=== PATIENT | male | born 1970 | race Caucasian/White ===

== ENCOUNTER 2017-04-22 23:51 | Inpatient (IN) | payer SELFPAY ==
[~2017-04-22] VITALS: Ht 190.5 cm; Wt 112.4 kg
[2017-04-23] VITALS (15 sets, daily range): BP systolic 111–128; BP diastolic 55–64; PULSE 88–102; RESP 16–20; TEMP 99.3–103; O2SAT 90–96
[2017-04-23] MEDS ORDERED: ZANT150T2 PO (00:09)
--- NOTE | 2017-04-23 00:13 | PD ---
HPI Chief Complaint: Fever Time Seen by Provider: 00:06 Travel History International Travel<30 days: No Contact w/Intl Traveler<30days: No Traveled to known affect area: No History of Present Illness HPI The patient is a 46-year-old male who presents to the emergency department via EMS from [facility] for fever and cough. 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 The patient notes a 3 to four-day history of productive cough , developed a fever 2 days ago that was as high as 104.7 as [facility] according to the paperwork. EMS does note the patient's temperature by to arrival was 102.5. The patient denies a history of tobacco use, denies any history of pneumonia. He does complain of mild nausea, pleuritic anterior chest pain worse with coughing, and a productive cough. He denies any shortness of breath. He does note decreased appetite with mild nausea but denies any vomiting, diarrhea, or abdominal pain. Symptoms are moderate, there are no current alleviating or exacerbating factors. PFSH Past Medical History Narrative Medical Anxiety, depression, loss of hearing Anxiety: Yes Migraines: Yes Past Surgical History Narrative Surgical Cleft palate surgery, bilateral ear surgery, right hand surgery Social History Alcohol Use: No Tobacco Use: No Substance Use: Yes Allergies-Medications (Allergen,Severity, Reaction): Coded Allergies: No Known Allergies (Unverified , 04/23/17) Reported Meds & Prescriptions Reported Meds & Active Scripts Active Reported Zantac (Ranitidine HCl) 150 Mg Tab 150 Mg PO DAILY Review of Systems Except as stated in HPI: all other systems reviewed are Neg General / Constitutional: Positive: Fever HENT: No: Lightheadedness Cardiovascular: No: Chest Pain or Discomfort Respiratory: Positive: Cough, Pleuritic Pain Gastrointestinal: Positive: Nausea, Loss of Appetite, No: Vomiting, Diarrhea, Abdominal Pain Musculoskeletal: Positive: Myalgias, Weakness Psychiatric: Positive: Anxiety, Depression, Substance Abuse Physical Exam Narrative GENERAL: Awake, alert, nontoxic-appearing 46-year-old male appears his stated age and is in no acute respiratory distress. SKIN: Focused skin assessment warm/dry. HEAD: Atraumatic. Normocephalic. EYES: No injection or drainage. ENT: No nasal bleeding or discharge. Mucous membranes pink and moist. NECK: Trachea midline. No JVD. CARDIOVASCULAR: Regular rate and rhythm. No murmur appreciated. RESPIRATORY: No accessory muscle use. Rhonchi noted in the bases bilaterally. GASTROINTESTINAL: Abdomen soft, non-tender, nondistended. No rebound tenderness. MUSCULOSKELETAL: No obvious deformities. No clubbing. No cyanosis. No edema. NEUROLOGICAL: Awake and alert. No obvious cranial nerve deficits. Motor grossly within normal limits. Normal speech. PSYCHIATRIC: Appropriate mood and affect; insight and judgment normal. Data Data Last Documented VS Vital Signs Date Time Temp Pulse Resp B/P (MAP) Pulse Ox O2 Delivery O2 Flow Rate FiO2 04/23/17 01:26 91 Nasal Cannula 6.00 04/23/17 01:18 100 20 111/63 (79) 04/23/17 00:08 102.0 Orders Orders Electrocardiogram (04/23/17 00:07) Complete Blood Count With Diff (04/23/17 00:07) Comprehensive Metabolic Panel (04/23/17 00:07) Lactic Acid Sepsis Protocol (04/23/17 00:07) Influenzae A/B Antigen (04/23/17 00:07) Urinalysis - C+S If Indicated (04/23/17 00:07) Blood Culture (04/23/17 00:07) Chest, Single Ap (04/23/17 00:07) Ecg Monitoring (04/23/17 00:07) Iv Access Insert/Monitor (04/23/17 00:07) Oximetry (04/23/17 00:07) Sodium Chloride 0.9% Flush (Ns Flush) (04/23/17 00:15) Ceftriaxone Inj (Rocephin Inj) (04/23/17 00:15) Azithromycin Inj (Zithromax Inj) (04/23/17 00:15) Acetaminophen (Tylenol) (04/23/17 00:15) Albuterol-Ipratropium Neb (Duoneb Neb) (04/23/17 00:15) Labs Laboratory Tests Test 04/23/17 00:15 White Blood Count 3.8 TH/MM3 Red Blood Count 3.92 MIL/MM3 Hemoglobin 12.8 GM/DL Hematocrit 37.3 % Mean Corpuscular Volume 95.1 FL Mean Corpuscular Hemoglobin 32.7 PG Mean Corpuscular Hemoglobin Concent 34.4 % Red Cell Distribution Width 13.3 % Platelet Count 44 TH/MM3 Mean Platelet Volume 10.8 FL Neutrophils (%) (Auto) 92.9 % Lymphocytes (%) (Auto) 4.1 % Monocytes (%) (Auto) 3.0 % Eosinophils (%) (Auto) 0.0 % Basophils (%) (Auto) 0.0 % Neutrophils # (Auto) 3.6 TH/MM3 Lymphocytes # (Auto) 0.2 TH/MM3 Monocytes # (Auto) 0.1 TH/MM3 Eosinophils # (Auto) 0.0 TH/MM3 Basophils # (Auto) 0.0 TH/MM3 CBC Comment AUTO DIFF Blood Urea Nitrogen 16 MG/DL Creatinine 1.16 MG/DL Random Glucose 126 MG/DL Total Protein 5.7 GM/DL Albumin 2.4 GM/DL Calcium Level 6.6 MG/DL Alkaline Phosphatase 40 U/L Aspartate Amino Transf (AST/SGOT) 62 U/L Alanine Aminotransferase (ALT/SGPT) 27 U/L Total Bilirubin 0.3 MG/DL Sodium Level 124 MEQ/L Potassium Level 3.2 MEQ/L Chloride Level 87 MEQ/L Carbon Dioxide Level 30.7 MEQ/L Anion Gap 6 MEQ/L Estimat Glomerular Filtration Rate 67 ML/MIN Lactic Acid Level 1.1 mmol/L Protein Corrected Calcium 7.3 MG/DL MDM Medical Decision Making Medical Screen Exam Complete: Yes Emergency Medical Condition: Yes Medical Record Reviewed: Yes Interpretation(s) EKG reveals normal sinus rhythm with a rate 87. Nonspecific T wave changes. Chest x-ray reveals patchy consolidative infiltrates in the left lung centrally and in the left lower lung Laboratory Tests Test 04/23/17 00:15 White Blood Count 3.8 TH/MM3 Red Blood Count 3.92 MIL/MM3 Hemoglobin 12.8 GM/DL Hematocrit 37.3 % Mean Corpuscular Volume 95.1 FL Mean Corpuscular Hemoglobin 32.7 PG Mean Corpuscular Hemoglobin Concent 34.4 % Red Cell Distribution Width 13.3 % Platelet Count 44 TH/MM3 Mean Platelet Volume 10.8 FL Neutrophils (%) (Auto) 92.9 % Lymphocytes (%) (Auto) 4.1 % Monocytes (%) (Auto) 3.0 % Eosinophils (%) (Auto) 0.0 % Basophils (%) (Auto) 0.0 % Neutrophils # (Auto) 3.6 TH/MM3 Lymphocytes # (Auto) 0.2 TH/MM3 Monocytes # (Auto) 0.1 TH/MM3 Eosinophils # (Auto) 0.0 TH/MM3 Basophils # (Auto) 0.0 TH/MM3 CBC Comment AUTO DIFF Blood Urea Nitrogen 16 MG/DL Creatinine 1.16 MG/DL Random Glucose 126 MG/DL Total Protein 5.7 GM/DL Albumin 2.4 GM/DL Calcium Level 6.6 MG/DL Alkaline Phosphatase 40 U/L Aspartate Amino Transf (AST/SGOT) 62 U/L Alanine Aminotransferase (ALT/SGPT) 27 U/L Total Bilirubin 0.3 MG/DL Sodium Level 124 MEQ/L Potassium Level 3.2 MEQ/L Chloride Level 87 MEQ/L Carbon Dioxide Level 30.7 MEQ/L Anion Gap 6 MEQ/L Estimat Glomerular Filtration Rate 67 ML/MIN Lactic Acid Level 1.1 mmol/L Protein Corrected Calcium 7.3 MG/DL Differential Diagnosis Differential diagnosis includes pneumonia, sepsis, aspiration pneumonia, influenza, viral syndrome, complicated UTI, dehydration. Narrative Course IV was established, labs were drawn and sent, and the patient was placed on cardiac telemetry monitoring and continuous pulse oximetry monitoring. EKG was ordered and interpreted. Chest x-ray was obtained. The patient was administered duo nebs 3, Rocephin, Zithromax, and IV fluids. X-ray reveals infiltrates in the left lung, sodium was 124, white count was mildly low at 3.8 , after breathing treatments the patient's O2 saturation was 91% on 3 L. Lactic acid is normal 1.1. The patient did receive antibiotics to cover for community-acquired pneumonia. The patient will be admitted, he is comfortable with this plan of care. The on-call medical service was paged for admission. Sepsis Criteria SIRS Criteria (2 or more): Temp > 100.9 or < 96.8, WBC > 36445, < 4000 or > 10 % bands Sepsis Criteria (SIRS+source): Infect source susp/known Criteria Outcome: Meets sepsis criteria Physician Communication Physician Communication The on-call medical service was paged for admission. I discussed the patient with Dr. Yung who agrees with admission. Diagnosis Primary Impression: Pneumonia Qualified Codes: J18.9 - Pneumonia, unspecified organism Additional Impressions: Hyponatremia Sepsis Qualified Codes: A41.9 - Sepsis, unspecified organism Admitting Information Admitting Physician Requests: Admit Condition: Stable Abraham Summers MD Apr 23, 2017 00:13
[2017-04-23] MEDS ORDERED: ACETAMINOPHEN 325 MG TAB PO ONE (00:15)
[2017-04-23] MEDS ORDERED: cefTRIAXone INJ 1,000 MG in SODIUM CHLORIDE 0.9% INJ 100 ML IV ONE (00:15)
[2017-04-23] MEDS ORDERED: AZITHROMYCIN INJ 500 MG in SODIUM CHLOR 0.9% 250 ML INJ 250 ML IV ONE (00:15)
[2017-04-23] MEDS ORDERED: SODIUM CHLORIDE 0.9% FLUSH 10 ML FLUSH IVF PRN (00:15)
[2017-04-23] MEDS: RESP: ALBUTEROL 2.5 MG/IPRATROPIUM 0.5 MG NEB (SCH) INH ×2 (00:24→00:31)
[2017-04-23 00:45] LABS: AUTOMATED NEUTROPHIL # 3.6 TH/MM3 (1.8-7.7); HEMATOCRIT 37.3 % (39.0-51.0); LYMPH % 4.1 % (9.0-44.0); LYMPHOCYTE # 0.2 TH/MM3 (1.0-4.8); MEAN CELL VOLUME 95.1 FL (80.0-100.0); MEAN CORPUSCULAR HEMOGLOBIN 32.7 PG (27.0-34.0); MEAN CORPUSCULAR HGB CONC 34.4 % (32.0-36.0); NEUT % 92.9 % (16.0-70.0); PLATELET COUNT 44 TH/MM3 (150-450); RED BLOOD COUNT 3.92 MIL/MM3 (4.50-5.90); RED CELL DISTRIBUTION WIDTH 13.3 % (11.6-17.2); WHITE BLOOD COUNT 3.8 TH/MM3 (4.0-11.0)
--- NOTE | 2017-04-23 01:01 | RADRPT ---
EXAM DATE/TIME: 04/23/2017 00:14 [place] COMPARISON: No previous studies available for comparison. INDICATIONS : Cough. MEDICAL HISTORY : Gastroesophageal reflux disease. SURGICAL HISTORY : None. ENCOUNTER: Initial ACUITY: 3 days PAIN SCORE: 0/10 LOCATION: Bilateral chest FINDINGS: Partially consolidative infiltrates in the left mid and lower lung with some air bronchograms. The l eft hemidiaphragm remains well delineated. The right lung is clear. The heart is normal in size. CONCLUSION: Patchy consolidative infiltrates in the left lung centrally and in the left lower lung. Wes Lewis MD on April 23, 2017 at 0:59 Board Certified Radiologist. This report was verified electronically.
[2017-04-23 01:05] LABS: HEMO FLAGS AUTO DIFF
[2017-04-23 01:13] LABS: BICARBONATE 30.7 MEQ/L (21.0-32.0); POTASSIUM 3.2 MEQ/L (3.5-5.1); TOTAL BILIRUBIN ADULT 0.3 MG/DL (0.2-1.0)
[2017-04-23 01:21] LABS: CALCIUM-PROTEIN CORRECTED 7.3 MG/DL (8.5-10.1)
[2017-04-23 01:39] LABS: BANDS 14 % (0-6); METAMYELOCYTES 1 % (0-1); NEUTROPHIL # MANUAL DIFF 3.7 TH/MM3 (1.8-7.7); POLYS (SEG NEUTROPHILS) 83 % (16-70); WBC DIFF SAMPLE 100
[2017-04-23 01:42] LABS: PLATELET ESTIMATE SMEAR LOW (NORMAL); SCAN/DIFF FINAL DIFF MANUAL
[2017-04-23 01:43] LABS: PLATELET MORPHOLOGY ENLARGED (NORMAL)
[2017-04-23] MEDS ORDERED: CALCIUM GLUCONATE 10% 1 GM/10 ML VIAL IV PUSH ONE (02:00)
[2017-04-23] MEDS ORDERED: LACTULOSE SYRUP 20 GM/30 ML CUP PO PRN (02:00)
[2017-04-23] MEDS ORDERED: BISACODYL 10 MG SUPP RECTAL PRN (02:00)
[2017-04-23] MEDS ORDERED: RESP: ALBUTEROL 2.5 MG/IPRATROPIUM 0.5 MG NEB (PRN) NEB (02:00)
[2017-04-23] MEDS ORDERED: MAGNESIUM HYDROXIDE SUSP 30 ML CUP PO PRN (02:00)
[2017-04-23] MEDS ORDERED: ONDANSETRON HCL 4 MG/2 ML VIAL IVP PRN (02:00)
[2017-04-23] MEDS ORDERED: Vancomycin Consult Pharmacy 1 EA OTHER SCH (02:00)
[2017-04-23] MEDS ORDERED: SODIUM CHLORIDE 0.9% FLUSH 10 ML FLUSH IV FLUSH PRN (02:00)
[2017-04-23] MEDS ORDERED: SENNOSIDES 8.6 MG TAB PO PRN (02:00)
[2017-04-23] MEDS ORDERED: CALCIUM GLUCONATE INJ 1 GM in SODIUM CHLORIDE 0.9% INJ 100 ML IV ONE (02:15)
[2017-04-23] MEDS ORDERED: POTASSIUM CHLORIDE 20 MEQ CONTROLLED RELEASE TAB PO ONE (02:15)
--- NOTE | 2017-04-23 02:18 | HHI.HP ---
[facility] Primary Care Physician No Primary Care Physician Admission Diagnosis pneumonia, sepsis, hyponatremia Diagnoses: (1) Sepsis Diagnosis: Principal (2) PNA (pneumonia) Diagnosis: Principal (3) Hyponatremia Diagnosis: Principal (4) Hypocalcemia Diagnosis: Principal (5) Thrombocytopenia Diagnosis: Principal (6) Substance abuse Diagnosis: Principal (7) Hypokalemia Diagnosis: Principal Travel History International Travel<30 Days: No Contact w/Intl Traveler <30 Da: No Traveled to Known Affected Are: No History of Present Illness This is a 46-year-old male with a PMH of Anxiety, Depression and Substance Abuse was sent to the ER by EMS from [facility] for cough and fever x2 days. Per records, pt w/ Temp 104.7. Pt denies SOB, chest pain, nausea, vomiting or diarrhea. On arrival, BP 127 or 61 to HR 88, O2 sat 96% on 2L NC, Temp 102.0. WBC 3.8. Hemoglobin 12.8. Platelets 44. Bands 14%. Na 124. K+ 3.2. Ca 6.6. Lactic Acid 1.1. CXR with patchy consolidative infiltrates left lung centrally and left lower lung. S/p Blood Cultures and Rocephin/Zithro. Review of Systems Except as stated in HPI: all other systems reviewed are Neg ROS: 14 point review of systems otherwise negative. Past Family Social History Past Medical History PMH: Anxiety, Depression and Substance Abuse Past Surgical History PAST SURGICAL HISTORY: Cleft Palate Surgery, Right Hand Surgery, Bilateral Ear Surgery Allergies: Coded Allergies: No Known Allergies (Unverified , 04/23/17) Family History PAST FAMILY HISTORY: Reviewed. No h/o DM or CAD Social History PAST SOCIAL HISTORY: Negative for alcohol or tobacco. Positive for Substance Abuse Physical Exam Vital Signs Vital Signs Date Time Temp Pulse Resp B/P (MAP) Pulse Ox O2 Delivery O2 Flow Rate FiO2 04/23/17 01:26 91 Nasal Cannula 6.00 04/23/17 01:18 100 20 111/63 (79) 93 Nasal Cannula 3.00 04/23/17 00:27 95 Nasal Cannula 4.00 04/23/17 00:13 87 16 96 Nasal Cannula 2.00 04/23/17 00:13 16 96 Nasal Cannula 2.00 04/23/17 00:08 102.0 88 16 127/61 (83) 96 Physical Exam PE: GENERAL: Middle-aged white male in no acute distress. HEENT: PERRLA, EOMI. No scleral icterus or conjunctival pallor. No lid lag or facial droop. CARDIOVASCULAR: Regular rate and rhythm. No obvious murmurs to auscultation. No chest tenderness to palpation. RESPIRATORY: Coarse breath sounds bilaterally, no wheezing. Breath sounds equal bilaterally. GASTROINTESTINAL: Abdomen soft, non-tender, nondistended. BS normal. MUSCULOSKELETAL: Extremities without clubbing, cyanosis, or edema. No obvious deformities. NEUROLOGICAL: Awake, alert and oriented x4. No focal neurologic deficits. Moving both upper and lower extremities spontaneously. Laboratory Laboratory Tests Test 04/23/17 00:15 White Blood Count 3.8 Red Blood Count 3.92 Hemoglobin 12.8 Hematocrit 37.3 Mean Corpuscular Volume 95.1 Mean Corpuscular Hemoglobin 32.7 Mean Corpuscular Hemoglobin Concent 34.4 Red Cell Distribution Width 13.3 Platelet Count 44 Mean Platelet Volume 10.8 Neutrophils (%) (Auto) 92.9 Lymphocytes (%) (Auto) 4.1 Monocytes (%) (Auto) 3.0 Eosinophils (%) (Auto) 0.0 Basophils (%) (Auto) 0.0 Neutrophils # (Auto) 3.6 Lymphocytes # (Auto) 0.2 Monocytes # (Auto) 0.1 Eosinophils # (Auto) 0.0 Basophils # (Auto) 0.0 CBC Comment AUTO DIFF Differential Total Cells Counted 100 Neutrophils % (Manual) 83 Band Neutrophils % 14 Lymphocytes % 1 Monocytes % 1 Neutrophils # (Manual) 3.7 Metamyelocytes 1 Differential Comment FINAL DIFF MANUAL Platelet Estimate LOW Platelet Morphology Comment ENLARGED Blood Urea Nitrogen 16 Creatinine 1.16 Random Glucose 126 Total Protein 5.7 Albumin 2.4 Calcium Level 6.6 Alkaline Phosphatase 40 Aspartate Amino Transf (AST/SGOT) 62 Alanine Aminotransferase (ALT/SGPT) 27 Total Bilirubin 0.3 Sodium Level 124 Potassium Level 3.2 Chloride Level 87 Carbon Dioxide Level 30.7 Anion Gap 6 Estimat Glomerular Filtration Rate 67 Lactic Acid Level 1.1 Protein Corrected Calcium 7.3 Date/Time Source Procedure Growth Status 04/23/17 00:15 Blood Peripheral Aerobic Blood Culture Pending Received 04/23/17 00:15 Blood Peripheral Anaerobic Blood Culture Pending Received 04/23/17 00:20 Nasal Washing Influenza Types A,B Antigen (ALEXANDRE) - Final NEGATIVE FOR FLU A AND B ANTIGEN.... Complete Result Diagram: 04/23/17 0015 04/23/17 0015 Caprini VTE Risk Assessment Caprini VTE Risk Assessment: No/Low Risk (score <= 1) Caprini Risk Assessment Model Point Value = 1 Point Value = 2 Point Value = 3 Point Value = 5 Age 41-60 Minor surgery BMI > 25 kg/m2 Swollen legs Varicose veins or History of unexplained or recurrent spontaneous Oral contraceptives or hormone replacement Sepsis (< 1 month) Serious lung disease, including pneumonia (< 1 month) Abnormal pulmonary function Acute myocardial infarction Congestive heart failure (< 1 month) History of inflammatory bowel disease Medical patient at bed rest Age 61-74 Arthroscopic surgery Major open surgery (> 45 min) Laparoscopic surgery (> 45 min) Malignancy Confined to bed (> 72 hours) Immobilizing plaster cast Central venous access Age >= 75 History of VTE Family history of VTE Factor V Leiden Prothrombin [id number] Lupus anticoagulant Anticardiolipin antibodies Elevated serum homocysteine Heparin-induced thrombocytopenia Other congenital or acquired thrombophilia Stroke (< 1 month) Elective arthroplasty Hip, pelvis, or leg fracture Acute spinal cord injury (< 1 month) Prophylaxis Regimen Total Risk Factor Score Risk Level Prophylaxis Regimen 0-1 Low Early ambulation 2 Moderate Order ONE of the following: *Sequential Compression Device (SCD) *Heparin 5000 units SQ BID 3-4 Higher Order ONE of the following medications: *Heparin 5000 units SQ TID *Enoxaparin/Lovenox 40 mg SQ daily (WT < 150 kg, CrCl > 30 mL/min) *Enoxaparin/Lovenox 30 mg SQ daily (WT < 150 kg, CrCl > 10-29 mL/min) *Enoxaparin/Lovenox 30 mg SQ BID (WT < 150 kg, CrCl > 30 mL/min) AND/OR *Sequential Compression Device (SCD) 5 or more Highest Order ONE of the following medications: *Heparin 5000 units SQ TID (Preferred with Epidurals) *Enoxaparin/Lovenox 40 mg SQ daily (WT < 150 kg, CrCl > 30 mL/min) *Enoxaparin/Lovenox 30 mg SQ daily (WT < 150 kg, CrCl > 10-29 mL/min) *Enoxaparin/Lovenox 30 mg SQ BID (WT < 150 kg, CrCl > 30 mL/min) AND *Sequential Compression Device (SCD) Assessment and Plan Problem List: (1) Sepsis ICD Code: A41.9 - Sepsis, unspecified organism Status: Acute (2) PNA (pneumonia) ICD Code: J18.9 - Pneumonia, unspecified organism (3) Hyponatremia ICD Code: E87.1 - Hypo-osmolality and hyponatremia Status: Acute (4) Hypocalcemia ICD Code: E83.51 - Hypocalcemia (5) Hypokalemia ICD Code: E87.6 - Hypokalemia (6) Thrombocytopenia ICD Code: D69.6 - Thrombocytopenia, unspecified (7) Substance abuse ICD Code: F19.10 - Other psychoactive substance abuse, uncomplicated Assessment and Plan A/P: 1. Sepsis: Temp 104.7, 102.0 in ER. HR 100, WBC 3.8 w/ Bandemia 14%. Source- PNA. S/p Blood Cultures, Rocephin/Zithro in ER. Follow up cultures, continue IV Abx. 2. PNA: CXR w/ left midlung and LLL infiltrates, images reviewed by me. IV Abx, DuoNeb prn. 3. Hyponatremia: Na 124, likely secondary to acute infection/dehydration, IVF for hydration, repeat labs in am. 4. Hypocalcemia: Ca 6.6, will replace and recheck labs in am. 5. Hypokalemia: Mild. K+ 3.2, replace and recheck in am. 6. Thrombocytopenia: Platelets 44, no previous labs for comparison, no active bleeding. No h/o Alcohol Abuse. Will monitor, repeat labs in am. 7. Substance Abuse: w/ Methamphetamines, sent to ER from [facility]. Ativan prn if needed. 8. DVT Prophylaxis: Pharmacologic contraindication secondary to thrombocytopenia 9. Social work for d/c planning as needed. 10. Case discussed w/ ER physician at length. Physician Certification 2 Midnight Certification Type: Admission for Inpatient Services Order for Inpatient Services The services are ordered in accordance with Medicare regulations or non- Medicare payer requirements, as applicable. In the case of services not specified as inpatient-only, they are appropriately provided as inpatient services in accordance with the 2-midnight benchmark. Estimated LOS (days): 2 days is the estimated time the patient will need to remain in the hospital, assuming treatment plan goals are met and no additional complications. Post-Hospital Plan: Not yet determined Problem Qualifiers (1) Sepsis: Qualified Codes: A41.9 - Sepsis, unspecified organism Mary Yung MD Apr 23, 2017 02:18
[2017-04-23] MEDS ORDERED: VANCOMYCIN INJ 2,000 MG in SODIUM CHLORID 0.9% 500 ML INJ 500 ML IV ONE (02:30)
[2017-04-23] MEDS: SODIUM CHLOR 0.9% 1000 ML INJ 1,000 ML IV SCH ×3 (03:30→21:18)
[2017-04-23] MEDS: ACETAMINOPHEN 325 MG TAB PO PRN (07:47)
[2017-04-23] MEDS: CEFEPIME INJ 1,000 MG in SODIUM CHLORIDE 0.9% INJ 100 ML IV SCH ×2 (08:31→22:58)
[2017-04-23] MEDS: DOCUSATE SODIUM 50 MG/SENNA 8.6 MG TAB PO SCH ×2 (08:31→21:13)
[2017-04-23] MEDS: SODIUM CHLORIDE 0.9% FLUSH 10 ML FLUSH IV FLUSH SCH ×2 (08:32→21:00)
[2017-04-23 09:25] LABS: AUTOMATED NEUTROPHIL # 2.7 TH/MM3 (1.8-7.7); BASOPHIL % 0.2 % (0.0-2.0); HEMATOCRIT 37.6 % (39.0-51.0); LYMPH % 8.8 % (9.0-44.0); LYMPHOCYTE # 0.3 TH/MM3 (1.0-4.8); MEAN CELL VOLUME 96.8 FL (80.0-100.0); MEAN CORPUSCULAR HEMOGLOBIN 32.8 PG (27.0-34.0); MEAN CORPUSCULAR HGB CONC 33.9 % (32.0-36.0); MONO % 2.4 % (0.0-8.0); NEUT % 88.6 % (16.0-70.0); PLATELET COUNT 39 TH/MM3 (150-450); RED BLOOD COUNT 3.89 MIL/MM3 (4.50-5.90); RED CELL DISTRIBUTION WIDTH 13.8 % (11.6-17.2)
[2017-04-23 09:29] LABS: HEMO FLAGS AUTO DIFF
[2017-04-23 09:48] LABS: BICARBONATE 27.3 MEQ/L (21.0-32.0); POTASSIUM 3.5 MEQ/L (3.5-5.1)
[2017-04-23 10:07] LABS: PLATELET ESTIMATE SMEAR LOW (NORMAL); PLATELET MORPHOLOGY ENLARGED (NORMAL); SCAN/DIFF AUTO DIFF CONFIRMED
[2017-04-23 10:28] LABS: CALCIUM-PROTEIN CORRECTED 7.5 MG/DL (8.5-10.1)
[2017-04-23] MEDS ORDERED: IBUPROFEN 400 MG TAB PO PRN (11:45)
--- NOTE | 2017-04-23 11:55 | HHI.PR ---
Subjective Remarks Follow up pneumonia, sepsis. Patient reports fever, cough. Does not feel any better. Objective Vitals Vital Signs Date Time Temp Pulse Resp B/P (MAP) Pulse Ox O2 Delivery O2 Flow Rate FiO2 04/23/17 09:31 101.5 04/23/17 08:00 102.9 97 18 128/58 (81) 91 04/23/17 04:00 102.9 94 20 124/58 (80) 93 04/23/17 04:00 91 04/23/17 03:00 Nasal Cannula 6.00 04/23/17 02:55 100.9 91 20 117/61 (79) 91 04/23/17 02:47 92 20 122/64 (83) 93 Nasal Cannula 6.00 04/23/17 01:26 91 Nasal Cannula 6.00 04/23/17 01:18 100 20 111/63 (79) 93 Nasal Cannula 3.00 04/23/17 00:27 95 Nasal Cannula 4.00 04/23/17 00:13 87 16 96 Nasal Cannula 2.00 04/23/17 00:13 16 96 Nasal Cannula 2.00 04/23/17 00:08 102.0 88 16 127/61 (83) 96 I/O 04/22/17 04/22/17 04/22/17 04/23/17 04/23/17 04/23/17 07:00 15:00 23:00 07:00 15:00 23:00 Intake Total 950 ml Output Total 1000 ml Balance -50 ml Intake Oral 240 ml IV Total 710 ml Output Urine Total 1000 ml Result Diagram: 04/23/1712 04/23/17911 Imaging Last Impressions Chest X-Ray 04/23/17 0007 Signed Impressions: Service Date/Time: Sunday, April 23, 2017 00:14 - CONCLUSION: Patchy consolidative infiltrates in the left lung centrally and in the left lower lung. Wes Lewis MD Objective Remarks General: No acute distress. Heart: Regular rate and rhythm. No murmur. Lungs: Coarse breath sounds bilaterally. Breathing is nonlabored. Abdomen: Soft, nontender, nondistended. Extremities: No lower extremity edema. Psych: Alert and oriented. Procedures None Urinary Catheter: No Vascular Central Line Catheter: No A/P Problem List: (1) Sepsis ICD Code: A41.9 - Sepsis, unspecified organism Status: Acute (2) PNA (pneumonia) ICD Code: J18.9 - Pneumonia, unspecified organism (3) Hyponatremia ICD Code: E87.1 - Hypo-osmolality and hyponatremia Status: Acute (4) Hypocalcemia ICD Code: E83.51 - Hypocalcemia (5) Hypokalemia ICD Code: E87.6 - Hypokalemia (6) Thrombocytopenia ICD Code: D69.6 - Thrombocytopenia, unspecified (7) Substance abuse ICD Code: F19.10 - Other psychoactive substance abuse, uncomplicated Assessment and Plan 1. Sepsis: Patient continues to have fever, not responding to Tylenol. Add ibuprofen as needed. Source is pneumonia. Blood cultures are pending. Continue IV antibiotics. 2. Pneumonia: Left lower lobe and left midlung infiltrates noted on chest x- ray. Continue antibiotics, supplemental oxygen. DuoNeb as needed. 3. Hyponatremia: Slightly improved. Continue IV fluids. Monitor labs. 4. Hypocalcemia: Improved following supplementation. Monitor labs. 5. Hypokalemia: Improved. 6. Thrombocytopenia: Platelets remain decreased. No active bleeding reported. Consult hematology. 7. Substance abuse: Patient was sent to the ER from [facility]. Has history of methamphetamine abuse. 8. DVT prophylaxis: MARIE Day. Chemical prophylaxis contraindicated secondary to thrombocytopenia. Problem Qualifiers (1) Sepsis: Qualified Codes: A41.9 - Sepsis, unspecified organism Ron Beverly MD Apr 23, 2017 11:55
--- NOTE | 2017-04-23 13:57 | EKG ---
Date Performed: 04/23/2017 Time Performed: 00:16:54 PTAGE: 46 years EKG: Sinus rhythm NONSPECIFIC T-WAVE ABNORMALITY BORDERLINE ECG PREVIOUS TRACING : 05/14/1999 11.00 Since previous tracing, T-waves slightly more flattened, ot herwise no significant change. DOCTOR: Dell Wallace Interpretating Date/Time 04/23/2017 13:57:22
[2017-04-23] MEDS: IBUPROFEN 400 MG TAB PO SCH ×2 (14:08→21:14)
--- NOTE | 2017-04-23 14:33 | MB ---
cc: LUZ BEVERLY,ALBERTO Gaytan M.D. DATE OF CONSULTATION: 04/23/2017. REASON FOR CONSULTATION / CHIEF COMPLAINT: Dr. Beverly requested consultation for Mr. Spicer regarding thrombocytopenia. REFERRING PHYSICIAN: Dr. Beverly. HISTORY OF PRESENT ILLNESS: Mr. Spicer is a 46-year-old man with anxiety, depression and substance abuse. He came from [facility]. He has had fevers for two days. He thinks he was exposed to someone who was ill. His temperature was 104.7 maximum. He was documented to be febrile in the hospital as well with a temperature of 102.0. His blood cultures were obtained. His flu antigen was negative for flu A and B. He complains of upper respiratory symptoms of a cough well. He feels delirious. There are patchy consolidative changes in the left lung centrally in the left lower lung. He complains of some sputum production. He has hearing loss. He denies any headaches. He complains of diarrhea. The rest of his review of systems is negative. Laboratory evaluation is significant for pancytopenia. White blood cell count of 3.8, hemoglobin of 12.8, platelet count of 44,000. Repeat continues to show the same pancytopenia. Platelet morphology is large. His sodium is decreased at 125. Renal function is normal. Calcium is decreased 6.6, corrected to 7.5. AST mildly elevated. No prior history of HIV or hepatitis B testing. No coagulation labs. He denies any bleeding. No bruising. No melena or bright red blood per rectum. He denies any liver problem abnormality. He states he hates needs although he has a great big extensive tattoo on his left forearm. PAST MEDICAL HISTORY: 1. Anxiety. 2. Depression. 3. Substance abuse. 4. Fevers. 5. Pancytopenia. PAST SURGICAL HISTORY: 1. Left palate surgery. 2. Right hand surgery. 3. Bilateral ear surgery. FAMILY HISTORY: No family history of diabetes or coronary artery disease. SOCIAL HISTORY: He has a history of polysubstance abuse and is therefore in [facility]. He denies however any IV drug use. He denies any alcohol or tobacco use. PHYSICAL EXAMINATION: VITAL SIGNS: Temperature 103.0, heart rate 102, respiratory rate 20, blood pressure 117/55, saturation 91%. GENERAL: Mr. Spicer is a well-developed well-nourished man who looks his stated age. HEAD, EYES, EARS, NOSE, THROAT: He is hard of hearing. Pupils round and reactive to light and accommodation. Oropharynx is clear. NECK: The neck is supple with no adenopathy. LUNGS: Coarse rhonchi over both lung caballero. No wheezing. CARDIOVASCULAR: Tachycardia. ABDOMEN: Benign. LOWER EXTREMITIES: Without clubbing, cyanosis or edema. NEUROLOGICAL: Nonfocal. LABS: Discussed above. ASSESSMENT AND PLAN: Mr. Spicer is a 46-year-old man with anxiety, depression, polysubstance abuse. He comes in with febrile illness and upper respiratory symptoms and infiltrates in his lungs. Influenza is negative. His blood cultures are negative so far. He continues to have high fevers. I will schedule his ibuprofen the next 24 hours. His blood cultures will be repeated. Will monitor closely for etiology source of the fevers. We discussed checking hepatitis and HIV. He has pancytopenia. Clinical exam did not show hepatomegaly or splenomegaly. I am unable to exclude ITP but suspect that the pancytopenia is due to the febrile illness. He denies any alcohol use. Therefore liver related suppression is unlikely, that is if his history is believable. Ultrasound of the liver and spleen will be obtained. His questions were answered to his satisfaction. I defer from bone marrow biopsy evaluation for the pancytopenia until resolution of his febrile illness. Alberto Sorensen MD RAD/JCC /1:27 PM /2:20 PM
[2017-04-23] MEDS: VANCOMYCIN INJ 2,000 MG in SODIUM CHLORID 0.9% 500 ML INJ 500 ML IV SCH (17:04)
--- NOTE | 2017-04-23 17:09 | PD.CONS ---
History of Present Illness Service Infectious disease Consult Requested By Dr Sabino Beverly Reason for Consult Evaluate patient with sepsis Primary Care Physician No Primary Care Physician Diagnoses: History of Present Illness Patient seen and examined. Records reviewed. Patient is a 46-year-old male, brought into the hospital complaining of 2 day history of cough with whitman color sputum, as well as fever. He apparently has been having symptoms for at least 5 days prior to coming into the hospital. He also started having diarrhea while at [facility]. His respiratory complaint started prior to coming into [facility]. Patient is not a very good historian. He denies any nausea or vomiting. He complains of some shortness of breath, and some chest pain on the sternal area when he coughs. Patient stated also that he's had some abdominal cramping associated with the diarrhea. He's had 3 loose bowel movements per day. He did not see any blood or any mucus. Denies any nausea or vomiting. He has noted some dribbling when he urinates, but denies any dysuria. Patient states that he has acid reflux, and has some abdominal pain when he lays on his side, so most of the time when he is in bed he is lying flat on his back. He does not know if he's had any exposure to anyone in [facility]. Patient has no permanent residence, and has been staying in different. Patient apparently started smoking meth. He denies using IV drugs. Patient was released from retirement in November 2016, and he was in retirement for about 4 years. Over had any positive TB skin testing. His had previous HIV testing that were negative. Patient states he is heterosexual , and denies any previous homosexual activity. Since admission patient has been febrile up to 102+. He is also pancytopenic. His chest x-ray showing patchy infiltrates. His LFTs were also elevated. Influenza testing is negative. Infectious disease consultation has been requested to evaluate for sepsis. Review of Systems Constitutional: COMPLAINS OF: Fever, Chills, Night Sweats Eyes: DENIES: Eye pain Ears, nose, mouth, throat: DENIES: Nasal discharge, Oral lesions, Throat pain, Running Nose, Sinus Pain Respiratory: COMPLAINS OF: Cough, Sputum production, Shortness of breath, DENIES: Hemoptysis Cardiovascular: COMPLAINS OF: Chest pain, DENIES: Palpitations, Syncope Gastrointestinal: COMPLAINS OF: Abdominal pain, Diarrhea, DENIES: Nausea, Vomiting, Difficulty Swallowing Genitourinary: COMPLAINS OF: Urgency, DENIES: Dysuria Musculoskeletal: DENIES: Joint pain, Muscle aches, Joint Swelling Integumentary: DENIES: Rash Neurologic: DENIES: Headache, Localized weakness Psychiatric: DENIES: Hallucinations Past Family Social History Allergies: Coded Allergies: No Known Allergies (Unverified , 04/23/17) Past Medical History Anxiety Depression Substance Abuse Past Surgical History Cleft Palate Surgery Right Hand Surgery Bilateral Ear Surgery Active Ordered Medications Tylenol Albuterol Dulcolax Cefepime Motrin Lactulose MOM Zofran Oxycodone Marsha-Colace Senokot Vancomycin Family History Unremarkable Social History Used to drink about 4-6 beers per day Smoker, recently trying to quit Has been smoking meth amphetamine, denies IV drug use Does not have a permanent residence 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, 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 Physical Exam Vital Signs Vital Signs Date Time Temp Pulse Resp B/P (MAP) Pulse Ox O2 Delivery O2 Flow Rate FiO2 04/23/17 12:00 103.0 102 20 117/55 (75) 91 04/23/17 09:31 101.5 04/23/17 08:00 102.9 97 18 128/58 (81) 91 04/23/17 04:00 102.9 94 20 124/58 (80) 93 04/23/17 04:00 91 04/23/17 03:00 Nasal Cannula 6.00 04/23/17 02:55 100.9 91 20 117/61 (79) 91 04/23/17 02:47 92 20 122/64 (83) 93 Nasal Cannula 6.00 04/23/17 01:26 91 Nasal Cannula 6.00 04/23/17 01:18 100 20 111/63 (79) 93 Nasal Cannula 3.00 04/23/17 00:27 95 Nasal Cannula 4.00 04/23/17 00:13 87 16 96 Nasal Cannula 2.00 04/23/17 00:13 16 96 Nasal Cannula 2.00 04/23/17 00:08 102.0 88 16 127/61 (83) 96 Physical Exam GENERAL: Patient is a well-nourished, well-developed CM, awake and alert, not in respiratory distress. SKIN: Warm and dry. No generalized rash, no ecchymoses and no evidence of embolic lesions. HEAD: Atraumatic. Normocephalic. No temporal wasting, or tenderness. EYES: [place]cliffe conjunctiva. No petechia or hemorrhage. Pupils equal, round and reactive to light. Extraocular movements full and intact. No scleral icterus. No injection or drainage. EARS, NOSE AND THROAT: Nose without bleeding or purulent nasal discharge. No sinus tenderness. Mucous membranes pink and moist. No oral lesions noted. No exudate. No oral thrush. NECK: Trachea midline. Supple and not tender, no meningeal signs CARDIOVASCULAR: Regular rate and rhythm. No murmurs, rubs or gallops heard RESPIRATORY: Coarse breath sounds bilaterally, with some scattered rales. Breath sounds equal bilaterally. ABDOMEN: Soft, non-tender, nondistended. Bowel sounds present and normoactive. No guarding. No rebound. No organomegaly. EXTREMITIES: No clubbing, cyanosis, or edema. No joint effusion, has good ROM. No calf tenderness. Well perfused and warm. NEUROLOGICAL: Awake and alert. Cranial nerves grossly intact. Motor grossly within normal limits. PSYCHIATRIC: Normal affect, calm and cooperative. LINE: No evidence of infection Laboratory Laboratory Tests Test 04/23/17 00:15 04/23/17 09:12 White Blood Count 3.8 3.0 Red Blood Count 3.92 3.89 Hemoglobin 12.8 12.7 Hematocrit 37.3 37.6 Mean Corpuscular Volume 95.1 96.8 Mean Corpuscular Hemoglobin 32.7 32.8 Mean Corpuscular Hemoglobin Concent 34.4 33.9 Red Cell Distribution Width 13.3 13.8 Platelet Count 44 39 Mean Platelet Volume 10.8 10.2 Neutrophils (%) (Auto) 92.9 88.6 Lymphocytes (%) (Auto) 4.1 8.8 Monocytes (%) (Auto) 3.0 2.4 Eosinophils (%) (Auto) 0.0 0.0 Basophils (%) (Auto) 0.0 0.2 Neutrophils # (Auto) 3.6 2.7 Lymphocytes # (Auto) 0.2 0.3 Monocytes # (Auto) 0.1 0.1 Eosinophils # (Auto) 0.0 0.0 Basophils # (Auto) 0.0 0.0 CBC Comment AUTO DIFF AUTO DIFF Differential Total Cells Counted 100 Neutrophils % (Manual) 83 Band Neutrophils % 14 Lymphocytes % 1 Monocytes % 1 Neutrophils # (Manual) 3.7 Metamyelocytes 1 Differential Comment FINAL DIFF MANUAL AUTO DIFF CONFIRMED Platelet Estimate LOW LOW Platelet Morphology Comment ENLARGED ENLARGED Blood Urea Nitrogen 16 10 Creatinine 1.16 0.90 Random Glucose 126 119 Total Protein 5.7 5.3 Albumin 2.4 Calcium Level 6.6 6.6 Alkaline Phosphatase 40 Aspartate Amino Transf (AST/SGOT) 62 Alanine Aminotransferase (ALT/SGPT) 27 Total Bilirubin 0.3 Sodium Level 124 125 Potassium Level 3.2 3.5 Chloride Level 87 91 Carbon Dioxide Level 30.7 27.3 Anion Gap 6 7 Estimat Glomerular Filtration Rate 67 90 Lactic Acid Level 1.1 1.0 Protein Corrected Calcium 7.3 7.5 Date/Time Source Procedure Growth Status 04/23/17 00:15 Blood Peripheral Aerobic Blood Culture Pending Received 04/23/17 00:15 Blood Peripheral Anaerobic Blood Culture Pending Received 04/23/17 00:20 Nasal Washing Influenza Types A,B Antigen (ALEXANDRE) - Final NEGATIVE FOR FLU A AND B ANTIGEN.... Complete Result Diagram: 04/23/1712 04/23/1712 Imaging RADIOLOGY STUDIES/FILMS REVIEWED Last Impressions Chest X-Ray 04/23/17 0007 Signed Impressions: Service Date/Time: Sunday, April 23, 2017 00:14 - CONCLUSION: Patchy consolidative infiltrates in the left lung centrally and in the left lower lung. Wes Lewis MD Assessment and Plan Assessment and Plan IMPRESSION Sepsis, on admission, due to PNA, L CAP, ?typical vs atypical Pancytopenia, ?due to infection, vs other etiology (+) Meth use (smoking), denies IVDU RECOMMENDATION Check urine for Legionella and pneumococcal antigen UA and culture Sputum Gram stain and culture Repeat blood cultures tomorrow Repeat chest x-ray Check LDH Agree with HIV testing Continue cefepime and vancomycin for broad-spectrum coverage for pneumonia Add Levaquin for atypical coverage Follow cultures and adjust antibiotics Monitor temps Follow CBC Monitor progress I will determine course of antibiotics depending on the results of the culture and workup I will follow along with you Thank you for this consultation Discussed Condition With Explained plan to the patient Asya Haro MD Apr 23, 2017 17:09
[2017-04-23] MEDS ORDERED: LEVOFLOXACIN 750 MG PREMIX INJ 150 ML IV SCH (18:00)
[2017-04-23 21:26] LABS: APTT (PATIENT) 57.4 SEC (24.3-30.1); INTERNATIONAL NORMALIZED RATIO 1.1 RATIO; PROTHROMBIN TIME - PATIENT 12.1 SEC (9.8-11.6)
[2017-04-23 22:01] LABS: FERRITIN 2707 NG/ML (26-388); LDH SERUM 568 U/L (87-241)
[2017-04-24] VITALS (9 sets, daily range): BP systolic 117–147; BP diastolic 60–71; PULSE 61–104; RESP 16–20; TEMP 97.6–102.9; O2SAT 92–99
[2017-04-24 00:31] LABS: BACTERIA, URINE OCC /hpf; BLOOD, URINE TRACE (NEG); COMMENT (UR) CULT NOT INDICATED; CULTURE IF INDICATED CULT NOT INDICATED; GLUCOSE,URINE NEG (NEG); HYALINE CAST, URINE 1 /lpf (RARE); KETONE, URINE NEG (NEG); NITRITE,URINE NEG (NEG); PH, URINE 5.5 (5.0-8.5); SQUAMOUS EPITHELIAL CELL URINE <1 /hpf (0-5); URINE COLOR LIGHT-YELLOW (YELLW/STRAW)
[2017-04-24] MEDS: VANCOMYCIN INJ 2,000 MG in SODIUM CHLORID 0.9% 500 ML INJ 500 ML IV SCH (03:17)
[2017-04-24] MEDS: IBUPROFEN 400 MG TAB PO SCH ×2 (03:17→09:11)
[2017-04-24] MEDS: SODIUM CHLOR 0.9% 1000 ML INJ 1,000 ML IV SCH ×2 (07:49→17:49)
[2017-04-24] MEDS: CEFEPIME INJ 1,000 MG in SODIUM CHLORIDE 0.9% INJ 100 ML IV SCH ×2 (09:00→20:53)
[2017-04-24] MEDS: DOCUSATE SODIUM 50 MG/SENNA 8.6 MG TAB PO SCH ×2 (09:00→20:54)
[2017-04-24] MEDS: SODIUM CHLORIDE 0.9% FLUSH 10 ML FLUSH IV FLUSH SCH ×2 (09:21→20:53)
[2017-04-24] MEDS: ACETAMINOPHEN 325 MG TAB PO PRN ×2 (09:27→23:56)
[2017-04-24 09:39] LABS: BASOPHIL % 0.1 % (0.0-2.0); HEMATOCRIT 41.3 % (39.0-51.0); LYMPH % 5.8 % (9.0-44.0); LYMPHOCYTE # 0.3 TH/MM3 (1.0-4.8); MEAN CELL VOLUME 97.3 FL (80.0-100.0); MEAN CORPUSCULAR HEMOGLOBIN 32.8 PG (27.0-34.0); MEAN CORPUSCULAR HGB CONC 33.7 % (32.0-36.0); MONO % 1.9 % (0.0-8.0); NEUT % 92.2 % (16.0-70.0); PLATELET COUNT 49 TH/MM3 (150-450); RED BLOOD COUNT 4.24 MIL/MM3 (4.50-5.90); RED CELL DISTRIBUTION WIDTH 13.9 % (11.6-17.2); WHITE BLOOD COUNT 4.4 TH/MM3 (4.0-11.0)
[2017-04-24 09:41] LABS: RETIC % 0.5 % (0.4-3.0)
[2017-04-24 09:47] LABS: HEMO FLAGS AUTO DIFF
[2017-04-24 09:49] LABS: REVIEW FLAG FINAL
--- NOTE | 2017-04-24 10:08 | RADRPT ---
EXAM DATE/TIME: 04/24/2017 08:20 [place] COMPARISON: No previous studies available for comparison. INDICATIONS : Pancytopenia. MEDICAL HISTORY : Gastroesophageal reflux disease. Substance abuse. Migraine. Anxiety. SURGICAL HISTORY : Hand surgery. ENCOUNTER: Initial ACUITY: 1 day PAIN SCORE: 0/10 LOCATION: Bilateral upper quadrant MEASUREMENTS: LIVER: 16.2 cm length COMMON DUCT: Non-visualized RIGHT KIDNEY: 12.6 x 5.6 x 5.1 cm SPLEEN: 14.7 cm length FINDINGS: LIVER: Minimally hepatic echotexture without significant volume loss or intrahepatic ductal dilatation. No g ross focal hepatic mass. Patent hepatopetal main portal vein. COMMON DUCT: Common bile duct is not visualized. GALLBLADDER: Contains no stones, demonstrates no wall thickening or pericholecystic fluid. PANCREAS: Minimally increased pancreatic echogenicity in the visualized portions of the pancreas. RIGHT KIDNEY: Small anechoic 2.0 x 2.1 x 2.0 cm cyst in the mid right kidney. Right kidney is otherwise unremarkabl e by ultrasound. SPLEEN: Enlarged but otherwise unremarkable. CONCLUSION: 1. Mild hepatosplenomegaly with heterogeneous hepatic echotexture. Findings may reflect hepatosteatos is/hepatitis or early cirrhosis with portal hypertension versus infiltrative leukemia/lymphoma (altho ugh uncommon) given history of pancytopenia. 2. Slightly hyperechoic pancreas. This finding is nonspecific but may reflect sequela of prior pancre atitis or fatty replacement. Enrique Du MD on April 24, 2017 at 9:59 Board Certified Radiologist. This report was verified electronically.
[2017-04-24 10:14] LABS: BICARBONATE 29.9 MEQ/L (21.0-32.0); CALCIUM-PROTEIN CORRECTED 7.7 MG/DL (8.5-10.1); POTASSIUM 3.6 MEQ/L (3.5-5.1); TOTAL BILIRUBIN ADULT 0.4 MG/DL (0.2-1.0)
--- NOTE | 2017-04-24 10:35 | PD.ONC.PN ---
Subjective Subjective Remarks Tmax 100.6 this AM. Patient resting in bed. States he still doesn't feel good. "I just don't feel good." No specific or localizing complaints. Objective Data Date Time Temp Pulse Resp B/P (MAP) Pulse Ox O2 Delivery O2 Flow Rate FiO2 04/24/17 08:31 96 Nasal Cannula 4.00 04/24/17 07:47 Nasal Cannula 6.00 04/24/17 04:00 100.6 95 18 133/65 (87) 93 04/23/17 22:02 92 Nasal Cannula 6.00 04/23/17 19:59 91 04/23/17 19:52 Nasal Cannula 5.00 04/23/17 19:50 99.8 92 18 119/63 (81) 93 04/23/17 18:27 19 04/23/17 16:00 99.3 97 20 114/60 (78) 90 04/23/17 12:00 103.0 102 20 117/55 (75) 91 04/24/17 04/24/17 04/24/17 07:00 15:00 23:00 Intake Total 2140 ml Output Total 3675 ml Balance -1535 ml Result Diagram: 04/24/17 0735 04/24/17 0735 Laboratory Results Laboratory Tests Test 04/23/17 20:26 04/24/17 00:00 04/24/17 07:35 Prothrombin Time 12.1 SEC Prothromb Time International Ratio 1.1 RATIO Activated Partial Thromboplast Time 57.4 SEC Fibrinogen 382 mg/dL Ferritin 2707 NG/ML Lactate Dehydrogenase 568 U/L Vitamin B12 Level 1992 PG/ML Urine Color LIGHT-YELLOW Urine Turbidity CLEAR Urine pH 5.5 Urine Specific [place] 1.004 Urine Protein NEG mg/dL Urine Glucose (UA) NEG mg/dL Urine Ketones NEG mg/dL Urine Occult Blood TRACE Urine Nitrite NEG Urine Bilirubin NEG Urine Urobilinogen LESS THAN 2.0 MG/DL Urine Leukocyte Esterase NEG Urine RBC LESS THAN 1 /hpf Urine WBC 2 /hpf Urine Squamous Epithelial Cells <1 /hpf Urine Bacteria OCC /hpf Urine Hyaline Casts 1 /lpf Microscopic Urinalysis Comment CULT NOT INDICATED White Blood Count 4.4 TH/MM3 Red Blood Count 4.24 MIL/MM3 Hemoglobin 13.9 GM/DL Hematocrit 41.3 % Mean Corpuscular Volume 97.3 FL Mean Corpuscular Hemoglobin 32.8 PG Mean Corpuscular Hemoglobin Concent 33.7 % Red Cell Distribution Width 13.9 % Platelet Count 49 TH/MM3 Mean Platelet Volume 10.6 FL Neutrophils (%) (Auto) 92.2 % Lymphocytes (%) (Auto) 5.8 % Monocytes (%) (Auto) 1.9 % Eosinophils (%) (Auto) 0.0 % Basophils (%) (Auto) 0.1 % Neutrophils # (Auto) 4.0 TH/MM3 Lymphocytes # (Auto) 0.3 TH/MM3 Monocytes # (Auto) 0.1 TH/MM3 Eosinophils # (Auto) 0.0 TH/MM3 Basophils # (Auto) 0.0 TH/MM3 CBC Comment AUTO DIFF Blood Smear Pathologist Review Reticulocyte Count 0.5 % Absolute Reticulocyte Count 20.7 MIL/L Blood Urea Nitrogen 7 MG/DL Creatinine 0.67 MG/DL Random Glucose 78 MG/DL Total Protein 5.9 GM/DL Albumin 2.3 GM/DL Calcium Level 7.1 MG/DL Alkaline Phosphatase 50 U/L Aspartate Amino Transf (AST/SGOT) 118 U/L Alanine Aminotransferase (ALT/SGPT) 37 U/L Total Bilirubin 0.4 MG/DL Sodium Level 133 MEQ/L Potassium Level 3.6 MEQ/L Chloride Level 94 MEQ/L Carbon Dioxide Level 29.9 MEQ/L Anion Gap 9 MEQ/L Estimat Glomerular Filtration Rate 127 ML/MIN Protein Corrected Calcium 7.7 MG/DL Culture Results Microbiology Date/Time Source Procedure Growth Status 04/24/17 07:35 Blood Peripheral Aerobic Blood Culture Pending Received 04/24/17 07:35 Blood Peripheral Anaerobic Blood Culture Pending Received 04/23/17 20:26 Blood Peripheral Aerobic Blood Culture Pending Received 04/23/17 20:26 Blood Peripheral Anaerobic Blood Culture Pending Received 04/23/17 20:19 Blood Peripheral Aerobic Blood Culture Pending Received 04/23/17 20:19 Blood Peripheral Anaerobic Blood Culture Pending Received 04/23/17 00:15 Blood Peripheral Aerobic Blood Culture Pending Received 04/23/17 00:15 Blood Peripheral Anaerobic Blood Culture Pending Received 04/23/17 00:05 Blood Peripheral Aerobic Blood Culture Pending Received 04/23/17 00:05 Blood Peripheral Anaerobic Blood Culture Pending Received 04/23/17 00:20 Nasal Washing Influenza Types A,B Antigen (ALEXANDRE) - Final NEGATIVE FOR FLU A AND B ANTIGEN.... Complete 04/24/17 00:00 Urine Clean Catch Legionella Antigen - Final PRESUMPTIVE NEGATIVE FOR LEGIONELLA P... Complete 04/24/17 00:00 Urine Clean Catch Streptococcus pneumoniae Antigen (M - Final PRESUMPTIVE NEGATIVE FOR STREPTOCOCCU... Complete Imaging Studies Last 24 hours Impressions Liver Ultrasound 04/24/17 0000 Signed Impressions: Service Date/Time: Monday, April 24, 2017 08:20 - CONCLUSION: 1. Mild hepatosplenomegaly with heterogeneous hepatic echotexture. Findings may reflect hepatosteatosis/hepatitis or early cirrhosis with portal hypertension versus infiltrative leukemia/lymphoma (although uncommon) given history of pancytopenia. 2. Slightly hyperechoic pancreas. This finding is nonspecific but may reflect sequela of prior pancreatitis or fatty replacement. Enrique Du MD Administered Medications Medications (Trade) Dose Ordered Sig/Angel Route PRN Reason Start Time Stop Time Status Last Admin Dose Admin Cefepime HCl 1000 mg/Sodium Chloride 100 ml @ 200 mls/hr Q12H IV 04/23/17 09:00 04/24/17 09:00 Sodium Chloride 1,000 ml @ 100 mls/hr Q10H IV 04/23/17 01:49 04/23/17 14:02 Sodium Chloride (NS Flush) 2 ml BID IV FLUSH 04/23/17 09:00 04/24/17 09:21 Acetaminophen (Tylenol) 650 mg Q6H PRN PO FEVER/PAIN SCALE 1 TO 2 04/23/17 02:00 04/24/17 09:27 Oxycodone HCl (Roxicodone) 10 mg Q4H PRN PO PAIN SCALE 6 TO 10 04/23/17 02:00 04/23/17 21:13 Oxycodone HCl (Roxicodone) 5 mg Q4H PRN PO PAIN SCALE 3 TO 5 04/23/17 02:00 04/23/17 17:15 Senna/Docusate Sodium (Marsha-Colace) 1 tab BID PO 04/23/17 09:00 04/23/17 21:13 Vancomycin HCl 2000 mg/Sodium Chloride 520 ml @ 257.5 mls/ hr Q12H IV 04/23/17 15:00 04/24/17 03:17 Ibuprofen (Motrin) 200 mg Q6H PO 04/23/17 14:00 04/24/17 13:59 04/24/17 09:11 Levofloxacin/ Dextrose 150 ml @ 100 mls/hr Q24H IV 04/23/17 18:00 04/23/17 18:27 Objective Remarks GENERAL: Middle aged male upright in bed in nad. SKIN: Warm and dry. HEAD: Normocephalic. EYES: No injection or drainage. NECK: Supple, trachea midline. CARDIOVASCULAR: Regular rate and rhythm RESPIRATORY: anterior caballero with occasional rhonchi. On 5L O2 via NC GASTROINTESTINAL: Abdomen soft, mildly distended. EXTREMITIES: No cyanosis NEUROLOGICAL: awake and alert, normal speech. moving all extremities Assessment/Plan Problem List: (1) Pancytopenia ICD Codes: D61.818 - Other pancytopenia Plan: --may be due to febrile illness --no neutropenia --liver ultrasound shows mild hepatosplenomegaly (2) Febrile illness ICD Codes: R50.9 - Fever, unspecified Plan: --admitted with febrile illness and upper respiratory symptoms and infiltrates in his lungs. --influenza is negative. --blood cultures are negative so far. --ibuprofen scheduled --hepatitis and HIV pending --on multiple antibiotics --infectious disease following. Assessment 46-year-old man with anxiety, depression and substance abuse. hematology consulted for pancytopenia. Plan 1. continue antibiotics 2. await completion of workup as above. Attending Statement The exam, history, and the medical decision-making described in the above note were completed with the assistance of the mid-level provider. I reviewed and agree with the findings presented. I attest that I had a [id number] encounter with the patient on the same day, and personally performed and documented my assessment and findings in the medical record. Febrile illness, platelets improve, hgb normal. Noted CT showing HSM which contribute to thrombocytopenia. No treatment needed. No sign of DIC with fibrinogen elevated. Cont abx per ID. Follow with you. Sherri Merino Apr 24, 2017 10:35 Sparkle Sorensen MD Apr 24, 2017 19:41
[2017-04-24 11:52] LABS: BANDS 23 % (0-6); DOHLE BODIES PRESENT (NONE SEEN); METAMYELOCYTES 8 % (0-1); NEUTROPHIL # MANUAL DIFF 4.2 TH/MM3 (1.8-7.7); POLYS (SEG NEUTROPHILS) 65 % (16-70); WBC DIFF SAMPLE 100
[2017-04-24 11:53] LABS: PLATELET ESTIMATE SMEAR LOW (NORMAL)
[2017-04-24 11:56] LABS: PLATELET MORPHOLOGY ENLARGED (NORMAL)
[2017-04-24 11:57] LABS: SCAN/DIFF FINAL DIFF MANUAL
--- NOTE | 2017-04-24 12:50 | HHI.IDPN ---
Subjective Subjective Remarks Patient is a 46-year-old male, brought into the hospital complaining of 2 day history of cough with whitman color sputum, as well as fever. He apparently has been having symptoms for at least 5 days prior to coming into the hospital. He also started having diarrhea while at [facility]. His respiratory complaint started prior to coming into [facility]. Patient is not a very good historian. He denies any nausea or vomiting. He complains of some shortness of breath, and some chest pain on the sternal area when he coughs. Patient stated also that he's had some abdominal cramping associated with the diarrhea. He's had 3 loose bowel movements per day. He did not see any blood or any mucus. Denies any nausea or vomiting. He has noted some dribbling when he urinates, but denies any dysuria. Patient states that he has acid reflux, and has some abdominal pain when he lays on his side, so most of the time when he is in bed he is lying flat on his back. He does not know if he's had any exposure to anyone in [facility]. Patient has no permanent residence, and has been staying in different. Patient apparently started smoking meth. He denies using IV drugs. Patient was released from [facility] in November 2016, and he was in [facility] for about 4 years. Over had any positive TB skin testing. His had previous HIV testing that were negative. Patient states he is heterosexual , and denies any previous homosexual activity. Since admission patient has been febrile up to 102+. He is also pancytopenic. His chest x-ray showing patchy infiltrates. His LFTs were also elevated. Influenza testing is negative. Infectious disease consultation has been requested to evaluate for sepsis. Notes reviewed Still with fevers Does not feel good HIV negative WBC 4.4 Platelets 49 Legionella and pneumo Ag negative BC negative Antibiotics Cefepime Vanco levaquin Lines PIV Past Medical History Anxiety Depression Substance Abuse Past Surgical History Cleft Palate Surgery Right Hand Surgery Bilateral Ear Surgery Allergies: Coded Allergies: No Known Allergies (Unverified , 04/23/17) Objective . Vital Signs Date Time Temp Pulse Resp B/P (MAP) Pulse Ox O2 Delivery O2 Flow Rate FiO2 04/24/17 08:31 96 Nasal Cannula 4.00 04/24/17 08:00 102.9 99 20 147/71 (96) 93 04/24/17 07:49 101 04/24/17 07:47 Nasal Cannula 6.00 04/24/17 04:00 100.6 95 18 133/65 (87) 93 04/23/17 22:02 92 Nasal Cannula 6.00 04/23/17 19:59 91 04/23/17 19:52 Nasal Cannula 5.00 04/23/17 19:50 99.8 92 18 119/63 (81) 93 04/23/17 18:27 19 04/23/17 16:00 99.3 97 20 114/60 (78) 90 04/24/17 04/24/17 04/25/17 15:00 23:00 07:00 Intake Total 100 ml Balance 100 ml IV Total 100 ml . Laboratory Tests Test 04/23/17 00:15 04/23/17 09:12 04/24/17 07:35 White Blood Count 3.8 TH/MM3 3.0 TH/MM3 4.4 TH/MM3 Red Blood Count 3.92 MIL/MM3 3.89 MIL/MM3 4.24 MIL/MM3 Hemoglobin 12.8 GM/DL 12.7 GM/DL 13.9 GM/DL Hematocrit 37.3 % 37.6 % 41.3 % Mean Corpuscular Volume 95.1 FL 96.8 FL 97.3 FL Mean Corpuscular Hemoglobin 32.7 PG 32.8 PG 32.8 PG Mean Corpuscular Hemoglobin Concent 34.4 % 33.9 % 33.7 % Red Cell Distribution Width 13.3 % 13.8 % 13.9 % Platelet Count 44 TH/MM3 39 TH/MM3 49 TH/MM3 Mean Platelet Volume 10.8 FL 10.2 FL 10.6 FL Neutrophils (%) (Auto) 92.9 % 88.6 % 92.2 % Lymphocytes (%) (Auto) 4.1 % 8.8 % 5.8 % Monocytes (%) (Auto) 3.0 % 2.4 % 1.9 % Eosinophils (%) (Auto) 0.0 % 0.0 % 0.0 % Basophils (%) (Auto) 0.0 % 0.2 % 0.1 % Neutrophils # (Auto) 3.6 TH/MM3 2.7 TH/MM3 4.0 TH/MM3 Lymphocytes # (Auto) 0.2 TH/MM3 0.3 TH/MM3 0.3 TH/MM3 Monocytes # (Auto) 0.1 TH/MM3 0.1 TH/MM3 0.1 TH/MM3 Eosinophils # (Auto) 0.0 TH/MM3 0.0 TH/MM3 0.0 TH/MM3 Basophils # (Auto) 0.0 TH/MM3 0.0 TH/MM3 0.0 TH/MM3 CBC Comment AUTO DIFF AUTO DIFF AUTO DIFF Differential Total Cells Counted 100 100 Neutrophils % (Manual) 83 % 65 % Band Neutrophils % 14 % 23 % Lymphocytes % 1 % 3 % Monocytes % 1 % 1 % Neutrophils # (Manual) 3.7 TH/MM3 4.2 TH/MM3 Metamyelocytes 1 % 8 % Differential Comment FINAL DIFF MANUAL AUTO DIFF CONFIRMED FINAL DIFF MANUAL Platelet Estimate LOW LOW LOW Platelet Morphology Comment ENLARGED ENLARGED ENLARGED Toxic Vacuolation Dohle Bodies PRESENT Blood Smear Pathologist Review Reticulocyte Count 0.5 % Absolute Reticulocyte Count 20.7 MIL/L Laboratory Tests Test 04/23/17 00:15 04/23/17 09:12 04/23/17 20:26 04/24/17 07:35 Blood Urea Nitrogen 16 MG/DL 10 MG/DL 7 MG/DL Creatinine 1.16 MG/DL 0.90 MG/DL 0.67 MG/DL Random Glucose 126 MG/DL 119 MG/DL 78 MG/DL Total Protein 5.7 GM/DL 5.3 GM/DL 5.9 GM/DL Albumin 2.4 GM/DL 2.3 GM/DL Calcium Level 6.6 MG/DL 6.6 MG/DL 7.1 MG/DL Alkaline Phosphatase 40 U/L 50 U/L Aspartate Amino Transf (AST/SGOT) 62 U/L 118 U/L Alanine Aminotransferase (ALT/SGPT) 27 U/L 37 U/L Total Bilirubin 0.3 MG/DL 0.4 MG/DL Sodium Level 124 MEQ/L 125 MEQ/L 133 MEQ/L Potassium Level 3.2 MEQ/L 3.5 MEQ/L 3.6 MEQ/L Chloride Level 87 MEQ/L 91 MEQ/L 94 MEQ/L Carbon Dioxide Level 30.7 MEQ/L 27.3 MEQ/L 29.9 MEQ/L Anion Gap 6 MEQ/L 7 MEQ/L 9 MEQ/L Estimat Glomerular Filtration Rate 67 ML/MIN 90 ML/MIN 127 ML/MIN Lactic Acid Level 1.1 mmol/L 1.0 mmol/L Protein Corrected Calcium 7.3 MG/DL 7.5 MG/DL 7.7 MG/DL Ferritin 2707 NG/ML Lactate Dehydrogenase 568 U/L Vitamin B12 Level 1992 PG/ML Microbiology Date/Time Source Procedure Growth Status 04/24/17 07:35 Blood Peripheral Aerobic Blood Culture Pending Received 04/24/17 07:35 Blood Peripheral Anaerobic Blood Culture Pending Received 04/23/17 20:26 Blood Peripheral Aerobic Blood Culture - Preliminary NO GROWTH IN 1 DAY Resulted 04/23/17 20:26 Blood Peripheral Anaerobic Blood Culture - Preliminary NO GROWTH IN 1 DAY Resulted 04/23/17 20:19 Blood Peripheral Aerobic Blood Culture - Preliminary NO GROWTH IN 1 DAY Resulted 04/23/17 20:19 Blood Peripheral Anaerobic Blood Culture - Preliminary NO GROWTH IN 1 DAY Resulted 04/23/17 00:15 Blood Peripheral Aerobic Blood Culture - Preliminary NO GROWTH IN 1 DAY Resulted 04/23/17 00:15 Blood Peripheral Anaerobic Blood Culture - Preliminary NO GROWTH IN 1 DAY Resulted 04/23/17 00:05 Blood Peripheral Aerobic Blood Culture - Preliminary NO GROWTH IN 1 DAY Resulted 04/23/17 00:05 Blood Peripheral Anaerobic Blood Culture - Preliminary NO GROWTH IN 1 DAY Resulted 04/23/17 00:20 Nasal Washing Influenza Types A,B Antigen (ALEXANDRE) - Final NEGATIVE FOR FLU A AND B ANTIGEN.... Complete 04/24/17 00:00 Urine Clean Catch Legionella Antigen - Final PRESUMPTIVE NEGATIVE FOR LEGIONELLA P... Complete 04/24/17 00:00 Urine Clean Catch Streptococcus pneumoniae Antigen (M - Final PRESUMPTIVE NEGATIVE FOR STREPTOCOCCU... Complete Imaging Last Impressions Liver Ultrasound 04/24/17 0000 Signed Impressions: Service Date/Time: Monday, April 24, 2017 08:20 - CONCLUSION: 1. Mild hepatosplenomegaly with heterogeneous hepatic echotexture. Findings may reflect hepatosteatosis/hepatitis or early cirrhosis with portal hypertension versus infiltrative leukemia/lymphoma (although uncommon) given history of pancytopenia. 2. Slightly hyperechoic pancreas. This finding is nonspecific but may reflect sequela of prior pancreatitis or fatty replacement. Enrique Du MD Chest X-Ray 04/23/17 0007 Signed Impressions: Service Date/Time: Sunday, April 23, 2017 00:14 - CONCLUSION: Patchy consolidative infiltrates in the left lung centrally and in the left lower lung. Wes Lewis MD Physical Exam GENERAL: awake and alert, not in respiratory distress. SKIN: Warm and dry. No generalized rash, no ecchymoses and no evidence of embolic lesions. HEAD: Atraumatic. Normocephalic. No temporal wasting, or tenderness. EYES: [place] conjunctiva. No petechia or hemorrhage. No scleral icterus. No injection or drainage. EARS, NOSE AND THROAT: Nose without bleeding or purulent nasal discharge. No sinus tenderness. Mucous membranes pink and moist. No oral lesions noted. No exudate. No oral thrush. NECK: Trachea midline. Supple and not tender, no meningeal signs CARDIOVASCULAR: Regular rate and rhythm. No murmurs, rubs or gallops heard RESPIRATORY: Coarse breath sounds bilaterally, with some scattered rales. Breath sounds equal bilaterally. ABDOMEN: Soft, non-tender, nondistended. Bowel sounds present and normoactive. No guarding. No rebound. No organomegaly. EXTREMITIES: No clubbing, cyanosis, or edema. No joint effusion, has good ROM. No calf tenderness. Well perfused and warm. NEUROLOGICAL: Awake and alert. Cranial nerves grossly intact. Motor grossly within normal limits. PSYCHIATRIC: Normal affect, calm and cooperative. LINE: No evidence of infection Assessment & Plan Remarks IMPRESSION Sepsis, on admission, due to PNA, L CAP, ?typical vs atypical Pancytopenia, ?due to infection, vs other etiology (+) Meth use (smoking), denies IVDU RECOMMENDATION Sputum Gram stain and culture Follow C/S Continue Levaquin for atypical coverage Monitor temps Follow CBC Monitor progress Repeat CXR tomorrow Asya Haro MD Apr 24, 2017 12:49
[2017-04-24] MEDS ORDERED: LEVOFLOXACIN 750 MG TAB PO SCH (14:00)
--- NOTE | 2017-04-24 14:37 | HHI.PR ---
Subjective Remarks Follow up sepsis. Patient has been quite agitated per nursing. He states that he has a history of anxiety/depression. He states that he takes gabapentin, seroquel, and buspar. Denies chest pain, dyspnea, nausea, vomiting. Objective Vitals Vital Signs Date Time Temp Pulse Resp B/P (MAP) Pulse Ox O2 Delivery O2 Flow Rate FiO2 04/24/17 12:00 98.1 88 18 122/60 (80) 92 04/24/17 08:31 96 Nasal Cannula 4.00 04/24/17 08:00 102.9 99 20 147/71 (96) 93 04/24/17 07:49 101 04/24/17 07:47 Nasal Cannula 6.00 04/24/17 04:00 100.6 95 18 133/65 (87) 93 04/23/17 22:02 92 Nasal Cannula 6.00 04/23/17 19:59 91 04/23/17 19:52 Nasal Cannula 5.00 04/23/17 19:50 99.8 92 18 119/63 (81) 93 04/23/17 18:27 19 04/23/17 16:00 99.3 97 20 114/60 (78) 90 I/O 04/23/17 04/23/17 04/23/17 04/24/17 04/24/17 04/24/17 07:00 15:00 23:00 07:00 15:00 23:00 Intake Total 950 ml 1390 ml 2140 ml 100 ml Output Total 1000 ml 1350 ml 3675 ml Balance -50 ml 40 ml -1535 ml 100 ml Intake Oral 240 ml 720 ml 720 ml IV Total 710 ml 670 ml 1420 ml 100 ml Output Urine Total 1000 ml 1350 ml 3675 ml # Bowel Movements 1 0 Result Diagram: 04/24/17 0735 04/24/17 0735 Imaging Last Impressions Liver Ultrasound 04/24/17 0000 Signed Impressions: Service Date/Time: Monday, April 24, 2017 08:20 - CONCLUSION: 1. Mild hepatosplenomegaly with heterogeneous hepatic echotexture. Findings may reflect hepatosteatosis/hepatitis or early cirrhosis with portal hypertension versus infiltrative leukemia/lymphoma (although uncommon) given history of pancytopenia. 2. Slightly hyperechoic pancreas. This finding is nonspecific but may reflect sequela of prior pancreatitis or fatty replacement. Enrique Du MD Chest X-Ray 04/23/17 0007 Signed Impressions: Service Date/Time: Sunday, April 23, 2017 00:14 - CONCLUSION: Patchy consolidative infiltrates in the left lung centrally and in the left lower lung. Wes Lewis MD Objective Remarks General: No acute distress. Hard of hearing. Heart: Regular rate and rhythm. No murmur. Lungs: Coarse breath sounds bilaterally. Breathing is nonlabored. Abdomen: Soft, nontender, nondistended. Extremities: No lower extremity edema. Psych: Alert and oriented. Procedures None Urinary Catheter: No Vascular Central Line Catheter: No A/P Problem List: (1) Sepsis ICD Code: A41.9 - Sepsis, unspecified organism Status: Acute (2) PNA (pneumonia) ICD Code: J18.9 - Pneumonia, unspecified organism (3) Hyponatremia ICD Code: E87.1 - Hypo-osmolality and hyponatremia Status: Acute (4) Hypocalcemia ICD Code: E83.51 - Hypocalcemia (5) Hypokalemia ICD Code: E87.6 - Hypokalemia (6) Thrombocytopenia ICD Code: D69.6 - Thrombocytopenia, unspecified (7) Substance abuse ICD Code: F19.10 - Other psychoactive substance abuse, uncomplicated Assessment and Plan 1. Sepsis: Patient continues to have fever. Continue scheduled ibuprofen. Source is pneumonia. Blood cultures are pending. Continue IV antibiotics. 2. Pneumonia: Left lower lobe and left midlung infiltrates noted on chest x- ray. Continue antibiotics, supplemental oxygen. DuoNeb as needed. 3. Hyponatremia: Improved. Continue IV fluids. Monitor labs. 4. Hypocalcemia: Improved. Monitor labs. 5. Hypokalemia: Improved. 6. Thrombocytopenia/pancytopenia: Likely secondary to sepsis. Platelets trending up. No active bleeding reported. Appreciate hematology recommendations. 7. Substance abuse: Patient was sent to the ER from [facility]. Has history of methamphetamine abuse. 8. DVT prophylaxis: SCDs, MARIE lindsay. Chemical prophylaxis contraindicated secondary to thrombocytopenia. Problem Qualifiers (1) Sepsis: Qualified Codes: A41.9 - Sepsis, unspecified organism Ron Beverly MD Apr 24, 2017 14:37
[2017-04-24] MEDS ORDERED: PHARMACY ORDERED LAB ONE (14:45)
[2017-04-24] MEDS: VANCOMYCIN INJ 2,250 MG in SODIUM CHLORID 0.9% 500 ML INJ 500 ML IV SCH (17:49)
[2017-04-24] MEDS: LORazepam 2 MG/ML VIAL IV PUSH PRN (18:01)
[2017-04-24] MEDS ORDERED: GABA600T PO (22:32)
[2017-04-24] MEDS ORDERED: BUSP15TA PO (22:32)
[2017-04-24] MEDS ORDERED: busPIRone HCL 5 MG TAB PO ONE (23:00)
[2017-04-24] MEDS ORDERED: GABAPENTIN 300 MG CAP PO ONE (23:00)
[2017-04-24] MEDS ORDERED: TOPI1TAB36 PO (23:10)
[2017-04-24] MEDS ORDERED: CITA10TA4 PO (23:10)
[2017-04-24] MEDS ORDERED: SERO50TA PO (23:10)
[2017-04-25] VITALS: BP 136/88; PULSE 93; RESP 18; TEMP 102.8; O2SAT 89
[2017-04-25] MEDS: SODIUM CHLOR 0.9% 1000 ML INJ 1,000 ML IV SCH
[2017-04-25] MEDS: LORazepam 2 MG/ML VIAL IV PUSH PRN ×2 (00:09→04:56)
[2017-04-25 04:00] VITALS: BP 142/67; PULSE 101; RESP 20; TEMP 99.5; O2SAT 88
[2017-04-25] MEDS: VANCOMYCIN INJ 2,250 MG in SODIUM CHLORID 0.9% 500 ML INJ 500 ML IV SCH (04:45)
[2017-04-25 08:25] LABS: AUTOMATED NEUTROPHIL # 2.9 TH/MM3 (1.8-7.7); BASOPHIL % 0.2 % (0.0-2.0); HEMATOCRIT 37.2 % (39.0-51.0); LYMPH % 11.3 % (9.0-44.0); LYMPHOCYTE # 0.4 TH/MM3 (1.0-4.8); MEAN CELL VOLUME 97.7 FL (80.0-100.0); MEAN CORPUSCULAR HEMOGLOBIN 32.6 PG (27.0-34.0); MEAN CORPUSCULAR HGB CONC 33.3 % (32.0-36.0); NEUT % 84.5 % (16.0-70.0); PLATELET COUNT 60 TH/MM3 (150-450); RED BLOOD COUNT 3.81 MIL/MM3 (4.50-5.90); RED CELL DISTRIBUTION WIDTH 14.2 % (11.6-17.2); WHITE BLOOD COUNT 3.5 TH/MM3 (4.0-11.0)
[2017-04-25 08:31] LABS: HEMO FLAGS AUTO DIFF
[2017-04-25] MEDS: CEFEPIME INJ 1,000 MG in SODIUM CHLORIDE 0.9% INJ 100 ML IV SCH (09:00)
[2017-04-25 09:08] LABS: BICARBONATE 27.4 MEQ/L (21.0-32.0); POTASSIUM 3.4 MEQ/L (3.5-5.1)
[2017-04-25 09:41] LABS: CALCIUM-PROTEIN CORRECTED 7.4 MG/DL (8.5-10.1)
[2017-04-25 09:59] LABS: BANDS 23 % (0-6); CORRECTED NUCLEATED RBC 1 /100 WBC (0-0); NEUTROPHIL # MANUAL DIFF 3.4 TH/MM3 (1.8-7.7); PLATELET ESTIMATE SMEAR LOW (NORMAL); PLATELET MORPHOLOGY NORMAL (NORMAL); POLYS (SEG NEUTROPHILS) 73 % (16-70); WBC DIFF SAMPLE 100
[2017-04-25 10:00] LABS: SCAN/DIFF FINAL DIFF MANUAL; TOXIC GRANULATION 1+ (NORMAL); TOXIC VACUOLATION PRESENT (NONE SEEN)
[2017-04-26] MEDS ORDERED: PHARMACY ORDERED LAB ONE (04:45)
== END 2017-04-25 09:42 | disposition left against medical advice (07) | DRG 871 ==
LOC: NEPE 23:51 → NEDA 04-23 01:39 → N04B 04-23 02:51
PROVIDERS: ADMIT Family Medicine; ATTEND Family Medicine
DX: A41.9 Sepsis, unspecified organism (principal); J18.9 Pneumonia, unspecified organism; D61.818 Other pancytopenia; E87.1 Hypo-osmolality and hyponatremia; E83.51 Hypocalcemia; F41.9 Anxiety disorder, unspecified; F32.9 Major depressive disorder, single episode, unspecified; H91.90 Unspecified hearing loss, unspecified ear; E87.6 Hypokalemia; F15.10 Other stimulant abuse, uncomplicated; F17.210 Nicotine dependence, cigarettes, uncomplicated; E86.0 Dehydration; K21.9 Gastro-esophageal reflux disease without esophagitis; Z59.0 Homelessness
CPT/HCPCS: 71010; 76705; 76937; 80048; 80053; 80074; 80202; 81001; 82607; 82728; 83605; 83615; 84155; 85007; 85025; 85027; 85044; 85060; 85384; 85610; 85730; 87040; 87070; 87205; 87389; 87449; 87804; 93005; 94640; 94664; 96365; 96367; J0456; J0610; J0692; J0696; J1956; J2060; J3370; J7030; J7040; J7050

== ENCOUNTER 2017-04-25 16:49 | Inpatient (IN) | payer OTHER ==
[2017-04-25] VITALS (16 sets, daily range): BP systolic 86–206; BP diastolic 53–102; PULSE 106–192; RESP 14–29; TEMP 98.4–103.2; O2SAT 91–99
[~2017-04-25] VITALS: Ht 188 cm; Wt 88.5 kg
[~2017-04-25 16:49] MED LIST: BUSP15TA PO; CITA10TA4 PO; GABA600T PO; SERO50TA PO; TOPI1TAB36 PO; ZANT150T2 PO
--- NOTE | 2017-04-25 16:56 | PD ---
Physical Exam Time Seen by Provider: 16:53 Narrative 46-year-old male presents after leaving [facility] this morning AGAINST MEDICAL ADVICE from being admitted for pneumonia. After leaving this morning he has had some alcohol to drink and smoked some meth. His brother brought him back for reevaluation and treatment for his pneumonia. Patient seen in triage. Vital signs reviewed. Patient taken to medical bed. Data Data Last Documented VS Vital Signs Date Time Temp Pulse Resp B/P (MAP) Pulse Ox O2 Delivery O2 Flow Rate FiO2 04/25/17 16:50 98.4 108 14 159/72 (101) 99 MDM Supervised Visit with ANISHA: Fiona Ndiaye Apr 25, 2017 16:56
[2017-04-25] MEDS ORDERED: SODIUM CHLORIDE 0.9% FLUSH 10 ML FLUSH IVF PRN (17:15)
[2017-04-25] MEDS ORDERED: SODIUM CHLOR 0.9% 1000 ML INJ 1,000 ML IV ONE ×2 (17:15→17:45)
[2017-04-25] MEDS ORDERED: ACETAMINOPHEN 325 MG TAB PO ONE (17:15)
--- NOTE | 2017-04-25 17:27 | PD ---
HPI Chief Complaint: Respiratory Distress Time Seen by Provider: 17:01 Travel History International Travel<30 days: No Contact w/Intl Traveler<30days: No Traveled to known affect area: No History of Present Illness HPI 46-year-old male past medical history of anxiety, depression, substance abuse presents back to the emergency department after leaving AGAINST MEDICAL ADVICE this morning. Patient was admitted for pneumonia, sepsis. He apparently left AGAINST MEDICAL ADVICE this morning and took a bus to his mother's house. His brother brings him back. The triage note states that the patient is been drinking alcohol in smoking meth today, however, the brother and the patient denies this and stated they don't know where this came from. According to the brother, the patient recently started using methamphetamine in the past 2 weeks. According to the patient's mother, since he has seen the patient this morning, he has been incoherent and not making sense. The patient does not know where he is and does not answer questions appropriately. When I ask him what the year is, he says something about the Internet. The patient is brought back to exam room, his oxygen saturation is 81% on room air. He is febrile with a temperature of 103.2 orally. PFSH Past Medical History Anxiety: Yes Cancer: No Cardiovascular Problems: No Cerebrovascular Accident: No Diminished Hearing: Yes (BILATERAL) Endocrine: No Gastrointestinal Disorders: Yes GERD: Yes Genitourinary: No Hiatal Hernia: No Immune Disorder: No Musculoskeletal: No Neurologic: Yes Psychiatric: Yes Respiratory: No Migraines: Yes Seizures: No Ulcer: No Tetanus Vaccination: Unknown ?: Not Past Surgical History Abdominal Surgery: No Cardiac Surgery: No Ear Surgery: No Endocrine Surgery: No Eye Surgery: No Genitourinary Surgery: No Gynecologic Surgery: No Oral Surgery: No Thoracic Surgery: No Other Surgery: Yes Social History Alcohol Use: Yes (DAILY) Tobacco Use: Yes Substance Use: Yes (METH) Allergies-Medications (Allergen,Severity, Reaction): Coded Allergies: No Known Allergies (Unverified , 04/23/17) Reported Meds & Prescriptions Reported Meds & Active Scripts Active Reported Citalopram (Citalopram Hydrobromide) 10 Mg Tab 10 Mg PO HS Topiramate 50 Mg Tab 50 Mg PO BID Seroquel (Quetiapine Fumarate) 50 Mg Tab 50 Mg PO HS Buspirone (Buspirone HCl) 15 Mg Tab 15 Mg PO TID Gabapentin 600 Mg Tab 600 Mg PO BID Zantac (Ranitidine HCl) 150 Mg Tab 150 Mg PO DAILY Review of Systems Except as stated in HPI: all other systems reviewed are Neg Physical Exam Narrative GENERAL: Well-nourished, well-developed male patient, temperature 103.2. Patient is alert, but confused and disoriented. He does not answer questions appropriately. SKIN: Focused skin assessment warm/dry. HEAD: Normocephalic. Atraumatic. EYES: No scleral icterus. No injection or drainage. NECK: Supple, trachea midline. No JVD or lymphadenopathy. CARDIOVASCULAR: Regular rhythm without murmurs, gallops, or rubs. Patient is tachycardic heart rate in the 120s. RESPIRATORY: Breath sounds equal bilaterally. No accessory muscle use. Patient has diffuse rhonchi noted throughout. GASTROINTESTINAL: Abdomen soft, non-tender, nondistended. MUSCULOSKELETAL: No cyanosis, or edema. BACK: Nontender without obvious deformity. No CVA tenderness. Data Data Last Documented VS Vital Signs Date Time Temp Pulse Resp B/P (MAP) Pulse Ox O2 Delivery O2 Flow Rate FiO2 04/25/17 17:14 103.2 112 24 135/77 (96) 95 Non-Rebreather 15.00 Orders Orders Complete Blood Count With Diff (04/25/17 17:12) Comprehensive Metabolic Panel (04/25/17 17:12) Magnesium (Mg) (04/25/17 17:12) Iv Access Insert/Monitor (04/25/17 17:12) Electrocardiogram (04/25/17 17:12) Ecg Monitoring (04/25/17 17:12) Oximetry (04/25/17 17:12) Oxygen Administration (04/25/17 17:12) Chest, Single Ap (04/25/17 17:12) Sodium Chloride 0.9% Flush (Ns Flush) (04/25/17 17:15) Albuterol-Ipratropium Neb (Duoneb Neb) (04/25/17 17:15) Lactic Acid Sepsis Protocol (04/25/17 17:12) Acetaminophen (Tylenol) (04/25/17 17:15) Sodium Chlor 0.9% 1000 Ml Inj (Ns 1000 M (04/25/17 17:15) Drug Screen, Random Urine (04/25/17 17:14) Cefepime Inj (Maxipime Inj) (04/25/17 17:30) Piperacil-Tazo 4.5 Gm Premix (Zosyn 4.5 (04/25/17 17:45) Azithromycin Inj (Zithromax Inj) (04/25/17 17:45) Arterial Blood Gas (Abg) (04/25/17 ) Sodium Chlor 0.9% 1000 Ml Inj (Ns 1000 M (04/25/17 17:45) Admit Order (Ed Use Only) (04/25/17 17:35) Labs Laboratory Tests Test 04/25/17 17:23 04/25/17 17:36 White Blood Count 4.5 TH/MM3 Red Blood Count 3.73 MIL/MM3 Hemoglobin 12.4 GM/DL Hematocrit 35.8 % Mean Corpuscular Volume 96.0 FL Mean Corpuscular Hemoglobin 33.2 PG Mean Corpuscular Hemoglobin Concent 34.6 % Red Cell Distribution Width 14.0 % Platelet Count 62 TH/MM3 Mean Platelet Volume 10.0 FL Neutrophils (%) (Auto) 83.7 % Lymphocytes (%) (Auto) 8.7 % Monocytes (%) (Auto) 7.5 % Eosinophils (%) (Auto) 0.0 % Basophils (%) (Auto) 0.1 % Neutrophils # (Auto) 3.8 TH/MM3 Lymphocytes # (Auto) 0.4 TH/MM3 Monocytes # (Auto) 0.3 TH/MM3 Eosinophils # (Auto) 0.0 TH/MM3 Basophils # (Auto) 0.0 TH/MM3 CBC Comment AUTO DIFF Blood Urea Nitrogen 8 MG/DL Creatinine 1.05 MG/DL Random Glucose 148 MG/DL Total Protein 5.7 GM/DL Albumin 2.1 GM/DL Calcium Level 6.6 MG/DL Magnesium Level 1.9 MG/DL Alkaline Phosphatase 91 U/L Aspartate Amino Transf (AST/SGOT) 338 U/L Alanine Aminotransferase (ALT/SGPT) 89 U/L Total Bilirubin 0.8 MG/DL Sodium Level 125 MEQ/L Potassium Level 3.4 MEQ/L Chloride Level 89 MEQ/L Carbon Dioxide Level 28.6 MEQ/L Anion Gap 7 MEQ/L Estimat Glomerular Filtration Rate 76 ML/MIN Lactic Acid Level 1.6 mmol/L Protein Corrected Calcium 7.3 MG/DL Blood Gas Puncture Site RT RADIAL Blood Gas Patient Temperature 98.6 Blood Gas HCO3 27 mmol/L Blood Gas Base Excess 4.4 mmol/L Blood Gas Oxygen Saturation 94 % Arterial Blood pH 7.53 Arterial Blood Partial Pressure CO2 32 mmHg Arterial Blood Partial Pressure O2 68 mmHG Arterial Blood Oxygen Content 14.9 Vol % Arterial Blood Carboxyhemoglobin 1.1 % Arterial Blood Methemoglobin 0.5 % Blood Gas Hemoglobin 11.2 G/DL Oxygen Delivery Device Partial Rebreather Blood Gas Liter Flow 15 L/M MDM Medical Decision Making Medical Screen Exam Complete: Yes Emergency Medical Condition: Yes Medical Record Reviewed: Yes Differential Diagnosis Pneumonia versus sepsis versus respiratory distress versus electrolyte abnormality Narrative Course 46-year-old male presents to the emergency department for reevaluation after leaving AGAINST MEDICAL ADVICE this morning. His mother accompanies him. The patient is alert, but is confused as to answer questions appropriately. He has history of anxiety, depression, substance abuse. The patient is placed on a nonrebreather due to low oxygen saturations and inability keep nasal cannula on. Patient maintained tachycardic. He is given Tylenol 650 mg by mouth for fever. Normal saline 1 L IV bolus is ordered. CBC, CMP, urine drug screen, lactic acid are ordered and pending. He does appear patient received vancomycin this morning, but has not received other antibiotics. I initially ordered cefepime [address] Farrell, hogshead stock clerk, regarding admission. He recommends Zosyn instead of cefepime. He also recommends azithromycin and ABG. These orders are placed. Oxygen saturation is up to 96% on nonrebreather. Patient is given second liter normal saline IV bolus. Patient is admitted to intensivists. Sepsis Criteria SIRS Criteria (2 or more): Temp > 100.9 or < 96.8, Heart rate over 90 Sepsis Criteria (SIRS+source): Infect source susp/known Diagnosis Primary Impression: PNA (pneumonia) Qualified Codes: J18.9 - Pneumonia, unspecified organism Additional Impressions: Sepsis Qualified Codes: A41.9 - Sepsis, unspecified organism Substance abuse Admitting Information Admitting Physician Requests: Admit Swathi Yan Apr 25, 2017 17:27
[2017-04-25] MEDS ORDERED: CEFEPIME INJ 1,000 MG in SODIUM CHLORIDE 0.9% INJ 100 ML IV ONE (17:30)
[2017-04-25] MEDS: RESP: ALBUTEROL 2.5 MG/IPRATROPIUM 0.5 MG NEB (SCH) INH ×2 (17:34→21:19)
[2017-04-25 17:41] LABS: AUTOMATED NEUTROPHIL # 3.8 TH/MM3 (1.8-7.7); BASOPHIL % 0.1 % (0.0-2.0); HEMATOCRIT 35.8 % (39.0-51.0); LYMPH % 8.7 % (9.0-44.0); LYMPHOCYTE # 0.4 TH/MM3 (1.0-4.8); MEAN CORPUSCULAR HEMOGLOBIN 33.2 PG (27.0-34.0); MEAN CORPUSCULAR HGB CONC 34.6 % (32.0-36.0); MONO % 7.5 % (0.0-8.0); NEUT % 83.7 % (16.0-70.0); PLATELET COUNT 62 TH/MM3 (150-450); RED BLOOD COUNT 3.73 MIL/MM3 (4.50-5.90); WHITE BLOOD COUNT 4.5 TH/MM3 (4.0-11.0)
[2017-04-25 17:44] LABS: HEMO FLAGS AUTO DIFF
[2017-04-25] MEDS ORDERED: AZITHROMYCIN INJ 500 MG in SODIUM CHLOR 0.9% 250 ML INJ 250 ML IV ONE (17:45)
[2017-04-25] MEDS ORDERED: PIPERACIL-TAZO 4.5 GM PREMIX 100 ML IV ONE (17:45)
[2017-04-25 17:48] LABS: BLOOD GAS BASE EXCESS 4.4 mmol/L (-2-2); BLOOD GAS CARBOXYHEMOGLOBIN 1.1 % (0-4); BLOOD GAS HCO3 27 mmol/L (22-26); BLOOD GAS METHEMOGLOBIN 0.5 % (0-2); BLOOD GAS O2 HGB SATURATION 94 % (90-100); BLOOD GAS OXYGEN CONTENT 14.9 Vol % (12.0-20.0); BLOOD GAS PCO2 32 mmHg (38-42); BLOOD GAS PO2 68 mmHG (61-120); BLOOD GAS TOTAL HGB 11.2 G/DL (12.0-16.0); TEMP CORR TO 98.6
[2017-04-25 17:49] LABS: CRITICAL VALUE YES; DRAW SITE RT RADIAL; LITER FLOW 15 L/M; NUMBER OF ARTERIAL PUNCTURES 1; STAT YES; ULNAR PULSE PRESENT
[2017-04-25 17:53] LABS: BICARBONATE 28.6 MEQ/L (21.0-32.0); MAGNESIUM 1.9 MG/DL (1.5-2.5); POTASSIUM 3.4 MEQ/L (3.5-5.1)
[2017-04-25 17:55] LABS: TOTAL BILIRUBIN ADULT 0.8 MG/DL (0.2-1.0)
[2017-04-25 17:57] LABS: CALCIUM-PROTEIN CORRECTED 7.3 MG/DL (8.5-10.1)
--- NOTE | 2017-04-25 18:08 | RADRPT ---
EXAM DATE/TIME: 04/25/2017 17:34 [facility] COMPARISON: CHEST SINGLE AP, April 23, 2017, 0:14. INDICATIONS : Shortness of breath, cough, congestion, fever. MEDICAL HISTORY : Gastroesophageal reflux disease. SURGICAL HISTORY : None. ENCOUNTER: Initial ACUITY: 1 week PAIN SCORE: 0/10 LOCATION: Bilateral chest FINDINGS: Worsening perihilar and basilar consolidation, left more so than right. A small left pleural effusion is also developing. I don't see a pneumothorax. Heart size stable, upper limits of normal. CONCLUSION: Left greater than right airspace disease and left pleural effusion, all worse. Timbo Newsome MD on April 25, 2017 at 18:05 Board Certified Radiologist. This report was verified electronically.
[2017-04-25 19:07] LABS: BANDS 11 % (0-6); NEUTROPHIL # MANUAL DIFF 4.2 TH/MM3 (1.8-7.7); PLASMA CELLS 1 % (0-0); POLYS (SEG NEUTROPHILS) 82 % (16-70); WBC DIFF SAMPLE 100
[2017-04-25 19:08] LABS: PLATELET ESTIMATE SMEAR LOW (NORMAL); PLATELET MORPHOLOGY NORMAL (NORMAL); SCAN/DIFF FINAL DIFF MANUAL
[2017-04-25] MEDS ORDERED: PROPOFOL 1000 MG/100 ML INJ 100 ML ONE (19:57)
[2017-04-25] MEDS ORDERED: VANCOMYCIN INJ 1,000 MG in SODIUM CHLOR 0.9% 250 ML INJ 250 ML IV SCH (20:00)
[2017-04-25] MEDS ORDERED: PROPOFOL 1000 MG/100 ML INJ 100 ML IV PRN (20:00)
[2017-04-25] MEDS ORDERED: MAGNESIUM HYDROXIDE SUSP 30 ML CUP PO PRN (20:00)
[2017-04-25] MEDS ORDERED: LACTULOSE SYRUP 20 GM/30 ML CUP PO PRN (20:00)
[2017-04-25] MEDS ORDERED: MIDAZOLAM 100 MG/100 ML INJ 100 ML IV PRN (20:00)
[2017-04-25] MEDS ORDERED: MORPHINE SULFATE 4 MG/ML INJ IV PUSH PRN (20:00)
[2017-04-25] MEDS ORDERED: SENNOSIDES 8.6 MG TAB PO PRN (20:00)
[2017-04-25] MEDS ORDERED: BISACODYL 10 MG SUPP RECTAL PRN (20:00)
[2017-04-25] MEDS ORDERED: ONDANSETRON HCL 4 MG/2 ML VIAL IV PUSH PRN (20:00)
[2017-04-25] MEDS: CHLORHEXIDINE 0.12% (ORAL KIT) 15 ML CUP MT SCH (20:00)
[2017-04-25] MEDS ORDERED: SODIUM CHLORIDE 0.9% FLUSH 10 ML FLUSH PRN (20:00)
[2017-04-25] MEDS ORDERED: fentaNYL DRIP 250 ML IV PRN (20:00)
[2017-04-25] MEDS ORDERED: MISCELLANEOUS NURSING INFORMATION XX SCH (20:00)
[2017-04-25] MEDS ORDERED: LORazepam 2 MG/ML VIAL IV PUSH PRN (20:00)
[2017-04-25] MEDS ORDERED: Vancomycin Consult Pharmacy 1 EA OTHER SCH (20:00)
[2017-04-25] MEDS ORDERED: CHLORHEXIDINE GLUCONATE 2 % 1 PACK (2 CLOTHS) TOP PRN (20:00)
[2017-04-25] MEDS ORDERED: PILL SPLITTER OTHER PRN (20:15)
[2017-04-25] MEDS: fentaNYL DRIP 250 ML IV PRN (20:42)
--- NOTE | 2017-04-25 20:56 | HHI.HP ---
HPI Service Critical Care Medicine Primary Care Physician No Primary Care Physician Admission Diagnosis pneumonia, sepsis Diagnosis: Travel History International Travel<30 Days: No Contact w/Intl Traveler <30 Da: No Traveled to Known Affected Are: No History of Present Illness This is a 46-year-old male with a past medical history of Anxiety, Depression and Substance Abuse was initially sent to the emergency room April 23, 2017 by EMS from [facility] for cough and fever x2 days. Per records, patient had Temp 104.7. At that time patient denied SOB, chest pain, nausea, vomiting or diarrhea. He was admitted to medical surgical street however the patient left this morning against medical advise despite the treatment of pneumonia. After leaving this morning he has had some alcohol to drink and smoked some methamphetamine. His brother brought him back for reevaluation and treatment for his pneumonia. In the emergency department his oxygen saturations were in the low 80s on room air, patient was constantly removing to his oxygen mask and would not tolerate any BiPAP. He became extremely agitated combative and was intubated by me for an airway protection and severe hypoxemia. Review of Systems ROS Unobtainable patient is sedated and intubated Past Family Social History Allergies: Coded Allergies: No Known Allergies (Unverified , 04/23/17) Past Medical History Anxiety, Depression and Substance Abuse Past Surgical History Cleft Palate Surgery, Right Hand Surgery, Bilateral Ear Surgery Reported Medications Reported Meds & Active Scripts Active Reported Citalopram (Citalopram Hydrobromide) 10 Mg Tab 10 Mg PO HS Topiramate 50 Mg Tab 50 Mg PO BID Seroquel (Quetiapine Fumarate) 50 Mg Tab 50 Mg PO HS Buspirone (Buspirone HCl) 15 Mg Tab 15 Mg PO TID Gabapentin 600 Mg Tab 600 Mg PO BID Zantac (Ranitidine HCl) 150 Mg Tab 150 Mg PO DAILY Active Ordered Medications Current Medications Medications (Trade) Dose Ordered Sig/Angel Route PRN Reason Start Time Stop Time Status Last Admin Dose Admin Sodium Chloride (NS Flush) 2 ml UNSCH PRN IVF FLUSH AFTER USING IV ACCESS 04/25/17 17:15 Buspirone HCl (Buspar) 15 mg TID PO 04/26/17 09:00 Citalopram Hydrobromide (CeleXA) 10 mg HS PO 04/25/17 21:00 Gabapentin (Neurontin) 600 mg BID PO 04/25/17 21:00 Topiramate (Topamax) 50 mg BID PO 04/25/17 21:00 Quetiapine Fumarate (SEROquel) 50 mg HS PO 04/25/17 21:00 Famotidine (Pepcid) 20 mg DAILY PO 04/26/17 09:00 Sodium Chloride 1,000 ml @ 84 mls/hr [id number] IV 04/25/17 21:00 Sodium Chloride (NS Flush) 2 ml UNSCH PRN .XX FLUSH AFTER USING IV ACCESS 04/25/17 20:00 Sodium Chloride (NS Flush) 2 ml BID .XX 04/25/17 21:00 Acetaminophen (Tylenol) 650 mg Q6H PRN PO PAIN 1-10 AND/OR FEVER >101F 04/25/17 20:00 Morphine Sulfate (Morphine Inj) 2 mg Q2H PRN IV PUSH PAIN SCALE 6 TO 10 04/25/17 20:00 Lorazepam (Ativan Inj) 1 mg Q1H PRN IV PUSH Agitation/Sedation 04/25/17 20:00 04/25/17 20:17 Artificial Tears (Tears Naturale Opth Soln) 1 drop TID EACH EYE 04/26/17 09:00 Ondansetron HCl (Zofran Inj) 4 mg Q6H PRN IV PUSH NAUSEA OR VOMITING 04/25/17 20:00 Albuterol/ Ipratropium (Duoneb Neb) 1 ampule Q6HR NEB INH 04/25/17 22:00 Albuterol/ Ipratropium (Duoneb Neb) 1 ampule Q2HR NEB PRN INH WHEEZING 04/25/17 20:00 Heparin Sodium (Porcine) (Heparin Inj) 5,000 units Q8H SQ 04/25/17 22:00 Miscellaneous Information 1 [id number] XX 04/25/17 20:00 Chlorhexidine Gluconate (Chlorhexidine 2% Cloth) 3 pack Taper DAILY@04 TOP 04/26/17 04:00 04/22/18 03:59 Chlorhexidine Gluconate (Chlorhexidine 2% Cloth) 3 pack UNSCH PRN TOP HYGIENIC CARE 04/25/17 20:00 Senna/Docusate Sodium (Marsha-Colace) 1 tab BID PO 04/25/17 21:00 Magnesium Hydroxide (Milk Of Magnesia Liq) 30 ml Q12H PRN PO MILD - MODERATE CONSTIPATION 04/25/17 20:00 Sennosides (Senokot) 17.2 mg Q12H PRN PO MODERATE - SEVERE CONSTIPATION 04/25/17 20:00 Bisacodyl (Dulcolax Supp) 10 mg DAILY PRN RECTAL SEVERE CONSITIPATION 04/25/17 20:00 Lactulose (Lactulose Liq) 30 ml DAILY PRN PO SEVERE CONSITIPATION 04/25/17 20:00 Chlorhexidine Gluconate (Peridex 0.12% Liq) 15 ml BID@08,20 MT 04/25/17 20:00 Midazolam HCl 100 ml @ 2 mls/hr TITRATE PRN IV SEDATION 04/25/17 20:00 Fentanyl Citrate 250 ml @ 5 mls/hr TITRATE PRN IV SEDATION 04/25/17 20:00 04/25/17 20:42 Piperacillin Sod/ Tazobactam Sod 100 ml @ 200 mls/hr Q6H IV 04/26/17 00:00 Azithromycin 500 mg/Sodium Chloride 250 ml @ 250 mls/hr Q24H IV 04/26/17 17:00 Pharmacy Profile Note 0 ml @ 0 mls/hr UNSCH OTHER 04/25/17 20:00 Propofol 100 ml @ 2.7 mls/hr TITRATE PRN IV SEDATION 04/25/17 20:00 Vancomycin HCl 1250 mg/Sodium Chloride 262.5 ml @ 250 mls/hr Q8H IV 04/25/17 21:00 Miscellaneous Information SPECIFIC LAB TO BE GORDO... ONCE ONCE .XX 04/26/17 20:45 04/26/17 20:46 Miscellaneous (Pill Splitter) 1 ea UNSCH PRN OTHER SEE LABEL COMMENTS 04/25/17 20:15 Family History Reviewed. No h/o DM or CAD Social History Negative for alcohol or tobacco. Positive for Substance Abuse Physical Exam Vital Signs Vital Signs Date Time Temp Pulse Resp B/P (MAP) Pulse Ox O2 Delivery O2 Flow Rate FiO2 04/25/17 19:20 99.3 106 23 131/79 (96) 96 Partial Rebreather 15.00 04/25/17 17:34 97 Partial Rebreather 15.00 04/25/17 17:14 103.2 112 24 135/77 (96) 95 Non-Rebreather 15.00 04/25/17 17:14 95 Non-Rebreather 15.00 04/25/17 17:04 122 21 81 Room Air 04/25/17 16:50 98.4 108 14 159/72 (101) 99 Physical Exam GENERAL: Well-nourished, well-developed patient. Extremely agitated combative and confused SKIN: Warm and diaphoretic HEAD: Normocephalic. EYES: No scleral icterus. No injection or drainage. NECK: Supple, trachea midline. No JVD or lymphadenopathy. CARDIOVASCULAR: Regular rate and rhythm without murmurs, gallops, or rubs. RESPIRATORY: Breath sounds equal bilaterally. No accessory muscle use. GASTROINTESTINAL: Abdomen soft, non-tender, nondistended. MUSCULOSKELETAL: No cyanosis, or edema. BACK: Nontender without obvious deformity. NEURO EXAM: GCS: M5 VT E4 Mental Status: The patient was initially agitated and combative now sedated and intubated. Cranial Nerves: Pupils are round, reactive to light. Reflexes: Biceps, patellar, and Achilles are 2/4 bilaterally. No clonus. Laboratory Laboratory Tests Test 04/25/17 17:23 04/25/17 17:36 04/25/17 19:55 White Blood Count 4.5 Red Blood Count 3.73 Hemoglobin 12.4 Hematocrit 35.8 Mean Corpuscular Volume 96.0 Mean Corpuscular Hemoglobin 33.2 Mean Corpuscular Hemoglobin Concent 34.6 Red Cell Distribution Width 14.0 Platelet Count 62 Mean Platelet Volume 10.0 Neutrophils (%) (Auto) 83.7 Lymphocytes (%) (Auto) 8.7 Monocytes (%) (Auto) 7.5 Eosinophils (%) (Auto) 0.0 Basophils (%) (Auto) 0.1 Neutrophils # (Auto) 3.8 Lymphocytes # (Auto) 0.4 Monocytes # (Auto) 0.3 Eosinophils # (Auto) 0.0 Basophils # (Auto) 0.0 CBC Comment AUTO DIFF Differential Total Cells Counted 100 Neutrophils % (Manual) 82 Band Neutrophils % 11 Lymphocytes % 5 Monocytes % 1 Neutrophils # (Manual) 4.2 Differential Comment FINAL DIFF MANUAL Atypical Lymphocytes Plasma Cells 1 Platelet Estimate LOW Platelet Morphology Comment NORMAL Blood Urea Nitrogen 8 Creatinine 1.05 Random Glucose 148 Total Protein 5.7 Albumin 2.1 Calcium Level 6.6 Magnesium Level 1.9 Alkaline Phosphatase 91 Aspartate Amino Transf (AST/SGOT) 338 Alanine Aminotransferase (ALT/SGPT) 89 Total Bilirubin 0.8 Sodium Level 125 Potassium Level 3.4 Chloride Level 89 Carbon Dioxide Level 28.6 Anion Gap 7 Estimat Glomerular Filtration Rate 76 Lactic Acid Level 1.6 Protein Corrected Calcium 7.3 Blood Gas Puncture Site RT RADIAL Blood Gas Patient Temperature 98.6 Blood Gas HCO3 27 Blood Gas Base Excess 4.4 Blood Gas Oxygen Saturation 94 Arterial Blood pH 7.53 Arterial Blood Partial Pressure CO2 32 Arterial Blood Partial Pressure O2 68 Arterial Blood Oxygen Content 14.9 Arterial Blood Carboxyhemoglobin 1.1 Arterial Blood Methemoglobin 0.5 Blood Gas Hemoglobin 11.2 Oxygen Delivery Device Partial Rebreather Blood Gas Liter Flow 15 Urine Opiates Screen NEG Urine Barbiturates Screen NEG Urine Amphetamines Screen NEG Urine Benzodiazepines Screen NEG Urine Cocaine Screen NEG Urine Cannabinoids Screen NEG Result Diagram: 04/25/17 1723 04/25/17 1723 Imaging Last 24 hours Impressions Chest X-Ray 04/25/17 1712 Signed Impressions: Service Date/Time: Tuesday, April 25, 2017 17:34 - CONCLUSION: Left greater than right airspace disease and left pleural effusion, all worse. Timbo Newsome MD Chest X-Ray 04/25/17 0000 Signed Impressions: Service Date/Time: Tuesday, April 25, 2017 20:52 - CONCLUSION: 1. As intermittent tracheal tube and nasogastric tube placement as above. 2. Left greater than right consolidation and small moderate left pleural effusion are again noted. MD Rafa Wisdomi VTE Risk Assessment Caprini VTE Risk Assessment: Mod/High Risk (score >= 2) Caprini Risk Assessment Model Point Value = 1 Point Value = 2 Point Value = 3 Point Value = 5 Age 41-60 Minor surgery BMI > 25 kg/m2 Swollen legs Varicose veins or History of unexplained or recurrent spontaneous Oral contraceptives or hormone replacement Sepsis (< 1 month) Serious lung disease, including pneumonia (< 1 month) Abnormal pulmonary function Acute myocardial infarction Congestive heart failure (< 1 month) History of inflammatory bowel disease Medical patient at bed rest Age 61-74 Arthroscopic surgery Major open surgery (> 45 min) Laparoscopic surgery (> 45 min) Malignancy Confined to bed (> 72 hours) Immobilizing plaster cast Central venous access Age >= 75 History of VTE Family history of VTE Factor V Leiden Prothrombin [id number] Lupus anticoagulant Anticardiolipin antibodies Elevated serum homocysteine Heparin-induced thrombocytopenia Other congenital or acquired thrombophilia Stroke (< 1 month) Elective arthroplasty Hip, pelvis, or leg fracture Acute spinal cord injury (< 1 month) Prophylaxis Regimen Total Risk Factor Score Risk Level Prophylaxis Regimen 0-1 Low Early ambulation 2 Moderate Order ONE of the following: *Sequential Compression Device (SCD) *Heparin 5000 units SQ BID 3-4 Higher Order ONE of the following medications: *Heparin 5000 units SQ TID *Enoxaparin/Lovenox 40 mg SQ daily (WT < 150 kg, CrCl > 30 mL/min) *Enoxaparin/Lovenox 30 mg SQ daily (WT < 150 kg, CrCl > 10-29 mL/min) *Enoxaparin/Lovenox 30 mg SQ BID (WT < 150 kg, CrCl > 30 mL/min) AND/OR *Sequential Compression Device (SCD) 5 or more Highest Order ONE of the following medications: *Heparin 5000 units SQ TID (Preferred with Epidurals) *Enoxaparin/Lovenox 40 mg SQ daily (WT < 150 kg, CrCl > 30 mL/min) *Enoxaparin/Lovenox 30 mg SQ daily (WT < 150 kg, CrCl > 10-29 mL/min) *Enoxaparin/Lovenox 30 mg SQ BID (WT < 150 kg, CrCl > 30 mL/min) AND *Sequential Compression Device (SCD) Assessment and Plan Assessment and Plan Respiratory failure - Intubated for an airway protection - Underlying pneumonia - Most likely will go through withdrawal, will keep intubated until neurologically improved - Continue mechanical ventilation - Continue DuoNeb's - IV antibiotics for pneumonia treatment Pneumonia - Broad-spectrum antibiotics - Panculture - De-escalate antibiotics per sensitivity - CXR daily Altered mental status - Intoxication - Polysubstance abuse - No focal neurological exam - Monitor for withdrawal - Versed and fentanyl drip for sedation - Also propofol if needed - CT head to rule out intracranial process Hyponatremia - Na 125, likely secondary to acute infection/dehydration - IVF for hydration - repeat labs in am. Hypocalcemia - Replacement per ICU electrolyte protocol Thrombocytopenia: - Platelets 62 - Improving from previous admission - 44 - no active bleeding. - Will monitor DVT Prophylaxis - Teds SCDs - No pharmacological DVT prophylaxis due to thrombocytopenia - Pepcid Critical Care: The total critical care time was 35 minutes. Time to perform other separately billable procedures was not included in the critical care time. Fam Aguilar MD Apr 25, 2017 8:56 pm
[2017-04-25] MEDS: CITALOPRAM HYDROBROMIDE 20 MG TAB PO SCH (21:00)
[2017-04-25] MEDS: QUEtiapine FUMARATE 25 MG TAB PO SCH (21:00)
[2017-04-25] MEDS: SODIUM CHLORIDE 0.9% FLUSH 10 ML FLUSH SCH (21:00)
--- NOTE | 2017-04-25 21:21 | RADRPT ---
EXAM DATE/TIME: 04/25/2017 20:52 [facility] COMPARISON: CHEST SINGLE AP, April 25, 2017, 17:34. INDICATIONS : Post endotracheal tube placement. MEDICAL HISTORY : Gastroesophageal reflux disease. SURGICAL HISTORY : None. ENCOUNTER: Initial ACUITY: 1 day PAIN SCORE: Non-responsive. LOCATION: Bilateral chest FINDINGS: Left greater than right basilar predominant airspace opacities persist and there is a small to modera te left pleural effusion. These findings are nonsignificantly changed. The patient is now intubated. Endotracheal tube tip is approximately 5 cm above the lj. There is a nasogastric tube coursing into the stomach. CONCLUSION: 1. As intermittent tracheal tube and nasogastric tube placement as above. 2. Left greater than right consolidation and small moderate left pleural effusion are again noted. Timbo Newsome MD on April 25, 2017 at 21:18 Board Certified Radiologist. This report was verified electronically.
[2017-04-25 21:56] LABS: BLOOD GAS BASE EXCESS -0.7 mmol/L (-2-2); BLOOD GAS CARBOXYHEMOGLOBIN 0.5 % (0-4); BLOOD GAS HCO3 24 mmol/L (22-26); BLOOD GAS METHEMOGLOBIN 0.4 % (0-2); BLOOD GAS O2 HGB SATURATION 96 % (90-100); BLOOD GAS OXYGEN CONTENT 15.3 Vol % (12.0-20.0); BLOOD GAS PCO2 40 mmHg (38-42); BLOOD GAS PO2 92 mmHG (61-120); BLOOD GAS TOTAL HGB 11.2 G/DL (12.0-16.0); CRITICAL VALUE NO; OXYGEN DEVICE VENTILATOR; TEMP CORR TO 98.6
[2017-04-25 21:57] LABS: DRAW SITE LT FEMORAL; FIO2 100 %; NUMBER OF ARTERIAL PUNCTURES 1; STAT YES
[2017-04-25] MEDS ORDERED: HEPARIN SODIUM - SQ 10,000 UNITS/ML VIAL SQ SCH (22:00)
[2017-04-25] MEDS ORDERED: METOPROLOL TARTRATE 5 MG/5 ML VIAL ONE (22:16)
[2017-04-25] MEDS ORDERED: CALCIUM GLUCONATE INJ 2 GM in SODIUM CHLORIDE 0.9% INJ 100 ML IV ONE (23:00)
[2017-04-25] MEDS ORDERED: METOPROLOL TARTRATE 5 MG/5 ML VIAL IV PUSH ONE (23:00)
[2017-04-25] MEDS ORDERED: SODIUM CHLOR 0.9% 1000 ML INJ 2,000 ML IV ONE (23:00)
[2017-04-25] MEDS: PROPOFOL 1000 MG/100 ML INJ 100 ML IV PRN (23:28)
[2017-04-26] VITALS (48 sets, daily range): BP systolic 76–151; BP diastolic 47–96; PULSE 83–142; RESP 0–24; TEMP 98–104.7; O2SAT 85–100
[2017-04-26 03:38] LABS: AUTOMATED NEUTROPHIL # 3.6 TH/MM3 (1.8-7.7); BASOPHIL % 0.1 % (0.0-2.0); EOSINOPHIL % 0.1 % (0.0-4.0); HEMATOCRIT 30.2 % (39.0-51.0); LYMPH % 11.6 % (9.0-44.0); LYMPHOCYTE # 0.5 TH/MM3 (1.0-4.8); MEAN CELL VOLUME 97.5 FL (80.0-100.0); MEAN CORPUSCULAR HEMOGLOBIN 33.5 PG (27.0-34.0); MEAN CORPUSCULAR HGB CONC 34.4 % (32.0-36.0); MONO % 4.7 % (0.0-8.0); NEUT % 83.5 % (16.0-70.0); PLATELET COUNT 50 TH/MM3 (150-450); RED CELL DISTRIBUTION WIDTH 14.1 % (11.6-17.2); WHITE BLOOD COUNT 4.3 TH/MM3 (4.0-11.0)
[2017-04-26] MEDS: RESP: ALBUTEROL 2.5 MG/IPRATROPIUM 0.5 MG NEB (SCH) INH ×4 (03:40→19:58)
[2017-04-26 03:44] LABS: HEMO FLAGS AUTO DIFF
[2017-04-26 03:57] LABS: BICARBONATE 26.5 MEQ/L (21.0-32.0); MAGNESIUM 2.1 MG/DL (1.5-2.5); POTASSIUM 3.7 MEQ/L (3.5-5.1); TOTAL BILIRUBIN ADULT 0.7 MG/DL (0.2-1.0)
[2017-04-26 03:59] LABS: CALCIUM-PROTEIN CORRECTED 7.3 MG/DL (8.5-10.1)
[2017-04-26] MEDS: CHLORHEXIDINE GLUCONATE 2 % 1 PACK (2 CLOTHS) TOP SCH (04:00)
[2017-04-26 04:49] LABS: BANDS 13 % (0-6); METAMYELOCYTES 1 % (0-1); PLATELET ESTIMATE SMEAR LOW (NORMAL); PLATELET MORPHOLOGY NORMAL (NORMAL); POLYS (SEG NEUTROPHILS) 80 % (16-70); SCAN/DIFF FINAL DIFF MANUAL; WBC DIFF SAMPLE 100
[2017-04-26 04:50] LABS: DOHLE BODIES PRESENT (NONE SEEN)
[2017-04-26] MEDS: PROPOFOL 1000 MG/100 ML INJ 100 ML IV PRN ×3 (05:17→14:27)
[2017-04-26] MEDS: VANCOMYCIN INJ 1,250 MG in SODIUM CHLOR 0.9% 250 ML INJ 250 ML IV SCH ×4 (05:17→21:07)
[2017-04-26 05:40] LABS: BLOOD GAS BASE EXCESS -0.3 mmol/L (-2-2); BLOOD GAS CARBOXYHEMOGLOBIN 0.8 % (0-4); BLOOD GAS HCO3 24 mmol/L (22-26); BLOOD GAS METHEMOGLOBIN 1.1 % (0-2); BLOOD GAS O2 HGB SATURATION 96 % (90-100); BLOOD GAS OXYGEN CONTENT 13.2 Vol % (12.0-20.0); BLOOD GAS PCO2 42 mmHg (38-42); BLOOD GAS PO2 109 mmHg (61-120); BLOOD GAS TOTAL HGB 9.7 G/DL (12.0-16.0); CRITICAL VALUE NO; OXYGEN DEVICE VENTILATOR; TEMP CORR TO 98.6
[2017-04-26 05:41] LABS: DRAW SITE RT RADIAL; FIO2 70 %; NUMBER OF ARTERIAL PUNCTURES 1; STAT NO; ULNAR PULSE PRESENT; VENT SETTINGS PRVC/AC
--- NOTE | 2017-04-26 06:00 | RADRPT ---
EXAM DATE/TIME: 04/26/2017 04:50 [facility] COMPARISON: CHEST SINGLE AP, April 25, 2017, 20:52. INDICATIONS : Shortness of breath. MEDICAL HISTORY : Gastroesophageal reflux disease. SURGICAL HISTORY : None. ENCOUNTER: Subsequent ACUITY: 4 - 6 days PAIN SCORE: Non-responsive. LOCATION: Bilateral chest FINDINGS: A single view of the chest demonstrates endotracheal tube in good position. Nasogastric tube enters s tomach. Bilateral airspace disease, left greater than right with small effusions. Findings similar to April 25. CONCLUSION: 1. Support apparatus unchanged. Bilateral airspace disease and left effusion relatively stable. Roverto Monae MD on April 26, 2017 at 5:58 Board Certified Radiologist. This report was verified electronically.
[2017-04-26] MEDS: PIPERACIL-TAZO 4.5 GM PREMIX 100 ML IV SCH ×4 (06:50→17:33)
[2017-04-26] MEDS: SODIUM CHLOR 0.9% 1000 ML INJ 1,000 ML IV SCH ×4 (06:52→09:00)
[2017-04-26] MEDS: busPIRone HCL 5 MG TAB PO SCH ×3 (08:57→17:32)
[2017-04-26] MEDS: TOPIRAMATE 25 MG TAB PO SCH ×2 (08:57→21:09)
[2017-04-26] MEDS: GABAPENTIN 300 MG CAP PO SCH ×2 (08:58→21:08)
[2017-04-26] MEDS: DOCUSATE SODIUM 50 MG/SENNA 8.6 MG TAB PO SCH ×2 (08:58→21:08)
[2017-04-26] MEDS: FAMOTIDINE 20 MG TAB PO SCH (08:58)
[2017-04-26] MEDS: ARTIFICIAL TEARS OPTH SOLN 15 ML BTL EACH EYE SCH ×3 (09:00→17:33)
[2017-04-26] MEDS: SODIUM CHLORIDE 0.9% FLUSH 10 ML FLUSH SCH ×2 (09:00→21:06)
[2017-04-26] MEDS: CHLORHEXIDINE 0.12% (ORAL KIT) 15 ML CUP MT SCH ×2 (09:01→21:06)
[2017-04-26] MEDS: fentaNYL DRIP 250 ML IV PRN ×4 (09:03→21:44)
[2017-04-26] MEDS ORDERED: AMIODARONE INJ 150 MG in DEXTROSE 5% IN WATER 100ML INJ 100 ML IV ONE ×2 (10:54)
[2017-04-26] MEDS ORDERED: CALCIUM GLUCONATE INJ 2 GM in DEXTROSE 5% IN WATER 100ML INJ 100 ML IV ONE ×2 (11:00)
--- NOTE | 2017-04-26 11:07 | HHI.CCPN ---
Subjective Remarks/Hospital Course 04/25: This is a 46-year-old male with a past medical history of Anxiety, Depression and Substance Abuse was initially sent to the emergency room April 23, [address] [facility] for cough and fever x2 days. Per records, patient had Temp 104.7. At that time patient denied SOB, chest pain, nausea, vomiting or diarrhea. He was admitted to medical surgical street however the patient left this morning against medical advise despite the treatment of pneumonia. After leaving this morning he has had some alcohol to drink and smoked some methamphetamine. His brother brought him back for reevaluation and treatment for his pneumonia. In the emergency department his oxygen saturations were in the low 80s on room air, patient was constantly removing to his oxygen mask and would not tolerate any BiPAP. He became extremely agitated combative and was intubated by me for an airway protection and severe hypoxemia. 04/26: Remains sedated, orally intubated on mechanical ventilation. Went into A. fib last night currently ventricular rate 130s. Objective Vital Signs Date Time Temp Pulse Resp B/P (MAP) Pulse Ox O2 Delivery O2 Flow Rate FiO2 04/26/17 08:00 98.0 105 18 89/64 (72) 100 04/26/17 07:57 60 04/25/17 20:50 Ventilator 04/25/17 19:20 15.00 Intake and Output 04/26/17 04/26/17 04/27/17 08:00 16:00 00:00 Intake Total 4832 ml 4212.5 ml Output Total 500 ml Balance 4332 ml 4212.5 ml Result Diagram: 04/26/17 0322 04/26/17 0322 Other Results Microbiology Date/Time Source Procedure Growth Status 04/25/17 19:55 Urine Catheterized Urine Legionella Antigen - Final PRESUMPTIVE NEGATIVE FOR LEGIONELLA P... Complete 04/25/17 19:55 Urine Catheterized Urine Streptococcus pneumoniae Antigen (M - Final PRESUMPTIVE NEGATIVE FOR STREPTOCOCCU... Complete Laboratory Tests Test 04/25/17 17:23 04/25/17 17:36 04/25/17 19:55 04/25/17 21:00 White Blood Count 4.5 TH/MM3 Red Blood Count 3.73 MIL/MM3 Hemoglobin 12.4 GM/DL Hematocrit 35.8 % Mean Corpuscular Volume 96.0 FL Mean Corpuscular Hemoglobin 33.2 PG Mean Corpuscular Hemoglobin Concent 34.6 % Red Cell Distribution Width 14.0 % Platelet Count 62 TH/MM3 Mean Platelet Volume 10.0 FL Neutrophils (%) (Auto) 83.7 % Lymphocytes (%) (Auto) 8.7 % Monocytes (%) (Auto) 7.5 % Eosinophils (%) (Auto) 0.0 % Basophils (%) (Auto) 0.1 % Neutrophils # (Auto) 3.8 TH/MM3 Lymphocytes # (Auto) 0.4 TH/MM3 Monocytes # (Auto) 0.3 TH/MM3 Eosinophils # (Auto) 0.0 TH/MM3 Basophils # (Auto) 0.0 TH/MM3 CBC Comment AUTO DIFF Differential Total Cells Counted 100 Neutrophils % (Manual) 82 % Band Neutrophils % 11 % Lymphocytes % 5 % Monocytes % 1 % Neutrophils # (Manual) 4.2 TH/MM3 Differential Comment FINAL DIFF MANUAL Atypical Lymphocytes % Plasma Cells 1 % Platelet Estimate LOW Platelet Morphology Comment NORMAL Blood Urea Nitrogen 8 MG/DL Creatinine 1.05 MG/DL Random Glucose 148 MG/DL Total Protein 5.7 GM/DL Albumin 2.1 GM/DL Calcium Level 6.6 MG/DL Magnesium Level 1.9 MG/DL Alkaline Phosphatase 91 U/L Aspartate Amino Transf (AST/SGOT) 338 U/L Alanine Aminotransferase (ALT/SGPT) 89 U/L Total Bilirubin 0.8 MG/DL Sodium Level 125 MEQ/L Potassium Level 3.4 MEQ/L Chloride Level 89 MEQ/L Carbon Dioxide Level 28.6 MEQ/L Anion Gap 7 MEQ/L Estimat Glomerular Filtration Rate 76 ML/MIN Lactic Acid Level 1.6 mmol/L Protein Corrected Calcium 7.3 MG/DL Blood Gas Puncture Site RT RADIAL LT FEMORAL Blood Gas Patient Temperature 98.6 98.6 Blood Gas HCO3 27 mmol/L 24 mmol/L Blood Gas Base Excess 4.4 mmol/L -0.7 mmol/L Blood Gas Oxygen Saturation 94 % 96 % Arterial Blood pH 7.53 7.39 Arterial Blood Partial Pressure CO2 32 mmHg 40 mmHg Arterial Blood Partial Pressure O2 68 mmHG 92 mmHG Arterial Blood Oxygen Content 14.9 Vol % 15.3 Vol % Arterial Blood Carboxyhemoglobin 1.1 % 0.5 % Arterial Blood Methemoglobin 0.5 % 0.4 % Blood Gas Hemoglobin 11.2 G/DL 11.2 G/DL Oxygen Delivery Device Partial Rebreather VENTILATOR Blood Gas Liter Flow 15 L/M Urine Opiates Screen NEG Urine Barbiturates Screen NEG Urine Amphetamines Screen NEG Urine Benzodiazepines Screen NEG Urine Cocaine Screen NEG Urine Cannabinoids Screen NEG Blood Gas Ventilator Setting Blood Gas Inspired Oxygen 100 % Test 04/25/17 22:00 04/26/17 03:22 04/26/17 05:24 Nasal Screen MRSA (PCR) MRSA NOT DETECTED White Blood Count 4.3 TH/MM3 Red Blood Count 3.10 MIL/MM3 Hemoglobin 10.4 GM/DL Hematocrit 30.2 % Mean Corpuscular Volume 97.5 FL Mean Corpuscular Hemoglobin 33.5 PG Mean Corpuscular Hemoglobin Concent 34.4 % Red Cell Distribution Width 14.1 % Platelet Count 50 TH/MM3 Mean Platelet Volume 9.4 FL Neutrophils (%) (Auto) 83.5 % Lymphocytes (%) (Auto) 11.6 % Monocytes (%) (Auto) 4.7 % Eosinophils (%) (Auto) 0.1 % Basophils (%) (Auto) 0.1 % Neutrophils # (Auto) 3.6 TH/MM3 Lymphocytes # (Auto) 0.5 TH/MM3 Monocytes # (Auto) 0.2 TH/MM3 Eosinophils # (Auto) 0.0 TH/MM3 Basophils # (Auto) 0.0 TH/MM3 CBC Comment AUTO DIFF Differential Total Cells Counted 100 Neutrophils % (Manual) 80 % Band Neutrophils % 13 % Lymphocytes % 5 % Monocytes % 1 % Neutrophils # (Manual) 4.0 TH/MM3 Metamyelocytes 1 % Differential Comment FINAL DIFF MANUAL Dohle Bodies PRESENT Platelet Estimate LOW Platelet Morphology Comment NORMAL Red Cell Morphology Comment NORMAL Blood Urea Nitrogen 8 MG/DL Creatinine 0.74 MG/DL Random Glucose 115 MG/DL Total Protein 4.3 GM/DL Albumin 1.5 GM/DL Calcium Level 6.0 MG/DL Phosphorus Level 3.4 MG/DL Magnesium Level 2.1 MG/DL Alkaline Phosphatase 66 U/L Aspartate Amino Transf (AST/SGOT) 313 U/L Alanine Aminotransferase (ALT/SGPT) 88 U/L Total Bilirubin 0.7 MG/DL Sodium Level 133 MEQ/L Potassium Level 3.7 MEQ/L Chloride Level 100 MEQ/L Carbon Dioxide Level 26.5 MEQ/L Anion Gap 7 MEQ/L Estimat Glomerular Filtration Rate 113 ML/MIN Lactic Acid Level 1.0 mmol/L Protein Corrected Calcium 7.3 MG/DL Blood Gas Puncture Site RT RADIAL Blood Gas Patient Temperature 98.6 Blood Gas HCO3 24 mmol/L Blood Gas Base Excess -0.3 mmol/L Blood Gas Oxygen Saturation 96 % Arterial Blood pH 7.38 Arterial Blood Partial Pressure CO2 42 mmHg Arterial Blood Partial Pressure O2 109 mmHg Arterial Blood Oxygen Content 13.2 Vol % Arterial Blood Carboxyhemoglobin 0.8 % Arterial Blood Methemoglobin 1.1 % Blood Gas Hemoglobin 9.7 G/DL Oxygen Delivery Device VENTILATOR Blood Gas Ventilator Setting PRVC/AC Blood Gas Inspired Oxygen 70 % Imaging Last 24 hours Impressions Chest X-Ray 04/25/17 1712 Signed Impressions: Service Date/Time: Tuesday, April 25, 2017 17:34 - CONCLUSION: Left greater than right airspace disease and left pleural effusion, all worse. Timbo Newsome MD Chest X-Ray 04/25/17 0000 Signed Impressions: Service Date/Time: Tuesday, April 25, 2017 20:52 - CONCLUSION: 1. As intermittent tracheal tube and nasogastric tube placement as above. 2. Left greater than right consolidation and small moderate left pleural effusion are again noted. Timbo Newsome MD Objective Remarks HEENT/ Neuro: Sedated, orally intubated, Pallor present, no icterus, tongue/ mucosa moist Neck: No JVD Chest/Pulm: on mech vent, good air entry bilaterally, no wheezing or crackles CVS: S1-S2 regular, no murmur GI/abdomen: soft, nontender, bowel sounds sluggish Extremities: warm bilaterally, no edema Urinary Catheter: Yes Assessment to: Continue A/P Assessment and Plan Respiratory failure - Intubated for an airway protection - Underlying pneumonia - Most likely will go through withdrawal, will keep intubated until neurologically improved. Continue propofol/Versed/fentanyl drips. Add Librium 25 mg every 8 hourly. - Continue mechanical ventilation - Continue DuoNeb's - IV antibiotics for pneumonia treatment Pneumonia - Broad-spectrum antibiotics - Panculture - De-escalate antibiotics per sensitivity - CXR daily Altered mental status - Intoxication - Polysubstance abuse - No focal neurological exam - Monitor for withdrawal - Versed and fentanyl drip for sedation - Also propofol if needed - CT head to rule out intracranial process A. fib with RVR -We will initiate amiodarone bolus followed by drip for rate control as well as attempt conversion to sinus rhythm. Hyponatremia - Na 125, likely secondary to acute infection/dehydration - IVF for hydration - repeat labs in am. Hypocalcemia - Replacement per ICU electrolyte protocol. Check vitamin D2 and D3 as well as PTH level. Thrombocytopenia: - previous admission - 44 - no active bleeding. - Will monitor. - Consult hematology for further evaluation DVT Prophylaxis - Teds SCDs - No pharmacological DVT prophylaxis due to thrombocytopenia - Pepcid Start tube feeds and advanced to goal as tolerated. Critical Care: The total critical care time was 35 minutes. Time to perform other separately billable procedures was not included in the critical care time. Singh Perez MD Apr 26, 2017 11:07
[2017-04-26] MEDS ORDERED: POTASSIUM CHLORIDE 20 MEQ PWD PACKET OG-TUBE ONE (11:45)
[2017-04-26] MEDS: AMIODARONE INJ 450 MG in DEXTROSE 5% IN WATE(EXCEL) INJ 241 ML IV SCH ×4 (12:31→21:06)
[2017-04-26] MEDS: chlordiazePOXIDE 25 MG CAP PO SCH ×2 (12:44→21:09)
[2017-04-26] MEDS ORDERED: DIGOXIN 0.5 MG/2 ML VIAL IV PUSH ONE (14:15)
[2017-04-26] MEDS: ACETAMINOPHEN 325 MG TAB PO PRN ×2 (15:02→21:10)
[2017-04-26] MEDS: MIDAZOLAM 100 MG/100 ML INJ 100 ML IV PRN (15:04)
--- NOTE | 2017-04-26 15:13 | EKG ---
Date Performed: 04/25/2017 Time Performed: 17:28:34 PTAGE: 46 years EKG: SINUS TACHYCARDIA WITH FREQUENT SUPRAVENTRICULAR PREMATURE COMPLEXES NONSPECIFIC T-WAVE ABN ORMALITY ABNORMAL RHYTHM ECG PREVIOUS TRACING : 04/23/2017 00.16 Compared to the previous tracing PACs present DOCTOR: Guillermo Berg Interpretating Date/Time 04/26/2017 15:11:33
[2017-04-26] MEDS ORDERED: FUROSEMIDE 40 MG/4 ML VIAL IV PUSH ONE (15:15)
--- NOTE | 2017-04-26 15:22 | RADRPT ---
EXAM DATE/TIME: 04/26/2017 14:55 [facility] COMPARISON: CHEST SINGLE AP, April 26, 2017, 4:50. INDICATIONS : Evaluate for pulmonary edema. MEDICAL HISTORY : Gastroesophageal reflux disease. Substance abuse. Migraine. Anxiety. SURGICAL HISTORY : None. ENCOUNTER: Subsequent ACUITY: 3 days PAIN SCORE: Non-responsive. LOCATION: Bilateral chest FINDINGS: ET tube and nasogastric tube are in good position. Chronic parenchymal changes are seen on the right . Increasing pleural effusion is present on the left. Heart and pulmonary vascularity are normal. CONCLUSION: Increasing left pleural effusion. Abner Dolan MD FACR on April 26, 2017 at 15:11 Board Certified Radiologist. This report was verified electronically.
[2017-04-26 15:30] LABS: BICARBONATE 23.2 MEQ/L (21.0-32.0)
[2017-04-26 15:33] LABS: TOTAL BILIRUBIN ADULT 0.5 MG/DL (0.2-1.0)
[2017-04-26 15:51] LABS: CKMB 4.7 NG/ML (0.5-3.6)
[2017-04-26 16:00] LABS: CALCIUM-PROTEIN CORRECTED 6.3 MG/DL (8.5-10.1)
--- NOTE | 2017-04-26 16:56 | RADRPT ---
EXAM DATE/TIME: 04/26/2017 16:20 [facility] COMPARISON: No previous studies available for comparison. INDICATIONS : Altered mental status. RADIATION DOSE: 56.35 CTDIvol (mGy) MEDICAL HISTORY : Drug abuse. SURGICAL HISTORY : None. ENCOUNTER: Initial ACUITY: 1 day PAIN SCALE: Non-responsive LOCATION: Bilateral cranial TECHNIQUE: Multiple contiguous axial images were obtained of the head. Using automated exposure control and adj ustment of the mA and/or kV according to patient size, radiation dose was kept as low as reasonably a chievable to obtain optimal diagnostic quality images. DICOM format image data is available electro nically for review and comparison. FINDINGS: CEREBRUM: The ventricles are normal for age. No evidence of midline shift, mass lesion, hemorrhage or acute in farction. No extra-axial fluid collections are seen. POSTERIOR FOSSA: The cerebellum and brainstem are intact. The 4th ventricle is midline. The cerebellopontine angle i s unremarkable. EXTRACRANIAL: The visualized portion of the orbits is intact. There has been previous surgery along the floor of th e right orbit. There is fluid in the mastoid air cells on the left. SKULL: The calvaria is intact. No evidence of skull fracture. CONCLUSION: 1. No acute intracranial abnormality identified. 2. Fluid in the mastoid air cells on the left. Rj Dolan MD on April 26, 2017 at 16:52 Board Certified Radiologist. This report was verified electronically.
--- NOTE | 2017-04-26 16:58 | MB ---
cc: NEAL ARMENTA M.D. DATE OF CONSULTATION 04/26/2017 DATE OF 1970, 46 years old REASON FOR CONSULTATION Tremor versus seizure. HISTORY OF THE PRESENT ILLNESS The patient is a 46-year-old man. History is taken from the chart he is intubated and sedated with a history of anxiety, depression, substance abuse. He comes to the emergency room at 9:24 by EMS from [facility] for cough, fever for two days. Apparently he had a temperature of 104.7 per record[address]mitted to the street, however, left the morning of admission against medical advice for treatment of pneumonia. After leaving that morning he had some alcohol, smoked amphetamines and apparently his brother brought him back for evaluation. In the emergency department his oxygen saturations were in the low 80s. He did not tolerate BiPAP, became extremely agitated, combative and he was intubated for airway protection and severe hypoxemia. Today it was noted that he had some tremors of his chest paroxysmally and received some Versed and it resolved. Currently he is intubated, sedated on ventilator going down for CT scan. He did have his EEG I am told. ALLERGIES HE HAS NO ALLERGIES TO MEDICINE. PAST MEDICAL HISTORY As stated. MEDICATIONS 1. Citalopram. 2. Topiramate. 3. Seroquel. 4. BuSpar. 5. Gabapentin. 6. Zantac. PHYSICAL EXAMINATION VITAL SIGNS: On exam vitals temperature is 98.5, heart rate 116, respiratory rate 18, blood pressure 133/96, sating at 90% on 100%. As stated intubated, sedated on ventilator. NEUROLOGIC: Pinpoint pupils, sluggish. Does not follow commands. No withdrawal to pain. Flaccid. Sedated exam. LABORATORY DATA Reviewed. White count 4.3, hemoglobin 10.4, platelets are 50,000. Chemistries show calcium of 5.1, corrected 6.3. AST 250, ALT 71. Albumin 1.3. Potassium 3. Lactic acid 1.0. Toxicology screen for opiates, barbiturates, amphetamines, benzodiazepines, cocaine, cannabinoids were negative. MRSA not detected. IMAGING Chest x-ray today shows bilateral air space disease and left effusion, stable. CT is pending of the brain. IMPRESSION Tremor versus seizure which seemed to have resolved with some Versed in a 46-year-old man with polysubstance abuse. Possible sepsis. Recommend at this time is to get an EEG report. We will get a CT of the brain and make sure there has not been any insult to the brain. Continue with sedation. Watch him for withdrawal. Continue benzodiazepines. Librium has been added and certainly that can be continued. Apparently he went into atrial fibrillation rapid ventricular response. He has been given amiodarone. Continue to correct his electrolytes, his calcium, potassium. levels are pending. He is thrombocytopenic, seems like this is his baseline for the moment. His last platelet count was 44,000 previous admission. Continue sequential compression devices. Further recommendations will be made accordingly. MD JI Muñoz/KK /4:09 PM /4:32 PM
--- NOTE | 2017-04-26 17:22 | MG ---
cc: KIA SANTACRUZ Lab No: Date: 04/26/2017 Age: Sex: M Race: ELECTROENCEPHALOGRAM NUMBER [id number] INTRODUCTION MEDICATIONS 1. Fentanyl. 2. Versed. 3. Diprivan. INDICATION Seizure-like activity. Alcohol. Meth smoker. BuSpar. Librium. Ativan. DESCRIPTION The recording overall is synchronous and symmetric with diffuse alpha rhythms. Appears to have some sleep spindles symmetrically which are small but present. There is no hemisphere asymmetry. There is no epileptiform or seizure activity. Photic stimulation was performed without significant posterior driving. Hyperventilation is not performed. The patient is noted be intubated. IMPRESSION Unremarkable EEG. No evidence for a focal or diffuse abnormality. No seizure activity is seen. MD BLANQUITA Erazo/KK /4:56 PM /5:05 PM
[2017-04-26] MEDS: AZITHROMYCIN INJ 500 MG in SODIUM CHLOR 0.9% 250 ML INJ 250 ML IV SCH (17:33)
[2017-04-26] MEDS: CALCIUM GLUCONATE INJ 2 GM in DEXTROSE 5% IN WATER 100ML INJ 100 ML IV SCH ×4 (18:21→21:10)
[2017-04-26] MEDS ORDERED: PHARMACY ORDERED LAB ONE (20:45)
[2017-04-26] MEDS: CITALOPRAM HYDROBROMIDE 20 MG TAB PO SCH (21:08)
[2017-04-26] MEDS: QUEtiapine FUMARATE 25 MG TAB PO SCH (21:09)
--- NOTE | 2017-04-26 21:58 | MB ---
cc: DEEPA BALDERRAMA MD DATE OF CONSULTATION: 04/26/2017 REASON FOR CONSULTATION: Thrombocytopenia and anemia. DATE OF : 1970 HISTORY OF PRESENT ILLNESS: Mr. Spicer is a 46 year-old gentleman with a history of anxiety, depression, polysubstance abuse, including methamphetamine and alcohol, who was previously admitted to this hospital on April 23, 2017, with productive cough and fever for two days prior to hospitalization. When he presented at that time to the emergency room, he was found to have a temperature of 102 with a platelet count of 44,000 and bandemia with 14% bands. His chest x-ray showed patchy consolidative infiltrates in the left lung centrally, in the left lower lung. He was placed on broad-spectrum antibiotics. The Infectious Disease team and Hematology team were also following the patient. He was also being treated for hyponatremia, hypocalcemia and hypokalemia. All information obtained via chart review. The patient is unable to answer questions as he is intubated and seated. Attempted to call next of kin in the chart, however, was unable to reach them. Also discussed with the nurse who had talked with his mother earlier in the day. He left against medical advice from prior hospitalization. Per nursing report, he was disheveled and agitated when he left the hospital. His mother noted that he came home, thought to be directly from the hospital and was agitated. She reports that he was very thirsty and drinking a lot of water. His mental status continued to deteriorate and he was brought back to the hospital by his family for further evaluation. There is some question of whether he ingested alcohol or smoked methamphetamine in between leaving the hospital and returning to the hospital. When he returned to the hospital, his oxygen saturation was in the low 80s on room air. The patient was agitated and combative and he was intubated in the emergency department for hypoxic respiratory failure and for airway protection. He is currently on broad-spectrum antibiotic therapy including azithromycin, Zosyn, and vancomycin. Cultures are pending. Repeat chest x-ray showed increasing left pleural effusion and left greater than right air space disease. Head CT obtained shows no acute intracranial abnormality with fluid in the left mastoid air cells. LABORATORY DATA: Reveals hyponatremia, hypocalcemia, hemoglobin of 10.4, platelet count of 50,000. Bandemia present with 13% bands. Repeat urine drug screen is negative. PAST MEDICAL HISTORY: 1. Anxiety. 2. Depression. 3. Polysubstance abuse including alcohol. PAST SURGICAL HISTORY: 1. Right hand surgery. 2. Bilateral ear surgery. 3. Palate surgery. FAMILY HISTORY: Unobtainable. The patient is intubated and sedated. SOCIAL HISTORY: Known polysubstance abuse. Participates in programs at [facility] in this area. Support system with mother and brother. ALLERGIES: NO KNOWN DRUG ALLERGIES. Unable to verify as the patient is intubated and sedated. CURRENT HOSPITAL MEDICATIONS 1. Albuterol, Ipratropium inhaler. 2. Amiodarone. 3. Azithromycin. 4. Buspar. 5. IV calcium. 6. Librium. 7. Celexa. 8. Famotidine. 9. Fentanyl drip. 10. Gabapentin. 11. Lactulose. 12. Versed. 13. Zosyn. 14. Seroquel. 15. Marsha-Colace 16. Vancomycin. PHYSICAL EXAMINATION: Well-developed, well-nourished man, intubated and sedated on the ventilator. NECK: No palpable adenopathy. EYES: No scleral icterus. No conjunctival pallor. CARDIOVASCULAR: Regular rate and rhythm with no murmurs. RESPIRATORY: Intubated and sedated, clear to auscultation bilaterally. GI: Soft, non-tender, non-distended. No palpable organomegaly. SKIN: No rashes. NEUROLOGIC: Intubated and sedated on the vent. PSYCHIATRIC: Intubated and sedated on the vent. LYMPH: No palpable adenopathy. HEME: No bruising. SKIN: No rashes. ASSESSMENT AND PLAN: 1. Thrombocytopenia. Uncertain of baseline. Platelet count on prior admission 44,000 and is 50,000 today. Range during hospital stay was 39,000 to 62,000. Prior ultrasound of the liver reveals mild hepatosplenomegaly with heterogeneous hepatic echo texture. Radiologist notes the findings may reflect hepatosteatitis, or early cirrhosis with portal hypertension. Infiltrative leukemia, lymphoma mentioned, although this would be a less likely process. Multiple factors are likely contributing including cirrhosis, alcohol abuse and substance abuse causing direct toxic effect on the bone marrow and current sepsis with fever, no pneumonia. Peripheral smear from previous hospitalization with moderately decreased number of platelets, mention possibility of peripheral platelet consumption or sequestration due to large platelet forms. No significant red cell fragments visualized. Hepatitis studies and HIV negative. Vitamin B12, folate within normal limits. Previous ferritin elevated at 2700. Previous reticulocyte counts of 0.5. We will repeat blood smear. Will not recheck iron studies or vitamin studies as these will not have changed during the short period of time that the patient was out of the hospital. Will check haptoglobin and LDH and coags. 2. Anemia. Hemoglobin 10.4 from most recent CBC, approximately 12 during hospitalization, uncertain of baseline. 3. Bandemia: reactive due to acute infection. Previous morphology review from smear notes toxic granulation, toxic vacuolization, dohle bodies and white blood cells. The major contributing factor to low hemoglobin, thromboctyopenia at this time is due to acute infection, hospitalization, antibiotic therapy. Will continue to monitor. Patient remains critically all, intubated and sedated and possibly going through delirium tremens, alcohol withdrawal. Likely major contributing factor to anemia, thrombocytopenia at baseline is alcohol abuse with acute picture of sepsis predominanting. Will continue to monitor closely. Deepa Balderrama MD RADHA/ANGEL LUIS /7:47 PM /9:25 PM ANA MARÍA
[2017-04-26] MEDS: RESP: ALBUTEROL 2.5 MG/IPRATROPIUM 0.5 MG NEB (PRN) INH (23:09)
[2017-04-27] VITALS (23 sets, daily range): BP systolic 112–144; BP diastolic 55–69; PULSE 73–123; RESP 18–22; TEMP 96.7–102.6; O2SAT 93–100
[2017-04-27 00:14] LABS: VANCOMYCIN TROUGH 16.2 MCG/ML (5.0-10.0)
[2017-04-27] MEDS: CALCIUM GLUCONATE INJ 2 GM in DEXTROSE 5% IN WATER 100ML INJ 100 ML IV SCH ×4 (01:01→04:47)
[2017-04-27] MEDS: PIPERACIL-TAZO 4.5 GM PREMIX 100 ML IV SCH ×5 (01:01→23:46)
[2017-04-27] MEDS: PROPOFOL 1000 MG/100 ML INJ 100 ML IV PRN ×5 (01:16→22:04)
[2017-04-27] MEDS ORDERED: MAGNESIUM SULFATE INJ 4 GM in SODIUM CHLORIDE 0.9% INJ 92 ML IV PRN (01:30)
[2017-04-27] MEDS ORDERED: POTASSIUM CHLORIDE 25 MEQ EFFERVESCENT TAB PO PRN (01:30)
[2017-04-27] MEDS ORDERED: POTASSIUM PHOSPHATE INJ 30 MMOL in SODIUM CHLOR 0.9% 250 ML INJ 250 ML IV PRN (01:30)
[2017-04-27] MEDS ORDERED: MAGNESIUM SULFATE INJ 2 GM in SODIUM CHLORIDE 0.9% INJ 96 ML IV PRN (01:30)
[2017-04-27] MEDS ORDERED: POTASSIUM PHOSPHATE MONOBASIC 500 MG TAB PO/TUBE PRN (01:30)
[2017-04-27] MEDS ORDERED: SODIUM PHOSPHATE INJ 30 MMOL in SODIUM CHLOR 0.9% 250 ML INJ 240 ML IV PRN (01:30)
[2017-04-27] MEDS ORDERED: POTASSIUM PHOSPHATE MONOBASIC 500 MG TAB PO PRN (01:30)
[2017-04-27] MEDS ORDERED: MAGNESIUM OXIDE 400 MG TAB PO PRN (01:30)
[2017-04-27] MEDS: RESP: ALBUTEROL 2.5 MG/IPRATROPIUM 0.5 MG NEB (SCH) INH ×4 (03:16→19:59)
[2017-04-27] MEDS: CHLORHEXIDINE GLUCONATE 2 % 1 PACK (2 CLOTHS) TOP SCH (04:00)
[2017-04-27] MEDS: MIDAZOLAM 100 MG/100 ML INJ 100 ML IV PRN ×2 (04:48→13:35)
[2017-04-27] MEDS: VANCOMYCIN INJ 1,250 MG in SODIUM CHLOR 0.9% 250 ML INJ 250 ML IV SCH ×3 (05:08→20:18)
[2017-04-27] MEDS: chlordiazePOXIDE 25 MG CAP PO SCH ×3 (05:08→22:09)
[2017-04-27 06:11] LABS: APTT (PATIENT) 42.2 SEC (24.3-30.1); PROTHROMBIN TIME - PATIENT 11.1 SEC (9.8-11.6)
[2017-04-27 07:07] LABS: AUTOMATED NEUTROPHIL # 7.1 TH/MM3 (1.8-7.7); HEMATOCRIT 36.2 % (39.0-51.0); LYMPH % 5.9 % (9.0-44.0); LYMPHOCYTE # 0.5 TH/MM3 (1.0-4.8); MEAN CELL VOLUME 98.1 FL (80.0-100.0); MEAN CORPUSCULAR HEMOGLOBIN 33.4 PG (27.0-34.0); MONO % 2.6 % (0.0-8.0); NEUT % 91.5 % (16.0-70.0); PLATELET COUNT 63 TH/MM3 (150-450); RED BLOOD COUNT 3.69 MIL/MM3 (4.50-5.90); RED CELL DISTRIBUTION WIDTH 14.5 % (11.6-17.2); WHITE BLOOD COUNT 7.8 TH/MM3 (4.0-11.0)
[2017-04-27 07:10] LABS: HEMO FLAGS AUTO DIFF
--- NOTE | 2017-04-27 07:58 | EKG ---
Date Performed: 04/26/2017 Time Performed: 14:37:22 PTAGE: 46 years EKG: Sinus rhythm NORMAL ECG Since PREVIOUS TRACING , no significant change noted PREVIOUS TRACIN04/25/2017 17.28 DOCTOR: Maryanne Alvarez Interpretating Date/Time 04/27/2017 07:56:43
--- NOTE | 2017-04-27 07:59 | RADRPT ---
EXAM DATE/TIME: 04/27/2017 07:16 [facility] COMPARISON: CHEST SINGLE AP, April 26, 2017, 14:55. INDICATIONS : Respiratory failure. MEDICAL HISTORY : None. Gastroesophageal reflux disease. Substance abuse. Migraine. Anxiety SURGICAL HISTORY : None. ENCOUNTER: Subsequent ACUITY: 3 days PAIN SCORE: Non-responsive. LOCATION: Bilateral chest FINDINGS: Endotracheal tube and NG tube identified. EKG leads are noted. There is persistent bilateral consolid ation left greater than right and left effusion suspected. Osseous structures are intact. Cardiomegal y. CONCLUSION: No significant change has occurred. Maikel Corley MD on April 27, 2017 at 7:58 Board Certified Radiologist. This report was verified electronically.
[2017-04-27 08:04] LABS: BANDS 25 % (0-6); CORRECTED NUCLEATED RBC 1 /100 WBC (0-0); NEUTROPHIL # MANUAL DIFF 7.7 TH/MM3 (1.8-7.7); POLYS (SEG NEUTROPHILS) 74 % (16-70); WBC DIFF SAMPLE 100
[2017-04-27 08:05] LABS: TOXIC GRANULATION 2+ (NORMAL)
[2017-04-27 08:06] LABS: PLATELET ESTIMATE SMEAR LOW (NORMAL); PLATELET MORPHOLOGY NORMAL (NORMAL); SCAN/DIFF FINAL DIFF MANUAL
[2017-04-27 08:06] LABS: BICARBONATE 24.3 MEQ/L (21.0-32.0); CALCIUM-PROTEIN CORRECTED 8.1 MG/DL (8.5-10.1); POTASSIUM 3.9 MEQ/L (3.5-5.1); TOTAL BILIRUBIN ADULT 1.1 MG/DL (0.2-1.0)
[2017-04-27] MEDS: CHLORHEXIDINE 0.12% (ORAL KIT) 15 ML CUP MT SCH ×2 (08:30→20:17)
[2017-04-27] MEDS: ARTIFICIAL TEARS OPTH SOLN 15 ML BTL EACH EYE SCH ×3 (08:31→17:30)
[2017-04-27] MEDS: SODIUM CHLORIDE 0.9% FLUSH 10 ML FLUSH SCH ×2 (08:31→20:17)
[2017-04-27] MEDS: busPIRone HCL 5 MG TAB PO SCH ×3 (08:32→17:30)
[2017-04-27] MEDS: GABAPENTIN 300 MG CAP PO SCH ×2 (08:33→20:18)
[2017-04-27] MEDS: TOPIRAMATE 25 MG TAB PO SCH ×2 (08:33→20:19)
[2017-04-27] MEDS: DOCUSATE SODIUM 50 MG/SENNA 8.6 MG TAB PO SCH ×2 (08:33→20:18)
[2017-04-27] MEDS: FAMOTIDINE 20 MG TAB PO SCH (08:33)
[2017-04-27 08:34] LABS: CKMB 1.7 NG/ML (0.5-3.6)
--- NOTE | 2017-04-27 08:50 | HHI.CCPN ---
Subjective Remarks/Hospital Course 04/25: This is a 46-year-old male with a past medical history of Anxiety, Depression and Substance Abuse was initially sent to the emergency room April 23, 2017 by EMS from [facility] for cough and fever x2 days. Per records, patient had Temp 104.7. At that time patient denied SOB, chest pain, nausea, vomiting or diarrhea. He was admitted to medical surgical street however the patient left this morning against medical advise despite the treatment of pneumonia. After leaving this morning he has had some alcohol to drink and smoked some methamphetamine. His brother brought him back for reevaluation and treatment for his pneumonia. In the emergency department his oxygen saturations were in the low 80s on room air, patient was constantly removing to his oxygen mask and would not tolerate any BiPAP. He became extremely agitated combative and was intubated by me for an airway protection and severe hypoxemia. 04/26: Remains sedated, orally intubated on mechanical ventilation. Went into A. fib last night currently ventricular rate 130s. 04/27: Remains sedated, orally intubated on mechanical ventilation. Converted back to sinus rhythm with amiodarone gtt. which continues. Receiving IV calcium gluconate for hypocalcemia. Temperature spike up to 105 last night. Objective Vital Signs Date Time Temp Pulse Resp B/P (MAP) Pulse Ox O2 Delivery O2 Flow Rate FiO2 04/27/17 08:22 100 50 04/27/17 06:00 91 04/27/17 04:00 98.3 18 130/57 (81) 04/25/17 20:50 Ventilator 04/25/17 19:20 15.00 Intake and Output 04/27/17 04/27/17 04/28/17 08:00 16:00 00:00 Intake Total 406 ml Output Total 1850 ml Balance -1444 ml Result Diagram: 04/27/17 0420 04/27/17 0242 Other Results Microbiology Date/Time Source Procedure Growth Status 04/25/17 19:55 Urine Catheterized Urine Legionella Antigen - Final PRESUMPTIVE NEGATIVE FOR LEGIONELLA P... Complete 04/25/17 19:55 Urine Catheterized Urine Streptococcus pneumoniae Antigen (M - Final PRESUMPTIVE NEGATIVE FOR STREPTOCOCCU... Complete Imaging Last 24 hours Impressions Chest X-Ray 04/25/17 1712 Signed Impressions: Service Date/Time: Tuesday, April 25, 2017 17:34 - CONCLUSION: Left greater than right airspace disease and left pleural effusion, all worse. Timbo Newsome MD Chest X-Ray 04/25/17 0000 Signed Impressions: Service Date/Time: Tuesday, April 25, 2017 20:52 - CONCLUSION: 1. As intermittent tracheal tube and nasogastric tube placement as above. 2. Left greater than right consolidation and small moderate left pleural effusion are again noted. Timbo Newsome MD Objective Remarks HEENT/ Neuro: Sedated, orally intubated, Pallor present, no icterus, tongue/ mucosa moist. Pupils bilaterally constricted 2 mm, reactive Neck: No JVD Chest/Pulm: on mech vent, good air entry bilaterally, scattered rhonchi, no wheezing or crackles. CVS: S1-S2 regular, no murmur GI/abdomen: soft, nontender, bowel sounds sluggish Extremities: warm bilaterally, no edema A/P Assessment and Plan Respiratory failure - Intubated for an airway protection - Underlying pneumonia - Most likely will go through withdrawal, will keep intubated until neurologically improved. Continue propofol/Versed/fentanyl drips. Librium 25 mg every 8 hourly. - Continue mechanical ventilation - Continue DuoNeb's - IV antibiotics for pneumonia treatment Pneumonia - Broad-spectrum antibiotics - Panculture - De-escalate antibiotics per sensitivity - Follow CXR Altered mental status - Intoxication - Polysubstance abuse - No focal neurological exam - Monitor for withdrawal - Versed and fentanyl drip for sedation - Also propofol if needed - CT head to rule out intracranial process A. fib with RVR -We will initiate amiodarone bolus followed by drip for rate control as well as attempt conversion to sinus rhythm. Hyponatremia - Na 125, likely secondary to acute infection/dehydration - IVF for hydration - repeat labs in am. Hypocalcemia - Replacement per ICU electrolyte protocol. Check vitamin D2 and D3 as well as PTH level. Thrombocytopenia: - previous admission - 44 - no active bleeding. - Will monitor. - Consulted hematology for further evaluation DVT Prophylaxis - Teds SCDs - No pharmacological DVT prophylaxis due to thrombocytopenia - Pepcid Started tube feeds and advance to goal as tolerated. Critical Care: The total critical care time was 35 minutes. Time to perform other separately billable procedures was not included in the critical care time. Singh Perez MD Apr 27, 2017 08:50
[2017-04-27] MEDS: fentaNYL DRIP 250 ML IV PRN ×2 (10:14→23:46)
[2017-04-27] MEDS: AMIODARONE INJ 450 MG in DEXTROSE 5% IN WATE(EXCEL) INJ 241 ML IV SCH ×2 (10:14)
[2017-04-27] MEDS: SODIUM CHLOR 0.9% 1000 ML INJ 1,000 ML IV SCH ×3 (10:16→23:46)
--- NOTE | 2017-04-27 10:41 | PD.PROCEDR ---
Central Line Procedure REASON FOR PROCEDURE Central venous access PROCEDURE PERFORMED Central line placement: Left subclavian vein CONSENT Informed consent for procedure was obtained from family and documented on chart. ANESTHESIA Local injection of 1% Lidocaine DESCRIPTION OF THE PROCEDURE The patient was placed in supine, mild Trendelenburg position. The area was exposed and cleansed with ChloraPrep, times two. Large sterile drape was used to cover the patient, with the site exposed, under sterile conditions including cap, face mask, sterile gown, and sterile gloves. On single attempt, the introducer needle was inserted with negative pressure in syringe and venous flash was obtained. The guide wire was then advanced without any restriction and the needle was removed. The dilator was used without any complications. Using Seldinger technique a 20 cm antimicrobial coated triple lumen catheter was advanced over the guide wire to a depth of 18 centimeters. The guide wire was removed. All ports were aspirated with dark venous blood return and flushed easily with sterile saline. All ports were capped. Antibiotic disc was placed around central line at puncture site. The central line was secured to the skin with a stat lock, the area was bandaged with sterile see-through central line bandage. RADIOLOGICAL DATA Postprocedure chest x-ray was ordered and was pending at the time of this dictation. It will be reviewed when available. COMPLICATIONS: No apparent complications ESTIMATED BLOOD LOSS: Less than 2 cc. Singh Perez MD Apr 27, 2017 10:40
--- NOTE | 2017-04-27 11:25 | RADRPT ---
EXAM DATE/TIME: 04/27/2017 10:10 [facility] COMPARISON: CHEST SINGLE AP, April 27, 2017, 7:16. INDICATIONS : Central line placement. MEDICAL HISTORY : Gastroesophageal reflux disease. substance abuse, anxiety SURGICAL HISTORY : hand surgery ENCOUNTER: Initial ACUITY: 4 - 6 days PAIN SCORE: Non-responsive. LOCATION: Bilateral chest FINDINGS: Single AP view of the chest. Endotracheal tube, nasogastric tube remain in place. Left subclavian bandar tral venous catheter is now in place with the tip in the region of the distal SVC. Persistent bilater al pulmonary parenchymal opacity left greater than right. Persistent left pleural effusion. No eviden ce of pneumothorax. CONCLUSION: 1. Left subclavian central venous catheter now in place. 2. No change in bilateral pulmonary parenchymal opacity and left pleural effusion. 3. No evidence of pneumothorax. Tong Soto MD on April 27, 2017 at 11:22 Board Certified Radiologist. This report was verified electronically.
[2017-04-27 16:13] LABS: BICARBONATE 25.9 MEQ/L (21.0-32.0); POTASSIUM 4.4 MEQ/L (3.5-5.1)
--- NOTE | 2017-04-27 16:22 | ECHRPT ---
Indication: CONCLUSIONS The left ventricular systolic function is normal with an estimated ejection fraction in the range of 55-60%. No regional wall motion abnormalities are present. The interatrial septum not well visualized. The aortic root and proximal ascending aorta are not well visualized. The aortic valve is not well visualized. There is trace tricuspid valve regurgitation. The estimated pulmonary arterial pressure is 35.2 mmHg. BP: / HR: Rhythm: Sinus MEASUREMENTS (Male / Female) Normal Values Technical Quality:Technically difficult study 2D ECHO LV Ejection Fraction MOD 4C 61.2 % LV Ejection Fraction 4C AL 62.7 % DOPPLER AV Peak Velocity 162.0 cm/s AV Peak Gradient 10.5 mmHg LVOT Peak Velocity 116.0 cm/s LVOT Peak Gradient 5.4 mmHg MV Area PHT 4.5 cm Mitral E Point Velocity 79.0 cm/s Mitral A Point Velocity 55.8 cm/s Mitral E to A Ratio 1.4 TR Peak Velocity 251.0 cm/s TR Peak Gradient 25.2 mmHg Right Atrial Pressure 10.0 mmHg Pulmonary Artery Systolic Pressu 35.2 mmHg Right Ventricular Systolic Press 35.2 mmHg FINDINGS LEFT VENTRICLE The left ventricular systolic function is normal with an estimated ejection fraction in the range of 55-60%. No regional wall motion abnormalities are present. RIGHT VENTRICLE Normal right ventricular size and systolic function. LEFT ATRIUM The left atrial size is normal. RIGHT ATRIUM The right atrial size is normal. ATRIAL SEPTUM The interatrial septum not well visualized. AORTA The aortic root and proximal ascending aorta are not well visualized. MITRAL VALVE Structurally normal mitral valve. No mitral valve stenosis or regurgitation. AORTIC VALVE The aortic valve is not well visualized. TRICUSPID VALVE There is trace tricuspid valve regurgitation. The estimated pulmonary arterial pressure is 35.2 mmHg. PERICARDIUM No pericardial effusion. Terry Henderson MD (Electronically Signed) Final Date:27 April 2017 16:21
[2017-04-27 16:26] LABS: CALCIUM-PROTEIN CORRECTED 8.1 MG/DL (8.5-10.1)
[2017-04-27] MEDS: AZITHROMYCIN INJ 500 MG in SODIUM CHLOR 0.9% 250 ML INJ 250 ML IV SCH (16:50)
[2017-04-27] MEDS ORDERED: CALCIUM GLUCONATE INJ 2 GM in SODIUM CHLORIDE 0.9% INJ 100 ML IV ONE (17:45)
--- NOTE | 2017-04-27 17:51 | MB ---
cc: LEROY CORRALES MD DATE OF CONSULTATION 04/27/17 REASON FOR CONSULTATION Atrial fibrillation HISTORY OF PRESENT ILLNESS Gage Spicer is a 46-year-old man with history of psychiatric problems and substance abuse admitted to the hospital with pneumonia and was intubated. Earlier, he had some atrial fibrillation but had converted back in sinus rhythm. He had some low blood pressures that is resolved. He is on a ventilator currently. He has converted back into a sinus rhythm. I was consulted for possibility of CHF, although his echo is showing normal LV function and the atrial fibrillation has been converted to sinus with Amiodarone. No history can be obtained at all from the patient. MEDICATIONS Charted. PAST MEDICAL HISTORY 1. Left bowel surgery 2. Right hand surgery, 3. Bilateral ear surgery 4. Anxiety depression. 6. Substance abuse This history is all obtained for the chart. PHYSICAL EXAMINATION GENERAL: A robust appearing white male, sedated. VITAL SIGNS: Charted. Currently blood pressure is 124/58, pulse 86. He is in sinus rhythm. HEENT: Exam unremarkable. NECK: No JVD. CHEST: Severe rhonchi bilaterally. CARDIOVASCULAR: S1-S2 regular rate and rhythm. No murmurs, gallops. ABDOMEN: Soft. EXTREMITIES: No cyanosis. Pulses are intact. IMAGING STUDIES Chest x-ray Is extremely abnormal as charted. CARDIOLOGY STUDIES Echo shows preserved LV function. His initial EKGs here have been normal. There was not an EKG done of the A. fib, but there are strips showing A. Fib. IMPRESSION 1. Paroxysmal A. fib due to sepsis. Sepsis is improving. We will go ahead and discontinue Amiodarone drip. 2. Severe lung infiltrates. Echocardiogram is normal. Suspect this is all due to pneumonia. I will be available to follow up as needed. Please call if any questions. MD GONZALO Campuzano/ /5:15 PM /5:34 PM
[2017-04-27] MEDS: QUEtiapine FUMARATE 25 MG TAB PO SCH (20:18)
[2017-04-27] MEDS: CITALOPRAM HYDROBROMIDE 20 MG TAB PO SCH (20:18)
[2017-04-28] VITALS (13 sets, daily range): BP systolic 96–122; BP diastolic 57–68; PULSE 82–125; RESP 18–21; TEMP 98.6–99; O2SAT 93–99
[2017-04-28] MEDS: RESP: ALBUTEROL 2.5 MG/IPRATROPIUM 0.5 MG NEB (PRN) INH (00:54)
[2017-04-28] MEDS: MIDAZOLAM 100 MG/100 ML INJ 100 ML IV PRN ×3 (02:30→21:07)
[2017-04-28] MEDS: CHLORHEXIDINE GLUCONATE 2 % 1 PACK (2 CLOTHS) TOP SCH ×2 (02:30→19:42)
[2017-04-28] MEDS: PROPOFOL 1000 MG/100 ML INJ 100 ML IV PRN ×5 (02:30→23:36)
[2017-04-28] MEDS: RESP: ALBUTEROL 2.5 MG/IPRATROPIUM 0.5 MG NEB (SCH) INH ×4 (03:31→20:08)
[2017-04-28] MEDS: VANCOMYCIN INJ 1,250 MG in SODIUM CHLOR 0.9% 250 ML INJ 250 ML IV SCH ×3 (04:27→20:16)
[2017-04-28] MEDS: PIPERACIL-TAZO 4.5 GM PREMIX 100 ML IV SCH ×3 (05:02→17:20)
[2017-04-28] MEDS: chlordiazePOXIDE 25 MG CAP PO SCH ×3 (05:02→20:17)
[2017-04-28 05:29] LABS: MEAN CELL VOLUME 98.3 FL (80.0-100.0); MEAN CORPUSCULAR HGB CONC 33.6 % (32.0-36.0); PLATELET COUNT 61 TH/MM3 (150-450); RED BLOOD COUNT 3.36 MIL/MM3 (4.50-5.90); RED CELL DISTRIBUTION WIDTH 14.7 % (11.6-17.2); WHITE BLOOD COUNT 9.6 TH/MM3 (4.0-11.0)
[2017-04-28 05:48] LABS: BICARBONATE 25.9 MEQ/L (21.0-32.0); CALCIUM-PROTEIN CORRECTED 8.2 MG/DL (8.5-10.1); POTASSIUM 3.7 MEQ/L (3.5-5.1); TOTAL BILIRUBIN ADULT 0.6 MG/DL (0.2-1.0)
[2017-04-28 05:53] LABS: HEMO FLAGS AUTO DIFF
[2017-04-28] MEDS: CHLORHEXIDINE 0.12% (ORAL KIT) 15 ML CUP MT SCH ×2 (08:00→19:40)
[2017-04-28] MEDS: DOCUSATE SODIUM 50 MG/SENNA 8.6 MG TAB PO SCH ×2 (08:40→20:17)
[2017-04-28] MEDS: busPIRone HCL 5 MG TAB PO SCH ×3 (08:40→17:19)
[2017-04-28] MEDS: SODIUM CHLORIDE 0.9% FLUSH 10 ML FLUSH SCH ×2 (08:41→19:40)
[2017-04-28] MEDS: GABAPENTIN 300 MG CAP PO SCH ×2 (08:41→20:17)
[2017-04-28] MEDS: TOPIRAMATE 25 MG TAB PO SCH ×2 (08:41→20:17)
[2017-04-28] MEDS: FAMOTIDINE 20 MG TAB PO SCH (08:41)
[2017-04-28] MEDS: ARTIFICIAL TEARS OPTH SOLN 15 ML BTL EACH EYE SCH ×3 (08:42→17:20)
[2017-04-28 10:30] LABS: BANDS 29 % (0-6); METAMYELOCYTES 2 % (0-1); MYELOCYTES 1 % (0-0); NEUTROPHIL # MANUAL DIFF 9.4 TH/MM3 (1.8-7.7); POLYS (SEG NEUTROPHILS) 66 % (16-70); WBC DIFF SAMPLE 100
[2017-04-28 10:31] LABS: PLATELET ESTIMATE SMEAR LOW (NORMAL); PLATELET MORPHOLOGY NORMAL (NORMAL); SCAN/DIFF FINAL DIFF MANUAL; TEARDROP RBCS 1+ (NORMAL)
[2017-04-28] MEDS ORDERED: PHARMACY ORDERED LAB ONE (12:45)
--- NOTE | 2017-04-28 14:25 | HHI.CCPN ---
Subjective Remarks/Hospital Course 04/25: This is a 46-year-old male with a past medical history of Anxiety, Depression and Substance Abuse was initially sent to the emergency room April 23, 2017 by EMS from [facility] for cough and fever x2 days. Per records, patient had Temp 104.7. At that time patient denied SOB, chest pain, nausea, vomiting or diarrhea. He was admitted to medical [facility] however the patient left this morning against medical advise despite the treatment of pneumonia. After leaving this morning he has had some alcohol to drink and smoked some methamphetamine. His brother brought him back for reevaluation and treatment for his pneumonia. In the emergency department his oxygen saturations were in the low 80s on room air, patient was constantly removing to his oxygen mask and would not tolerate any BiPAP. He became extremely agitated combative and was intubated by me for an airway protection and severe hypoxemia. 04/26: Remains sedated, orally intubated on mechanical ventilation. Went into A. fib last night currently ventricular rate 130s. 04/27: Remains sedated, orally intubated on mechanical ventilation. Converted back to sinus rhythm with amiodarone gtt. which continues. Receiving IV calcium gluconate for hypocalcemia. Temperature spike up to 105 last night. 04/28: Remains sedated, orally intubated on mechanical ventilation. Not tolerating tube feeds with high residuals. On Versed/propofol and fentanyl drips. Objective Vital Signs Date Time Temp Pulse Resp B/P (MAP) Pulse Ox O2 Delivery O2 Flow Rate FiO2 04/28/17 12:07 98 50 04/28/17 06:00 119 04/28/17 04:00 98.6 18 116/65 (82) 04/25/17 20:50 Ventilator 04/25/17 19:20 15.00 Intake and Output 04/28/17 04/28/17 04/29/17 08:00 16:00 00:00 Intake Total 1705.5 ml Output Total 1000 ml Balance 705.5 ml Result Diagram: 04/28/17 0410 04/28/17 0410 Other Results Laboratory Tests Test 04/27/17 15:25 04/28/17 04:10 04/28/17 12:45 Blood Urea Nitrogen 6 MG/DL 6 MG/DL Creatinine 0.71 MG/DL 0.64 MG/DL Random Glucose 104 MG/DL 120 MG/DL Total Protein 5.1 GM/DL 5.1 GM/DL Calcium Level 7.0 MG/DL 7.1 MG/DL Sodium Level 134 MEQ/L 135 MEQ/L Potassium Level 4.4 MEQ/L 3.7 MEQ/L Chloride Level 102 MEQ/L 102 MEQ/L Carbon Dioxide Level 25.9 MEQ/L 25.9 MEQ/L Anion Gap 6 MEQ/L 7 MEQ/L Estimat Glomerular Filtration Rate 119 ML/MIN 134 ML/MIN Protein Corrected Calcium 8.1 MG/DL 8.2 MG/DL White Blood Count 9.6 TH/MM3 Red Blood Count 3.36 MIL/MM3 Hemoglobin 11.1 GM/DL Hematocrit 33.0 % Mean Corpuscular Volume 98.3 FL Mean Corpuscular Hemoglobin 33.0 PG Mean Corpuscular Hemoglobin Concent 33.6 % Red Cell Distribution Width 14.7 % Platelet Count 61 TH/MM3 Mean Platelet Volume 10.9 FL CBC Comment AUTO DIFF Differential Total Cells Counted 100 Neutrophils % (Manual) 66 % Band Neutrophils % 29 % Lymphocytes % 2 % Neutrophils # (Manual) 9.4 TH/MM3 Metamyelocytes 2 % Myelocytes 1 % Differential Comment FINAL DIFF MANUAL Platelet Estimate LOW Platelet Morphology Comment NORMAL Tear Drop Cells 1+ Albumin 1.4 GM/DL Alkaline Phosphatase 88 U/L Aspartate Amino Transf (AST/SGOT) 181 U/L Alanine Aminotransferase (ALT/SGPT) 67 U/L Total Bilirubin 0.6 MG/DL Vancomycin Level Trough 11.7 MCG/ML Imaging Last 24 hours Impressions Chest X-Ray 04/25/17 1712 Signed Impressions: Service Date/Time: Tuesday, April 25, 2017 17:34 - CONCLUSION: Left greater than right airspace disease and left pleural effusion, all worse. Timbo Newsome MD Chest X-Ray 04/25/17 0000 Signed Impressions: Service Date/Time: Tuesday, April 25, 2017 20:52 - CONCLUSION: 1. As intermittent tracheal tube and nasogastric tube placement as above. 2. Left greater than right consolidation and small moderate left pleural effusion are again noted. Timbo Newsome MD Objective Remarks HEENT/ Neuro: Sedated, orally intubated, Pallor present, no icterus, tongue/ mucosa moist. Pupils bilaterally constricted 2 mm, reactive Neck: No JVD Chest/Pulm: on mech vent, good air entry bilaterally, scattered rhonchi, no wheezing or crackles. CVS: S1-S2 regular, no murmur GI/abdomen: soft, nontender, bowel sounds sluggish Extremities: warm bilaterally, no edema A/P Assessment and Plan Respiratory failure - Intubated for an airway protection - Underlying pneumonia - Most likely will go through withdrawal, will keep intubated until neurologically improved. Continue propofol/Versed gtt, attempt to titrate off fentanyl drip in view of high gastric residuals. Librium 25 mg every 8 hourly. - Continue mechanical ventilation - Continue DuoNeb's - IV antibiotics for pneumonia treatment Pneumonia - Broad-spectrum antibiotics -Follow up cultures - De-escalate antibiotics per sensitivity - Follow CXR Altered mental status - Intoxication - Polysubstance abuse - No focal neurological exam - Monitor for withdrawal - Versed/ propofol and fentanyl drip for sedation - CT head negative for intracranial hemorrhage. A. fib with RVR -Continue amiodarone bolus followed by drip for rate control as well as attempt conversion to sinus rhythm. Cardiology consult noted Hyponatremia - Na 125, likely secondary to acute infection/dehydration Hypocalcemia - Replacement per ICU electrolyte protocol. Check vitamin D2 and D3 as well as PTH level. Thrombocytopenia: - previous admission - 43 - no active bleeding. - Will monitor. - Consulted hematology for further evaluation DVT Prophylaxis - Teds SCDs - No pharmacological DVT prophylaxis due to thrombocytopenia - Pepcid Started tube feeds and advance to goal as tolerated. Critical Care: The total critical care time was 35 minutes. Time to perform other separately billable procedures was not included in the critical care time. Singh Perez MD Apr 28, 2017 14:25
--- NOTE | 2017-04-28 14:54 | PD.ONC.PN ---
Subjective Subjective Remarks Patient is intubated and sedated. Objective Data Date Time Temp Pulse Resp B/P (MAP) Pulse Ox O2 Delivery O2 Flow Rate FiO2 04/28/17 12:07 98 50 04/28/17 08:06 95 50 04/28/17 08:00 106 04/28/17 08:00 98.8 106 18 122/68 (86) 93 04/28/17 08:00 50 04/28/17 06:00 119 04/28/17 04:00 125 04/28/17 04:00 98.6 125 18 116/65 (82) 94 04/28/17 04:00 50 04/28/17 03:35 96 50 04/28/17 02:00 93 04/28/17 00:00 82 04/28/17 00:00 99.0 82 18 107/57 (74) 97 04/28/17 00:00 55 04/27/17 23:37 98 55 04/27/17 22:30 60 04/27/17 22:00 83 04/27/17 21:59 94 60 04/27/17 20:02 98 50 04/27/17 20:00 96.7 73 18 112/59 (76) 98 04/27/17 20:00 73 04/27/17 20:00 50 04/27/17 18:03 78 04/27/17 16:00 86 04/27/17 16:00 100.5 86 19 126/61 (82) 96 04/27/17 16:00 50 04/27/17 15:56 98 50 04/28/17 04/28/17 04/28/17 07:00 15:00 23:00 Intake Total 1705.5 ml Output Total 1000 ml Balance 705.5 ml Result Diagram: 04/28/17 0410 04/28/17 0410 Laboratory Results Laboratory Tests Test 04/27/17 15:25 04/28/17 04:10 04/28/17 12:45 Blood Urea Nitrogen 6 MG/DL 6 MG/DL Creatinine 0.71 MG/DL 0.64 MG/DL Random Glucose 104 MG/DL 120 MG/DL Total Protein 5.1 GM/DL 5.1 GM/DL Calcium Level 7.0 MG/DL 7.1 MG/DL Sodium Level 134 MEQ/L 135 MEQ/L Potassium Level 4.4 MEQ/L 3.7 MEQ/L Chloride Level 102 MEQ/L 102 MEQ/L Carbon Dioxide Level 25.9 MEQ/L 25.9 MEQ/L Anion Gap 6 MEQ/L 7 MEQ/L Estimat Glomerular Filtration Rate 119 ML/MIN 134 ML/MIN Protein Corrected Calcium 8.1 MG/DL 8.2 MG/DL White Blood Count 9.6 TH/MM3 Red Blood Count 3.36 MIL/MM3 Hemoglobin 11.1 GM/DL Hematocrit 33.0 % Mean Corpuscular Volume 98.3 FL Mean Corpuscular Hemoglobin 33.0 PG Mean Corpuscular Hemoglobin Concent 33.6 % Red Cell Distribution Width 14.7 % Platelet Count 61 TH/MM3 Mean Platelet Volume 10.9 FL CBC Comment AUTO DIFF Differential Total Cells Counted 100 Neutrophils % (Manual) 66 % Band Neutrophils % 29 % Lymphocytes % 2 % Neutrophils # (Manual) 9.4 TH/MM3 Metamyelocytes 2 % Myelocytes 1 % Differential Comment FINAL DIFF MANUAL Platelet Estimate LOW Platelet Morphology Comment NORMAL Tear Drop Cells 1+ Albumin 1.4 GM/DL Alkaline Phosphatase 88 U/L Aspartate Amino Transf (AST/SGOT) 181 U/L Alanine Aminotransferase (ALT/SGPT) 67 U/L Total Bilirubin 0.6 MG/DL Vancomycin Level Trough 11.7 MCG/ML Culture Results Microbiology Date/Time Source Procedure Growth Status 04/26/17 03:22 Blood Peripheral Aerobic Blood Culture - Preliminary NO GROWTH IN 2 DAYS Resulted 04/26/17 03:22 Blood Peripheral Anaerobic Blood Culture - Preliminary NO GROWTH IN 2 DAYS Resulted 04/25/17 23:20 Blood Peripheral Aerobic Blood Culture - Preliminary NO GROWTH IN 3 DAYS Resulted 04/25/17 23:20 Blood Peripheral Anaerobic Blood Culture - Preliminary NO GROWTH IN 3 DAYS Resulted 04/26/17 20:10 Sputum Endotracheal Gram Stain - Final Complete 04/26/17 20:10 Sputum Endotracheal Sputum Culture - Final RARE GROWTH NORMAL RESPIRATORY RADHA Complete 04/25/17 19:55 Urine Catheterized Urine Legionella Antigen - Final PRESUMPTIVE NEGATIVE FOR LEGIONELLA P... Complete 04/25/17 19:55 Urine Catheterized Urine Streptococcus pneumoniae Antigen (M - Final PRESUMPTIVE NEGATIVE FOR STREPTOCOCCU... Complete 04/25/17 19:55 Urine Catheterized Urine Urine Culture - Final NO GROWTH IN 48 HOURS. Complete Administered Medications Medications (Trade) Dose Ordered Sig/Angel Route PRN Reason Start Time Stop Time Status Last Admin Dose Admin Buspirone HCl (Buspar) 15 mg TID PO 04/26/17 09:00 04/28/17 11:47 Citalopram Hydrobromide (CeleXA) 10 mg HS PO 04/25/17 21:00 04/27/17 20:18 Gabapentin (Neurontin) 600 mg BID PO 04/25/17 21:00 04/28/17 08:41 Topiramate (Topamax) 50 mg BID PO 04/25/17 21:00 04/28/17 08:41 Quetiapine Fumarate (SEROquel) 50 mg HS PO 04/25/17 21:00 04/27/17 20:18 Famotidine (Pepcid) 20 mg DAILY PO 04/26/17 09:00 04/28/17 08:41 Sodium Chloride 1,000 ml @ 50 mls/hr Q20H IV 04/25/17 21:00 04/27/17 17:46 Sodium Chloride (NS Flush) 2 ml BID .XX 04/25/17 21:00 04/28/17 08:41 Acetaminophen (Tylenol) 650 mg Q6H PRN PO PAIN 1-10 AND/OR FEVER >101F 04/25/17 20:00 04/26/17 21:10 Lorazepam (Ativan Inj) 1 mg Q1H PRN IV PUSH Agitation/Sedation 04/25/17 20:00 04/25/17 20:17 Artificial Tears (Tears Naturale Opth Soln) 1 drop TID EACH EYE 04/26/17 09:00 04/28/17 12:40 Albuterol/ Ipratropium (Duoneb Neb) 1 ampule Q6HR NEB INH 04/25/17 22:00 04/28/17 08:14 Albuterol/ Ipratropium (Duoneb Neb) 1 ampule Q2HR NEB PRN INH WHEEZING 04/25/17 20:00 04/28/17 00:54 Chlorhexidine Gluconate (Chlorhexidine 2% Cloth) 3 pack Taper DAILY@04 TOP 04/26/17 04:00 04/22/18 03:59 04/28/17 02:30 Senna/Docusate Sodium (Marsha-Colace) 1 tab BID PO 04/25/17 21:00 04/28/17 08:40 Chlorhexidine Gluconate (Peridex 0.12% Liq) 15 ml BID@08,20 MT 04/25/17 20:00 04/28/17 08:00 Midazolam HCl 100 ml @ 2 mls/hr TITRATE PRN IV SEDATION 04/25/17 20:00 04/28/17 12:28 Fentanyl Citrate 250 ml @ 5 mls/hr TITRATE PRN IV SEDATION 04/25/17 20:00 04/27/17 23:46 Piperacillin Sod/ Tazobactam Sod 100 ml @ 200 mls/hr Q6H IV 04/26/17 00:00 04/28/17 11:47 Azithromycin 500 mg/Sodium Chloride 250 ml @ 250 mls/hr Q24H IV 04/26/17 17:00 04/27/17 16:50 Propofol 100 ml @ 2.7 mls/hr TITRATE PRN IV SEDATION 04/25/17 20:00 04/28/17 12:29 Vancomycin HCl 1250 mg/Sodium Chloride 262.5 ml @ 250 mls/hr Q8H IV 04/25/17 21:00 04/28/17 13:04 Chlordiazepoxide (Librium) 25 mg Q8HR PO 04/26/17 12:00 04/28/17 05:02 Potassium Bicarb/ Potassium Chloride (K-Lyte Cl Eff) 50 meq UNSCH PRN PO For Potassium 3.3 - 3.5 mEq/L 04/27/17 01:30 04/27/17 01:52 Potassium Phosphate 30 mmol/ Sodium Chloride 260 ml @ 42 mls/hr UNSCH PRN IV SEE LABEL COMMENTS 04/27/17 01:30 04/27/17 03:32 Objective Remarks GENERAL: critically ill, intubated and sedated SKIN: Warm and dry. HEAD: Normocephalic. EYES: No scleral icterus. No injection or drainage. NECK: Supple, trachea midline. No JVD or lymphadenopathy. LYMPHATIC: No adenopathy. CARDIOVASCULAR: Regular rate and rhythm without murmurs. RESPIRATORY: Breath sounds equal bilaterally. No accessory muscle use. GASTROINTESTINAL: Abdomen soft, non-tender, nondistended. EXTREMITIES: No cyanosis, or edema. NEUROLOGICAL: sedated Assessment/Plan Assessment 1. Anemia and thrombocytopenia: stable. Uncertain of baseline. Multiple factors are likely contributing including cirrhosis, alcohol abuse/substance abuse, current infection/pneumonia. No evidence of hemolysis. 2. Pneumonia: currently on broad spectrum antibiotics. 3. AMS: on admission, sedated and on ventilator currently. Possibly secondary to substance ingestion vs withdrawl. Deepa Conner MD Apr 28, 2017 14:53
[2017-04-28] MEDS: AZITHROMYCIN INJ 500 MG in SODIUM CHLOR 0.9% 250 ML INJ 250 ML IV SCH (16:28)
[2017-04-28] MEDS ORDERED: fentaNYL DRIP 250 ML IV PRN (17:00)
[2017-04-28] MEDS: METOCLOPRAMIDE HCL 10 MG/2 ML VIAL IV PUSH SCH ×2 (17:01→20:16)
[2017-04-28] MEDS: SODIUM CHLOR 0.9% 1000 ML INJ 1,000 ML IV SCH (17:20)
[2017-04-28] MEDS: QUEtiapine FUMARATE 25 MG TAB PO SCH (20:17)
[2017-04-28] MEDS: CITALOPRAM HYDROBROMIDE 20 MG TAB PO SCH (20:17)
[2017-04-29] VITALS (20 sets, daily range): BP systolic 127–153; BP diastolic 62–94; PULSE 90–118; RESP 18–28; TEMP 98.5–102.3; O2SAT 89–98
[2017-04-29] MEDS: PIPERACIL-TAZO 4.5 GM PREMIX 100 ML IV SCH ×4 (00:04→17:06)
[2017-04-29] MEDS: ACETAMINOPHEN 325 MG TAB PO PRN (00:10)
[2017-04-29] MEDS: RESP: ALBUTEROL 2.5 MG/IPRATROPIUM 0.5 MG NEB (SCH) INH ×3 (04:29→14:40)
[2017-04-29] MEDS: VANCOMYCIN INJ 1,250 MG in SODIUM CHLOR 0.9% 250 ML INJ 250 ML IV SCH ×3 (05:00→16:10)
[2017-04-29] MEDS: PROPOFOL 1000 MG/100 ML INJ 100 ML IV PRN ×2 (05:55→11:24)
[2017-04-29] MEDS: METOCLOPRAMIDE HCL 10 MG/2 ML VIAL IV PUSH SCH ×3 (05:55→21:08)
[2017-04-29] MEDS: chlordiazePOXIDE 25 MG CAP PO SCH ×3 (05:55→21:07)
[2017-04-29] MEDS: MIDAZOLAM 100 MG/100 ML INJ 100 ML IV PRN ×2 (08:15→18:46)
[2017-04-29] MEDS: busPIRone HCL 5 MG TAB PO SCH ×3 (08:16→17:06)
[2017-04-29] MEDS: TOPIRAMATE 25 MG TAB PO SCH ×2 (08:16→21:08)
[2017-04-29] MEDS: DOCUSATE SODIUM 50 MG/SENNA 8.6 MG TAB PO SCH ×2 (08:16→21:08)
[2017-04-29] MEDS: FAMOTIDINE 20 MG TAB PO SCH (08:16)
[2017-04-29] MEDS: GABAPENTIN 300 MG CAP PO SCH ×2 (08:16→21:07)
[2017-04-29] MEDS: CHLORHEXIDINE 0.12% (ORAL KIT) 15 ML CUP MT SCH ×2 (08:17→21:09)
[2017-04-29] MEDS: SODIUM CHLORIDE 0.9% FLUSH 10 ML FLUSH SCH ×2 (08:17→21:08)
[2017-04-29] MEDS: ARTIFICIAL TEARS OPTH SOLN 15 ML BTL EACH EYE SCH ×3 (08:17→17:16)
--- NOTE | 2017-04-29 09:56 | HHI.CCPN ---
Subjective Remarks/Hospital Course 04/25: This is a 46-year-old male with a past medical history of Anxiety, Depression and Substance Abuse was initially sent to the emergency room April 23, 2017 by EMS from [facility] [place] for cough and fever x2 days. Per records, patient had Temp 104.7. At that time patient denied SOB, chest pain, nausea, vomiting or diarrhea. He was admitted to medical surgical street however the patient left this morning against medical advise despite the treatment of pneumonia. After leaving this morning he has had some alcohol to drink and smoked some methamphetamine. His brother brought him back for reevaluation and treatment for his pneumonia. In the emergency department his oxygen saturations were in the low 80s on room air, patient was constantly removing to his oxygen mask and would not tolerate any BiPAP. He became extremely agitated combative and was intubated by me for an airway protection and severe hypoxemia. 04/26: Remains sedated, orally intubated on mechanical ventilation. Went into A. fib last night currently ventricular rate 130s. 04/27: Remains sedated, orally intubated on mechanical ventilation. Converted back to sinus rhythm with amiodarone gtt. which continues. Receiving IV calcium gluconate for hypocalcemia. Temperature spike up to 105 last night. 04/28: Remains sedated, orally intubated on mechanical ventilation. Not tolerating tube feeds with high residuals. On Versed/propofol and fentanyl drips. 04/29: Sedated, orally intubated on mechanical ventilation. Objective Vital Signs Date Time Temp Pulse Resp B/P (MAP) Pulse Ox O2 Delivery O2 Flow Rate FiO2 04/29/17 09:20 100.4 04/29/17 08:00 111 04/29/17 08:00 28 145/90 (108) 89 04/29/17 08:00 45 04/29/17 04:30 Ventilator 04/25/17 19:20 15.00 Intake and Output 04/29/17 04/29/17 04/30/17 08:00 16:00 00:00 Intake Total 650 ml Output Total 2000 ml Balance -1350 ml Result Diagram: 04/28/17 0410 04/29/17 0410 Other Results Microbiology Date/Time Source Procedure Growth Status 04/26/17 20:10 Sputum Endotracheal Gram Stain - Final Complete 04/26/17 20:10 Sputum Endotracheal Sputum Culture - Final RARE GROWTH NORMAL RESPIRATORY RADHA Complete Imaging Last 24 hours Impressions Chest X-Ray 04/25/17 1712 Signed Impressions: Service Date/Time: Tuesday, April 25, 2017 17:34 - CONCLUSION: Left greater than right airspace disease and left pleural effusion, all worse. Timbo Newsome MD Chest X-Ray 04/25/17 0000 Signed Impressions: Service Date/Time: Tuesday, April 25, 2017 20:52 - CONCLUSION: 1. As intermittent tracheal tube and nasogastric tube placement as above. 2. Left greater than right consolidation and small moderate left pleural effusion are again noted. Timbo Newsome MD Objective Remarks HEENT/ Neuro: Sedated, orally intubated, Pallor present, no icterus, tongue/ mucosa moist. Pupils bilaterally constricted 2 mm, reactive Neck: No JVD Chest/Pulm: on mech vent, good air entry bilaterally, scattered rhonchi, no wheezing or crackles. CVS: S1-S2 regular, no murmur GI/abdomen: soft, nontender, bowel sounds sluggish Extremities: warm bilaterally, no edema A/P Assessment and Plan Respiratory failure - Intubated for an airway protection - Underlying pneumonia - Most likely will go through withdrawal, will keep intubated until neurologically improved. Continue propofol/Versed gtt, attempt to titrate off fentanyl drip in view of high gastric residuals. Librium 25 mg every 8 hourly. - Continue mechanical ventilation - Continue DuoNeb's - IV antibiotics for pneumonia treatment Pneumonia - Broad-spectrum antibiotics -Follow up cultures - De-escalate antibiotics per sensitivity - Follow CXR Altered mental status - Intoxication - Polysubstance abuse - No focal neurological exam - Monitor for withdrawal - Versed/ propofol and fentanyl drip for sedation - CT head negative for intracranial hemorrhage. A. fib with RVR -Continue amiodarone drip for rate control as well as attempt conversion to sinus rhythm. Cardiology consult noted Hyponatremia - Na 125, likely secondary to acute infection/dehydration Hypocalcemia - Replacement per ICU electrolyte protocol. Check vitamin D2 and D3 as well as PTH level. Thrombocytopenia: - previous admission - 43 - no active bleeding. - Will monitor. - Consulted hematology for further evaluation DVT Prophylaxis - Teds SCDs - No pharmacological DVT prophylaxis due to thrombocytopenia - Pepcid Started tube feeds and advance to goal as tolerated. Critical Care: The total critical care time was 35 minutes. Time to perform other separately billable procedures was not included in the critical care time. Singh Perez MD Apr 29, 2017 09:56
[2017-04-29 10:38] LABS: BICARBONATE 23.5 MEQ/L (21.0-32.0); CALCIUM-PROTEIN CORRECTED 8.3 MG/DL (8.5-10.1); POTASSIUM 3.7 MEQ/L (3.5-5.1); TOTAL BILIRUBIN ADULT 0.7 MG/DL (0.2-1.0)
[2017-04-29] MEDS ORDERED: PHARMACY ORDERED LAB ONE (12:45)
[2017-04-29] MEDS: AZITHROMYCIN INJ 500 MG in SODIUM CHLOR 0.9% 250 ML INJ 250 ML IV SCH (17:13)
[2017-04-29] MEDS: PROPOFOL 1000 MG/100 ML IV PRN (18:42)
[2017-04-29] MEDS: SODIUM CHLOR 0.9% 1000 ML INJ 1,000 ML IV SCH (19:06)
[2017-04-29] MEDS: QUEtiapine FUMARATE 25 MG TAB PO SCH (21:07)
[2017-04-29] MEDS: CITALOPRAM HYDROBROMIDE 20 MG TAB PO SCH (21:07)
[2017-04-29] MEDS: RESP: ALBUTEROL 2.5 MG/IPRATROPIUM 0.5 MG NEB (PRN) INH (22:18)
[2017-04-30] VITALS (57 sets, daily range): BP systolic 128–178; BP diastolic 64–92; PULSE 83–130; RESP 18–37; TEMP 97.2–100; O2SAT 84–97
[2017-04-30] MEDS: PIPERACIL-TAZO 4.5 GM PREMIX 100 ML IV SCH ×5 (00:11→23:55)
[2017-04-30] MEDS: VANCOMYCIN INJ 1,250 MG in SODIUM CHLOR 0.9% 250 ML INJ 250 ML IV SCH ×2 (00:12→08:50)
[2017-04-30] MEDS: PROPOFOL 1000 MG/100 ML IV PRN ×5 (02:59→22:45)
--- NOTE | 2017-04-30 03:05 | RADRPT ---
EXAM DATE/TIME: 04/30/2017 01:54 [facility] COMPARISON: CHEST SINGLE AP, April 27, 2017, 10:10. INDICATIONS : Shortness of breath, possible pulmonary disease. MEDICAL HISTORY : Gastroesophageal reflux disease. Substance abuse SURGICAL HISTORY : None. ENCOUNTER: Subsequent ACUITY: 1 week PAIN SCORE: Non-responsive. LOCATION: Bilateral chest FINDINGS: A single view of the chest demonstrates endotracheal tube in good position. Nasogastric tube enters s tomach. Dense left lung consolidation. Mild right basilar airspace disease also similar to prior exam . No pneumothorax. Probable small left effusion. Left central line in superior vena cava. CONCLUSION: 1. Support apparatus unchanged. Bilateral airspace disease, left greater than right similar to prior exam. Roverto Monae MD on April 30, 2017 at 3:01 Board Certified Radiologist. This report was verified electronically.
[2017-04-30] MEDS: MIDAZOLAM 100 MG/100 ML INJ 100 ML IV PRN (03:52)
[2017-04-30] MEDS: CHLORHEXIDINE GLUCONATE 2 % 1 PACK (2 CLOTHS) TOP SCH (04:00)
[2017-04-30] MEDS: METOCLOPRAMIDE HCL 10 MG/2 ML VIAL IV PUSH SCH ×3 (05:31→22:03)
[2017-04-30] MEDS: chlordiazePOXIDE 25 MG CAP PO SCH ×3 (05:31→22:03)
[2017-04-30 06:09] LABS: AUTOMATED NEUTROPHIL # 6.8 TH/MM3 (1.8-7.7); BASOPHIL % 0.2 % (0.0-2.0); EOSINOPHIL % 0.2 % (0.0-4.0); HEMATOCRIT 30.5 % (39.0-51.0); LYMPH % 5.2 % (9.0-44.0); LYMPHOCYTE # 0.4 TH/MM3 (1.0-4.8); MEAN CELL VOLUME 97.2 FL (80.0-100.0); MEAN CORPUSCULAR HEMOGLOBIN 33.4 PG (27.0-34.0); MEAN CORPUSCULAR HGB CONC 34.3 % (32.0-36.0); MONO % 3.1 % (0.0-8.0); NEUT % 91.3 % (16.0-70.0); PLATELET COUNT 76 TH/MM3 (150-450); RED BLOOD COUNT 3.14 MIL/MM3 (4.50-5.90); RED CELL DISTRIBUTION WIDTH 14.5 % (11.6-17.2); WHITE BLOOD COUNT 7.5 TH/MM3 (4.0-11.0)
[2017-04-30 06:10] LABS: HEMO FLAGS DIFF FINAL
[2017-04-30] MEDS ORDERED: PHARMACY ORDERED LAB ONE (07:45)
[2017-04-30] MEDS: RESP: ALBUTEROL 2.5 MG/IPRATROPIUM 0.5 MG NEB (PRN) INH (08:19)
[2017-04-30] MEDS: busPIRone HCL 5 MG TAB PO SCH ×3 (08:49→16:48)
[2017-04-30] MEDS: TOPIRAMATE 25 MG TAB PO SCH ×2 (08:49→20:07)
[2017-04-30] MEDS: FAMOTIDINE 20 MG TAB PO SCH (08:49)
[2017-04-30] MEDS: DOCUSATE SODIUM 50 MG/SENNA 8.6 MG TAB PO SCH ×2 (08:50→22:03)
[2017-04-30] MEDS: SODIUM CHLORIDE 0.9% FLUSH 10 ML FLUSH SCH ×2 (08:50→20:08)
[2017-04-30] MEDS: GABAPENTIN 300 MG CAP PO SCH ×2 (08:50→20:07)
[2017-04-30] MEDS: CHLORHEXIDINE 0.12% (ORAL KIT) 15 ML CUP MT SCH ×2 (08:51→20:08)
[2017-04-30] MEDS: ARTIFICIAL TEARS OPTH SOLN 15 ML BTL EACH EYE SCH ×3 (08:51→16:48)
[2017-04-30 09:38] LABS: ANION GAP 9 MEQ/L (5-15); AST (GOT) 92 U/L (15-37); BICARBONATE 22.2 MEQ/L (21.0-32.0); BLOOD UREA NITROGEN 8 MG/DL (7-18); CHLORIDE 109 MEQ/L (98-107); GLOMERULAR FILTRATION RATE 178 ML/MIN (>89); POTASSIUM 3.3 MEQ/L (3.5-5.1); SODIUM (NA) 140 MEQ/L (136-145)
[2017-04-30 09:39] LABS: ALT (GPT) 44 U/L (12-78)
[2017-04-30 09:41] LABS: ALKALINE PHOSPHATASE 102 U/L (45-117); VANCOMYCIN TROUGH 10.9 MCG/ML (5.0-10.0)
[2017-04-30] MEDS: SODIUM CHLOR 0.9% 1000 ML INJ 1,000 ML IV SCH ×2 (12:20→20:17)
--- NOTE | 2017-04-30 13:52 | HHI.CCPN ---
Subjective Remarks/Hospital Course 04/25: This is a 46-year-old male with a past medical history of Anxiety, Depression and Substance Abuse was initially sent to the emergency room April 23, 2017 by EMS from [facility] for cough and fever x2 days. Per records, patient had Temp 104.7. At that time patient denied SOB, chest pain, nausea, vomiting or diarrhea. He was admitted to medical surgical street however the patient left this morning against medical advise despite the treatment of pneumonia. After leaving this morning he has had some alcohol to drink and smoked some methamphetamine. His brother brought him back for reevaluation and treatment for his pneumonia. In the emergency department his oxygen saturations were in the low 80s on room air, patient was constantly removing to his oxygen mask and would not tolerate any BiPAP. He became extremely agitated combative and was intubated by me for an airway protection and severe hypoxemia. 04/26: Remains sedated, orally intubated on mechanical ventilation. Went into A. fib last night currently ventricular rate 130s. 04/27: Remains sedated, orally intubated on mechanical ventilation. Converted back to sinus rhythm with amiodarone gtt. which continues. Receiving IV calcium gluconate for hypocalcemia. Temperature spike up to 105 last night. 04/28: Remains sedated, orally intubated on mechanical ventilation. Not tolerating tube feeds with high residuals. On Versed/propofol and fentanyl drips. 04/29: Sedated, orally intubated on mechanical ventilation. 04/30: Remains sedated, orally intubated on mechanical ventilation. Objective Vital Signs Date Time Temp Pulse Resp B/P (MAP) Pulse Ox O2 Delivery O2 Flow Rate FiO2 04/30/17 12:24 92 45 04/30/17 12:00 126 04/30/17 12:00 99.0 28 162/85 (110) 04/29/17 04:30 Ventilator Intake and Output 04/30/17 04/30/17 05/01/17 08:00 16:00 00:00 Intake Total 400 ml 262.5 ml Output Total 1950 ml Balance -1550 ml 262.5 ml Result Diagram: 04/30/17 0540 04/30/17 0845 Imaging Last 24 hours Impressions Chest X-Ray 04/25/17 3565 Signed Impressions: Service Date/Time: Tuesday, April 25, 2017 17:34 - CONCLUSION: Left greater than right airspace disease and left pleural effusion, all worse. Timbo Newsome MD Chest X-Ray 04/25/17 0000 Signed Impressions: Service Date/Time: Tuesday, April 25, 2017 20:52 - CONCLUSION: 1. As intermittent tracheal tube and nasogastric tube placement as above. 2. Left greater than right consolidation and small moderate left pleural effusion are again noted. Timbo Newsome MD Objective Remarks HEENT/ Neuro: Sedated, orally intubated, Pallor present, no icterus, tongue/ mucosa moist. Pupils bilaterally constricted 2 mm, reactive Neck: No JVD Chest/Pulm: on mech vent, good air entry bilaterally, scattered rhonchi, no wheezing or crackles. CVS: S1-S2 regular, no murmur GI/abdomen: soft, nontender, bowel sounds sluggish Extremities: warm bilaterally, no edema A/P Assessment and Plan Respiratory failure - Intubated for airway protection - Underlying pneumonia - Most likely will go through withdrawal, will keep intubated until neurologically improved. Continue propofol/Versed gtt, attempt to titrate off fentanyl drip in view of high gastric residuals. Librium 25 mg every 8 hourly. - Continue mechanical ventilation - Continue DuoNeb's - IV antibiotics for pneumonia treatment Pneumonia - Broad-spectrum antibiotics -Follow up cultures - De-escalate antibiotics per sensitivity - Follow CXR Altered mental status - Intoxication - Polysubstance abuse - No focal neurological exam - Monitor for withdrawal - Versed/ propofol and fentanyl drip for sedation - CT head negative for intracranial hemorrhage. A. fib with RVR -Continue amiodarone drip for rate control as well as attempt conversion to sinus rhythm. Cardiology consult noted Hyponatremia - Na 125, likely secondary to acute infection/dehydration Hypocalcemia - Replacement per ICU electrolyte protocol. Check vitamin D2 and D3 as well as PTH level. Thrombocytopenia: - previous admission - 43 - no active bleeding. - Will monitor. - Consulted hematology for further evaluation DVT Prophylaxis - Teds SCDs - No pharmacological DVT prophylaxis due to thrombocytopenia - Pepcid Started tube feeds and advance to goal as tolerated. Critical Care: The total critical care time was 35 minutes. Time to perform other separately billable procedures was not included in the critical care time. Singh Perez MD Apr 30, 2017 13:52
[2017-04-30] MEDS: POTASSIUM CHLOR 40 MEQ PREMIX 100 ML IV PRN (14:41)
[2017-04-30] MEDS: AZITHROMYCIN INJ 500 MG in SODIUM CHLOR 0.9% 250 ML INJ 250 ML IV SCH (16:48)
[2017-04-30] MEDS: VANCOMYCIN INJ 1,500 MG in SODIUM CHLORID 0.9% 500 ML INJ 500 ML IV SCH ×2 (17:21→23:56)
[2017-04-30] MEDS: QUEtiapine FUMARATE 25 MG TAB PO SCH (20:07)
[2017-04-30] MEDS: CITALOPRAM HYDROBROMIDE 20 MG TAB PO SCH (20:07)
[2017-05-01] VITALS (19 sets, daily range): BP systolic 143–163; BP diastolic 69–100; PULSE 90–112; RESP 17–31; TEMP 97.1–98.6; O2SAT 91–97
[2017-05-01] MEDS: PROPOFOL 1000 MG/100 ML IV PRN ×8 (01:35→22:01)
[2017-05-01] MEDS: CHLORHEXIDINE GLUCONATE 2 % 1 PACK (2 CLOTHS) TOP SCH (04:00)
[2017-05-01] MEDS: chlordiazePOXIDE 25 MG CAP PO SCH ×3 (05:01→22:00)
[2017-05-01] MEDS: METOCLOPRAMIDE HCL 10 MG/2 ML VIAL IV PUSH SCH ×3 (05:01→22:00)
[2017-05-01] MEDS: PIPERACIL-TAZO 4.5 GM PREMIX 100 ML IV SCH ×3 (05:01→18:58)
[2017-05-01] MEDS: SODIUM CHLOR 0.9% 1000 ML INJ 1,000 ML IV SCH (08:55)
[2017-05-01 09:05] LABS: AUTOMATED NEUTROPHIL # 10.5 TH/MM3 (1.8-7.7); BASOPHIL % 0.2 % (0.0-2.0); EOSINOPHIL % 0.2 % (0.0-4.0); HEMATOCRIT 28.8 % (39.0-51.0); LYMPH % 3.9 % (9.0-44.0); LYMPHOCYTE # 0.4 TH/MM3 (1.0-4.8); MEAN CELL VOLUME 97.7 FL (80.0-100.0); MEAN CORPUSCULAR HGB CONC 33.8 % (32.0-36.0); MONO % 2.9 % (0.0-8.0); NEUT % 92.8 % (16.0-70.0); PLATELET COUNT 70 TH/MM3 (150-450); RED BLOOD COUNT 2.95 MIL/MM3 (4.50-5.90); RED CELL DISTRIBUTION WIDTH 14.9 % (11.6-17.2); WHITE BLOOD COUNT 11.3 TH/MM3 (4.0-11.0)
[2017-05-01 09:08] LABS: HEMO FLAGS AUTO DIFF
[2017-05-01 09:19] LABS: BICARBONATE 24.5 MEQ/L (21.0-32.0); POTASSIUM 3.7 MEQ/L (3.5-5.1)
[2017-05-01 09:27] LABS: CALCIUM-PROTEIN CORRECTED 8.5 MG/DL (8.5-10.1); TOTAL BILIRUBIN ADULT 1.1 MG/DL (0.2-1.0)
[2017-05-01 09:41] LABS: BANDS 38 % (0-6); NEUTROPHIL # MANUAL DIFF 11.1 TH/MM3 (1.8-7.7); PLATELET ESTIMATE SMEAR LOW (NORMAL); POLYS (SEG NEUTROPHILS) 60 % (16-70); WBC DIFF SAMPLE 100
[2017-05-01 09:42] LABS: PLATELET MORPHOLOGY NORMAL (NORMAL); SCAN/DIFF FINAL DIFF MANUAL; TOXIC GRANULATION 1+ (NORMAL); TOXIC VACUOLATION PRESENT (NONE SEEN)
[2017-05-01] MEDS: GABAPENTIN 300 MG CAP PO SCH ×2 (10:07→22:00)
[2017-05-01] MEDS: busPIRone HCL 5 MG TAB PO SCH ×3 (10:08→18:58)
[2017-05-01] MEDS: FAMOTIDINE 20 MG TAB PO SCH (10:08)
[2017-05-01] MEDS: DOCUSATE SODIUM 50 MG/SENNA 8.6 MG TAB PO SCH ×2 (10:08→22:00)
[2017-05-01] MEDS: SODIUM CHLORIDE 0.9% FLUSH 10 ML FLUSH SCH ×2 (10:08→22:01)
[2017-05-01] MEDS: TOPIRAMATE 25 MG TAB PO SCH ×2 (10:08→22:00)
[2017-05-01] MEDS: ARTIFICIAL TEARS OPTH SOLN 15 ML BTL EACH EYE SCH ×3 (10:09→18:58)
[2017-05-01] MEDS: CHLORHEXIDINE 0.12% (ORAL KIT) 15 ML CUP MT SCH ×2 (10:12→22:00)
[2017-05-01] MEDS: VANCOMYCIN INJ 1,500 MG in SODIUM CHLORID 0.9% 500 ML INJ 500 ML IV SCH ×2 (11:39→18:58)
[2017-05-01] MEDS ORDERED: DEXTROSE 50% IN WATER 50 ML SYRINGE ONE (11:41)
--- NOTE | 2017-05-01 14:41 | HHI.CCPN ---
Subjective Remarks/Hospital Course 04/25: This is a 46-year-old male with a past medical history of Anxiety, Depression and Substance Abuse was initially sent to the emergency room April 23, 2017 by EMS from [facility] for cough and fever x2 days. Per records, patient had Temp 104.7. At that time patient denied SOB, chest pain, nausea, vomiting or diarrhea. He was admitted to medical [facility] however the patient left this morning against medical advise despite the treatment of pneumonia. After leaving this morning he has had some alcohol to drink and smoked some methamphetamine. His brother brought him back for reevaluation and treatment for his pneumonia. In the emergency department his oxygen saturations were in the low 80s on room air, patient was constantly removing to his oxygen mask and would not tolerate any BiPAP. He became extremely agitated combative and was intubated by me for an airway protection and severe hypoxemia. 04/26: Remains sedated, orally intubated on mechanical ventilation. Went into A. fib last night currently ventricular rate 130s. 04/27: Remains sedated, orally intubated on mechanical ventilation. Converted back to sinus rhythm with amiodarone gtt. which continues. Receiving IV calcium gluconate for hypocalcemia. Temperature spike up to 105 last night. 04/28: Remains sedated, orally intubated on mechanical ventilation. Not tolerating tube feeds with high residuals. On Versed/propofol and fentanyl drips. 04/29: Sedated, orally intubated on mechanical ventilation. 04/30: Remains sedated, orally intubated on mechanical ventilation. 05/01: Remains sedated, orally intubated on mechanical ventilation. Not tolerating tube feeds overnight. Objective Vital Signs Date Time Temp Pulse Resp B/P (MAP) Pulse Ox O2 Delivery O2 Flow Rate FiO2 05/01/17 12:00 55 05/01/17 12:00 97 05/01/17 12:00 98.1 31 163/100 (121) 97 04/29/17 04:30 Ventilator Intake and Output 05/01/17 05/01/17 05/02/17 08:00 16:00 00:00 Intake Total 835 ml 200 ml Output Total 1950 ml Balance -1115 ml 200 ml Result Diagram: 05/01/17 0800 05/01/17 0800 Imaging Last 24 hours Impressions Chest X-Ray 04/25/17 1712 Signed Impressions: Service Date/Time: Tuesday, April 25, 2017 17:34 - CONCLUSION: Left greater than right airspace disease and left pleural effusion, all worse. Timbo Newsome MD Chest X-Ray 04/25/17 0000 Signed Impressions: Service Date/Time: Tuesday, April 25, 2017 20:52 - CONCLUSION: 1. As intermittent tracheal tube and nasogastric tube placement as above. 2. Left greater than right consolidation and small moderate left pleural effusion are again noted. Timbo Newsome MD Objective Remarks HEENT/ Neuro: Sedated, orally intubated, Pallor present, no icterus, tongue/ mucosa moist. Pupils bilaterally constricted 2 mm, reactive Neck: No JVD Chest/Pulm: on mech vent, good air entry bilaterally, scattered rhonchi, no wheezing or crackles. CVS: S1-S2 regular, no murmur GI/abdomen: soft, nontender, bowel sounds sluggish Extremities: warm bilaterally, no edema A/P Assessment and Plan Respiratory failure - Intubated for airway protection - Underlying pneumonia - Most likely will go through withdrawal, will keep intubated until neurologically improved. Continue propofol/Titrate off versed gtt, off fentanyl gtt. Decrease Librium from 25 mg every 8 hourly to 25mg QHS - Continue mechanical ventilation - Continue DuoNeb's - IV antibiotics for pneumonia treatment Pneumonia - Broad-spectrum antibiotics -Follow up cultures - De-escalate antibiotics per sensitivity - Follow CXR Altered mental status - Intoxication - Polysubstance abuse - No focal neurological exam - Monitor for withdrawal - Versed/ propofol and fentanyl drip for sedation - CT head negative for intracranial hemorrhage. A. fib with RVR - converted to sinus rhythm -Off amiodarone drip. Cardiology consult noted Hyponatremia - Na 125, likely secondary to acute infection/dehydration Hypocalcemia - Replacement per ICU electrolyte protocol. Check vitamin D2 and D3 as well as PTH level. Thrombocytopenia: - previous admission - 43 - no active bleeding. - Will monitor. - Consulted hematology for further evaluation DVT Prophylaxis - Teds SCDs - No pharmacological DVT prophylaxis due to thrombocytopenia - Pepcid Started tube feeds and advance to goal as tolerated. Critical Care: The total critical care time was 35 minutes. Time to perform other separately billable procedures was not included in the critical care time. Singh Perez MD May 01, 2017 14:41
[2017-05-01] MEDS: AZITHROMYCIN INJ 500 MG in SODIUM CHLOR 0.9% 250 ML INJ 250 ML IV SCH (16:32)
[2017-05-01] MEDS ORDERED: IOHEXOL 350 MG/ML 10 ML VIAL (for RAD DIAG) IVCONTRAST ONE (18:27)
--- NOTE | 2017-05-01 19:34 | RADRPT ---
EXAM DATE/TIME: 05/01/2017 18:24 [place] COMPARISON: CHEST SINGLE AP, April 30, 2017, 1:54. INDICATIONS : Respiratory failure, evaluate infiltrates. IV CONTRAST: 70 cc Omnipaque 350 (iohexol) IV RADIATION DOSE: 9.59 CTDIvol (mGy) MEDICAL HISTORY : None SURGICAL HISTORY : None. ENCOUNTER: Initial ACUITY: 1 day PAIN SCALE: Non-responsive LOCATION: Chest TECHNIQUE: Volumetric scanning of the chest was performed. Using automated exposure control and adjustment of the mA and/or kV according to patient size, radiation dose was kept as low as reasonab ly achievable to obtain optimal diagnostic quality images. DICOM format image data is available erika ctronically for review and comparison. Follow-up recommendations for detected pulmonary nodules are based at a minimum on nodule size and pa tient risk factors according to Fleischner Society Guidelines. FINDINGS: There are areas of consolidation throughout the lungs bilaterally being most prominent in the posterior lower lobes bilaterally. The left lower lobe consolidation is larger than the right lower lobe consolidation. The upper and midlung consolidations appear similar to slightly more promi nent on the left. There is a mild left pleural effusion being most prominent on the subpleural regio n between the inferior aspect of the left lung and the left hemidiaphragm. There is a minimal right pleural effusion. There are small lymph nodes seen in the right paratracheal region. Other areas of significant adenopathy are not clearly appreciated. There is an ET tube and nasogastric tube in paris ce. There are old healing left rib fractures seen. There is a 2 cm right renal cyst. Gallbladder wall a ppears mildly thickened. The gallbladder is not significantly distended. CONCLUSION: 1. Bilateral areas of consolidation. These alveolar consolidations are worse on the left than the ri ght. They are nonspecific. Diffuse underlying processes such as infection/pneumonia need to be cons idered. Other diffuse processes could have a similar appearance. 2. Mild left pleural effusion primarily in the subpleural region and a minimal right pleural effusion . 3. Minimal prominent lymph nodes in the right paratracheal region. Timbo Escudero MD on May 01, 2017 at 19:04 Board Certified Radiologist. This report was verified electronically.
[2017-05-01] MEDS: CITALOPRAM HYDROBROMIDE 20 MG TAB PO SCH (22:00)
[2017-05-01] MEDS: QUEtiapine FUMARATE 25 MG TAB PO SCH (22:00)
[2017-05-02] VITALS (25 sets, daily range): BP systolic 140–167; BP diastolic 75–84; PULSE 88–114; RESP 17–25; TEMP 97.1–99; O2SAT 91–96
[2017-05-02] MEDS: PIPERACIL-TAZO 4.5 GM PREMIX 100 ML IV SCH ×4 (00:42→17:13)
[2017-05-02] MEDS: PROPOFOL 1000 MG/100 ML IV PRN ×7 (00:44→23:00)
[2017-05-02] MEDS: VANCOMYCIN INJ 1,500 MG in SODIUM CHLORID 0.9% 500 ML INJ 500 ML IV SCH ×3 (00:44→15:40)
[2017-05-02] MEDS: CHLORHEXIDINE GLUCONATE 2 % 1 PACK (2 CLOTHS) TOP SCH (04:00)
[2017-05-02] MEDS: SODIUM CHLOR 0.9% 1000 ML INJ 1,000 ML IV SCH ×2 (04:55→16:12)
[2017-05-02 05:00] LABS: AUTOMATED NEUTROPHIL # 12.7 TH/MM3 (1.8-7.7); BASOPHIL % 0.3 % (0.0-2.0); HEMATOCRIT 27.5 % (39.0-51.0); LYMPH % 5.8 % (9.0-44.0); LYMPHOCYTE # 0.8 TH/MM3 (1.0-4.8); MEAN CELL VOLUME 98.1 FL (80.0-100.0); MEAN CORPUSCULAR HGB CONC 34.6 % (32.0-36.0); MONO % 2.8 % (0.0-8.0); NEUT % 91.1 % (16.0-70.0); PLATELET COUNT 95 TH/MM3 (150-450); RED CELL DISTRIBUTION WIDTH 14.8 % (11.6-17.2)
[2017-05-02 05:21] LABS: HEMO FLAGS AUTO DIFF
[2017-05-02 05:33] LABS: BICARBONATE 26.5 MEQ/L (21.0-32.0); CALCIUM-PROTEIN CORRECTED 8.4 MG/DL (8.5-10.1); POTASSIUM 3.3 MEQ/L (3.5-5.1)
[2017-05-02] MEDS: chlordiazePOXIDE 25 MG CAP PO SCH (05:43)
[2017-05-02] MEDS: METOCLOPRAMIDE HCL 10 MG/2 ML VIAL IV PUSH SCH ×3 (05:43→22:00)
[2017-05-02] MEDS: POTASSIUM CHLOR 40 MEQ PREMIX 100 ML IV PRN (06:11)
[2017-05-02] MEDS: RESP: ALBUTEROL 2.5 MG/IPRATROPIUM 0.5 MG NEB (PRN) INH (06:18)
[2017-05-02] MEDS ORDERED: PHARMACY ORDERED LAB ONE (07:45)
[2017-05-02] MEDS: TOPIRAMATE 25 MG TAB PO SCH ×2 (07:56→22:00)
[2017-05-02] MEDS: ARTIFICIAL TEARS OPTH SOLN 15 ML BTL EACH EYE SCH ×3 (07:56→17:13)
[2017-05-02] MEDS: busPIRone HCL 5 MG TAB PO SCH ×3 (07:57→17:12)
[2017-05-02] MEDS: FAMOTIDINE 20 MG TAB PO SCH (07:57)
[2017-05-02] MEDS: DOCUSATE SODIUM 50 MG/SENNA 8.6 MG TAB PO SCH ×2 (07:57→22:00)
[2017-05-02] MEDS: GABAPENTIN 300 MG CAP PO SCH ×2 (07:57→22:00)
[2017-05-02] MEDS: SODIUM CHLORIDE 0.9% FLUSH 10 ML FLUSH SCH ×2 (07:58→22:01)
[2017-05-02] MEDS: CHLORHEXIDINE 0.12% (ORAL KIT) 15 ML CUP MT SCH ×2 (07:58→20:54)
[2017-05-02 09:06] LABS: BANDS 17 % (0-6); MYELOCYTES 2 % (0-0); POLYS (SEG NEUTROPHILS) 74 % (16-70); WBC DIFF SAMPLE 100
[2017-05-02 09:07] LABS: PLATELET ESTIMATE SMEAR LOW (NORMAL); PLATELET MORPHOLOGY NORMAL (NORMAL); SCAN/DIFF FINAL DIFF MANUAL; TOXIC GRANULATION 1+ (NORMAL)
--- NOTE | 2017-05-02 10:36 | HHI.CCPN ---
Subjective Remarks/Hospital Course 04/25: This is a 46-year-old male with a past medical history of Anxiety, Depression and Substance Abuse was initially sent to the emergency room April 23, 2017 by EMS from [facility] for cough and fever x2 days. Per records, patient had Temp 104.7. At that time patient denied SOB, chest pain, nausea, vomiting or diarrhea. He was admitted to medical surgical [facility] however the patient left this morning against medical advise despite the treatment of pneumonia. After leaving this morning he has had some alcohol to drink and smoked some methamphetamine. His brother brought him back for reevaluation and treatment for his pneumonia. In the emergency department his oxygen saturations were in the low 80s on room air, patient was constantly removing to his oxygen mask and would not tolerate any BiPAP. He became extremely agitated combative and was intubated by me for an airway protection and severe hypoxemia. 04/26: Remains sedated, orally intubated on mechanical ventilation. Went into A. fib last night currently ventricular rate 130s. 04/27: Remains sedated, orally intubated on mechanical ventilation. Converted back to sinus rhythm with amiodarone gtt. which continues. Receiving IV calcium gluconate for hypocalcemia. Temperature spike up to 105 last night. 04/28: Remains sedated, orally intubated on mechanical ventilation. Not tolerating tube feeds with high residuals. On Versed/propofol and fentanyl drips. 04/29: Sedated, orally intubated on mechanical ventilation. 04/30: Remains sedated, orally intubated on mechanical ventilation. 05/01: Remains sedated, orally intubated on mechanical ventilation. Not tolerating tube feeds overnight. 05/02: Remains sedated, orally intubated on mechanical ventilation. Will attempt restarting tube feeds. Discontinue fentanyl/Versed drips. Propofol for sedation to be continued Objective Vital Signs Date Time Temp Pulse Resp B/P (MAP) Pulse Ox O2 Delivery O2 Flow Rate FiO2 05/02/17 09:00 111 05/02/17 09:00 97.2 22 159/75 (103) 92 05/02/17 08:45 60 04/29/17 04:30 Ventilator Intake and Output 05/02/17 05/02/17 05/03/17 08:00 16:00 00:00 Intake Total 1715 ml 500 ml Output Total 1700 ml Balance 15 ml 500 ml Result Diagram: 05/02/17 0400 05/02/17 0400 Imaging Last [address] 05/01/17 0000 Signed Impressions: Service Date/Time: Monday, May 01, 2017 18:24 - CONCLUSION: 1. Bilateral areas of consolidation. These alveolar consolidations are worse on the left than the right. They are nonspecific. Diffuse underlying processes such as infection/pneumonia need to be considered. Other diffuse processes could have a similar appearance. 2. Mild left pleural effusion primarily in the subpleural region and a minimal right pleural effusion. 3. Minimal prominent lymph nodes in the right paratracheal region. Timbo Escudero MD Last 24 hours Impressions Chest X-Ray 04/25/17 1712 Signed Impressions: Service Date/Time: Tuesday, April 25, 2017 17:34 - CONCLUSION: Left greater than right airspace disease and left pleural effusion, all worse. Timbo Newsome MD Chest X-Ray 04/25/17 0000 Signed Impressions: Service Date/Time: Tuesday, April 25, 2017 20:52 - CONCLUSION: 1. As intermittent tracheal tube and nasogastric tube placement as above. 2. Left greater than right consolidation and small moderate left pleural effusion are again noted. Timbo Newsome MD Objective Remarks HEENT/ Neuro: Sedated, orally intubated, Pallor present, no icterus, tongue/ mucosa moist. Pupils bilaterally constricted 2 mm, reactive Neck: No JVD Chest/Pulm: on mech vent, good air entry bilaterally, scattered rhonchi, no wheezing or crackles. CVS: S1-S2 regular, no murmur GI/abdomen: soft, nontender, bowel sounds sluggish Extremities: warm bilaterally, no edema A/P Assessment and Plan Respiratory failure - Intubated for airway protection - Underlying pneumonia - Most likely will go through withdrawal, will keep intubated until neurologically improved. Continue propofol/Titrate off versed gtt, off fentanyl gtt. stopped Librium on 05/02 - Continue mechanical ventilation - Continue DuoNeb's - IV antibiotics for pneumonia treatment Pneumonia - Broad-spectrum antibiotics -Follow up cultures - De-escalate antibiotics per sensitivity - Follow CXR Altered mental status - Intoxication - Polysubstance abuse - No focal neurological exam - Monitor for withdrawal - Versed/ propofol and fentanyl drip for sedation - CT head negative for intracranial hemorrhage. A. fib with RVR - converted to sinus rhythm -Off amiodarone drip. Cardiology consult noted Hyponatremia - Na 125, likely secondary to acute infection/dehydration Hypocalcemia - Replacement per ICU electrolyte protocol. Check vitamin D2 and D3 as well as PTH level. Thrombocytopenia: - previous admission - 43 - no active bleeding. - Will monitor. - Consulted hematology for further evaluation DVT Prophylaxis - Teds SCDs - No pharmacological DVT prophylaxis due to thrombocytopenia - Pepcid Restart tube feeds and advance to goal as tolerated. Critical Care: The total critical care time was 35 minutes. Time to perform other separately billable procedures was not included in the critical care time. Singh Perez MD May 02, 2017 10:36
--- NOTE | 2017-05-02 11:24 | PD.ONC.PN ---
Subjective Subjective Remarks Intubated and sedated. Objective Data Date Time Temp Pulse Resp B/P (MAP) Pulse Ox O2 Delivery O2 Flow Rate FiO2 05/02/17 09:00 111 05/02/17 09:00 97.2 111 22 159/75 (103) 92 05/02/17 08:45 91 60 05/02/17 08:00 98.0 114 21 161/75 (103) 91 05/02/17 08:00 114 05/02/17 08:00 60 05/02/17 07:00 97.0 111 20 161/76 (104) 91 05/02/17 06:00 105 05/02/17 04:35 93 50 05/02/17 04:00 89 05/02/17 04:00 60 05/02/17 04:00 97.1 89 18 140/77 (98) 91 05/02/17 02:00 91 05/02/17 01:15 93 50 05/02/17 00:00 50 05/02/17 00:00 88 05/02/17 00:00 97.7 88 17 141/75 (97) 96 05/01/17 22:18 96 70 05/01/17 22:00 97.7 97 17 143/73 (96) 94 05/01/17 22:00 97 05/01/17 20:30 95 80 05/01/17 20:00 70 05/01/17 20:00 112 05/01/17 20:00 98.1 112 152/71 (98) 93 05/01/17 18:00 109 05/01/17 17:10 92 55 05/01/17 16:00 55 05/01/17 16:00 109 05/01/17 16:00 98.6 109 19 157/73 (101) 91 05/01/17 14:00 103 30 163/82 (109) 93 05/01/17 14:00 103 05/01/17 12:00 55 05/01/17 12:00 97 05/01/17 12:00 98.1 97 31 163/100 (121) 97 05/01/17 11:34 92 55 05/02/17 05/02/17 05/02/17 07:00 15:00 23:00 Intake Total 1515 ml 700 ml Output Total 1700 ml Balance -185 ml 700 ml Result Diagram: 05/02/17 0400 05/02/17 0400 Laboratory Results Laboratory Tests Test 05/02/17 04:00 05/02/17 08:00 White Blood Count 14.0 TH/MM3 Red Blood Count 2.80 MIL/MM3 Hemoglobin 9.5 GM/DL Hematocrit 27.5 % Mean Corpuscular Volume 98.1 FL Mean Corpuscular Hemoglobin 34.0 PG Mean Corpuscular Hemoglobin Concent 34.6 % Red Cell Distribution Width 14.8 % Platelet Count 95 TH/MM3 Mean Platelet Volume 10.7 FL Neutrophils (%) (Auto) 91.1 % Lymphocytes (%) (Auto) 5.8 % Monocytes (%) (Auto) 2.8 % Eosinophils (%) (Auto) 0.0 % Basophils (%) (Auto) 0.3 % Neutrophils # (Auto) 12.7 TH/MM3 Lymphocytes # (Auto) 0.8 TH/MM3 Monocytes # (Auto) 0.4 TH/MM3 Eosinophils # (Auto) 0.0 TH/MM3 Basophils # (Auto) 0.0 TH/MM3 CBC Comment AUTO DIFF Differential Total Cells Counted 100 Neutrophils % (Manual) 74 % Band Neutrophils % 17 % Lymphocytes % 4 % Monocytes % 3 % Neutrophils # (Manual) 13.0 TH/MM3 Myelocytes 2 % Differential Comment FINAL DIFF MANUAL Toxic Granulation 1+ Platelet Estimate LOW Platelet Morphology Comment NORMAL Blood Urea Nitrogen 11 MG/DL Creatinine 0.59 MG/DL Random Glucose 100 MG/DL Total Protein 5.3 GM/DL Albumin 1.1 GM/DL Calcium Level 7.4 MG/DL Alkaline Phosphatase 86 U/L Aspartate Amino Transf (AST/SGOT) 67 U/L Alanine Aminotransferase (ALT/SGPT) 34 U/L Total Bilirubin 1.0 MG/DL Sodium Level 143 MEQ/L Potassium Level 3.3 MEQ/L Chloride Level 109 MEQ/L Carbon Dioxide Level 26.5 MEQ/L Anion Gap 8 MEQ/L Estimat Glomerular Filtration Rate 147 ML/MIN Protein Corrected Calcium 8.4 MG/DL Vancomycin Level Trough 14.1 MCG/ML Administered Medications Medications (Trade) Dose Ordered Sig/Angel Route PRN Reason Start Time Stop Time Status Last Admin Dose Admin Buspirone HCl (Buspar) 15 mg TID PO 04/26/17 09:00 05/02/17 07:57 Citalopram Hydrobromide (CeleXA) 10 mg HS PO 9/26/17 21:00 05/01/17 22:00 Gabapentin (Neurontin) 600 mg BID PO 04/25/17 21:00 05/02/17 07:57 Topiramate (Topamax) 50 mg BID PO 04/25/17 21:00 05/02/17 07:56 Quetiapine Fumarate (SEROquel) 50 mg HS PO 04/25/17 21:00 05/01/17 22:00 Famotidine (Pepcid) 20 mg DAILY PO 04/26/17 09:00 05/02/17 07:57 Sodium Chloride 1,000 ml @ 50 mls/hr Q20H IV 04/25/17 21:00 05/02/17 04:55 Sodium Chloride (NS Flush) 2 ml BID .XX 04/25/17 21:00 05/02/17 07:58 Acetaminophen (Tylenol) 650 mg Q6H PRN PO PAIN 1-10 AND/OR FEVER >101F 04/25/17 20:00 04/29/17 00:10 Lorazepam (Ativan Inj) 1 mg Q1H PRN IV PUSH Agitation/Sedation 04/25/17 20:00 04/25/17 20:17 Artificial Tears (Tears Naturale Opth Soln) 1 drop TID EACH EYE 04/26/17 09:00 05/02/17 07:56 Albuterol/ Ipratropium (Duoneb Neb) 1 ampule Q2HR NEB PRN INH WHEEZING 04/25/17 20:00 05/02/17 06:18 Chlorhexidine Gluconate (Chlorhexidine 2% Cloth) Taper DAILY@04 TOP 04/26/17 04:00 04/22/18 03:59 05/02/17 04:00 Senna/Docusate Sodium (Marsha-Colace) 1 tab BID PO 04/25/17 21:00 05/02/17 07:57 Chlorhexidine Gluconate (Peridex 0.12% Liq) 15 ml BID@08,20 MT 04/25/17 20:00 05/02/17 07:58 Midazolam HCl 100 ml @ 2 mls/hr TITRATE PRN IV SEDATION 04/25/17 20:00 04/30/17 03:52 Piperacillin Sod/ Tazobactam Sod 100 ml @ 200 mls/hr Q6H IV 04/26/17 00:00 05/02/17 05:43 Azithromycin 500 mg/Sodium Chloride 250 ml @ 250 mls/hr Q24H IV 04/26/17 17:00 05/01/17 16:32 Chlordiazepoxide (Librium) 25 mg Q8HR PO 04/26/17 12:00 05/02/17 05:43 Potassium Bicarb/ Potassium Chloride (K-Lyte Cl Eff) 50 meq UNSCH PRN PO For Potassium 3.3 - 3.5 mEq/L 04/27/17 01:30 04/27/17 01:52 Potassium Chloride 100 ml @ 25 mls/hr UNSCH PRN IV For Potassium 3.3 - 3.5 mEq/L 04/27/17 01:30 05/02/17 06:11 Potassium Phosphate 30 mmol/ Sodium Chloride 260 ml @ 42 mls/hr UNSCH PRN IV SEE LABEL COMMENTS 04/27/17 01:30 04/27/17 03:32 Metoclopramide HCl (Reglan Inj) 10 mg Q8HR IV PUSH 04/28/17 17:00 05/02/17 05:43 Propofol 100 ml @ 3.66 mls/hr TITRATE PRN IV Sedation 04/29/17 16:15 05/02/17 08:00 Vancomycin HCl 1500 mg/Sodium Chloride 515 ml @ 250 mls/hr Q8H IV 04/30/17 16:00 05/02/17 07:56 Objective Remarks GENERAL: critically ill patient, intubated and sedated SKIN: Warm and dry. HEAD: Normocephalic. EYES: No scleral icterus. No injection or drainage. NECK: Supple no palpable LAD LYMPHATIC: No adenopathy. CARDIOVASCULAR: Regular rate and rhythm without murmurs. RESPIRATORY: Breath sounds equal bilaterally. No accessory muscle use. GASTROINTESTINAL: Abdomen soft, non-tender, nondistended. EXTREMITIES: slight edema of all four extremities NEUROLOGICAL: intubated and sedated on the vent Assessment/Plan Assessment 1. AMS: Known history of polysubstance abuse. Secondary to substance abuse, withdrawl. Primary team currently weaning sedation and following mental status closely. 2. Pneumonia: on broad spectrum antibiotics. 3. Leukocytosis: with neutrophilia. Likely reactive due to infection/ inflammation. Will continue to follow 4. Thrombocytopenia: Uncertain of baseline. Multiple factors are likely contributing including cirrhosis, splenomegaly, alcohol abuse/substance abuse, current infection/pneumonia, antibiotic therapy. Platelet count improving. HIV studies, vitamin B12, Folate WNL. Liver ultrasound with heterogenous appearance of the liver--possibily due to cirrhosis and splenomegaly. Ok to initiate pharmacologic DVT ppx provided plt count remains greater than 50K. 5. Anemia: uncertain of baseline. Hemoglobin 9.5 today. Vitamin B12, foalte WNL. Ferritin elevated (secondary to inflammation, etoh use, current infection) . No evidence of hemolysis. Continue to monitor. Deepa Conner MD May 02, 2017 11:24
[2017-05-02] MEDS: AZITHROMYCIN INJ 500 MG in SODIUM CHLOR 0.9% 250 ML INJ 250 ML IV SCH (17:12)
[2017-05-02] MEDS: CITALOPRAM HYDROBROMIDE 20 MG TAB PO SCH (22:00)
[2017-05-02] MEDS: QUEtiapine FUMARATE 25 MG TAB PO SCH (22:00)
[2017-05-03] VITALS (17 sets, daily range): BP systolic 151–176; BP diastolic 75–88; PULSE 74–106; RESP 19–25; TEMP 98.6–99.7; O2SAT 95–100
[2017-05-03] MEDS: VANCOMYCIN INJ 1,500 MG in SODIUM CHLORID 0.9% 500 ML INJ 500 ML IV SCH ×3 (00:33→15:38)
[2017-05-03] MEDS: PIPERACIL-TAZO 4.5 GM PREMIX 100 ML IV SCH ×4 (00:35→17:27)
[2017-05-03] MEDS: PROPOFOL 1000 MG/100 ML IV PRN ×4 (03:16→22:36)
[2017-05-03] MEDS: ACETAMINOPHEN 325 MG TAB PO PRN (03:37)
[2017-05-03] MEDS: CHLORHEXIDINE GLUCONATE 2 % 1 PACK (2 CLOTHS) TOP SCH (04:00)
[2017-05-03 05:44] LABS: ALKALINE PHOSPHATASE 153 U/L (45-117); ALT (GPT) 38 U/L (12-78); ANION GAP 9 MEQ/L (5-15); AST (GOT) 81 U/L (15-37); BICARBONATE 26.4 MEQ/L (21.0-32.0); BLOOD UREA NITROGEN 9 MG/DL (7-18); CHLORIDE 111 MEQ/L (98-107); GLOMERULAR FILTRATION RATE 182 ML/MIN (>89); SODIUM (NA) 146 MEQ/L (136-145); TOTAL BILIRUBIN ADULT 1.8 MG/DL (0.2-1.0)
[2017-05-03 05:48] LABS: AUTOMATED NEUTROPHIL # 12.3 TH/MM3 (1.8-7.7); BASOPHIL % 0.3 % (0.0-2.0); EOSINOPHIL % 0.1 % (0.0-4.0); HEMATOCRIT 28.6 % (39.0-51.0); LYMPH % 4.6 % (9.0-44.0); LYMPHOCYTE # 0.6 TH/MM3 (1.0-4.8); MEAN CELL VOLUME 97.3 FL (80.0-100.0); MEAN CORPUSCULAR HGB CONC 33.9 % (32.0-36.0); MONO % 4.1 % (0.0-8.0); NEUT % 90.9 % (16.0-70.0); PLATELET COUNT 142 TH/MM3 (150-450); RED BLOOD COUNT 2.94 MIL/MM3 (4.50-5.90); RED CELL DISTRIBUTION WIDTH 15.2 % (11.6-17.2); WHITE BLOOD COUNT 13.5 TH/MM3 (4.0-11.0)
[2017-05-03 05:53] LABS: POTASSIUM 2.9 MEQ/L (3.5-5.1)
[2017-05-03] MEDS: METOCLOPRAMIDE HCL 10 MG/2 ML VIAL IV PUSH SCH ×3 (05:56→22:36)
[2017-05-03] MEDS: POTASSIUM CHLOR 40 MEQ PREMIX 100 ML IV PRN ×4 (05:56→23:42)
[2017-05-03 06:10] LABS: APTT (PATIENT) 30.3 SEC (24.3-30.1); PROTHROMBIN TIME - PATIENT 10.9 SEC (9.8-11.6)
[2017-05-03 06:12] LABS: HEMO FLAGS AUTO DIFF
[2017-05-03] MEDS: GABAPENTIN 300 MG CAP PO SCH ×2 (08:09→21:05)
[2017-05-03] MEDS: DOCUSATE SODIUM 50 MG/SENNA 8.6 MG TAB PO SCH ×2 (08:10→21:04)
[2017-05-03] MEDS: FAMOTIDINE 20 MG TAB PO SCH (08:10)
[2017-05-03] MEDS: TOPIRAMATE 25 MG TAB PO SCH ×2 (08:10→21:05)
[2017-05-03] MEDS: SODIUM CHLORIDE 0.9% FLUSH 10 ML FLUSH SCH ×2 (08:11→21:05)
[2017-05-03] MEDS: ARTIFICIAL TEARS OPTH SOLN 15 ML BTL EACH EYE SCH ×3 (08:11→17:27)
[2017-05-03] MEDS: CHLORHEXIDINE 0.12% (ORAL KIT) 15 ML CUP MT SCH ×3 (08:12→21:04)
[2017-05-03 09:06] LABS: BANDS 42 % (0-6); MYELOCYTES 2 % (0-0); NEUTROPHIL # MANUAL DIFF 13.2 TH/MM3 (1.8-7.7); POLYS (SEG NEUTROPHILS) 54 % (16-70); WBC DIFF SAMPLE 100
[2017-05-03 09:07] LABS: TOXIC GRANULATION 1+ (NORMAL)
[2017-05-03 09:08] LABS: SCAN/DIFF FINAL DIFF MANUAL; TEARDROP RBCS 2+ (NORMAL)
[2017-05-03] MEDS: busPIRone HCL 5 MG TAB PO SCH ×3 (09:14→17:28)
--- NOTE | 2017-05-03 11:01 | HHI.CCPN ---
Subjective Remarks/Hospital Course 04/25: This is a 46-year-old male with a past medical history of Anxiety, Depression and Substance Abuse was initially sent to the emergency room April 23, 2017 by EMS from [facility] for cough and fever x2 days. Per records, patient had Temp 104.7. At that time patient denied SOB, chest pain, nausea, vomiting or diarrhea. He was admitted to [facility] however the patient left this morning against medical advise despite the treatment of pneumonia. After leaving this morning he has had some alcohol to drink and smoked some methamphetamine. His brother brought him back for reevaluation and treatment for his pneumonia. In the emergency department his oxygen saturations were in the low 80s on room air, patient was constantly removing to his oxygen mask and would not tolerate any BiPAP. He became extremely agitated combative and was intubated by me for an airway protection and severe hypoxemia. 04/26: Remains sedated, orally intubated on mechanical ventilation. Went into A. fib last night currently ventricular rate 130s. 04/27: Remains sedated, orally intubated on mechanical ventilation. Converted back to sinus rhythm with amiodarone gtt. which continues. Receiving IV calcium gluconate for hypocalcemia. Temperature spike up to 105 last night. 04/28: Remains sedated, orally intubated on mechanical ventilation. Not tolerating tube feeds with high residuals. On Versed/propofol and fentanyl drips. 04/29: Sedated, orally intubated on mechanical ventilation. 04/30: Remains sedated, orally intubated on mechanical ventilation. 05/01: Remains sedated, orally intubated on mechanical ventilation. Not tolerating tube feeds overnight. 05/02: Remains sedated, orally intubated on mechanical ventilation. Will attempt restarting tube feeds. Discontinue fentanyl/Versed drips. Propofol for sedation to be continued 05/03: Remains sedated, orally intubated on mechanical ventilation. Remains on PEEP +12 FiO2 50%. Objective Vital Signs Date Time Temp Pulse Resp B/P (MAP) Pulse Ox O2 Delivery O2 Flow Rate FiO2 05/03/17 10:00 87 05/03/17 08:00 99.4 22 166/82 (110) 100 05/03/17 07:39 50 Intake and Output 05/03/17 05/03/17 05/04/17 08:00 16:00 00:00 Intake Total 925 ml 752 ml Output Total 2050 ml Balance -1125 ml 752 ml Result Diagram: 05/03/17 0430 05/03/17 0430 Imaging Last [address] 05/01/17 0000 Signed Impressions: Service Date/Time: Monday, May 01, 2017 18:24 - CONCLUSION: 1. Bilateral areas of consolidation. These alveolar consolidations are worse on the left than the right. They are nonspecific. Diffuse underlying processes such as infection/pneumonia need to be considered. Other diffuse processes could have a similar appearance. 2. Mild left pleural effusion primarily in the subpleural region and a minimal right pleural effusion. 3. Minimal prominent lymph nodes in the right paratracheal region. Timbo Escudero MD Last 24 hours Impressions Chest X-Ray 04/25/17 1712 Signed Impressions: Service Date/Time: Tuesday, April 25, 2017 17:34 - CONCLUSION: Left greater than right airspace disease and left pleural effusion, all worse. Timbo Newsome MD Chest X-Ray 04/25/17 0000 Signed Impressions: Service Date/Time: Tuesday, April 25, 2017 20:52 - CONCLUSION: 1. As intermittent tracheal tube and nasogastric tube placement as above. 2. Left greater than right consolidation and small moderate left pleural effusion are again noted. Timbo Newsome MD Objective Remarks HEENT/ Neuro: Sedated, orally intubated, Pallor present, no icterus, tongue/ mucosa moist. Pupils bilaterally constricted 2 mm, reactive Neck: No JVD Chest/Pulm: on mech vent, good air entry bilaterally, scattered rhonchi, no wheezing or crackles. CVS: S1-S2 regular, no murmur GI/abdomen: soft, nontender, bowel sounds sluggish Extremities: warm bilaterally, no edema A/P Assessment and Plan Respiratory failure - Intubated for airway protection - Underlying pneumonia - Most likely will go through withdrawal, will keep intubated until neurologically improved. Continue propofol/Titrate off versed gtt, off fentanyl gtt. stopped Librium on 05/02 - Continue mechanical ventilation - Continue DuoNeb's - IV antibiotics for pneumonia treatment Pneumonia - Broad-spectrum antibiotics -Follow up cultures - De-escalate antibiotics per sensitivity - Follow CXR Altered mental status - Intoxication - Polysubstance abuse - Non focal neurological exam - Monitor for withdrawal - Versed/ propofol and fentanyl drip for sedation - CT head negative for intracranial hemorrhage. A. fib with RVR - converted to sinus rhythm -Off amiodarone drip. Cardiology consult noted Hyponatremia - Na 125, likely secondary to acute infection/dehydration Hypocalcemia - Replacement per ICU electrolyte protocol. Check vitamin D2 and D3 as well as PTH level. Thrombocytopenia: - previous admission - 43 - no active bleeding. - Will monitor. - Consulted hematology for further evaluation. Okay with resuming Lovenox for DVT prophylaxis as platelet count has normalized. DVT Prophylaxis - Teds SCDs -We'll start Lovenox for DVT prophylaxis - discussed with Dr. Conner - Ghanshyam Restart tube feeds and advance to goal as tolerated. Critical Care: The total critical care time was 35 minutes. Time to perform other separately billable procedures was not included in the critical care time. Singh Perez MD May 03, 2017 11:01
--- NOTE | 2017-05-03 12:16 | PD.ONC.PN ---
Subjective Subjective Remarks Intubated and sedated. Primary team is currently weaning sedation. CT chest from yesterday with bilateral left greater than right effusions. Objective Data Date Time Temp Pulse Resp B/P (MAP) Pulse Ox O2 Delivery O2 Flow Rate FiO2 05/03/17 10:00 87 05/03/17 08:30 50 05/03/17 08:00 93 05/03/17 08:00 50 05/03/17 08:00 99.4 93 22 166/82 (110) 100 05/03/17 07:39 100 50 05/03/17 06:00 96 05/03/17 06:00 99.1 96 22 157/81 (106) 98 05/03/17 04:39 98 50 05/03/17 04:00 97 05/03/17 04:00 99.5 97 24 167/79 (108) 100 05/03/17 04:00 60 05/03/17 02:00 99.7 98 25 176/88 (117) 96 05/03/17 02:00 98 05/03/17 01:16 95 60 05/03/17 00:00 99.5 106 24 173/81 (111) 95 05/03/17 00:00 106 05/03/17 00:00 60 05/02/17 22:21 96 60 05/02/17 22:00 100 05/02/17 20:00 60 05/02/17 20:00 99 05/02/17 20:00 99.0 99 22 160/81 (107) 96 05/02/17 19:45 96 60 05/02/17 18:00 102 05/02/17 17:06 95 60 05/02/17 16:00 106 05/02/17 16:00 60 05/02/17 16:00 98.8 106 20 166/79 (108) 94 05/02/17 15:00 108 05/02/17 15:00 97.7 108 20 160/81 (107) 94 05/02/17 14:00 97.5 109 19 167/78 (107) 93 05/02/17 14:00 109 05/02/17 13:00 109 05/02/17 13:00 97.5 109 25 159/82 (107) 94 05/02/17 12:50 95 60 05/02/17 12:00 98.0 109 21 164/82 (109) 94 05/02/17 12:00 60 05/02/17 12:00 109 05/03/17 05/03/17 05/03/17 07:00 15:00 23:00 Intake Total 925 ml 752 ml Output Total 2050 ml Balance -1125 ml 752 ml Result Diagram: 05/03/17 0430 05/03/17 0430 Laboratory Results Laboratory Tests Test 05/03/17 04:30 05/03/17 05:20 White Blood Count 13.5 TH/MM3 Red Blood Count 2.94 MIL/MM3 Hemoglobin 9.7 GM/DL Hematocrit 28.6 % Mean Corpuscular Volume 97.3 FL Mean Corpuscular Hemoglobin 33.0 PG Mean Corpuscular Hemoglobin Concent 33.9 % Red Cell Distribution Width 15.2 % Platelet Count 142 TH/MM3 Mean Platelet Volume 10.4 FL Neutrophils (%) (Auto) 90.9 % Lymphocytes (%) (Auto) 4.6 % Monocytes (%) (Auto) 4.1 % Eosinophils (%) (Auto) 0.1 % Basophils (%) (Auto) 0.3 % Neutrophils # (Auto) 12.3 TH/MM3 Lymphocytes # (Auto) 0.6 TH/MM3 Monocytes # (Auto) 0.6 TH/MM3 Eosinophils # (Auto) 0.0 TH/MM3 Basophils # (Auto) 0.0 TH/MM3 CBC Comment AUTO DIFF Differential Total Cells Counted 100 Neutrophils % (Manual) 54 % Band Neutrophils % 42 % Monocytes % 2 % Neutrophils # (Manual) 13.2 TH/MM3 Myelocytes 2 % Differential Comment FINAL DIFF MANUAL Toxic Granulation 1+ Tear Drop Cells 2+ Blood Urea Nitrogen 9 MG/DL Creatinine 0.49 MG/DL Random Glucose 93 MG/DL Total Protein 5.7 GM/DL Albumin 1.1 GM/DL Calcium Level 7.8 MG/DL Alkaline Phosphatase 153 U/L Aspartate Amino Transf (AST/SGOT) 81 U/L Alanine Aminotransferase (ALT/SGPT) 38 U/L Total Bilirubin 1.8 MG/DL Sodium Level 146 MEQ/L Potassium Level 2.9 MEQ/L Chloride Level 111 MEQ/L Carbon Dioxide Level 26.4 MEQ/L Anion Gap 9 MEQ/L Estimat Glomerular Filtration Rate 182 ML/MIN Prothrombin Time 10.9 SEC Prothromb Time International Ratio 1.0 RATIO Activated Partial Thromboplast Time 30.3 SEC Administered Medications Medications (Trade) Dose Ordered Sig/Angel Route PRN Reason Start Time Stop Time Status Last Admin Dose Admin Buspirone HCl (Buspar) 15 mg TID PO 04/26/17 09:00 05/03/17 11:49 Citalopram Hydrobromide (CeleXA) 10 mg HS PO 04/25/17 21:00 05/02/17 22:00 Gabapentin (Neurontin) 600 mg BID PO 04/25/17 21:00 05/03/17 08:09 Topiramate (Topamax) 50 mg BID PO 04/25/17 21:00 05/03/17 08:10 Quetiapine Fumarate (SEROquel) 50 mg HS PO 04/25/17 21:00 05/02/17 22:00 Famotidine (Pepcid) 20 mg DAILY PO 04/26/17 09:00 05/03/17 08:10 Sodium Chloride 1,000 ml @ 50 mls/hr Q20H IV 04/25/17 21:00 05/02/17 16:12 Sodium Chloride (NS Flush) 2 ml BID .XX 04/25/17 21:00 05/03/17 08:11 Acetaminophen (Tylenol) 650 mg Q6H PRN PO PAIN 1-10 AND/OR FEVER >101F 04/25/17 20:00 05/03/17 03:37 Lorazepam (Ativan Inj) 1 mg Q1H PRN IV PUSH Agitation/Sedation 04/25/17 20:00 04/25/17 20:17 Artificial Tears (Tears Naturale Opth Soln) 1 drop TID EACH EYE 04/26/17 09:00 05/03/17 11:50 Albuterol/ Ipratropium (Duoneb Neb) 1 ampule Q2HR NEB PRN INH WHEEZING 04/25/17 20:00 05/02/17 06:18 Chlorhexidine Gluconate (Chlorhexidine 2% Cloth) Taper DAILY@04 TOP 04/26/17 04:00 04/22/18 03:59 05/03/17 04:00 Senna/Docusate Sodium (Marsha-Colace) 1 tab BID PO 04/25/17 21:00 05/03/17 08:10 Chlorhexidine Gluconate (Peridex 0.12% Liq) 15 ml BID@08,20 MT 04/25/17 20:00 05/03/17 08:12 Piperacillin Sod/ Tazobactam Sod 100 ml @ 200 mls/hr Q6H IV 04/26/17 00:00 05/03/17 11:49 Azithromycin 500 mg/Sodium Chloride 250 ml @ 250 mls/hr Q24H IV 04/26/17 17:00 05/02/17 17:12 Potassium Chloride 100 ml @ 50 mls/hr Q2H PRN IV For Potassium 2.8 - 3.2 mEq/L 04/27/17 01:30 05/03/17 08:40 Potassium Bicarb/ Potassium Chloride (K-Lyte Cl Eff) 50 meq UNSCH PRN PO For Potassium 3.3 - 3.5 mEq/L 04/27/17 01:30 04/27/17 01:52 Potassium Chloride 100 ml @ 25 mls/hr UNSCH PRN IV For Potassium 3.3 - 3.5 mEq/L 04/27/17 01:30 05/02/17 06:11 Potassium Phosphate 30 mmol/ Sodium Chloride 260 ml @ 42 mls/hr UNSCH PRN IV SEE LABEL COMMENTS 04/27/17 01:30 04/27/17 03:32 Metoclopramide HCl (Reglan Inj) 10 mg Q8HR IV PUSH 04/28/17 17:00 05/03/17 05:56 Propofol 100 ml @ 3.66 mls/hr TITRATE PRN IV Sedation 04/29/17 16:15 05/03/17 08:06 Vancomycin HCl 1500 mg/Sodium Chloride 515 ml @ 250 mls/hr Q8H IV 04/30/17 16:00 05/03/17 08:07 Objective Remarks GENERAL: intubated and sedated on the ventilator SKIN: Warm and dry. HEAD: Normocephalic. LYMPHATIC: No adenopathy. CARDIOVASCULAR: Regular rate and rhythm without murmurs. RESPIRATORY: intubated GASTROINTESTINAL: Abdomen soft, non-tender, nondistended. EXTREMITIES: edema of all four extremities NEUROLOGICAL: sedated, does not follow commands PSYCHIATRIC: Appropriate mood and affect; insight and judgment normal. Assessment/Plan Assessment 1. AMS: Known history of polysubstance abuse. Secondary to substance abuse, withdrawl. Primary team currently weaning sedation and following mental status closely. 2. Pneumonia: on broad spectrum antibiotics. 3. Leukocytosis: with neutrophilia, bandemia, with toxic granulation noted. Likely reactive due to infection/inflammation. Will continue to follow 4. Thrombocytopenia: Uncertain of baseline. Multiple factors are likely contributing including suspected liver disease/cirrhosis, splenomegaly, alcohol abuse/substance abuse, current infection/pneumonia, antibiotic therapy. Platelet count improving. HIV studies, vitamin B12, Folate WNL. Liver ultrasound with heterogenous appearance of the liver--possibly due to cirrhosis and splenomegaly. Ok to initiate pharmacologic DVT ppx provided plt count remains greater than 50K. 5. Anemia: uncertain of baseline. Hemoglobin 9.7 today. Vitamin B12, folate WNL. Ferritin elevated (secondary to inflammation, etoh use, current infection , liver disease). No evidence of hemolysis. Continue to monitor. 6. Coagulopathy: improving, ptt almost returned to baseline. Deepa Conner MD May 03, 2017 12:16
[2017-05-03] MEDS: SODIUM CHLOR 0.9% 1000 ML INJ 1,000 ML IV SCH (12:57)
[2017-05-03] MEDS: AZITHROMYCIN INJ 500 MG in SODIUM CHLOR 0.9% 250 ML INJ 250 ML IV SCH (16:25)
[2017-05-03] MEDS: CITALOPRAM HYDROBROMIDE 20 MG TAB PO SCH (21:04)
[2017-05-03] MEDS: QUEtiapine FUMARATE 25 MG TAB PO SCH (21:04)
[2017-05-04] VITALS (19 sets, daily range): BP systolic 161–174; BP diastolic 77–86; PULSE 78–121; RESP 16–30; TEMP 99.5–102.3; O2SAT 93–100
[2017-05-04] MEDS: PIPERACIL-TAZO 4.5 GM PREMIX 100 ML IV SCH ×4 (00:16→17:13)
[2017-05-04] MEDS: VANCOMYCIN INJ 1,500 MG in SODIUM CHLORID 0.9% 500 ML INJ 500 ML IV SCH ×3 (00:17→17:12)
[2017-05-04] MEDS: CHLORHEXIDINE GLUCONATE 2 % 1 PACK (2 CLOTHS) TOP SCH (04:00)
[2017-05-04] MEDS: ACETAMINOPHEN 325 MG TAB PO PRN ×2 (04:23→21:00)
[2017-05-04] MEDS: METOCLOPRAMIDE HCL 10 MG/2 ML VIAL IV PUSH SCH ×3 (04:24→21:13)
[2017-05-04] MEDS: PROPOFOL 1000 MG/100 ML IV PRN (05:25)
[2017-05-04 06:04] LABS: AUTOMATED NEUTROPHIL # 9.9 TH/MM3 (1.8-7.7); BASOPHIL % 0.1 % (0.0-2.0); EOSINOPHIL % 0.1 % (0.0-4.0); HEMATOCRIT 27.9 % (39.0-51.0); LYMPH % 7.2 % (9.0-44.0); LYMPHOCYTE # 0.8 TH/MM3 (1.0-4.8); MEAN CELL VOLUME 96.9 FL (80.0-100.0); MEAN CORPUSCULAR HEMOGLOBIN 32.7 PG (27.0-34.0); MEAN CORPUSCULAR HGB CONC 33.8 % (32.0-36.0); MONO % 5.3 % (0.0-8.0); NEUT % 87.3 % (16.0-70.0); PLATELET COUNT 186 TH/MM3 (150-450); RED BLOOD COUNT 2.88 MIL/MM3 (4.50-5.90); RED CELL DISTRIBUTION WIDTH 15.2 % (11.6-17.2); WHITE BLOOD COUNT 11.3 TH/MM3 (4.0-11.0)
[2017-05-04 06:22] LABS: HEMO FLAGS AUTO DIFF
[2017-05-04 06:32] LABS: BICARBONATE 25.1 MEQ/L (21.0-32.0); POTASSIUM 3.5 MEQ/L (3.5-5.1)
[2017-05-04 06:48] LABS: CALCIUM-PROTEIN CORRECTED 8.1 MG/DL (8.5-10.1); TOTAL BILIRUBIN ADULT 1.2 MG/DL (0.2-1.0)
[2017-05-04] MEDS: POTASSIUM CHLOR 20 MEQ PREMIX 100 ML IV PRN ×2 (06:51→09:30)
[2017-05-04] MEDS: busPIRone HCL 5 MG TAB PO SCH ×3 (08:26→17:13)
[2017-05-04] MEDS: FAMOTIDINE 20 MG TAB PO SCH (08:26)
[2017-05-04] MEDS: GABAPENTIN 300 MG CAP PO SCH ×2 (08:26→21:12)
[2017-05-04] MEDS: TOPIRAMATE 25 MG TAB PO SCH ×2 (08:26→21:13)
[2017-05-04] MEDS: DOCUSATE SODIUM 50 MG/SENNA 8.6 MG TAB PO SCH ×2 (08:27→21:12)
[2017-05-04] MEDS: ARTIFICIAL TEARS OPTH SOLN 15 ML BTL EACH EYE SCH ×3 (08:27→17:13)
[2017-05-04] MEDS: SODIUM CHLORIDE 0.9% FLUSH 10 ML FLUSH SCH ×2 (08:27→21:14)
[2017-05-04 08:44] LABS: BANDS 36 % (0-6); DOHLE BODIES PRESENT (NONE SEEN); NEUTROPHIL # MANUAL DIFF 11.1 TH/MM3 (1.8-7.7); POLYS (SEG NEUTROPHILS) 62 % (16-70); WBC DIFF SAMPLE 100
[2017-05-04 08:45] LABS: TOXIC GRANULATION 2+ (NORMAL)
[2017-05-04 08:46] LABS: SCAN/DIFF FINAL DIFF MANUAL
--- NOTE | 2017-05-04 11:14 | RADRPT ---
EXAM DATE/TIME: 05/04/2017 10:57 [facility] COMPARISON: CHEST SINGLE AP, April 30, 2017, 1:54. INDICATIONS : Respiratory failure. MEDICAL HISTORY : Gastroesophageal reflux disease. SURGICAL HISTORY : None. ENCOUNTER: Subsequent ACUITY: 1 week PAIN SCORE: Non-responsive. LOCATION: Bilateral chest FINDINGS: Endotracheal tube is present with tip in satisfactory position about 5-6 cm above the lj. Nasogas tric tube descends to the stomach. A subclavian central line is stable in good position. There is per sistent diffuse bilateral alveolar infiltrate, more confluent on the left than the right. Cardiac con tours are grossly stable. CONCLUSION: No significant interval change Timbo Mccracken MD on May 04, 2017 at 11:11 Board Certified Radiologist. This report was verified electronically.
[2017-05-04] MEDS: ENOXAPARIN SODIUM 40 MG/0.4 ML SYRINGE SQ SCH (11:15)
--- NOTE | 2017-05-04 11:27 | HHI.CCPN ---
Subjective Remarks/Hospital Course 04/25: This is a 46-year-old male with a past medical history of Anxiety, Depression and Substance Abuse was initially sent to the emergency room April 23, 2017 by EMS from [facility] for cough and fever x2 days. Per records, patient had Temp 104.7. At that time patient denied SOB, chest pain, nausea, vomiting or diarrhea. He was admitted to medical surgical [facility] however the patient left this morning against medical advise despite the treatment of pneumonia. After leaving this morning he has had some alcohol to drink and smoked some methamphetamine. His brother brought him back for reevaluation and treatment for his pneumonia. In the emergency department his oxygen saturations were in the low 80s on room air, patient was constantly removing to his oxygen mask and would not tolerate any BiPAP. He became extremely agitated combative and was intubated by me for an airway protection and severe hypoxemia. 04/26: Remains sedated, orally intubated on mechanical ventilation. Went into A. fib last night currently ventricular rate 130s. 04/27: Remains sedated, orally intubated on mechanical ventilation. Converted back to sinus rhythm with amiodarone gtt. which continues. Receiving IV calcium gluconate for hypocalcemia. Temperature spike up to 105 last night. 04/28: Remains sedated, orally intubated on mechanical ventilation. Not tolerating tube feeds with high residuals. On Versed/propofol and fentanyl drips. 04/29: Sedated, orally intubated on mechanical ventilation. 04/30: Remains sedated, orally intubated on mechanical ventilation. 05/01: Remains sedated, orally intubated on mechanical ventilation. Not tolerating tube feeds overnight. 05/02: Remains sedated, orally intubated on mechanical ventilation. Will attempt restarting tube feeds. Discontinue fentanyl/Versed drips. Propofol for sedation to be continued 05/03: Remains sedated, orally intubated on mechanical ventilation. Remains on PEEP +12 FiO2 50%. 05/04: Sedated, orally intubated on mechanical ventilation. Daily sedation vacation ongoing. PEEP decreased to +8, FiO2 decreased to 40% Objective Vital Signs Date Time Temp Pulse Resp B/P (MAP) Pulse Ox O2 Delivery O2 Flow Rate FiO2 05/04/17 10:00 88 05/04/17 09:31 40 05/04/17 08:09 100 Ventilator 05/04/17 08:00 99.7 16 161/83 (109) Intake and Output 05/04/17 05/04/17 05/05/17 08:00 16:00 00:00 Intake Total 1105 ml 141 ml Output Total 2150 ml Balance -1045 ml 141 ml Result Diagram: 05/04/17 0530 05/04/17 0530 Imaging Last [address] 05/01/17 0000 Signed Impressions: Service Date/Time: Monday, May 01, 2017 18:24 - CONCLUSION: 1. Bilateral areas of consolidation. These alveolar consolidations are worse on the left than the right. They are nonspecific. Diffuse underlying processes such as infection/pneumonia need to be considered. Other diffuse processes could have a similar appearance. 2. Mild left pleural effusion primarily in the subpleural region and a minimal right pleural effusion. 3. Minimal prominent lymph nodes in the right paratracheal region. Timbo Escudero MD Last 24 hours Impressions Chest X-Ray 04/25/17 1712 Signed Impressions: Service Date/Time: Tuesday, April 25, 2017 17:34 - CONCLUSION: Left greater than right airspace disease and left pleural effusion, all worse. Timbo Newsome MD Chest X-Ray 04/25/17 0000 Signed Impressions: Service Date/Time: Tuesday, April 25, 2017 20:52 - CONCLUSION: 1. As intermittent tracheal tube and nasogastric tube placement as above. 2. Left greater than right consolidation and small moderate left pleural effusion are again noted. Tibmo Newsome MD Objective Remarks HEENT/ Neuro: Sedated, orally intubated, Pallor present, no icterus, tongue/ mucosa moist. Pupils bilaterally constricted 2 mm, reactive Neck: No JVD Chest/Pulm: on mech vent, good air entry bilaterally, scattered rhonchi, no wheezing or crackles. CVS: S1-S2 regular, no murmur GI/abdomen: soft, nontender, bowel sounds sluggish Extremities: warm bilaterally, no edema A/P Assessment and Plan Acute Respiratory failure on mechanical ventilation - Intubated for airway protection - Underlying pneumonia - Most likely will go through withdrawal, will keep intubated until neurologically improved. Continue propofol, off Versed and fentanyl gtt. stopped Librium on 10/3 - Continue mechanical ventilation. We will start C Pap trials if he tolerates decreasing PEEP to +8 - Continue DuoNeb's - IV antibiotics for pneumonia treatment Pneumonia - Broad-spectrum antibiotics -Follow up cultures - De-escalate antibiotics per sensitivity - Follow CXR Altered mental status - Intoxication - Polysubstance abuse - Non focal neurological exam - Monitor for withdrawal - propofol drip for sedation - CT head negative for intracranial hemorrhage. A. fib with RVR - converted to sinus rhythm -Off amiodarone drip. Cardiology consult noted Hyponatremia - Na 125, likely secondary to acute infection/dehydration Hypocalcemia - Replacement per ICU electrolyte protocol. Check vitamin D2 and D3 as well as PTH level. Thrombocytopenia: - previous admission - 44 - no active bleeding. - Will monitor. - Consulted hematology for further evaluation. Okay with resuming Lovenox for DVT prophylaxis as platelet count has normalized. DVT Prophylaxis - Teds SCDs -Started Lovenox for DVT prophylaxis on 05/04 - discussed with Dr. Conner - Ghanshyam Continue tube feeds and advance to goal as tolerated. Critical Care: The total critical care time was 35 minutes. Time to perform other separately billable procedures was not included in the critical care time. Singh Perez MD May 04, 2017 10:36
[2017-05-04] MEDS: AZITHROMYCIN INJ 500 MG in SODIUM CHLOR 0.9% 250 ML INJ 250 ML IV SCH (17:13)
[2017-05-04] MEDS: RESP: ALBUTEROL 2.5 MG/IPRATROPIUM 0.5 MG NEB (PRN) INH (20:17)
[2017-05-04] MEDS: CITALOPRAM HYDROBROMIDE 20 MG TAB PO SCH (21:12)
[2017-05-04] MEDS: QUEtiapine FUMARATE 25 MG TAB PO SCH (21:13)
[2017-05-04] MEDS: CHLORHEXIDINE 0.12% (ORAL KIT) 15 ML CUP MT SCH (21:14)
[2017-05-05] VITALS (34 sets, daily range): BP systolic 148–182; BP diastolic 73–95; PULSE 101–128; RESP 24–30; TEMP 99.5–102.2; O2SAT 91–100
[2017-05-05] MEDS: VANCOMYCIN INJ 1,500 MG in SODIUM CHLORID 0.9% 500 ML INJ 500 ML IV SCH ×2 (00:28→09:41)
[2017-05-05] MEDS: PIPERACIL-TAZO 4.5 GM PREMIX 100 ML IV SCH ×3 (00:29→13:02)
[2017-05-05] MEDS ORDERED: LABETALOL HCL 100 MG/20 ML VIAL IV PUSH PRN (03:00)
[2017-05-05] MEDS: hydrALAZINE HCL 20 MG/ML VIAL IV PUSH PRN (03:09)
[2017-05-05] MEDS: RESP: ALBUTEROL 2.5 MG/IPRATROPIUM 0.5 MG NEB (PRN) INH (03:36)
[2017-05-05] MEDS ORDERED: LORazepam 2 MG/ML VIAL IV PUSH ONE (04:30)
[2017-05-05] MEDS: ACETAMINOPHEN 325 MG TAB PO PRN (04:38)
[2017-05-05 05:16] LABS: AUTOMATED NEUTROPHIL # 14.8 TH/MM3 (1.8-7.7); BASOPHIL % 0.2 % (0.0-2.0); HEMATOCRIT 30.3 % (39.0-51.0); HEMO FLAGS DIFF FINAL; LYMPH % 4.7 % (9.0-44.0); LYMPHOCYTE # 0.8 TH/MM3 (1.0-4.8); MEAN CELL VOLUME 96.4 FL (80.0-100.0); MEAN CORPUSCULAR HEMOGLOBIN 32.5 PG (27.0-34.0); MEAN CORPUSCULAR HGB CONC 33.7 % (32.0-36.0); MONO % 5.4 % (0.0-8.0); NEUT % 89.7 % (16.0-70.0); PLATELET COUNT 226 TH/MM3 (150-450); RED BLOOD COUNT 3.14 MIL/MM3 (4.50-5.90); RED CELL DISTRIBUTION WIDTH 15.2 % (11.6-17.2); WHITE BLOOD COUNT 16.4 TH/MM3 (4.0-11.0)
[2017-05-05 05:27] LABS: BLOOD GAS BASE EXCESS -1.6 mmol/L (-2-2); BLOOD GAS CARBOXYHEMOGLOBIN 1.3 % (0-4); BLOOD GAS HCO3 23 mmol/L (22-26); BLOOD GAS METHEMOGLOBIN 1.6 % (0-2); BLOOD GAS O2 HGB SATURATION 91 % (90-100); BLOOD GAS PCO2 44 mmHg (38-42); BLOOD GAS PO2 78 mmHg (61-120); BLOOD GAS TOTAL HGB 10.1 G/DL (12.0-16.0); CRITICAL VALUE NO; DRAW SITE RT RADIAL; FIO2 40 %; NUMBER OF ARTERIAL PUNCTURES 1; OXYGEN DEVICE VENTILATOR; STAT NO; TEMP CORR TO 98.6; ULNAR PULSE PRESENT; VENT SETTINGS 18/550/IT1.0/10PEEP
[2017-05-05 05:58] LABS: ALKALINE PHOSPHATASE 176 U/L (45-117); ALT (GPT) 43 U/L (12-78); ANION GAP 8 MEQ/L (5-15); AST (GOT) 63 U/L (15-37); BICARBONATE 25.5 MEQ/L (21.0-32.0); BLOOD UREA NITROGEN 15 MG/DL (7-18); CHLORIDE 115 MEQ/L (98-107); GLOMERULAR FILTRATION RATE 201 ML/MIN (>89); POTASSIUM 3.7 MEQ/L (3.5-5.1); SODIUM (NA) 148 MEQ/L (136-145); TOTAL BILIRUBIN ADULT 1.1 MG/DL (0.2-1.0)
[2017-05-05] MEDS: METOCLOPRAMIDE HCL 10 MG/2 ML VIAL IV PUSH SCH ×3 (06:46→22:36)
[2017-05-05] MEDS: PROPOFOL 1000 MG/100 ML IV PRN ×2 (06:54→22:38)
[2017-05-05] MEDS: CHLORHEXIDINE 0.12% (ORAL KIT) 15 ML CUP MT SCH ×2 (09:40→22:37)
[2017-05-05] MEDS: GABAPENTIN 300 MG CAP PO SCH ×2 (09:41→22:36)
[2017-05-05] MEDS: DOCUSATE SODIUM 50 MG/SENNA 8.6 MG TAB PO SCH ×2 (09:41→22:36)
[2017-05-05] MEDS: TOPIRAMATE 25 MG TAB PO SCH ×2 (09:41→22:35)
[2017-05-05] MEDS: FAMOTIDINE 20 MG TAB PO SCH (09:41)
[2017-05-05] MEDS: busPIRone HCL 5 MG TAB PO SCH (09:41)
--- NOTE | 2017-05-05 10:21 | HHI.CCPN ---
Subjective Remarks/Hospital Course 04/25: This is a 46-year-old male with a past medical history of Anxiety, Depression and Substance Abuse was initially sent to the emergency room April 23, [address] [facility] for cough and fever x2 days. Per records, patient had Temp 104.7. At that time patient denied SOB, chest pain, nausea, vomiting or diarrhea. He was admitted to [facility] however the patient left this morning against medical advise despite the treatment of pneumonia. After leaving this morning he has had some alcohol to drink and smoked some methamphetamine. His brother brought him back for reevaluation and treatment for his pneumonia. In the emergency department his oxygen saturations were in the low 80s on room air, patient was constantly removing to his oxygen mask and would not tolerate any BiPAP. He became extremely agitated combative and was intubated by me for an airway protection and severe hypoxemia. 04/26: Remains sedated, orally intubated on mechanical ventilation. Went into A. fib last night currently ventricular rate 130s. 04/27: Remains sedated, orally intubated on mechanical ventilation. Converted back to sinus rhythm with amiodarone gtt. which continues. Receiving IV calcium gluconate for hypocalcemia. Temperature spike up to 105 last night. 04/28: Remains sedated, orally intubated on mechanical ventilation. Not tolerating tube feeds with high residuals. On Versed/propofol and fentanyl drips. 04/29: Sedated, orally intubated on mechanical ventilation. 04/30: Remains sedated, orally intubated on mechanical ventilation. 05/01: Remains sedated, orally intubated on mechanical ventilation. Not tolerating tube feeds overnight. 05/02: Remains sedated, orally intubated on mechanical ventilation. Will attempt restarting tube feeds. Discontinue fentanyl/Versed drips. Propofol for sedation to be continued 05/03: Remains sedated, orally intubated on mechanical ventilation. Remains on PEEP +12 FiO2 50%. 05/04: Sedated, orally intubated on mechanical ventilation. Daily sedation vacation ongoing. PEEP decreased to +8, FiO2 decreased to 40% 05/05: Encephalopathic off sedation, orally intubated on mechanical ventilation. Starts hyperventilating however not significant improvement in level of consciousness on holding sedation last few days. Objective Vital Signs Date Time Temp Pulse Resp B/P (MAP) Pulse Ox O2 Delivery O2 Flow Rate FiO2 05/05/17 08:29 40 05/05/17 07:32 95 05/05/17 06:00 116 05/05/17 04:00 102.2 30 170/95 (120) 05/04/17 08:09 Ventilator Intake and Output 05/05/17 05/05/17 05/06/17 08:00 16:00 00:00 Intake Total 3342 ml Output Total 1650 ml Balance 1692 ml Result Diagram: 05/05/17 0425 05/05/17 0425 Other Results Microbiology Date/Time Source Procedure Growth Status 05/03/17 11:35 Sputum Endotracheal Gram Stain - Final Complete 05/03/17 11:35 Sputum Culture - Final Klebsiella Pneumoniae Complete Imaging Last 48 hours Impressions Chest X-Ray 05/04/17 1019 Signed Impressions: Service Date/Time: April 10:57 - CONCLUSION: No significant interval change Timbo Mccracken MD Last [address] 05/01/17 0000 Signed Impressions: Service Date/Time: Monday, May 01, 2017 18:24 - CONCLUSION: 1. Bilateral areas of consolidation. These alveolar consolidations are worse on the left than the right. They are nonspecific. Diffuse underlying processes such as infection/pneumonia need to be considered. Other diffuse processes could have a similar appearance. 2. Mild left pleural effusion primarily in the subpleural region and a minimal right pleural effusion. 3. Minimal prominent lymph nodes in the right paratracheal region. Timob Escudero MD Last 24 hours Impressions Chest X-Ray 04/25/17 1712 Signed Impressions: Service Date/Time: Tuesday, April 25, 2017 17:34 - CONCLUSION: Left greater than right airspace disease and left pleural effusion, all worse. Timbo Newsome MD Chest X-Ray 04/25/17 0000 Signed Impressions: Service Date/Time: Tuesday, April 25, 2017 20:52 - CONCLUSION: 1. As intermittent tracheal tube and nasogastric tube placement as above. 2. Left greater than right consolidation and small moderate left pleural effusion are again noted. Timbo Newsome MD Objective Remarks HEENT/ Neuro: Sedated/ encephalopathic, orally intubated, Pallor present, no icterus, tongue/ mucosa moist. Pupils bilaterally constricted 2 mm, reactive Neck: No JVD Chest/Pulm: on mech vent, good air entry bilaterally, scattered rhonchi, no wheezing or crackles. CVS: S1-S2 regular, no murmur GI/abdomen: soft, nontender, bowel sounds sluggish Extremities: warm bilaterally, no edema A/P Assessment and Plan Acute Respiratory failure on mechanical ventilation - Intubated for airway protection - Underlying pneumonia - Most likely will go through withdrawal, will keep intubated until neurologically improved. Continue propofol, off Versed and fentanyl gtt. stopped Librium on 05/02. Daily sedation vacation. - Continue mechanical ventilation. Daily C Pap trials - Continue DuoNeb's - IV antibiotics for pneumonia treatment Pneumonia - Broad-spectrum antibiotics -Follow up cultures - De-escalate antibiotics per sensitivity - Follow CXR Altered mental status - Intoxication - Polysubstance abuse - Non focal neurological exam - Monitor for withdrawal - propofol drip for sedation held since and 05/04 however was resumed last night for tachypnea and elevated blood pressure. Neuro status not significantly improving off sedation. - Admitting CT head negative for intracranial hemorrhage. Ordered repeat head CT and EEG on 05/05 to evaluate altered mental status off sedation A. fib with RVR - converted to sinus rhythm -Off amiodarone drip. Cardiology consult noted Hyponatremia - Na 125, likely secondary to acute infection/dehydration Hypocalcemia - Replacement per ICU electrolyte protocol. Check vitamin D2 and D3 as well as PTH level. Thrombocytopenia: - previous admission - 44 - no active bleeding. - Will monitor. - Consulted hematology for further evaluation. Okay with resuming Lovenox for DVT prophylaxis as platelet count has normalized. DVT Prophylaxis - Teds SCDs -Started Lovenox for DVT prophylaxis on 05/04 - discussed with Dr. Conner - Ghanshyam Continue tube feeds and advance to goal as tolerated. Critical Care: The total critical care time was 35 minutes. Time to perform other separately billable procedures was not included in the critical care time. Singh Perez MD May 05, 2017 10:21
[2017-05-05] MEDS: SODIUM CHLOR 0.9% 1000 ML INJ 1,000 ML IV SCH (12:55)
[2017-05-05] MEDS: ENOXAPARIN SODIUM 40 MG/0.4 ML SYRINGE SQ SCH (13:00)
--- NOTE | 2017-05-05 16:25 | RADRPT ---
EXAM DATE/TIME: 05/05/2017 16:08 [place] COMPARISON: CT BRAIN W/O CONTRAST, April 26, 2017, 16:20. INDICATIONS : Altered mental status. Evaluate for encephalopathy. RADIATION DOSE: 35.77 CTDIvol (mGy) ; Patient motion MEDICAL HISTORY : Drug abuse. SURGICAL HISTORY : None. ENCOUNTER: Subsequent ACUITY: 2 weeks PAIN SCALE: Non-responsive LOCATION: cranial TECHNIQUE: Multiple contiguous axial images were obtained of the head. Using automated exposure control and adj ustment of the mA and/or kV according to patient size, radiation dose was kept as low as reasonably a chievable to obtain optimal diagnostic quality images. DICOM format image data is available electro nically for review and comparison. FINDINGS: CEREBRUM: The ventricles are normal for age. No evidence of midline shift, mass lesion, hemorrhage or acute in farction. No extra-axial fluid collections are seen. POSTERIOR FOSSA: The cerebellum and brainstem are intact. The 4th ventricle is midline. The cerebellopontine angle i s unremarkable. EXTRACRANIAL: The visualized portion of the orbits is intact. SKULL: The calvaria is intact. No evidence of skull fracture. CONCLUSION: No acute intracranial disease. Nickolas Valentin MD on May 05, 2017 at 16:22 Board Certified Radiologist. This report was verified electronically.
--- NOTE | 2017-05-05 16:56 | MG ---
cc: JOSÉ SHAY MD Lab No: Date: 05/05/17 Age: Sex: M Race: Based on patient Gage shannon. daily TTP DATE OF : 1970 Urgent EEG. The patient apparently intubated. Diffuse generalized delta activity 1-3 Hz, 10-40 microvolts occurring. Rare spindle activity. No driving with photic stimulation. Single lead EKG showing sinus rhythm with premature contractions. INTERPRETATION Moderate to severe encephalopathy which may be pharmacologically induced. Clinical correlation. José Shay MD MG/SA /4:39 PM /4:47 PM
--- NOTE | 2017-05-05 17:43 | PD.CONS ---
History of Present Illness Service Infectious disease Consult Requested By Dr.N Perez Reason for Consult Evaluate patient with fever pneumonia and sepsis Primary Care Physician No Primary Care Physician Diagnoses: History of Present Illness Patient seen and examined. Records reviewed. Patient is a 46-year-old male who was initially admitted on April 23 complaining of 5 day history of cough with sputum production as well as fever. He was also having some diarrhea. It was during that time, he was in [facility] where he went in for drug rehabilitation. When he presented, the patient was afebrile, and his chest x-ray showed evidence of pneumonia. He was started on antibiotics, and he had an HIV testing done which came back negative. Patient however signed out AGAINST MEDICAL ADVICE on April 25. He reportedly used some drugs, and his brother forced him to go back to the hospital and he got readmitted April 25. He had evidence of increasing pulmonary infiltrates, and he ended up getting intubated. He has been on the vent since. He had some problem with A. fib, and he converted to normal sinus rhythm. Patient has still been requiring ventilatory support. He had some fevers from 926 2 around April 30, and his temperatures improved. His cultures on readmission were negative. His sputum had normal ronaldo, Legionella and pneumococcal antigen were negative. Blood cultures were negative. Urine culture were negative. Patient has been getting broad-spectrum antibiotics which include Zosyn and vancomycin. Since yesterday patient started having high fevers again. He has copious thick light yellow to whitman endotracheal secretions. His hemodynamics are okay. He remains on the vent, and has not been able to be weaned. He has a Perez in place. Has a central line in the left subclavian. Patient also had problem with thrombocytopenia and anemia, and hematology evaluated him. His numbers have improved. Infectious disease consultation has been requested to evaluate the patient. Review of Systems ROS Limitations: Clinical Condition, Intubated Past Family Social History Allergies: Coded Allergies: No Known Allergies (Unverified , 04/23/17) Past Medical History Anxiety Depression Substance abuse Past Surgical History Cleft palate surgery Right hand surgery Bilateral ear surgery Active Ordered Medications Tylenol prn Albuterol prn Dulcolax prn Lovenox Pepcid Neurontin Hydralazine Labetalol prn Lactulose prn Ativan prn MOM prn Reglan Morphine prn Zofran prn Zosyn Potassium Diprivan Pericolace prn Senokot prn Topamax Family History unremarkable Social History Used to drink 4-6 beers per day Smoker recently trying to quit Has been smoking methamphetamine, denies IV drug use 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 Physical Exam Vital Signs Vital Signs Date Time Temp Pulse Resp B/P (MAP) Pulse Ox O2 Delivery O2 Flow Rate FiO2 05/05/17 16:32 121 05/05/17 16:30 125 05/05/17 16:30 91 50 05/05/17 16:24 122 05/05/17 16:23 118 05/05/17 16:00 99 100 05/05/17 16:00 111 05/05/17 15:46 106 05/05/17 15:30 109 05/05/17 15:00 109 05/05/17 14:30 106 05/05/17 14:00 106 05/05/17 13:30 101 05/05/17 13:27 101 05/05/17 13:00 121 05/05/17 12:54 116 05/05/17 12:30 119 05/05/17 12:00 40 05/05/17 12:00 111 05/05/17 12:00 100.6 05/05/17 11:30 113 05/05/17 11:16 96 40 05/05/17 11:00 108 05/05/17 10:30 110 05/05/17 10:00 111 05/05/17 08:29 40 05/05/17 08:00 40 05/05/17 08:00 100.6 05/05/17 07:32 95 40 05/05/17 06:00 116 05/05/17 04:10 95 40 05/05/17 04:00 102.2 113 30 170/95 (120) 95 05/05/17 04:00 40 05/05/17 02:00 120 05/05/17 01:12 100 40 05/05/17 00:00 100.1 116 28 182/88 (119) 95 05/05/17 00:00 116 05/05/17 00:00 40 05/04/17 22:06 96 40 05/04/17 22:00 40 05/04/17 22:00 114 05/04/17 20:00 102.3 110 30 173/86 (115) 94 05/04/17 20:00 40 05/04/17 20:00 40 05/04/17 20:00 113 05/04/17 20:00 110 05/04/17 19:25 95 40 Physical Exam GENERAL: Patient is a well-nourished, well-developed male, sedated on the vent, looks dyspneic. SKIN: Warm and dry. No generalized rash, no ecchymoses and no evidence of embolic lesions. HEAD: Atraumatic. Normocephalic. No temporal wasting, or tenderness. EYES: Thomas conjunctiva. No petechia or hemorrhage. Pupils equal, round and reactive to light. No scleral icterus. No injection or drainage. EARS, NOSE AND THROAT: Nose without bleeding or purulent nasal discharge. He is orally intubated. NECK: Trachea midline. Supple and not tender, no meningeal signs CARDIOVASCULAR: Regular rate and rhythm. No murmurs, rubs or gallops heard RESPIRATORY: Coarse breath sounds bilaterally, decreased on L base ABDOMEN: Soft, obese, nondistended, bowel sounds present and normoactive. No reaction to deep palpation. EXTREMITIES: No clubbing, cyanosis. Has some pedal edema. No joint effusion. Well perfused and warm. NEUROLOGICAL: Sedated PSYCHIATRIC: Unable to assess LINE: No evidence of infection - Has LSC TLC Laboratory Laboratory Tests Test 05/05/17 04:25 05/05/17 05:05 White Blood Count 16.4 Red Blood Count 3.14 Hemoglobin 10.2 Hematocrit 30.3 Mean Corpuscular Volume 96.4 Mean Corpuscular Hemoglobin 32.5 Mean Corpuscular Hemoglobin Concent 33.7 Red Cell Distribution Width 15.2 Platelet Count 226 Mean Platelet Volume 10.4 Neutrophils (%) (Auto) 89.7 Lymphocytes (%) (Auto) 4.7 Monocytes (%) (Auto) 5.4 Eosinophils (%) (Auto) 0.0 Basophils (%) (Auto) 0.2 Neutrophils # (Auto) 14.8 Lymphocytes # (Auto) 0.8 Monocytes # (Auto) 0.9 Eosinophils # (Auto) 0.0 Basophils # (Auto) 0.0 CBC Comment DIFF FINAL Differential Comment Blood Urea Nitrogen 15 Creatinine 0.45 Random Glucose 144 Total Protein 6.5 Albumin 1.3 Calcium Level 8.4 Alkaline Phosphatase 176 Aspartate Amino Transf (AST/SGOT) 63 Alanine Aminotransferase (ALT/SGPT) 43 Total Bilirubin 1.1 Sodium Level 148 Potassium Level 3.7 Chloride Level 115 Carbon Dioxide Level 25.5 Anion Gap 8 Estimat Glomerular Filtration Rate 201 Blood Gas Puncture Site RT RADIAL Blood Gas Patient Temperature 98.6 Blood Gas HCO3 23 Blood Gas Base Excess -1.6 Blood Gas Oxygen Saturation 91 Arterial Blood pH 7.35 Arterial Blood Partial Pressure CO2 44 Arterial Blood Partial Pressure O2 78 Arterial Blood Oxygen Content 13.0 Arterial Blood Carboxyhemoglobin 1.3 Arterial Blood Methemoglobin 1.6 Blood Gas Hemoglobin 10.1 Oxygen Delivery Device VENTILATOR Blood Gas Ventilator Setting 18/550/IT1.0/10PEEP Blood Gas Inspired Oxygen 40 Date/Time Source Procedure Growth Status 05/05/17 00:40 Blood Peripheral Aerobic Blood Culture Pending Received 05/05/17 00:40 Blood Peripheral Anaerobic Blood Culture Pending Received 05/03/17 11:35 Sputum Endotracheal Gram Stain - Final Complete 05/03/17 11:35 Sputum Culture - Final Klebsiella Pneumoniae Complete 04/25/17 19:55 Urine Catheterized Urine Legionella Antigen - Final PRESUMPTIVE NEGATIVE FOR LEGIONELLA P... Complete 04/25/17 19:55 Urine Catheterized Urine Streptococcus pneumoniae Antigen (M - Final PRESUMPTIVE NEGATIVE FOR STREPTOCOCCU... Complete Result Diagram: 05/05/17 0425 05/05/17 0425 Imaging RADIOLOGY STUDIES/FILMS REVIEWED Head CT 05/05/17 0000 Signed Impressions: Service Date/Time: Friday, May 05, 2017 16:08 - CONCLUSION: No acute intracranial disease. Nickolas Valentin MD Chest X-Ray 05/04/17 1019 Signed Impressions: Service Date/Time: April 10:57 - CONCLUSION: No significant interval change Timbo Mccracken MD Chest CT 05/01/17 0000 Signed Impressions: Service Date/Time: Monday, May 01, 2017 18:24 - CONCLUSION: 1. Bilateral areas of consolidation. These alveolar consolidations are worse on the left than the right. They are nonspecific. Diffuse underlying processes such as infection/pneumonia need to be considered. Other diffuse processes could have a similar appearance. 2. Mild left pleural effusion primarily in the subpleural region and a minimal right pleural effusion. 3. Minimal prominent lymph nodes in the right paratracheal region. Timbo Escudero MD Assessment and Plan Assessment and Plan IMPRESSION Sepsis, with recurrent fevers and CXR looks worse - ?new HCAP - no perez - has central line Bilateral infiltrates, CXR worse Respiratory failure Known polysubstance abuse RECOMMENDATION Repeat C/S: Blood, sputum and urine Change Zosyn to Cefepime Add Diflucan Follow C/S Follow temps Monitor progress Will determine course of Abx once worn-up done adnd cultures available I will follow along with you Thank you for this consultation Discussed Condition With D/W Asya Cooper MD May 05, 2017 17:42
[2017-05-05] MEDS: CEFEPIME INJ 2,000 MG in SODIUM CHLORIDE 0.9% INJ 100 ML IV SCH (19:49)
[2017-05-05] MEDS: FLUCONAZOLE 400 MG PREMIX BAG 200 ML IV SCH (19:49)
[2017-05-05 20:23] LABS: BLOOD, URINE TRACE (NEG); GLUCOSE,URINE TRACE mg/dL (NEG); KETONE, URINE NEG (NEG); NITRITE,URINE NEG (NEG); PH, URINE 6.5 (5.0-8.5); URINE COLOR YELLOW (YELLW/STRAW)
[2017-05-05 20:26] LABS: COMMENT (UR) CATH-CULTURE IND; CULTURE IF INDICATED CATH CULTURE IND
[2017-05-05] MEDS: LEVOFLOXACIN 750 MG PREMIX INJ 150 ML IV SCH (22:36)
[2017-05-06] VITALS (52 sets, daily range): BP systolic 124–168; BP diastolic 63–92; PULSE 102–123; RESP 6–35; TEMP 99.2–100.4; O2SAT 91–99
[2017-05-06] MEDS: PROPOFOL 1000 MG/100 ML IV PRN ×4 (06:28→20:35)
[2017-05-06] MEDS: METOCLOPRAMIDE HCL 10 MG/2 ML VIAL IV PUSH SCH ×3 (06:31→22:19)
[2017-05-06] MEDS: ARTIFICIAL TEARS OPTH SOLN 15 ML BTL EACH EYE SCH ×3 (08:31→17:34)
[2017-05-06] MEDS: CHLORHEXIDINE 0.12% (ORAL KIT) 15 ML CUP MT SCH ×2 (08:31→20:19)
[2017-05-06] MEDS: SODIUM CHLORIDE 0.9% FLUSH 10 ML FLUSH SCH ×2 (08:31→20:35)
[2017-05-06] MEDS: SODIUM CHLOR 0.9% 1000 ML INJ 1,000 ML IV SCH (08:32)
[2017-05-06] MEDS: FAMOTIDINE 20 MG TAB PO SCH (08:32)
[2017-05-06] MEDS: TOPIRAMATE 25 MG TAB PO SCH ×2 (08:32→20:20)
[2017-05-06] MEDS: GABAPENTIN 300 MG CAP PO SCH (08:32)
[2017-05-06] MEDS: DOCUSATE SODIUM 50 MG/SENNA 8.6 MG TAB PO SCH ×2 (08:32→20:20)
[2017-05-06] MEDS: CEFEPIME INJ 2,000 MG in SODIUM CHLORIDE 0.9% INJ 100 ML IV SCH ×2 (10:06→17:34)
[2017-05-06] MEDS: ENOXAPARIN SODIUM 40 MG/0.4 ML SYRINGE SQ SCH (10:06)
--- NOTE | 2017-05-06 10:44 | HHI.CCPN ---
Subjective Remarks/Hospital Course 04/25: This is a 46-year-old male with a past medical history of Anxiety, Depression and Substance Abuse was initially sent to the emergency room April 23, 2017 by EMS from [facility] for cough and fever x2 days. Per records, patient had Temp 104.7. At that time patient denied SOB, chest pain, nausea, vomiting or diarrhea. He was admitted to medical surgical street however the patient left this morning against medical advise despite the treatment of pneumonia. After leaving this morning he has had some alcohol to drink and smoked some methamphetamine. His brother brought him back for reevaluation and treatment for his pneumonia. In the emergency department his oxygen saturations were in the low 80s on room air, patient was constantly removing to his oxygen mask and would not tolerate any BiPAP. He became extremely agitated combative and was intubated by me for an airway protection and severe hypoxemia. 04/26: Remains sedated, orally intubated on mechanical ventilation. Went into A. fib last night currently ventricular rate 130s. 04/27: Remains sedated, orally intubated on mechanical ventilation. Converted back to sinus rhythm with amiodarone gtt. which continues. Receiving IV calcium gluconate for hypocalcemia. Temperature spike up to 105 last night. 04/28: Remains sedated, orally intubated on mechanical ventilation. Not tolerating tube feeds with high residuals. On Versed/propofol and fentanyl drips. 04/29: Sedated, orally intubated on mechanical ventilation. 04/30: Remains sedated, orally intubated on mechanical ventilation. 05/01: Remains sedated, orally intubated on mechanical ventilation. Not tolerating tube feeds overnight. 05/02: Remains sedated, orally intubated on mechanical ventilation. Will attempt restarting tube feeds. Discontinue fentanyl/Versed drips. Propofol for sedation to be continued 05/03: Remains sedated, orally intubated on mechanical ventilation. Remains on PEEP +12 FiO2 50%. 05/04: Sedated, orally intubated on mechanical ventilation. Daily sedation vacation ongoing. PEEP decreased to +8, FiO2 decreased to 40% 05/05: Encephalopathic off sedation, orally intubated on mechanical ventilation. Starts hyperventilating however not significant improvement in level of consciousness on holding sedation last few days. 05/06: no improvements. has been intubated for 9 days without any neurologic improvements at all. off sedation, RASS -4. continues to be febrile. wbc elevated. not improving. will need trach soon. Objective Vital Signs Date Time Temp Pulse Resp B/P (MAP) Pulse Ox O2 Delivery O2 Flow Rate FiO2 05/06/17 08:11 95 50 05/06/17 06:00 106 05/06/17 04:00 100.4 18 139/72 (94) 05/04/17 08:09 Ventilator Intake and Output 05/06/17 05/06/17 05/06/17 07:59 15:59 23:59 Intake Total 2385 ml 109 ml Output Total 1600 ml Balance 785 ml 109 ml Result Diagram: 05/05/17 0425 05/05/17 0425 Other Results Microbiology Date/Time Source Procedure Growth Status 05/03/17 11:35 Sputum Endotracheal Gram Stain - Final Complete 05/03/17 11:35 Sputum Culture - Final Klebsiella Pneumoniae Complete Imaging Last 48 hours Impressions Chest X-Ray 05/04/17 1019 Signed Impressions: Service Date/Time: April 10:57 - CONCLUSION: No significant interval change Timbo Mccracken MD Last [address] 05/01/17 0000 Signed Impressions: Service Date/Time: Monday, May 01, 2017 18:24 - CONCLUSION: 1. Bilateral areas of consolidation. These alveolar consolidations are worse on the left than the right. They are nonspecific. Diffuse underlying processes such as infection/pneumonia need to be considered. Other diffuse processes could have a similar appearance. 2. Mild left pleural effusion primarily in the subpleural region and a minimal right pleural effusion. 3. Minimal prominent lymph nodes in the right paratracheal region. Timbo Escudero MD Last 24 hours Impressions Chest X-Ray 04/25/17 1712 Signed Impressions: Service Date/Time: Tuesday, April 25, 2017 17:34 - CONCLUSION: Left greater than right airspace disease and left pleural effusion, all worse. Timbo Newsome MD Chest X-Ray 04/25/17 0000 Signed Impressions: Service Date/Time: Tuesday, April 25, 2017 20:52 - CONCLUSION: 1. As intermittent tracheal tube and nasogastric tube placement as above. 2. Left greater than right consolidation and small moderate left pleural effusion are again noted. Timbo Newsome MD Objective Remarks HEENT/ Neuro: RASS -4. encephalopathic, orally intubated, Pallor present, no icterus, tongue/ mucosa moist. Pupils bilaterally 4mm, reactive. Neck: No JVD Chest/Pulm: on mech vent, good air entry bilaterally, scattered rhonchi, no wheezing or crackles. CVS: normal rate, regular rhythm. sinus by tele. GI/abdomen: soft, nontender, nondistended. no guarding. Extremities: warm bilaterally, no edema A/P Assessment and Plan Assessment: 46yM with acute toxic encephalopathy and acute hypoxic respiratory failure. Clinically not improving. will proceed with trach. will obtain MRI and neuro consult to assist in persistent encephalopathy. Acute Respiratory failure on mechanical ventilation - Underlying pneumonia - continue daily sedation vacations. currently persistently encephalopathic off all sedation. - Continue mechanical ventilation. Daily C Pap trials - Continue DuoNeb's - IV antibiotics for pneumonia treatment - will work towards trach soon. Healthcare Associated Pneumonia - Broad-spectrum antibiotics -Follow up cultures - De-escalate antibiotics per sensitivity - Follow CXR Toxic Encephalopathy - Intoxication - Polysubstance abuse - Non focal neurological exam - Monitor for withdrawal - MRI today - neuro consult to assist. - EEG showing severe slowing. A. fib with RVR - converted to sinus rhythm -Off amiodarone drip. Cardiology consult noted Hypernatremia - start free water replacement, 200 q6h. Thrombocytopenia- resolved. - previous admission - 44 - no active bleeding. - Will monitor. - Consulted hematology for further evaluation. Okay with resuming Lovenox for DVT prophylaxis as platelet count has normalized. DVT Prophylaxis - Teds SCDs - Lovenox for DVT prophylaxis on 05/04 - discussed with Dr. Ubaldo Morrissey Continue tube feeds and advance to goal as tolerated. Critical Care: The total critical care time was 40 minutes. Time to perform other separately billable procedures was not included in the critical care time. Juan David Rivera MD May 06, 2017 10:44
[2017-05-06] MEDS ORDERED: fentaNYL CITRATE 250 MCG/5 ML AMP IV PUSH ONE (11:15)
[2017-05-06] MEDS ORDERED: MIDAZOLAM HCL 2 MG/2 ML VIAL IV PUSH ONE (11:15)
[2017-05-06] MEDS ORDERED: CISATRACURIUM BESYLATE 200 MG/20 ML VIAL IV ONE (12:00)
--- NOTE | 2017-05-06 12:14 | HHI.PR ---
Review/Management Diagnosis/Plan: (1) Acute encephalopathy ICD Codes: G93.40 - Encephalopathy, unspecified Status: Acute Plan: f/u mri brain may need lp d/w ccm Subjective Subjective Comments No acute events reported xcover Active Medications Current Medications Medications (Trade) Dose Ordered Sig/Angel Route Start Time Stop Time Status Last Admin (NS Flush) 2 ml UNSCH PRN IVF 04/25/17 17:15 (Buspar) 15 mg TID PO 04/26/17 09:00 Future Hold 05/05/17 09:41 (CeleXA) 10 mg HS PO 04/25/17 21:00 Future Hold 05/04/17 21:12 (Topamax) 50 mg BID PO 04/25/17 21:00 05/06/17 08:32 (SEROquel) 50 mg HS PO 04/25/17 21:00 Future Hold 05/04/17 21:13 (Pepcid) 20 mg DAILY PO 04/26/17 09:00 05/06/17 08:32 Sodium Chloride 1,000 ml @ 50 mls/hr Q20H IV 04/25/17 21:00 05/06/17 08:32 (NS Flush) 2 ml UNSCH PRN .XX 04/25/17 20:00 (NS Flush) 2 ml BID .XX 04/25/17 21:00 05/06/17 08:31 (Tylenol) 650 mg Q6H PRN PO 04/25/17 20:00 05/05/17 04:38 (Tears Naturale Opth Soln) 1 drop TID EACH EYE 04/26/17 09:00 05/06/17 08:31 (Zofran Inj) 4 mg Q6H PRN IV PUSH 04/25/17 20:00 (Duoneb Neb) 1 ampule Q2HR NEB PRN INH 04/25/17 20:00 05/05/17 03:36 Miscellaneous Information 1 Q361D XX 04/25/17 20:00 (Chlorhexidine 2% Cloth) Taper DAILY@04 TOP 04/26/17 04:00 04/22/18 03:59 05/04/17 04:00 (Chlorhexidine 2% Cloth) 3 pack UNSCH PRN TOP 04/25/17 20:00 (Marsha-Colace) 1 tab BID PO 04/25/17 21:00 05/06/17 08:32 (Milk Of Magnesia Liq) 30 ml Q12H PRN PO 04/25/17 20:00 (Senokot) 17.2 mg Q12H PRN PO 04/25/17 20:00 (Dulcolax Supp) 10 mg DAILY PRN RECTAL 04/25/17 20:00 (Lactulose Liq) 30 ml DAILY PRN PO 04/25/17 20:00 (Peridex 0.12% Liq) 15 ml BID@08,20 MT 04/25/17 20:00 05/06/17 08:31 (Pill Splitter) 1 ea UNSCH PRN OTHER 04/25/17 20:15 Potassium Chloride 100 ml @ 50 mls/hr Q2H PRN IV 04/27/17 01:30 05/03/17 18:13 Potassium Chloride 100 ml @ 50 mls/hr Q2H PRN IV 04/27/17 01:30 (K-Lyte Cl Eff) 50 meq UNSCH PRN PO 04/27/17 01:30 04/27/17 01:52 Potassium Chloride 100 ml @ 25 mls/hr UNSCH PRN IV 04/27/17 01:30 05/03/17 23:42 Potassium Chloride 100 ml @ 50 mls/hr Q2H PRN IV 04/27/17 01:30 05/04/17 09:30 Magnesium Sulfate 4 gm/Sodium Chloride 100 ml @ 50 mls/hr UNSCH PRN IV 04/27/17 01:30 (Mag-Ox) 800 mg UNSCH PRN PO 04/27/17 01:30 Magnesium Sulfate 2 gm/Sodium Chloride 100 ml @ 50 mls/hr UNSCH PRN IV 04/27/17 01:30 (K-Phos) 2,000 mg Q4H PRN PO 04/27/17 01:30 Sodium Phosphate 30 mmol/Sodium Chloride 250 ml @ 42 mls/hr UNSCH PRN IV 04/27/17 01:30 (K-Phos) 2,000 mg UNSCH PRN PO/TUBE 04/27/17 01:30 Potassium Phosphate 30 mmol/ Sodium Chloride 260 ml @ 42 mls/hr UNSCH PRN IV 04/27/17 01:30 04/27/17 03:32 (Reglan Inj) 10 mg Q8HR IV PUSH 04/28/17 17:00 05/06/17 06:31 Propofol 100 ml @ 3.66 mls/hr TITRATE PRN IV 04/29/17 16:15 05/06/17 10:06 (Lovenox Inj) 40 mg Q24H SQ 05/04/17 11:00 05/06/17 10:06 (Apresoline Inj) 20 mg Q4H PRN IV PUSH 05/05/17 03:00 05/05/17 03:09 (Trandate Inj) 10 mg Q4H PRN IV PUSH 05/05/17 03:00 05/05/17 13:02 Cefepime HCl 2000 mg/Sodium Chloride 100 ml @ 200 mls/hr Q8H IV 05/05/17 18:00 05/06/17 10:06 Fluconazole/ Sodium Chloride 200 ml @ 100 mls/hr Q24H IV 05/05/17 20:00 05/05/17 19:49 Levofloxacin/ Dextrose 150 ml @ 100 mls/hr Q24H IV 05/05/17 21:00 05/05/17 22:36 (Free Water) VOLUME: 200 ML Q6HR G-TUBE 05/06/17 12:00 Allergies Allergies Coded Allergies No Known Allergies (Unverified04/23/17) Review of Systems All other ROS: Unable to obtain Exam I&O / VS 05/06/17 05/06/17 05/07/17 15:00 23:00 07:00 Intake Total 109 ml Balance 109 ml IV Total 109 ml Vital Signs Date Time Temp Pulse Resp B/P (MAP) Pulse Ox O2 Delivery O2 Flow Rate FiO2 05/06/17 10:40 97 50 05/06/17 10:18 97 50 05/06/17 08:11 95 50 05/06/17 06:00 106 05/06/17 04:19 97 50 05/06/17 04:00 50 05/06/17 04:00 108 05/06/17 04:00 100.4 106 18 139/72 (94) 97 05/06/17 02:00 104 05/06/17 01:12 96 50 05/06/17 00:00 50 05/06/17 00:00 99.5 104 18 136/78 (97) 96 05/06/17 00:00 104 05/05/17 22:11 96 50 05/05/17 22:00 50 05/05/17 22:00 117 05/05/17 20:00 117 05/05/17 20:00 50 05/05/17 20:00 99.5 118 24 148/73 (98) 98 05/05/17 20:00 99.5 118 24 148/73 (98) 93 05/05/17 19:38 96 50 05/05/17 18:00 128 05/05/17 16:32 121 05/05/17 16:30 125 05/05/17 16:30 91 50 05/05/17 16:24 122 05/05/17 16:23 118 05/05/17 16:00 100.2 05/05/17 16:00 99 100 05/05/17 16:00 100 05/05/17 16:00 111 05/05/17 15:46 106 05/05/17 15:30 109 05/05/17 15:00 109 05/05/17 14:30 106 05/05/17 14:00 106 05/05/17 13:30 101 05/05/17 13:27 101 05/05/17 13:00 121 05/05/17 12:54 116 05/05/17 12:30 119 Exam Comments intubated, on sedation gtt, deep stupor, non-verbal not following, partially opens eyes, ? blink to threat, ou 3mm sluggish, mild localization with ue not le , no clonus, planterflexor Objective Micro and Labs Laboratory Tests Test 05/05/17 17:36 Urine Color YELLOW Urine Turbidity CLEAR Urine pH 6.5 Urine Specific [place] 1.018 Urine Protein 30 Urine Glucose (UA) TRACE Urine Ketones NEG Urine Occult Blood TRACE Urine Nitrite NEG Urine Bilirubin NEG Urine Urobilinogen LESS THAN 2.0 Urine Leukocyte Esterase NEG Urine RBC Urine WBC 138 Microscopic Urinalysis Comment CATH-CULTURE IND Date/Time Source Procedure Growth Status 05/05/17 00:40 Blood Peripheral Aerobic Blood Culture - Preliminary NO GROWTH IN 1 DAY Resulted 05/05/17 00:40 Blood Peripheral Anaerobic Blood Culture - Final QNS - SEE AEROBE REPORT Resulted 05/05/17 17:45 Sputum Endotracheal Gram Stain - Final Resulted 05/05/17 17:45 Sputum Endotracheal Sputum Culture Pending Resulted 05/05/17 17:36 Urine Clean Catch Urine Culture Pending Received William Chua MD May 06, 2017 12:14
[2017-05-06] MEDS: FREE WATER G-TUBE SCH ×2 (13:00→17:34)
--- NOTE | 2017-05-06 14:22 | PD.PROCEDR ---
Procedure Note Procedure Percutaneous Dilation Tracheostomy Tube Placement Diagnosis: Toxic encephalopathy Indications: Subacute hypoxic and hypercarbic respiratory failure, failure to wean from mechanical ventilation Anesthesia: Versed 10 mg IV, fentanyl 250 g IV Neuromuscular Blockade: Cisatracurium 20 mg IV Anesthesia was provided by the bedside RN Description of the Procedure: The patient was sedated and paralyzed. The patient was positioned in the supine position with a chest roll. The patient's neck was slightly extended. Landmarks were palpated and the anatomy of the anterior neck was deemed normal. A time out procedure was performed. The patient was placed on a volume control mode of ventilation, on 100% FiO2. The patient was prepped and draped sterilely. A bronchoscope was inserted into the endotracheal tube for endoscopic guidance (see separate bronchoscopy procedure note). After negative aspiration, 1% lidocaine with 1:100k epinephrine was injected subcutaneously in the midline neck using a 21g needle for local anesthesia. An approximately 2cm skin incision was made using a #15 blade. The cricoid cartilage, thyroid tissue , and tracheal rings were palpated in the midline. Under direct bronchoscopic guidance, the cuff of the endotracheal tube was deflated and the endotracheal tube was retracted to a level above the level of the skin incision. At this point, a 15g introducer needle/catheter was advanced midline under negative aspiration with saline filled syringe until bubbles were seen and the needle and catheter were visualized in the lumen of the trachea. The needle was withdrawn leaving the catheter in place. A 0.052 in diameter J-shaped guidewire was advanced through the catheter into the lumen of the trachea, under direct bronchoscopic visualization. Using a modified Seldinger technique , a 14 Fr, 4.5 cm introducer dilator was used, followed by a Blue Rhino Percutaneous Tracheostomy Dilator, and finally a 28 Fr tracheostomy loading catheter with 8.0 Cuffed Shiley tracheostomy tube. The loading catheter and guidewire were removed and the tracheostomy tube was confirmed in the lumen of the trachea with bronchoscopy, end-tidal CO2, and returning volumes on the ventilator. The tracheostomy was sewn to the skin with interrupted 2.0 Prolene sutures, and a tracheostomy tie was applied to the skin. There were no immediate complications. There was minimal EBL. A chest x-ray has been ordered. Head And Neck Surgeon: Dr. Junior Galarza I personally performed the procedure. Juan David Rivera MD May 06, 2017 14:22
[2017-05-06 17:56] LABS: HEMATOCRIT 24.6 % (39.0-51.0); MEAN CELL VOLUME 98.3 FL (80.0-100.0); MEAN CORPUSCULAR HEMOGLOBIN 32.4 PG (27.0-34.0); PLATELET COUNT 224 TH/MM3 (150-450); RED CELL DISTRIBUTION WIDTH 15.4 % (11.6-17.2); REVIEW FLAG FINAL; WHITE BLOOD COUNT 10.9 TH/MM3 (4.0-11.0)
[2017-05-06 18:14] LABS: BICARBONATE 28.4 MEQ/L (21.0-32.0)
[2017-05-06] MEDS: FLUCONAZOLE 400 MG PREMIX BAG 200 ML IV SCH (20:20)
[2017-05-06] MEDS: hydrALAZINE HCL 20 MG/ML VIAL IV PUSH PRN (22:18)
[2017-05-06] MEDS: LEVOFLOXACIN 750 MG PREMIX INJ 150 ML IV SCH (22:19)
[2017-05-07] VITALS (21 sets, daily range): BP systolic 157–166; BP diastolic 86–96; PULSE 111–133; RESP 17–25; TEMP 99.2–100.8; O2SAT 94–98
[2017-05-07] MEDS: CEFEPIME INJ 2,000 MG in SODIUM CHLORIDE 0.9% INJ 100 ML IV SCH ×3 (02:00→17:10)
[2017-05-07] MEDS: CHLORHEXIDINE GLUCONATE 2 % 1 PACK (2 CLOTHS) TOP SCH (03:45)
[2017-05-07] MEDS: ACETAMINOPHEN 325 MG TAB PO PRN (03:46)
[2017-05-07] MEDS: PROPOFOL 1000 MG/100 ML IV PRN ×4 (03:48→21:02)
[2017-05-07 04:12] LABS: HEMATOCRIT 26.9 % (39.0-51.0); MEAN CELL VOLUME 98.1 FL (80.0-100.0); MEAN CORPUSCULAR HEMOGLOBIN 31.8 PG (27.0-34.0); MEAN CORPUSCULAR HGB CONC 32.4 % (32.0-36.0); PLATELET COUNT 284 TH/MM3 (150-450); RED BLOOD COUNT 2.75 MIL/MM3 (4.50-5.90); RED CELL DISTRIBUTION WIDTH 15.9 % (11.6-17.2); REVIEW FLAG FINAL; WHITE BLOOD COUNT 11.8 TH/MM3 (4.0-11.0)
[2017-05-07 04:47] LABS: BICARBONATE 25.2 MEQ/L (21.0-32.0); POTASSIUM 3.7 MEQ/L (3.5-5.1)
[2017-05-07] MEDS: METOCLOPRAMIDE HCL 10 MG/2 ML VIAL IV PUSH SCH ×3 (05:46→21:01)
[2017-05-07] MEDS: FREE WATER G-TUBE SCH ×4 (05:46→17:09)
[2017-05-07] MEDS: FAMOTIDINE 20 MG TAB PO SCH (08:00)
[2017-05-07] MEDS: SODIUM CHLORIDE 0.9% FLUSH 10 ML FLUSH SCH ×2 (08:00→21:00)
[2017-05-07] MEDS: DOCUSATE SODIUM 50 MG/SENNA 8.6 MG TAB PO SCH ×2 (08:00→21:00)
[2017-05-07] MEDS: ARTIFICIAL TEARS OPTH SOLN 15 ML BTL EACH EYE SCH ×3 (08:01→17:09)
[2017-05-07] MEDS: TOPIRAMATE 25 MG TAB PO SCH ×2 (08:01→21:00)
[2017-05-07] MEDS: CHLORHEXIDINE 0.12% (ORAL KIT) 15 ML CUP MT SCH ×2 (08:01→21:00)
--- NOTE | 2017-05-07 08:17 | HHI.CCPN ---
Subjective Remarks/Hospital Course 04/25: This is a 46-year-old male with a past medical history of Anxiety, Depression and Substance Abuse was initially sent to the emergency room April 23, 2017 by EMS from [facility] for cough and fever x2 days. Per records, patient had Temp 104.7. At that time patient denied SOB, chest pain, nausea, vomiting or diarrhea. He was admitted to medical [facility] however the patient left this morning against medical advise despite the treatment of pneumonia. After leaving this morning he has had some alcohol to drink and smoked some methamphetamine. His brother brought him back for reevaluation and treatment for his pneumonia. In the emergency department his oxygen saturations were in the low 80s on room air, patient was constantly removing to his oxygen mask and would not tolerate any BiPAP. He became extremely agitated combative and was intubated by me for an airway protection and severe hypoxemia. 04/26: Remains sedated, orally intubated on mechanical ventilation. Went into A. fib last night currently ventricular rate 130s. 04/27: Remains sedated, orally intubated on mechanical ventilation. Converted back to sinus rhythm with amiodarone gtt. which continues. Receiving IV calcium gluconate for hypocalcemia. Temperature spike up to 105 last night. 04/28: Remains sedated, orally intubated on mechanical ventilation. Not tolerating tube feeds with high residuals. On Versed/propofol and fentanyl drips. 04/29: Sedated, orally intubated on mechanical ventilation. 04/30: Remains sedated, orally intubated on mechanical ventilation. 05/01: Remains sedated, orally intubated on mechanical ventilation. Not tolerating tube feeds overnight. 05/02: Remains sedated, orally intubated on mechanical ventilation. Will attempt restarting tube feeds. Discontinue fentanyl/Versed drips. Propofol for sedation to be continued 05/03: Remains sedated, orally intubated on mechanical ventilation. Remains on PEEP +12 FiO2 50%. 05/04: Sedated, orally intubated on mechanical ventilation. Daily sedation vacation ongoing. PEEP decreased to +8, FiO2 decreased to 40% 05/05: Encephalopathic off sedation, orally intubated on mechanical ventilation. Starts hyperventilating however not significant improvement in level of consciousness on holding sedation last few days. 05/06: no improvements. has been intubated for 9 days without any neurologic improvements at all. off sedation, RASS -4. continues to be febrile. wbc elevated. not improving. will need trach soon. 05/07: still encephalopathic. MRI pending for today. neuro evaluated the patient and requested LP. s/p trach yesterday. Objective Vital Signs Date Time Temp Pulse Resp B/P (MAP) Pulse Ox O2 Delivery O2 Flow Rate FiO2 05/07/17 06:00 123 05/07/17 04:46 21 05/07/17 04:28 95 40 05/07/17 04:00 100.8 165/87 (113) 05/04/17 08:09 Ventilator Intake and Output 05/07/17 05/07/17 05/08/17 08:00 16:00 00:00 Intake Total 1568 ml Output Total 1480 ml Balance 88 ml Result Diagram: 05/07/17 0316 05/07/17 0316 Imaging Last 48 hours Impressions Chest X-Ray 05/04/17 1019 Signed Impressions: Service Date/Time: April 10:57 - CONCLUSION: No significant interval change Timbo Mccracken MD Last [address] 05/01/17 0000 Signed Impressions: Service Date/Time: Monday, May 01, 2017 18:24 - CONCLUSION: 1. Bilateral areas of consolidation. These alveolar consolidations are worse on the left than the right. They are nonspecific. Diffuse underlying processes such as infection/pneumonia need to be considered. Other diffuse processes could have a similar appearance. 2. Mild left pleural effusion primarily in the subpleural region and a minimal right pleural effusion. 3. Minimal prominent lymph nodes in the right paratracheal region. Timbo Escudero MD Last 24 hours Impressions Chest X-Ray 04/25/17 1712 Signed Impressions: Service Date/Time: Tuesday, April 25, 2017 17:34 - CONCLUSION: Left greater than right airspace disease and left pleural effusion, all worse. Timbo Newsome MD Chest X-Ray 04/25/17 0000 Signed Impressions: Service Date/Time: Tuesday, April 25, 2017 20:52 - CONCLUSION: 1. As intermittent tracheal tube and nasogastric tube placement as above. 2. Left greater than right consolidation and small moderate left pleural effusion are again noted. Timbo Newsome MD Objective Remarks HEENT/ Neuro: RASS -4. encephalopathic, Pallor present, no icterus, tongue/ mucosa moist. Pupils bilaterally 4mm, reactive. Neck: No JVD. fresh trach without signs of bleeding. Chest/Pulm: on mech vent, good air entry bilaterally, scattered rhonchi, no wheezing or crackles. CVS: normal rate, regular rhythm. sinus by tele. GI/abdomen: soft, nontender, nondistended. no guarding. Extremities: warm bilaterally, no edema A/P Assessment and Plan Assessment: 46yM with acute toxic encephalopathy and acute hypoxic respiratory failure. Clinically not improving. will proceed with LP and MRI today. appreciate neuro input. remains critically ill off pathway with significant encephalopathy of unknown etiology. Acute Respiratory failure on mechanical ventilation - Underlying pneumonia - continue daily sedation vacations. currently persistently encephalopathic off all sedation. - Continue mechanical ventilation. Daily C Pap trials - Continue DuoNeb's - IV antibiotics for pneumonia treatment - s/p trach 05/06 Healthcare Associated Pneumonia - Broad-spectrum antibiotics -Follow up cultures - sputum growing GNRs, previously growing Klebsiella. - De-escalate antibiotics per sensitivity - Follow CXR Toxic Encephalopathy - Intoxication - Polysubstance abuse - Non focal neurological exam - Monitor for withdrawal - MRI today - neuro consult - EEG showing severe slowing. - LP today. A. fib with RVR - converted to sinus rhythm -Off amiodarone drip. Cardiology consult noted Hypernatremia - free water replacement, 200 q6h. - 146 today from 150. trend daily BMP. Thrombocytopenia- resolved. - previous admission - 43 - no active bleeding. - Will monitor. - Consulted hematology for further evaluation. Okay with resuming Lovenox for DVT prophylaxis as platelet count has normalized. DVT Prophylaxis - Teds SCDs - Lovenox for DVT prophylaxis on 05/04 - discussed with Dr. Conner (held for LP. will resume after LP) - Pepcid Continue tube feeds and advance to goal as tolerated. Critical Care: The total critical care time was 38 minutes. Time to perform other separately billable procedures was not included in the critical care time. Juan David Rivera MD May 07, 2017 07:59
--- NOTE | 2017-05-07 09:21 | PD.PROCEDR ---
Procedure Note Procedure Lumbar Puncture Diagnosis: Acute encephalopathy Indications: Encephalopathy Consent: Written consent was obtained Anesthesia: None Description of the Procedure: The patient was placed in the supine, right lateral decubitus position. The patient was prepped and draped sterilely. 1% lidocaine was infiltrated subcutaneously. A 20g Quincke needle was inserted into the L3-4 interspace and advanced until CSF was obtained. Opening pressure was obtained. CSF was drained in 4 incremental vials. The needle was removed and a dressing was applied. The patient was returned to the supine position. Instructions were given to remain flat x 2 hours. There were no immediate complications noted. There was minimal EBL. The patient tolerated the procedure well. Opening Pressure: 43 Amount of CSF removed: 10 mL Findings: Clear CSF. Elevated opening pressure. I personally performed the procedure. Juan David Rivera MD May 07, 2017 09:21
[2017-05-07 10:29] LABS: GROSS BLOOD TUBE #1 0 (0); GROSS BLOOD TUBE #2 0 (0); SUPERNATE COLOR TUBE #1 CLEAR (CLEAR); SUPERNATE COLOR TUBE #2 CLEAR (CLEAR); VOLUME TUBE # 2 2.9 ML
[2017-05-07 10:30] LABS: CSF LYMPHOCYTES 0 %; CSF NEUTROPHILS 0 %; GROSS BLOOD TUBE #3 0 (0); GROSS BLOOD TUBE #4 0 (0); SUPERNATE COLOR TUBE #3 CLEAR (CLEAR); SUPERNATE COLOR TUBE #4 CLEAR (CLEAR); VOLUME TUBE # 4 4.8 ML; WBC TUBE #4 0 /MM3 (0-10)
[2017-05-07] MEDS: ENOXAPARIN SODIUM 40 MG/0.4 ML SYRINGE SQ SCH (11:00)
[2017-05-07] MEDS ORDERED: GADODIAMIDE PF 287 MG/ML 20 ML VIAL (for RAD MRI) IV PUSH ONE (11:08)
--- NOTE | 2017-05-07 11:13 | RADRPT ---
EXAM DATE/TIME: 05/07/2017 10:43 [facility] COMPARISON: No previous studies available for comparison. INDICATIONS : Encephalopathy. MEDICAL HISTORY : None. SURGICAL HISTORY : None. ENCOUNTER: Initial ACUITY: 1 day PAIN SCORE: 0/10 LOCATION: cranial Please note a normal MRA of the brain does not entirely exclude the possibility of a small aneurysm, nor the possibility of distal intracranial vessel disease. TECHNIQUE: 3D time of flight MRA was performed. Source images, multiplanar STS MIP, and 3D volume MIP reconstru ctions were reviewed. FINDINGS: There is excellent visualization of the major intracranial arteries out to the second-order branch ve ssels. There is no evidence for aneurysm, vessel truncation or stenosis, and no evidence for vascula r malformation. CONCLUSION: 1. Normal examination. Rj Dolan MD on May 07, 2017 at 11:11 Board Certified Radiologist. This report was verified electronically.
--- NOTE | 2017-05-07 11:44 | RADRPT ---
EXAM DATE/TIME: 05/07/2017 10:43 [facility] COMPARISON: No previous studies available for comparison. INDICATIONS : Encephalitis. CONTRAST: 20 cc Omniscan (gadodiamide) IV MEDICAL HISTORY : None. SURGICAL HISTORY : None. ENCOUNTER: Initial ACUITY: 1 day PAIN SCORE: 0/10 LOCATION: cranial TECHNIQUE: Multiplanar, multisequence MRI of the brain was performed both prior to and following the administrat ion of paramagnetic contrast. FINDINGS: CEREBRUM: The ventricles are normal for age. No evidence of midline shift, mass lesion, hemorrhage or acute in farction. No extraaxial fluid collections are seen. The pituitary gland and suprasellar cistern are normal in configuration. WHITE MATTER: No significant signal abnormalities are seen in the white matter. POSTERIOR FOSSA: The cerebellum and brainstem are intact. The 4th ventricle is midline. The cerebellopontine angle is unremarkable. The cerebellar tonsils are normal in position. DIFFUSION IMAGING: No focal areas of restricted diffusion are seen. No evidence of acute infarction. EXTRACRANIAL: The visualized portions of the orbits and paranasal sinuses are unremarkable. POST-CONTRAST: No abnormal areas of parenchymal or dural enhancement. No evidence of blood-brain barrier breakdown. CONCLUSION: 1. Negative examination. Rj Dolan MD on May 07, 2017 at 11:39 Board Certified Radiologist. This report was verified electronically.
--- NOTE | 2017-05-07 12:08 | RADRPT ---
EXAM DATE/TIME: 05/07/2017 10:43 COMPARISON: MRI BRAIN W & W/O CONTRAST, May 07, 2017, 10:43. INDICATIONS : Encephalitis. CONTRAST: 20 cc Omniscan (gadodiamide) IV MEDICAL HISTORY : None. SURGICAL HISTORY : None. ENCOUNTER: Initial ACUITY: 1 day PAIN SCORE: 0/10 LOCATION: cranial FINDINGS: The superior sagittal sinus and cortical veins are patent. The internal cerebral veins and straight s inus are patent. The torcula is patent. The transverse sinuses are patent. CONCLUSION: 1. No findings to indicate venous sinus thrombosis identified. Rj Dolan MD on May 07, 2017 at 12:05 Board Certified Radiologist. This report was verified electronically.
--- NOTE | 2017-05-07 12:24 | HHI.IDPN ---
Subjective Subjective Remarks Patient is a 46-year-old male who was initially admitted on April 23 complaining of 5 day history of cough with sputum production as well as fever. He was also having some diarrhea. It was during that time, he was in [facility] where he went in for drug rehabilitation. When he presented, the patient was afebrile, and his chest x-ray showed evidence of pneumonia. He was started on antibiotics, and he had an HIV testing done which came back negative. Patient however signed out AGAINST MEDICAL ADVICE on April 25. He reportedly used some drugs, and his brother forced him to go back to the hospital and he got readmitted April 25. He had evidence of increasing pulmonary infiltrates, and he ended up getting intubated. He has been on the vent since. He had some problem with A. fib, and he converted to normal sinus rhythm. Patient has still been requiring ventilatory support. He had some fevers from 926 2 around April 30, and his temperatures improved. His cultures on readmission were negative. His sputum had normal ronaldo, Legionella and pneumococcal antigen were negative. Blood cultures were negative. Urine culture were negative. Patient has been getting broad-spectrum antibiotics which include Zosyn and vancomycin. Since yesterday patient started having high fevers again. He has copious thick light yellow to whitman endotracheal secretions. His hemodynamics are okay. He remains on the vent, and has not been able to be weaned. He has a Perez in place. Has a central line in the left subclavian. Patient also had problem with thrombocytopenia and anemia, and hematology evaluated him. His numbers have improved. Infectious disease consultation has been requested to evaluate the patient. Overnight events reviewed Low grade fevers persistent No rash No diarrhea Antibiotics Cefepime IV Levaquin IV Diflucan IV Lines Line sites with no e.o infection Past Medical History reviewed Allergies: Coded Allergies: No Known Allergies (Unverified , 04/23/17) Objective . Vital Signs Date Time Temp Pulse Resp B/P (MAP) Pulse Ox O2 Delivery O2 Flow Rate FiO2 05/07/17 10:30 97 100 05/07/17 10:17 96 50 05/07/17 10:00 122 05/07/17 08:13 98 40 05/07/17 08:00 121 05/07/17 08:00 99.8 121 22 157/86 (109) 95 05/07/17 08:00 50 05/07/17 06:00 123 05/07/17 04:46 21 05/07/17 04:28 95 40 05/07/17 04:00 126 05/07/17 04:00 40 05/07/17 04:00 100.8 126 21 165/87 (113) 95 05/07/17 02:00 133 05/07/17 01:04 95 40 05/07/17 00:00 100.5 128 25 165/92 (116) 94 05/07/17 00:00 40 05/07/17 00:00 128 05/06/17 22:24 95 40 05/06/17 22:00 121 05/06/17 20:09 95 40 05/06/17 20:00 117 05/06/17 20:00 99.4 117 20 162/89 (113) 94 05/06/17 20:00 40 05/06/17 18:00 109 05/06/17 16:30 102 20 137/76 (96) 94 05/06/17 16:07 96 40 05/06/17 16:00 105 05/06/17 16:00 99.2 105 19 130/75 (93) 98 05/06/17 16:00 40 05/06/17 15:30 106 20 131/75 (93) 97 05/06/17 15:00 106 21 124/71 (88) 94 05/06/17 14:30 108 22 129/67 (87) 92 05/06/17 14:00 110 05/06/17 14:00 110 21 135/77 (96) 91 05/06/17 13:30 110 20 143/79 (100) 92 05/06/17 13:00 113 18 135/68 (90) 98 05/06/17 12:57 112 18 135/63 (87) 98 05/06/17 12:54 111 18 136/67 (90) 98 05/06/17 12:51 113 18 133/65 (87) 98 05/06/17 12:51 98 50 05/06/17 12:48 112 18 133/68 (89) 98 05/06/17 12:45 114 18 132/66 (88) 98 05/06/17 12:42 115 18 133/65 (87) 98 05/06/17 12:39 114 21 131/67 (88) 98 05/06/17 12:36 114 21 134/74 (94) 98 05/06/17 12:33 117 19 140/76 (97) 98 05/06/17 12:30 117 11 133/76 (95) 99 05/07/17 05/07/17 05/08/17 15:00 23:00 07:00 Intake Total 299 ml Output Total 580 ml Balance -281 ml IV Total 299 ml Output Urine Total 580 ml . Laboratory Tests Test 05/06/17 17:40 05/07/17 03:16 White Blood Count 10.9 TH/MM3 11.8 TH/MM3 Red Blood Count 2.50 MIL/MM3 2.75 MIL/MM3 Hemoglobin 8.1 GM/DL 8.7 GM/DL Hematocrit 24.6 % 26.9 % Mean Corpuscular Volume 98.3 FL 98.1 FL Mean Corpuscular Hemoglobin 32.4 PG 31.8 PG Mean Corpuscular Hemoglobin Concent 33.0 % 32.4 % Red Cell Distribution Width 15.4 % 15.9 % Platelet Count 224 TH/MM3 284 TH/MM3 Mean Platelet Volume 10.3 FL 10.4 FL Laboratory Tests Test 05/06/17 17:40 05/07/17 03:16 Blood Urea Nitrogen 17 MG/DL 16 MG/DL Creatinine 0.43 MG/DL 0.45 MG/DL Random Glucose 103 MG/DL 144 MG/DL Calcium Level 8.1 MG/DL 8.3 MG/DL Sodium Level 150 MEQ/L 146 MEQ/L Potassium Level 4.0 MEQ/L 3.7 MEQ/L Chloride Level 117 MEQ/L 114 MEQ/L Carbon Dioxide Level 28.4 MEQ/L 25.2 MEQ/L Anion Gap 5 MEQ/L 7 MEQ/L Estimat Glomerular Filtration Rate 212 ML/MIN 201 ML/MIN Microbiology Date/Time Source Procedure Growth Status 05/05/17 00:40 Blood Peripheral Aerobic Blood Culture - Preliminary NO GROWTH IN 2 DAYS Resulted 05/05/17 00:40 Blood Peripheral Anaerobic Blood Culture - Final QNS - SEE AEROBE REPORT Resulted 05/05/17 00:35 Blood Peripheral Aerobic Blood Culture - Preliminary NO GROWTH IN 2 DAYS Resulted 05/05/17 00:35 Blood Peripheral Anaerobic Blood Culture - Final QNS - SEE AEROBE REPORT Resulted 05/07/17 09:00 Cerebral Spinal Fluid Lumbar Puncture Acid Fast Stain Pending Received 05/07/17 09:00 Cerebral Spinal Fluid Lumbar Puncture Mycobacterial Culture Pending Received 05/07/17 09:00 Cerebral Spinal Fluid Lumbar Puncture Gram Stain - Final Resulted 05/07/17 09:00 Cerebral Spinal Fluid Lumbar Puncture CSF Culture Pending Resulted 05/05/17 17:45 Sputum Endotracheal Gram Stain - Final Complete 05/05/17 17:45 Sputum Culture - Final Klebsiella Pneumoniae Complete 05/05/17 17:36 Urine Clean Catch Urine Culture - Final NO GROWTH IN 48 HOURS. Complete Imaging Last Impressions Head CT 05/05/17 0000 Signed Impressions: Service Date/Time: Friday, May 05, 2017 16:08 - CONCLUSION: No acute intracranial disease. Nickolas Valentin MD Chest X-Ray 05/04/17 1019 Signed Impressions: Service Date/Time: April 10:57 - CONCLUSION: No significant interval change Timbo Mccracken MD Chest CT 05/01/17 0000 Signed Impressions: Service Date/Time: Monday, May 01, 2017 18:24 - CONCLUSION: 1. Bilateral areas of consolidation. These alveolar consolidations are worse on the left than the right. They are nonspecific. Diffuse underlying processes such as infection/pneumonia need to be considered. Other diffuse processes could have a similar appearance. 2. Mild left pleural effusion primarily in the subpleural region and a minimal right pleural effusion. 3. Minimal prominent lymph nodes in the right paratracheal region. Timbo Escudero MD Physical Exam GENERAL: Patient is a well-nourished, well-developed male, sedated on the vent, looks dyspneic. SKIN: Warm and dry. No generalized rash, no ecchymoses and no evidence of embolic lesions. HEAD: Atraumatic. Normocephalic. No temporal wasting, or tenderness. EYES: Follett conjunctiva. No petechia or hemorrhage. Pupils equal, round and reactive to light. No scleral icterus. No injection or drainage. EARS, NOSE AND THROAT: Nose without bleeding or purulent nasal discharge. He is orally intubated. NECK: Trachea midline. Supple and not tender, no meningeal signs CARDIOVASCULAR: Regular rate and rhythm. No murmurs, rubs or gallops heard RESPIRATORY: Coarse breath sounds bilaterally, decreased on L base ABDOMEN: Soft, obese, nondistended, bowel sounds present and normoactive. No reaction to deep palpation. EXTREMITIES: No clubbing, cyanosis. Has some pedal edema. No joint effusion. Well perfused and warm. NEUROLOGICAL: Sedated PSYCHIATRIC: Unable to assess LINE: No evidence of infection - Has LSC TLC Assessment & Plan Remarks Sepsis, with recurrent fevers and CXR looks worse - ?new HCAP - no perez - has central line Bilateral infiltrates, CXR worse Respiratory failure Known polysubstance abuse RECOMMENDATION Reviewed CSF WBC normal, protein minimally elevated. CSF gram stain with no WBC or organisms. Low probability for bacterial meningitis. Follow CSF HSV PCR and other studies. MRI brain, MRA/MRV normal with no abscess or cavernous sinus thrombosis. Continue Cefepime IV Add flagyl oral for anaerobic coverage for possible aspiration PNA and assess response. DC Diflucan. Check urine eosinophils. Check CBC with diff to look for eosinophilia. Doppler LE bilaterally. D.w RN about blood in urine. Pt had a perez in place, removed and then was straight cath'ed. Subsequently has been having fresh blood as well as clots collecting in condom cath/urinary bag. aware. Consider urology consult if persists as H/H dropped slightly. Follow H/H closely. Follow C/S Follow clinically. D/w : Opening pressure elevated at 43. MRI with normal ventricles. Recommend opthalm consult to r/o papilledema. If papilledema consider MRI C- Spine and repeat LP. Continue to hold meds that can affect medication (Buspar, Celexa, seroquel, reglan etc). Check elimination half lives ? metabolic encephalopathy vs true elevation in ICP related issues. Less likely to be fungal but will send fungal stain and Culture. Would not recommend repeat LP just yet unless papilledema documented. to resume care in am. Kae Perez MD May 07, 2017 12:24
[2017-05-07] MEDS: metroNIDAZOLE 500 MG TAB PO SCH ×2 (13:22→21:00)
--- NOTE | 2017-05-07 14:09 | HHI.PR ---
Review/Management Diagnosis/Plan: (1) Acute encephalopathy ICD Codes: G93.40 - Encephalopathy, unspecified Status: Acute Plan: a little more alert and grimaces today mri brain/mrv/mra - nml elevated pressures on csf? clear fluid. minimally elevated protein, no wbc. rbc 5. d/w ccm/i.d optho eval of fundi d/w ccm/rn Dr. Almanzar to continue to follow Subjective Subjective Comments No acute events reported Active Medications Current Medications Medications (Trade) Dose Ordered Sig/Angel Route Start Time Stop Time Status Last Admin (NS Flush) 2 ml UNSCH PRN IVF 04/25/17 17:15 (Buspar) 15 mg TID PO 04/26/17 09:00 Future Hold 05/05/17 09:41 (CeleXA) 10 mg HS PO 04/25/17 21:00 Future Hold 05/04/17 21:12 (Topamax) 50 mg BID PO 04/25/17 21:00 05/07/17 08:01 (SEROquel) 50 mg HS PO 04/25/17 21:00 Future Hold 05/04/17 21:13 (Pepcid) 20 mg DAILY PO 04/26/17 09:00 05/07/17 08:00 (NS Flush) 2 ml UNSCH PRN .XX 04/25/17 20:00 (NS Flush) 2 ml BID .XX 04/25/17 21:00 05/07/17 08:00 (Tylenol) 650 mg Q6H PRN PO 04/25/17 20:00 05/07/17 03:46 (Tears Naturale Opth Soln) 1 drop TID EACH EYE 04/26/17 09:00 05/07/17 12:59 (Zofran Inj) 4 mg Q6H PRN IV PUSH 04/25/17 20:00 (Duoneb Neb) 1 ampule Q2HR NEB PRN INH 04/25/17 20:00 05/05/17 03:36 Miscellaneous Information 1 Q361D XX 04/25/17 20:00 (Chlorhexidine 2% Cloth) Taper DAILY@04 TOP 04/26/17 04:00 04/22/18 03:59 05/04/17 04:00 (Chlorhexidine 2% Cloth) 3 pack UNSCH PRN TOP 04/25/17 20:00 (Marsha-Colace) 1 tab BID PO 04/25/17 21:00 05/07/17 08:00 (Milk Of Magnesia Liq) 30 ml Q12H PRN PO 04/25/17 20:00 (Senokot) 17.2 mg Q12H PRN PO 04/25/17 20:00 (Dulcolax Supp) 10 mg DAILY PRN RECTAL 04/25/17 20:00 (Lactulose Liq) 30 ml DAILY PRN PO 04/25/17 20:00 (Peridex 0.12% Liq) 15 ml BID@08,20 MT 04/25/17 20:00 05/07/17 08:01 (Pill Splitter) 1 ea UNSCH PRN OTHER 04/25/17 20:15 Potassium Chloride 100 ml @ 50 mls/hr Q2H PRN IV 04/27/17 01:30 05/03/17 18:13 Potassium Chloride 100 ml @ 50 mls/hr Q2H PRN IV 04/27/17 01:30 (K-Lyte Cl Eff) 50 meq UNSCH PRN PO 04/27/17 01:30 04/27/17 01:52 Potassium Chloride 100 ml @ 25 mls/hr UNSCH PRN IV 04/27/17 01:30 05/03/17 23:42 Potassium Chloride 100 ml @ 50 mls/hr Q2H PRN IV 04/27/17 01:30 05/04/17 09:30 Magnesium Sulfate 4 gm/Sodium Chloride 100 ml @ 50 mls/hr UNSCH PRN IV 04/27/17 01:30 (Mag-Ox) 800 mg UNSCH PRN PO 04/27/17 01:30 Magnesium Sulfate 2 gm/Sodium Chloride 100 ml @ 50 mls/hr UNSCH PRN IV 04/27/17 01:30 (K-Phos) 2,000 mg Q4H PRN PO 04/27/17 01:30 Sodium Phosphate 30 mmol/Sodium Chloride 250 ml @ 42 mls/hr UNSCH PRN IV 04/27/17 01:30 (K-Phos) 2,000 mg UNSCH PRN PO/TUBE 04/27/17 01:30 Potassium Phosphate 30 mmol/ Sodium Chloride 260 ml @ 42 mls/hr UNSCH PRN IV 04/27/17 01:30 04/27/17 03:32 (Reglan Inj) 10 mg Q8HR IV PUSH 04/28/17 17:00 05/07/17 13:23 Propofol 100 ml @ 3.66 mls/hr TITRATE PRN IV 04/29/17 16:15 05/07/17 09:23 (Lovenox Inj) 40 mg Q24H SQ 05/04/17 11:00 05/06/17 10:06 (Apresoline Inj) 20 mg Q4H PRN IV PUSH 05/05/17 03:00 05/06/17 22:18 (Trandate Inj) 10 mg Q4H PRN IV PUSH 05/05/17 03:00 05/05/17 13:02 Cefepime HCl 2000 mg/Sodium Chloride 100 ml @ 200 mls/hr Q8H IV 05/05/17 18:00 05/07/17 09:15 Levofloxacin/ Dextrose 150 ml @ 100 mls/hr Q24H IV 05/05/17 21:00 05/06/17 22:19 (Free Water) VOLUME: 200 ML Q6HR G-TUBE 05/06/17 12:00 05/07/17 12:00 (Flagyl) 500 mg Q8HR PO 05/07/17 14:00 05/07/17 13:22 Allergies Allergies Coded Allergies No Known Allergies (Unverified04/23/17) Review of Systems All other ROS: Unable to obtain Exam I&O / VS 05/07/17 05/07/17 05/08/17 15:00 23:00 07:00 Intake Total 399 ml Output Total 1480 ml Balance -1081 ml IV Total 399 ml Output Urine Total 1480 ml Vital Signs Date Time Temp Pulse Resp B/P (MAP) Pulse Ox O2 Delivery O2 Flow Rate FiO2 05/07/17 12:53 96 40 05/07/17 10:30 97 100 05/07/17 10:17 96 50 05/07/17 10:00 122 05/07/17 08:13 98 40 05/07/17 08:00 121 05/07/17 08:00 99.8 121 22 157/86 (109) 95 05/07/17 08:00 50 05/07/17 06:00 123 05/07/17 04:46 21 05/07/17 04:28 95 40 05/07/17 04:00 126 05/07/17 04:00 40 05/07/17 04:00 100.8 126 21 165/87 (113) 95 05/07/17 02:00 133 05/07/17 01:04 95 40 05/07/17 00:00 100.5 128 25 165/92 (116) 94 05/07/17 00:00 40 05/07/17 00:00 128 05/06/17 22:24 95 40 05/06/17 22:00 121 05/06/17 20:09 95 40 05/06/17 20:00 117 05/06/17 20:00 99.4 117 20 162/89 (113) 94 05/06/17 20:00 40 05/06/17 18:00 109 05/06/17 16:30 102 20 137/76 (96) 94 05/06/17 16:07 96 40 05/06/17 16:00 105 05/06/17 16:00 99.2 105 19 130/75 (93) 98 05/06/17 16:00 40 05/06/17 15:30 106 20 131/75 (93) 97 05/06/17 15:00 106 21 124/71 (88) 94 05/06/17 14:30 108 22 129/67 (87) 92 Exam Comments intubated, stupor, non-verbal not following, partially opens eyes, grimaces today, + blink to threat, ou 3mm sluggish, mild localization with ue not le, no clonus, planterflexor Objective Micro and Labs Laboratory Tests Test 05/06/17 17:40 05/07/17 03:16 05/07/17 09:00 05/07/17 12:13 White Blood Count 10.9 11.8 Red Blood Count 2.50 2.75 Hemoglobin 8.1 8.7 Hematocrit 24.6 26.9 Mean Corpuscular Volume 98.3 98.1 Mean Corpuscular Hemoglobin 32.4 31.8 Mean Corpuscular Hemoglobin Concent 33.0 32.4 Red Cell Distribution Width 15.4 15.9 Platelet Count 224 284 Mean Platelet Volume 10.3 10.4 Blood Urea Nitrogen 17 16 Creatinine 0.43 0.45 Random Glucose 103 144 Calcium Level 8.1 8.3 Sodium Level 150 146 Potassium Level 4.0 3.7 Chloride Level 117 114 Carbon Dioxide Level 28.4 25.2 Anion Gap 5 7 Estimat Glomerular Filtration Rate 212 201 CSF Volume (Tube 1) 2.0 CSF Supernatant Color (tube 1) CLEAR CSF Gross Blood (Tube 1) 0 CSF Volume (Tube 2) 2.9 CSF Supernatant Color (tube 2) CLEAR CSF Gross Blood (Tube 2) 0 CSF Volume (Tube 3) 3.0 CSF Supernatant Color (tube 3) CLEAR CSF Gross Blood (Tube 3) 0 CSF Volume (Tube 4) 4.8 CSF Supernatant Color (tube 4) CLEAR CSF Gross Blood (Tube 4) 0 CSF WBC (Tube 4) 0 CSF RBC (Tube 4) 5 CSF Neutrophils 0 CSF Lymphocytes 0 CSF Glucose 81 CSF Total Protein 46.4 Date/Time Source Procedure Growth Status 05/05/17 00:40 Blood Peripheral Aerobic Blood Culture - Preliminary NO GROWTH IN 2 DAYS Resulted 05/05/17 00:40 Blood Peripheral Anaerobic Blood Culture - Final QNS - SEE AEROBE REPORT Resulted 05/07/17 09:00 Cerebral Spinal Fluid Lumbar Puncture Acid Fast Stain Pending Received 05/07/17 09:00 Cerebral Spinal Fluid Lumbar Puncture Mycobacterial Culture Pending Received 05/05/17 17:45 Sputum Endotracheal Gram Stain - Final Complete 05/05/17 17:45 Sputum Culture - Final Klebsiella Pneumoniae Complete 05/05/17 17:36 Urine Clean Catch Urine Culture - Final NO GROWTH IN 48 HOURS. Complete William Chua MD May 07, 2017 14:09
--- NOTE | 2017-05-07 14:15 | RADRPT ---
EXAM DATE/TIME: 05/07/2017 13:13 [facility] COMPARISON: CHEST SINGLE AP, May 04, 2017, 10:57. INDICATIONS : Shortness of breath, concern for pneumonia. MEDICAL HISTORY : Gastroesophageal reflux disease. SURGICAL HISTORY : None. ENCOUNTER: Initial ACUITY: 1 day PAIN SCORE: Non-responsive. LOCATION: Bilateral chest FINDINGS: Tracheostomy is present in good position. Nasogastric tube descends to the stomach. There has been re moval of a left subclavian central line. There is been slight improvement in aeration with decrease i n confluence of bilateral infiltrates. Cardiac contours are grossly stable. CONCLUSION: Slight improvement in aeration. Timbo Mccracken MD on May 07, 2017 at 14:13 Board Certified Radiologist. This report was verified electronically.
[2017-05-07 16:41] LABS: AUTOMATED NEUTROPHIL # 9.3 TH/MM3 (1.8-7.7); BASOPHIL # 0.1 TH/MM3 (0-0.2); BASOPHIL % 0.7 % (0.0-2.0); EOSINOPHIL % 0.1 % (0.0-4.0); HEMATOCRIT 24.8 % (39.0-51.0); LYMPH % 8.5 % (9.0-44.0); LYMPHOCYTE # 0.9 TH/MM3 (1.0-4.8); MEAN CELL VOLUME 97.9 FL (80.0-100.0); MEAN CORPUSCULAR HEMOGLOBIN 32.5 PG (27.0-34.0); MEAN CORPUSCULAR HGB CONC 33.2 % (32.0-36.0); MONO % 6.6 % (0.0-8.0); NEUT % 84.1 % (16.0-70.0); PLATELET COUNT 299 TH/MM3 (150-450); RED BLOOD COUNT 2.53 MIL/MM3 (4.50-5.90); RED CELL DISTRIBUTION WIDTH 14.8 % (11.6-17.2)
[2017-05-07 16:45] LABS: HEMO FLAGS AUTO DIFF
[2017-05-07 17:37] LABS: BANDS 13 % (0-6); NEUTROPHIL # MANUAL DIFF 9.4 TH/MM3 (1.8-7.7); PLATELET ESTIMATE SMEAR NORMAL (NORMAL); PLATELET MORPHOLOGY NORMAL (NORMAL); POLYS (SEG NEUTROPHILS) 72 % (16-70); SCAN/DIFF FINAL DIFF MANUAL; TOXIC GRANULATION 1+ (NORMAL); WBC DIFF SAMPLE 100
--- NOTE | 2017-05-07 19:35 | RADRPT ---
EXAM DATE/TIME: 05/07/2017 16:45 [facility] COMPARISON: No previous studies available for comparison. INDICATIONS : Bilateral leg swelling. MEDICAL HISTORY : Gastroesophageal reflux disease. Substance abuse. Migraine. Anxiety. SURGICAL HISTORY : hand surgery. ENCOUNTER: Initial ACUITY: 1 day PAIN SCORE: Non-responsive LOCATION: Bilateral legs. TECHNIQUE: Venous ultrasound of the left and right leg was performed from the inguinal ligament to the proximal calf. Real-time, color Doppler and spectral tracing, compression and augmentation techniques were us ed. FINDINGS: RIGHT LEG: There is normal compressibility of the deep venous system from the inguinal region to the proximal ca lf. No echogenic clot is seen in the lumen of the common femoral, femoral, popliteal, and posterior tibial veins. There is a normal response of the venous system to proximal and distal augmentation an d respiration. LEFT LEG: There is normal compressibility of the deep venous system from the inguinal region to the proximal ca lf. No echogenic clot is seen in the lumen of the common femoral, femoral, popliteal, and posterior tibial veins. There is a normal response of the venous system to proximal and distal augmentation an d respiration. CONCLUSION: Normal examination. Maikel Corley MD on May 07, 2017 at 19:34 Board Certified Radiologist. This report was verified electronically.
[2017-05-07] MEDS: LEVOFLOXACIN 750 MG PREMIX INJ 150 ML IV SCH (21:00)
[2017-05-08] VITALS (39 sets, daily range): BP systolic 130–173; BP diastolic 75–99; PULSE 94–204; RESP 2–32; TEMP 99.1–100.8; O2SAT 93–100
[2017-05-08] MEDS: CEFEPIME INJ 2,000 MG in SODIUM CHLORIDE 0.9% INJ 100 ML IV SCH ×3 (02:29→17:25)
[2017-05-08] MEDS ORDERED: ADENOSINE IV SOLN 3 MG/ML 2 ML VIAL IV PUSH ONE ×2 (02:45→05:00)
[2017-05-08] MEDS ORDERED: LACTATED RINGER'S 1000 ML INJ 1,000 ML IV ONE (03:00)
[2017-05-08] MEDS: CHLORHEXIDINE GLUCONATE 2 % 1 PACK (2 CLOTHS) TOP SCH (03:22)
[2017-05-08 05:19] LABS: AUTOMATED NEUTROPHIL # 8.7 TH/MM3 (1.8-7.7); BASOPHIL % 0.4 % (0.0-2.0); EOSINOPHIL % 0.2 % (0.0-4.0); HEMATOCRIT 25.3 % (39.0-51.0); LYMPH % 14.1 % (9.0-44.0); LYMPHOCYTE # 1.6 TH/MM3 (1.0-4.8); MEAN CELL VOLUME 96.6 FL (80.0-100.0); MEAN CORPUSCULAR HEMOGLOBIN 31.7 PG (27.0-34.0); MEAN CORPUSCULAR HGB CONC 32.8 % (32.0-36.0); MONO % 8.2 % (0.0-8.0); NEUT % 77.1 % (16.0-70.0); PLATELET COUNT 356 TH/MM3 (150-450); RED BLOOD COUNT 2.62 MIL/MM3 (4.50-5.90); RED CELL DISTRIBUTION WIDTH 14.8 % (11.6-17.2); WHITE BLOOD COUNT 11.2 TH/MM3 (4.0-11.0)
[2017-05-08 05:22] LABS: HEMO FLAGS AUTO DIFF
[2017-05-08 05:50] LABS: ANION GAP 6 MEQ/L (5-15); AST (GOT) 49 U/L (15-37); BICARBONATE 24.7 MEQ/L (21.0-32.0); BLOOD UREA NITROGEN 17 MG/DL (7-18); CHLORIDE 112 MEQ/L (98-107); GLOMERULAR FILTRATION RATE 191 ML/MIN (>89); MAGNESIUM 1.9 MG/DL (1.5-2.5); POTASSIUM 3.4 MEQ/L (3.5-5.1); SODIUM (NA) 143 MEQ/L (136-145)
[2017-05-08 05:51] LABS: ALT (GPT) 45 U/L (12-78)
[2017-05-08 05:53] LABS: ALKALINE PHOSPHATASE 136 U/L (45-117); TOTAL BILIRUBIN ADULT 0.5 MG/DL (0.2-1.0)
[2017-05-08] MEDS: FREE WATER G-TUBE SCH ×5 (06:00→23:15)
[2017-05-08 06:07] LABS: BANDS 5 % (0-6); BLASTS 1 % (0-0); MYELOCYTES 1 % (0-0); NEUTROPHIL # MANUAL DIFF 8.7 TH/MM3 (1.8-7.7); PLATELET ESTIMATE SMEAR NORMAL (NORMAL); PLATELET MORPHOLOGY NORMAL (NORMAL); POLYS (SEG NEUTROPHILS) 71 % (16-70); PROMYELOCYTES 1 % (0-0); SCAN/DIFF FINAL DIFF MANUAL; STOMATOCYTES 1+ (NORMAL); WBC DIFF SAMPLE 100
[2017-05-08] MEDS: DOCUSATE SODIUM 50 MG/SENNA 8.6 MG TAB PO SCH ×2 (08:43→21:49)
[2017-05-08] MEDS: TOPIRAMATE 25 MG TAB PO SCH ×2 (08:43→21:49)
[2017-05-08] MEDS: POTASSIUM CHLOR 20 MEQ PREMIX 100 ML IV PRN ×3 (08:45→23:11)
[2017-05-08] MEDS: ARTIFICIAL TEARS OPTH SOLN 15 ML BTL EACH EYE SCH ×3 (08:53→17:27)
[2017-05-08] MEDS: CHLORHEXIDINE 0.12% (ORAL KIT) 15 ML CUP MT SCH ×2 (08:53→21:51)
[2017-05-08] MEDS: SODIUM CHLORIDE 0.9% FLUSH 10 ML FLUSH SCH ×2 (08:56→21:51)
[2017-05-08] MEDS: FAMOTIDINE 20 MG TAB PO SCH (08:57)
[2017-05-08] MEDS: metroNIDAZOLE 500 MG TAB PO SCH ×3 (08:57→21:49)
[2017-05-08] MEDS: METOCLOPRAMIDE HCL 10 MG/2 ML VIAL IV PUSH SCH ×3 (08:58→21:50)
--- NOTE | 2017-05-08 09:29 | HHI.IDPN ---
Subjective Subjective Remarks Patient is a 46-year-old male who was initially admitted on April 23 complaining of 5 day history of cough with sputum production as well as fever. He was also having some diarrhea. It was during that time, he was in [facility] where he went in for drug rehabilitation. When he presented, the patient was afebrile, and his chest x-ray showed evidence of pneumonia. He was started on antibiotics, and he had an HIV testing done which came back negative. Patient however signed out AGAINST MEDICAL ADVICE on April 25. He reportedly used some drugs, and his brother forced him to go back to the hospital and he got readmitted April 25. He had evidence of increasing pulmonary infiltrates, and he ended up getting intubated. He has been on the vent since. He had some problem with A. fib, and he converted to normal sinus rhythm. Patient has still been requiring ventilatory support. He had some fevers from 926 2 around April 30, and his temperatures improved. His cultures on readmission were negative. His sputum had normal ronaldo, Legionella and pneumococcal antigen were negative. Blood cultures were negative. Urine culture were negative. Patient has been getting broad-spectrum antibiotics which include Zosyn and vancomycin. Since yesterday patient started having high fevers again. He has copious thick light yellow to whitman endotracheal secretions. His hemodynamics are okay. He remains on the vent, and has not been able to be weaned. He has a Perez in place. Has a central line in the left subclavian. Patient also had problem with thrombocytopenia and anemia, and hematology evaluated him. His numbers have improved. Infectious disease consultation has been requested to evaluate the patient. Notes reviewed Still with low grade temps S/P trach 05/06 Had LP done yesterday OP elevated, but CSF results normal Brain MRI negative MRA/MRV normal US no DVT BLE He is awake, focusing, but not following commands On CPAP this morning, not SOB BC all negative Last sputum C/S with Klebsiella Antibiotics Cefepime IV Levaquin IV Flagyl PO Lines PIV Line sites with no e.o infection Past Medical History Anxiety Depression Substance abuse Past Surgical History Cleft palate surgery Right hand surgery Bilateral ear surgery Allergies: Coded Allergies: No Known Allergies (Unverified , 04/23/17) Objective . Vital Signs Date Time Temp Pulse Resp B/P (MAP) Pulse Ox O2 Delivery O2 Flow Rate FiO2 05/08/17 08:28 97 40 05/08/17 06:00 124 05/08/17 04:48 99 40 05/08/17 04:00 121 05/08/17 04:00 100.2 121 18 149/87 (107) 99 05/08/17 04:00 40 05/08/17 02:00 127 05/08/17 01:21 99 40 05/08/17 00:00 116 05/08/17 00:00 100.1 116 27 150/87 (108) 98 05/08/17 00:00 40 05/07/17 22:15 98 40 05/07/17 22:00 125 05/07/17 21:16 95 40 05/07/17 20:00 40 05/07/17 20:00 100.4 111 18 165/94 (117) 94 05/07/17 20:00 111 05/07/17 18:00 120 05/07/17 16:37 97 40 05/07/17 16:00 100.0 120 17 166/96 (119) 95 05/07/17 16:00 40 05/07/17 16:00 120 05/07/17 14:00 115 05/07/17 12:53 96 40 05/07/17 12:00 125 05/07/17 12:00 99.2 125 18 165/94 (117) 96 05/07/17 12:00 50 05/07/17 10:30 97 100 05/07/17 10:17 96 50 05/07/17 10:00 122 05/08/17 05/08/17 05/09/17 15:00 23:00 07:00 Intake Total 4 ml Balance 4 ml IV Total 4 ml . Laboratory Tests Test 05/06/17 17:40 05/07/17 03:16 05/07/17 16:23 05/08/17 04:39 White Blood Count 10.9 TH/MM3 11.8 TH/MM3 11.0 TH/MM3 11.2 TH/MM3 Red Blood Count 2.50 MIL/MM3 2.75 MIL/MM3 2.53 MIL/MM3 2.62 MIL/MM3 Hemoglobin 8.1 GM/DL 8.7 GM/DL 8.2 GM/DL 8.3 GM/DL Hematocrit 24.6 % 26.9 % 24.8 % 25.3 % Mean Corpuscular Volume 98.3 FL 98.1 FL 97.9 FL 96.6 FL Mean Corpuscular Hemoglobin 32.4 PG 31.8 PG 32.5 PG 31.7 PG Mean Corpuscular Hemoglobin Concent 33.0 % 32.4 % 33.2 % 32.8 % Red Cell Distribution Width 15.4 % 15.9 % 14.8 % 14.8 % Platelet Count 224 TH/MM3 284 TH/MM3 299 TH/MM3 356 TH/MM3 Mean Platelet Volume 10.3 FL 10.4 FL 10.4 FL 9.9 FL Neutrophils (%) (Auto) 84.1 % 77.1 % Lymphocytes (%) (Auto) 8.5 % 14.1 % Monocytes (%) (Auto) 6.6 % 8.2 % Eosinophils (%) (Auto) 0.1 % 0.2 % Basophils (%) (Auto) 0.7 % 0.4 % Neutrophils # (Auto) 9.3 TH/MM3 8.7 TH/MM3 Lymphocytes # (Auto) 0.9 TH/MM3 1.6 TH/MM3 Monocytes # (Auto) 0.7 TH/MM3 0.9 TH/MM3 Eosinophils # (Auto) 0.0 TH/MM3 0.0 TH/MM3 Basophils # (Auto) 0.1 TH/MM3 0.0 TH/MM3 CBC Comment AUTO DIFF AUTO DIFF Differential Total Cells Counted 100 100 Neutrophils % (Manual) 72 % 71 % Band Neutrophils % 13 % 5 % Lymphocytes % 8 % 12 % Monocytes % 7 % 9 % Neutrophils # (Manual) 9.4 TH/MM3 8.7 TH/MM3 Differential Comment FINAL DIFF MANUAL FINAL DIFF MANUAL Toxic Granulation 1+ Platelet Estimate NORMAL NORMAL Platelet Morphology Comment NORMAL NORMAL Red Cell Morphology Comment NORMAL Myelocytes 1 % Promyelocytes 1 % Blastocytes 1 % Stomatocytes 1+ Laboratory Tests Test 05/06/17 17:40 05/07/17 03:16 05/08/17 04:39 Blood Urea Nitrogen 17 MG/DL 16 MG/DL 17 MG/DL Creatinine 0.43 MG/DL 0.45 MG/DL 0.47 MG/DL Random Glucose 103 MG/DL 144 MG/DL 130 MG/DL Calcium Level 8.1 MG/DL 8.3 MG/DL 8.2 MG/DL Sodium Level 150 MEQ/L 146 MEQ/L 143 MEQ/L Potassium Level 4.0 MEQ/L 3.7 MEQ/L 3.4 MEQ/L Chloride Level 117 MEQ/L 114 MEQ/L 112 MEQ/L Carbon Dioxide Level 28.4 MEQ/L 25.2 MEQ/L 24.7 MEQ/L Anion Gap 5 MEQ/L 7 MEQ/L 6 MEQ/L Estimat Glomerular Filtration Rate 212 ML/MIN 201 ML/MIN 191 ML/MIN Total Protein 6.6 GM/DL Albumin 1.3 GM/DL Phosphorus Level 2.7 MG/DL Magnesium Level 1.9 MG/DL Alkaline Phosphatase 136 U/L Aspartate Amino Transf (AST/SGOT) 49 U/L Alanine Aminotransferase (ALT/SGPT) 45 U/L Total Bilirubin 0.5 MG/DL Microbiology Date/Time Source Procedure Growth Status 05/07/17 09:00 Cerebral Spinal Fluid Lumbar Puncture Acid Fast Stain Pending Received 05/07/17 09:00 Cerebral Spinal Fluid Lumbar Puncture Mycobacterial Culture Pending Received 05/07/17 09:00 Cerebral Spinal Fluid Lumbar Puncture Gram Stain - Final Resulted 05/07/17 09:00 Cerebral Spinal Fluid Lumbar Puncture CSF Culture - Preliminary NO GROWTH IN 24 HOURS. Resulted 05/05/17 17:45 Sputum Endotracheal Gram Stain - Final Complete 05/05/17 17:45 Sputum Culture - Final Klebsiella Pneumoniae Complete 05/05/17 17:36 Urine Clean Catch Urine Culture - Final NO GROWTH IN 48 HOURS. Complete Imaging Lower Extremity Ultrasound 05/07/17 Signed Impressions: Service Date/Time: Sunday, May 07, 2017 16:45 - CONCLUSION: Normal examination. Maikel Corley MD Head/Brain Mag Res Venography 05/07/17 Signed Impressions: Service Date/Time: Sunday, May 07, 2017 10:43 - CONCLUSION: 1. No findings to indicate venous sinus thrombosis identified. Rj Dolan MD Head Magnetic Resonance Angiography 05/07/17 Signed Impressions: Service Date/Time: Sunday, May 07, 2017 10:43 - CONCLUSION: 1. Normal examination. Rj Dolan MD Chest X-Ray 05/07/17 Signed Impressions: Service Date/Time: Sunday, May 07, 2017 13:13 - CONCLUSION: Slight improvement in aeration. Timbo Mccracken MD Brain MRI 05/07/17 Signed Impressions: Service Date/Time: Sunday, May 07, 2017 10:43 - CONCLUSION: 1. Negative examination. Rj Dolan MD Last Impressions Head CT 05/05/17 0000 Signed Impressions: Service Date/Time: Friday, May 05, 2017 16:08 - CONCLUSION: No acute intracranial disease. Nickolas Valentin MD Chest X-Ray 05/04/17 1019 Signed Impressions: Service Date/Time: April 10:57 - CONCLUSION: No significant interval change Timbo Mccracken MD Chest CT 05/01/17 0000 Signed Impressions: Service Date/Time: Monday, May 01, 2017 18:24 - CONCLUSION: 1. Bilateral areas of consolidation. These alveolar consolidations are worse on the left than the right. They are nonspecific. Diffuse underlying processes such as infection/pneumonia need to be considered. Other diffuse processes could have a similar appearance. 2. Mild left pleural effusion primarily in the subpleural region and a minimal right pleural effusion. 3. Minimal prominent lymph nodes in the right paratracheal region. Timbo Escudero MD Physical Exam GENERAL: Awake, focusing, not following commands, looks comfortable on CPAP SKIN: Warm and dry. No generalized rash, no ecchymoses and no evidence of embolic lesions. HEAD: Atraumatic. Normocephalic. No temporal wasting, or tenderness. EYES: Allyn conjunctiva. No petechia or hemorrhage. Pupils equal, round and reactive to light. No scleral icterus. No injection or drainage. EARS, NOSE AND THROAT: Nose without bleeding or purulent nasal discharge. Moist mucosa. NECK: Trachea midline. Supple and not tender, no meningeal sign. Trach site ok CARDIOVASCULAR: Regular rate and rhythm. No murmurs, rubs or gallops heard RESPIRATORY: Coarse breath sounds bilaterally, rales at both bases, worse on L than on R ABDOMEN: Soft, obese, nondistended, bowel sounds present and normoactive. Not tender, no guarding EXTREMITIES: No clubbing, cyanosis. Has some pedal edema. No joint effusion. Well perfused and warm. NEUROLOGICAL: Awake and focusing, not following commands. No Babinski, no ankle clonus PSYCHIATRIC: Unable to assess LINE: PIV, no evidence of infection Assessment & Plan Remarks IMPRESSION Sepsis, with recurrent fevers, etiology? - ?new HCAP - no perez - central line out - nothing new on C/S, has Klebsiella in sputum - CXR better Bilateral infiltrates, CXR better now Encephalopathy - LP negative, imaging studies negative - OP elevated on his LP Respiratory failure, S/P trach Known polysubstance abuse RECOMMENDATION Continue Cefepime IV Also on flagyl oral for anaerobic coverage for possible aspiration PNA and assess response. Also on levaquin Follow C/S Monitor temps Weaning per [facility] Ophtha consult pending - to check for papilledema Monitor progress Asya Haro MD May 08, 2017 09:29
[2017-05-08] MEDS ORDERED: CALCIUM GLUCONATE INJ 2 GM in DEXTROSE 5% IN WATER 100ML INJ 100 ML IV ONE ×2 (10:45)
[2017-05-08] MEDS ORDERED: METOPROLOL TARTRATE 5 MG/5 ML VIAL ONE (10:50)
[2017-05-08] MEDS: METOPROLOL TARTRATE 5 MG/5 ML VIAL IV PUSH SCH ×3 (11:30→23:15)
--- NOTE | 2017-05-08 12:08 | PD.CONS ---
History of Present Illness Service Ophthalmology Consult Requested By Dr. Rivera Reason for Consult evaluate for papilledema Primary Care Physician No Primary Care Physician Diagnoses: History of Present Illness 46 yo male with a past medical history of anxiety, depression and substance abuse, who was initially admitted on April 23 from [facility] (drug rehab) with cough with sputum production as well as fever. His chest x-ray showed evidence of pneumonia. He was started on antibiotics, and he had an HIV testing done which came back negative. Patient however signed out AMA on April 25. He reportedly used some drugs, and his brother forced him to go back to the hospital and he got readmitted April 25. He had evidence of increasing pulmonary infiltrates, and he ended up getting intubated. s/p trach - currently encephalopathic with unknown etiology. MRI/MRA/MRV of brain normal. LP opening pressure was 43. Ophthalmology called to evaluate for papilledema. Pt is non-verbal and not following commands. Past Family Social History Allergies: Coded Allergies: No Known Allergies (Unverified , 04/23/17) Physical Exam Vital Signs Vital Signs Date Time Temp Pulse Resp B/P (MAP) Pulse Ox O2 Delivery O2 Flow Rate FiO2 05/08/17 11:02 40 05/08/17 10:45 97 40 05/08/17 10:07 40 05/08/17 10:05 95 T-piece 6.00 40 05/08/17 08:45 40 05/08/17 08:28 97 40 05/08/17 08:00 100.8 135 14 173/94 (120) 97 05/08/17 08:00 40 05/08/17 08:00 135 05/08/17 07:00 40 05/08/17 06:00 124 05/08/17 04:48 99 40 05/08/17 04:00 121 05/08/17 04:00 100.2 121 18 149/87 (107) 99 05/08/17 04:00 40 05/08/17 02:00 127 05/08/17 01:21 99 40 05/08/17 00:00 116 05/08/17 00:00 100.1 116 27 150/87 (108) 98 05/08/17 00:00 40 05/07/17 22:15 98 40 05/07/17 22:00 125 05/07/17 21:16 95 40 05/07/17 20:00 40 05/07/17 20:00 100.4 111 18 165/94 (117) 94 05/07/17 20:00 111 05/07/17 18:00 120 05/07/17 16:37 97 40 05/07/17 16:00 100.0 120 17 166/96 (119) 95 05/07/17 16:00 40 05/07/17 16:00 120 05/07/17 14:00 115 05/07/17 12:53 96 40 05/07/17 12:00 125 05/07/17 12:00 99.2 125 18 165/94 (117) 96 05/07/17 12:00 50 Physical Exam Va unable EOM unable CVF unable Pupils 3-1 no APD OU IOP normal to palpation OU Anterior exam OD - normal eyelid, C/S W&Q, K clear, AC deep, pupil round, lens clear OS - normal eyelid, C/S W&Q, K clear, AC deep, pupil round, lens clear Dilated exam OD - ON s/p/f, ves normal, vit clear, retina flat OS - ON s/p/f, ves normal, vit clear, retina flat Laboratory Laboratory Tests Test 05/07/17 12:13 05/07/17 16:23 05/08/17 04:39 White Blood Count 11.0 11.2 Red Blood Count 2.53 2.62 Hemoglobin 8.2 8.3 Hematocrit 24.8 25.3 Mean Corpuscular Volume 97.9 96.6 Mean Corpuscular Hemoglobin 32.5 31.7 Mean Corpuscular Hemoglobin Concent 33.2 32.8 Red Cell Distribution Width 14.8 14.8 Platelet Count 299 356 Mean Platelet Volume 10.4 9.9 Neutrophils (%) (Auto) 84.1 77.1 Lymphocytes (%) (Auto) 8.5 14.1 Monocytes (%) (Auto) 6.6 8.2 Eosinophils (%) (Auto) 0.1 0.2 Basophils (%) (Auto) 0.7 0.4 Neutrophils # (Auto) 9.3 8.7 Lymphocytes # (Auto) 0.9 1.6 Monocytes # (Auto) 0.7 0.9 Eosinophils # (Auto) 0.0 0.0 Basophils # (Auto) 0.1 0.0 CBC Comment AUTO DIFF AUTO DIFF Differential Total Cells Counted 100 100 Neutrophils % (Manual) 72 71 Band Neutrophils % 13 5 Lymphocytes % 8 12 Monocytes % 7 9 Neutrophils # (Manual) 9.4 8.7 Differential Comment FINAL DIFF MANUAL FINAL DIFF MANUAL Toxic Granulation 1+ Platelet Estimate NORMAL NORMAL Platelet Morphology Comment NORMAL NORMAL Red Cell Morphology Comment NORMAL Myelocytes 1 Promyelocytes 1 Blastocytes 1 Stomatocytes 1+ Blood Urea Nitrogen 17 Creatinine 0.47 Random Glucose 130 Total Protein 6.6 Albumin 1.3 Calcium Level 8.2 Phosphorus Level 2.7 Magnesium Level 1.9 Alkaline Phosphatase 136 Aspartate Amino Transf (AST/SGOT) 49 Alanine Aminotransferase (ALT/SGPT) 45 Total Bilirubin 0.5 Sodium Level 143 Potassium Level 3.4 Chloride Level 112 Carbon Dioxide Level 24.7 Anion Gap 6 Estimat Glomerular Filtration Rate 191 Date/Time Source Procedure Growth Status 05/05/17 00:40 Blood Peripheral Aerobic Blood Culture - Preliminary NO GROWTH IN 3 DAYS Resulted 05/05/17 00:40 Blood Peripheral Anaerobic Blood Culture - Final QNS - SEE AEROBE REPORT Resulted 05/07/17 09:00 Cerebral Spinal Fluid Lumbar Puncture Acid Fast Stain Pending Received 05/07/17 09:00 Cerebral Spinal Fluid Lumbar Puncture Mycobacterial Culture Pending Received 05/05/17 17:45 Sputum Endotracheal Gram Stain - Final Complete 05/05/17 17:45 Sputum Culture - Final Klebsiella Pneumoniae Complete 05/05/17 17:36 Urine Clean Catch Urine Culture - Final NO GROWTH IN 48 HOURS. Complete Result Diagram: 05/08/17 0439 05/08/17 0439 Assessment and Plan Problem List: (1) Acute encephalopathy ICD Codes: G93.40 - Encephalopathy, unspecified Status: Acute Plan: Difficult exam due to patient being uncooperative. Normal dilated exam. No papilledema present. Jazlyn Yost MD May 08, 2017 12:08
[2017-05-08] MEDS: ACETAMINOPHEN 325 MG TAB PO PRN (14:16)
[2017-05-08] MEDS: ENOXAPARIN SODIUM 40 MG/0.4 ML SYRINGE SQ SCH (14:16)
--- NOTE | 2017-05-08 18:12 | HHI.CCPN ---
Subjective Remarks/Hospital Course 04/25: This is a 46-year-old male with a past medical history of Anxiety, Depression and Substance Abuse was initially sent to the emergency room April 23, 2017 by EMS from [facility] for cough and fever x2 days. Per records, patient had Temp 104.7. At that time patient denied SOB, chest pain, nausea, vomiting or diarrhea. He was admitted to medical [facility] however the patient left this morning against medical advise despite the treatment of pneumonia. After leaving this morning he has had some alcohol to drink and smoked some methamphetamine. His brother brought him back for reevaluation and treatment for his pneumonia. In the emergency department his oxygen saturations were in the low 80s on room air, patient was constantly removing to his oxygen mask and would not tolerate any BiPAP. He became extremely agitated combative and was intubated by me for an airway protection and severe hypoxemia. 04/26: Remains sedated, orally intubated on mechanical ventilation. Went into A. fib last night currently ventricular rate 130s. 04/27: Remains sedated, orally intubated on mechanical ventilation. Converted back to sinus rhythm with amiodarone gtt. which continues. Receiving IV calcium gluconate for hypocalcemia. Temperature spike up to 105 last night. 04/28: Remains sedated, orally intubated on mechanical ventilation. Not tolerating tube feeds with high residuals. On Versed/propofol and fentanyl drips. 04/29: Sedated, orally intubated on mechanical ventilation. 04/30: Remains sedated, orally intubated on mechanical ventilation. 05/01: Remains sedated, orally intubated on mechanical ventilation. Not tolerating tube feeds overnight. 05/02: Remains sedated, orally intubated on mechanical ventilation. Will attempt restarting tube feeds. Discontinue fentanyl/Versed drips. Propofol for sedation to be continued 05/03: Remains sedated, orally intubated on mechanical ventilation. Remains on PEEP +12 FiO2 50%. 05/04: Sedated, orally intubated on mechanical ventilation. Daily sedation vacation ongoing. PEEP decreased to +8, FiO2 decreased to 40% 05/05: Encephalopathic off sedation, orally intubated on mechanical ventilation. Starts hyperventilating however not significant improvement in level of consciousness on holding sedation last few days. 05/06: no improvements. has been intubated for 9 days without any neurologic improvements at all. off sedation, RASS -4. continues to be febrile. wbc elevated. not improving. will need trach soon. 05/07: still encephalopathic. MRI pending for today. neuro evaluated the patient and requested LP. s/p trach yesterday. 05/08: Awake however remains encephalopathic. Tolerated C Pap trial and was placed on T piece however subsequently developed SVT for which she received and Indocin 12 mg IV stat and converted to sinus rhythm. His baseline rhythm has been sinus tachycardia since stopping sedation with heart rate 120s to 130s. Started Lopressor 5 mill grams IV every 6 hourly. No papilledema per ophthalm eval. Objective Vital Signs Date Time Temp Pulse Resp B/P (MAP) Pulse Ox O2 Delivery O2 Flow Rate FiO2 05/08/17 16:00 40 05/08/17 16:00 102 05/08/17 16:00 99.6 19 130/77 (94) 96 05/08/17 10:05 T-piece 6.00 Intake and Output 05/08/17 05/08/17 05/09/17 08:00 16:00 00:00 Intake Total 2269 ml 713 ml 1318 ml Output Total 3600 ml 3950 ml Balance -1331 ml 713 ml -2632 ml Result Diagram: 05/08/17 0439 05/08/17 0439 Imaging Last 48 hours Impressions Chest X-Ray 05/04/17 1019 Signed Impressions: Service Date/Time: April 10:57 - CONCLUSION: No significant interval change Timbo Mccracken MD Last [address] 05/01/17 0000 Signed Impressions: Service Date/Time: Monday, May 01, 2017 18:24 - CONCLUSION: 1. Bilateral areas of consolidation. These alveolar consolidations are worse on the left than the right. They are nonspecific. Diffuse underlying processes such as infection/pneumonia need to be considered. Other diffuse processes could have a similar appearance. 2. Mild left pleural effusion primarily in the subpleural region and a minimal right pleural effusion. 3. Minimal prominent lymph nodes in the right paratracheal region. Timbo Escudero MD Last 24 hours Impressions Chest X-Ray 04/25/17 1712 Signed Impressions: Service Date/Time: Tuesday, April 25, 2017 17:34 - CONCLUSION: Left greater than right airspace disease and left pleural effusion, all worse. Timbo Newsome MD Chest X-Ray 04/25/17 0000 Signed Impressions: Service Date/Time: Tuesday, April 25, 2017 20:52 - CONCLUSION: 1. As intermittent tracheal tube and nasogastric tube placement as above. 2. Left greater than right consolidation and small moderate left pleural effusion are again noted. Timbo Newsome MD Objective Remarks HEENT/ Neuro: Awake, has spontaneous eye opening however not following commands and remains encephalopathic, Pallor present, no icterus, tongue/ mucosa moist. Pupils bilaterally 4mm, reactive. Neck: No JVD. fresh trach without signs of bleeding. Chest/Pulm: on mech vent, good air entry bilaterally, scattered rhonchi, no wheezing or crackles. CVS: normal rate, regular rhythm. sinus by tele. GI/abdomen: soft, nontender, nondistended. no guarding. Extremities: warm bilaterally, no edema A/P Assessment and Plan Assessment: 46yM with acute toxic encephalopathy and acute hypoxic respiratory failure. Clinically not improving. will proceed with LP and MRI today. appreciate neuro input. remains critically ill off pathway with significant encephalopathy of unknown etiology. Acute Respiratory failure on mechanical ventilation - Underlying pneumonia -Stopped propofol. currently encephalopathic off all sedation. - Continue mechanical ventilation. Daily C Pap trials, T piece as tolerated - Continue DuoNeb's - IV antibiotics for pneumonia treatment - s/p trach 05/06 Healthcare Associated Pneumonia -Follow up cultures - sputum growing Klebsiella. -Antibiotics per ID - Follow CXR Toxic Encephalopathy - Intoxication - Polysubstance abuse - Non focal neurological exam - Monitor for withdrawal - MRI brain unremarkable - neuro consult noted - EEG showing severe slowing. - LP unremarkable, elevated opening pressure while intubated on mechanical ventilation ? Significance. 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 A. fib with RVR - converted to sinus rhythm SVT-converted with Adenosine 12 mg IV on 05/08 -Off amiodarone drip. Cardiology consult noted Hypernatremia - free water replacement - trend daily BMP. Thrombocytopenia- resolved. - previous admission - 43 - no active bleeding. - Will monitor. - Consulted hematology for further evaluation. Okay with resuming Lovenox for DVT prophylaxis as platelet count has normalized. DVT Prophylaxis - Teds SCDs - Lovenox for DVT prophylaxis on 05/04 - discussed with Dr. Conner (held for LP. resume after LP) - Pepcid Continue tube feeds and advance to goal as tolerated. Singh Perez MD May 08, 2017 18:12
[2017-05-08] MEDS: LEVOFLOXACIN 750 MG PREMIX INJ 150 ML IV SCH (21:50)
[2017-05-09] VITALS (34 sets, daily range): BP systolic 121–152; BP diastolic 73–109; PULSE 87–121; RESP 13–27; TEMP 99–100.9; O2SAT 93–100
[2017-05-09] MEDS: CHLORHEXIDINE GLUCONATE 2 % 1 PACK (2 CLOTHS) TOP SCH (01:32)
[2017-05-09] MEDS: CEFEPIME INJ 2,000 MG in SODIUM CHLORIDE 0.9% INJ 100 ML IV SCH ×2 (01:32→07:29)
[2017-05-09] MEDS: POTASSIUM CHLOR 20 MEQ PREMIX 100 ML IV PRN ×3 (01:33→10:09)
[2017-05-09 05:51] LABS: HEMATOCRIT 24.6 % (39.0-51.0); MEAN CELL VOLUME 96.4 FL (80.0-100.0); MEAN CORPUSCULAR HGB CONC 33.3 % (32.0-36.0); PLATELET COUNT 343 TH/MM3 (150-450); RED BLOOD COUNT 2.55 MIL/MM3 (4.50-5.90); RED CELL DISTRIBUTION WIDTH 14.3 % (11.6-17.2); REVIEW FLAG FINAL
[2017-05-09] MEDS: FREE WATER G-TUBE SCH ×4 (06:00→22:08)
[2017-05-09] MEDS: metroNIDAZOLE 500 MG TAB PO SCH ×3 (06:05→21:54)
[2017-05-09] MEDS: METOPROLOL TARTRATE 5 MG/5 ML VIAL IV PUSH SCH ×4 (06:05→21:53)
[2017-05-09] MEDS: METOCLOPRAMIDE HCL 10 MG/2 ML VIAL IV PUSH SCH ×3 (06:05→21:54)
[2017-05-09 06:07] LABS: BICARBONATE 24.4 MEQ/L (21.0-32.0); POTASSIUM 3.3 MEQ/L (3.5-5.1)
[2017-05-09] MEDS: DOCUSATE SODIUM 50 MG/SENNA 8.6 MG TAB PO SCH ×2 (07:18→21:54)
[2017-05-09] MEDS: TOPIRAMATE 25 MG TAB PO SCH ×2 (07:28→22:07)
[2017-05-09] MEDS: FAMOTIDINE 20 MG TAB PO SCH (07:28)
[2017-05-09] MEDS: CHLORHEXIDINE 0.12% (ORAL KIT) 15 ML CUP MT SCH ×2 (07:29→21:53)
[2017-05-09] MEDS: ARTIFICIAL TEARS OPTH SOLN 15 ML BTL EACH EYE SCH ×3 (07:29→17:31)
[2017-05-09] MEDS: SODIUM CHLORIDE 0.9% FLUSH 10 ML FLUSH SCH ×2 (07:29→21:53)
--- NOTE | 2017-05-09 09:47 | HHI.IDPN ---
Subjective Subjective Remarks Patient is a 46-year-old male who was initially admitted on April 23 complaining of 5 day history of cough with sputum production as well as fever. He was also having some diarrhea. It was during that time, he was in [facility] where he went in for drug rehabilitation. When he presented, the patient was afebrile, and his chest x-ray showed evidence of pneumonia. He was started on antibiotics, and he had an HIV testing done which came back negative. Patient however signed out AGAINST MEDICAL ADVICE on April 25. He reportedly used some drugs, and his brother forced him to go back to the hospital and he got readmitted April 25. He had evidence of increasing pulmonary infiltrates, and he ended up getting intubated. He has been on the vent since. He had some problem with A. fib, and he converted to normal sinus rhythm. Patient has still been requiring ventilatory support. He had some fevers from 926 2 around April 30, and his temperatures improved. His cultures on readmission were negative. His sputum had normal ronaldo, Legionella and pneumococcal antigen were negative. Blood cultures were negative. Urine culture were negative. Patient has been getting broad-spectrum antibiotics which include Zosyn and vancomycin. Since yesterday patient started having high fevers again. He has copious thick light yellow to whitman endotracheal secretions. His hemodynamics are okay. He remains on the vent, and has not been able to be weaned. He has a Perez in place. Has a central line in the left subclavian. Patient also had problem with thrombocytopenia and anemia, and hematology evaluated him. His numbers have improved. Infectious disease consultation has been requested to evaluate the patient. Notes reviewed Still with low grade temps On CPAP Awake, focusing, but not following commands S/P trach 05/06 Brain MRI negative MRA/MRV normal US no DVT BLE BC all negative Last sputum C/S with Klebsiella UC negative Last CXR 05/07 - better aeration Ophtha evaluation - no papilledema Antibiotics Cefepime IV Levaquin IV Flagyl PO Lines PIV Line sites with no e.o infection Past Medical History Anxiety Depression Substance abuse Past Surgical History Cleft palate surgery Right hand surgery Bilateral ear surgery Allergies: Coded Allergies: No Known Allergies (Unverified , 04/23/17) Objective . Vital Signs Date Time Temp Pulse Resp B/P (MAP) Pulse Ox O2 Delivery O2 Flow Rate FiO2 05/09/17 08:15 99 40 05/09/17 08:15 40 05/09/17 08:00 100.2 106 21 134/82 (99) 100 05/09/17 08:00 106 05/09/17 08:00 40 05/09/17 06:00 119 05/09/17 04:04 97 40 05/09/17 04:00 99.7 121 18 152/109 (123) 97 05/09/17 04:00 121 05/09/17 04:00 40 05/09/17 02:00 104 05/09/17 00:00 40 05/09/17 00:00 105 05/09/17 00:00 100.9 104 18 139/83 (101) 98 05/08/17 23:50 99 40 05/08/17 22:00 110 05/08/17 22:00 110 24 135/90 (105) 97 05/08/17 21:30 115 25 153/92 (112) 94 05/08/17 21:00 106 21 138/90 (106) 98 05/08/17 20:30 95 16 131/82 (98) 99 05/08/17 20:25 100 40 05/08/17 20:00 40 05/08/17 20:00 100 05/08/17 20:00 99.1 100 20 136/85 (102) 99 05/08/17 18:00 94 05/08/17 18:00 94 22 136/86 (103) 100 05/08/17 17:30 114 28 134/87 (103) 98 05/08/17 17:00 103 22 140/83 (102) 97 05/08/17 16:00 40 05/08/17 16:00 102 05/08/17 16:00 99.6 102 19 130/77 (94) 96 05/08/17 16:00 102 19 130/77 (94) 96 05/08/17 15:52 20 05/08/17 15:51 99 40 05/08/17 15:30 99 23 140/83 (102) 96 05/08/17 15:00 111 25 140/86 (104) 100 05/08/17 14:30 116 23 144/83 (103) 100 05/08/17 14:00 115 22 141/84 (103) 100 05/08/17 14:00 115 05/08/17 13:30 111 17 138/79 (98) 97 05/08/17 13:00 116 20 147/84 (105) 97 05/08/17 12:30 115 28 143/83 (103) 97 05/08/17 12:00 100.3 118 18 149/81 (103) 98 05/08/17 12:00 40 05/08/17 12:00 118 05/08/17 11:30 109 18 144/80 (101) 97 05/08/17 11:02 40 05/08/17 11:00 108 18 140/76 (97) 97 05/08/17 10:45 97 40 05/08/17 10:30 204 2 151/75 (100) 93 05/08/17 10:30 204 05/08/17 10:07 40 05/08/17 10:05 95 T-piece 6.00 40 05/08/17 10:00 123 28 167/99 (121) 97 05/08/17 10:00 123 . Laboratory Tests Test 05/07/17 16:23 05/08/17 04:39 05/09/17 04:11 White Blood Count 11.0 TH/MM3 11.2 TH/MM3 11.0 TH/MM3 Red Blood Count 2.53 MIL/MM3 2.62 MIL/MM3 2.55 MIL/MM3 Hemoglobin 8.2 GM/DL 8.3 GM/DL 8.2 GM/DL Hematocrit 24.8 % 25.3 % 24.6 % Mean Corpuscular Volume 97.9 FL 96.6 FL 96.4 FL Mean Corpuscular Hemoglobin 32.5 PG 31.7 PG 32.0 PG Mean Corpuscular Hemoglobin Concent 33.2 % 32.8 % 33.3 % Red Cell Distribution Width 14.8 % 14.8 % 14.3 % Platelet Count 299 TH/MM3 356 TH/MM3 343 TH/MM3 Mean Platelet Volume 10.4 FL 9.9 FL 10.4 FL Neutrophils (%) (Auto) 84.1 % 77.1 % Lymphocytes (%) (Auto) 8.5 % 14.1 % Monocytes (%) (Auto) 6.6 % 8.2 % Eosinophils (%) (Auto) 0.1 % 0.2 % Basophils (%) (Auto) 0.7 % 0.4 % Neutrophils # (Auto) 9.3 TH/MM3 8.7 TH/MM3 Lymphocytes # (Auto) 0.9 TH/MM3 1.6 TH/MM3 Monocytes # (Auto) 0.7 TH/MM3 0.9 TH/MM3 Eosinophils # (Auto) 0.0 TH/MM3 0.0 TH/MM3 Basophils # (Auto) 0.1 TH/MM3 0.0 TH/MM3 CBC Comment AUTO DIFF AUTO DIFF Differential Total Cells Counted 100 100 Neutrophils % (Manual) 72 % 71 % Band Neutrophils % 13 % 5 % Lymphocytes % 8 % 12 % Monocytes % 7 % 9 % Neutrophils # (Manual) 9.4 TH/MM3 8.7 TH/MM3 Differential Comment FINAL DIFF MANUAL FINAL DIFF MANUAL Toxic Granulation 1+ Platelet Estimate NORMAL NORMAL Platelet Morphology Comment NORMAL NORMAL Red Cell Morphology Comment NORMAL Myelocytes 1 % Promyelocytes 1 % Blastocytes 1 % Stomatocytes 1+ Laboratory Tests Test 05/08/17 04:39 05/08/17 18:40 05/09/17 04:11 Blood Urea Nitrogen 17 MG/DL 16 MG/DL Creatinine 0.47 MG/DL 0.48 MG/DL Random Glucose 130 MG/DL 129 MG/DL Total Protein 6.6 GM/DL Albumin 1.3 GM/DL Calcium Level 8.2 MG/DL 8.3 MG/DL Phosphorus Level 2.7 MG/DL Magnesium Level 1.9 MG/DL Alkaline Phosphatase 136 U/L Aspartate Amino Transf (AST/SGOT) 49 U/L Alanine Aminotransferase (ALT/SGPT) 45 U/L Total Bilirubin 0.5 MG/DL Sodium Level 143 MEQ/L 141 MEQ/L Potassium Level 3.4 MEQ/L 3.3 MEQ/L 3.3 MEQ/L Chloride Level 112 MEQ/L 108 MEQ/L Carbon Dioxide Level 24.7 MEQ/L 24.4 MEQ/L Anion Gap 6 MEQ/L 9 MEQ/L Estimat Glomerular Filtration Rate 191 ML/MIN 187 ML/MIN Microbiology Date/Time Source Procedure Growth Status 05/07/17 09:00 Cerebral Spinal Fluid Lumbar Puncture Acid Fast Stain Pending Received 05/07/17 09:00 Cerebral Spinal Fluid Lumbar Puncture Mycobacterial Culture Pending Received 05/07/17 09:00 Cerebral Spinal Fluid Lumbar Puncture Gram Stain - Final Resulted 05/07/17 09:00 Cerebral Spinal Fluid Lumbar Puncture CSF Culture - Preliminary NO GROWTH IN 24 HOURS. Resulted Imaging Lower Extremity Ultrasound 05/07/17 Signed Impressions: Service Date/Time: Sunday, May 07, 2017 16:45 - CONCLUSION: Normal examination. Maikel Corley MD Head/Brain Mag Res Venography 05/07/17 Signed Impressions: Service Date/Time: Sunday, May 07, 2017 10:43 - CONCLUSION: 1. No findings to indicate venous sinus thrombosis identified. Rj Dolan MD Head Magnetic Resonance Angiography 05/07/17 Signed Impressions: Service Date/Time: Sunday, May 07, 2017 10:43 - CONCLUSION: 1. Normal examination. Rj Dolan MD Chest X-Ray 05/07/17 Signed Impressions: Service Date/Time: Sunday, May 07, 2017 13:13 - CONCLUSION: Slight improvement in aeration. Timbo Mccracken MD Brain MRI 05/07/17 Signed Impressions: Service Date/Time: Sunday, May 07, 2017 10:43 - CONCLUSION: 1. Negative examination. Rj Dolan MD Last Impressions Head CT 05/05/17 Signed Impressions: Service Date/Time: Friday, May 05, 2017 16:08 - CONCLUSION: No acute intracranial disease. Nickolas Valentin MD Chest X-Ray 05/04/17 1019 Signed Impressions: Service Date/Time: April 10:57 - CONCLUSION: No significant interval change Timbo Mccracken MD Chest CT 05/01/17 0000 Signed Impressions: Service Date/Time: Monday, May 01, 2017 18:24 - CONCLUSION: 1. Bilateral areas of consolidation. These alveolar consolidations are worse on the left than the right. They are nonspecific. Diffuse underlying processes such as infection/pneumonia need to be considered. Other diffuse processes could have a similar appearance. 2. Mild left pleural effusion primarily in the subpleural region and a minimal right pleural effusion. 3. Minimal prominent lymph nodes in the right paratracheal region. Timbo Escudero MD Physical Exam GENERAL: Awake, focusing, not following commands, looks comfortable on CPAP SKIN: Warm and dry. No generalized rash, no ecchymoses and no evidence of embolic lesions. HEAD: Atraumatic. Normocephalic. No temporal wasting, or tenderness. EYES: [place] conjunctiva. No petechia or hemorrhage. Pupils equal, round and reactive to light. No scleral icterus. No injection or drainage. EARS, NOSE AND THROAT: Nose without bleeding or purulent nasal discharge. Moist mucosa. NECK: Trachea midline. Supple and not tender, no meningeal sign. Trach site ok CARDIOVASCULAR: Regular rate and rhythm. No murmurs, rubs or gallops heard RESPIRATORY: Coarse breath sounds bilaterally, rales at both bases ABDOMEN: Soft, obese, nondistended, bowel sounds present and normoactive. Not tender, no guarding EXTREMITIES: No clubbing, cyanosis. Has some pedal edema. No joint effusion. Well perfused and warm. NEUROLOGICAL: Awake and focusing, not following commands. No Babinski, no ankle clonus PSYCHIATRIC: Calm, not restless LINE: PIV, no evidence of infection Assessment & Plan Remarks IMPRESSION Sepsis, with recurrent fevers, etiology? - ?new HCAP - no perez - central line out - nothing new on C/S, has Klebsiella in sputum - CXR better Bilateral infiltrates, CXR better now Encephalopathy - LP negative, imaging studies negative - OP elevated on his LP Respiratory failure, S/P trach Known polysubstance abuse RECOMMENDATION Continue Levaquin Also on flagyl oral for anaerobic coverage for possible aspiration PNA and assess response. Stop Cefepime Repeat 2 BC today Follow C/S Monitor temps Weaning per [facility] Monitor progress Asya Haro MD May 09, 2017 09:47
[2017-05-09 10:08] LABS: HSV 1,PCR Negative (Negative)
[2017-05-09] MEDS: ENOXAPARIN SODIUM 40 MG/0.4 ML SYRINGE SQ SCH (11:14)
[2017-05-09 11:26] LABS: CF EBV DNA PCR RESULT Negative (Negative); CF EBV SPEC SOURCE CSF; CMV PCR SPECIMEN SOURCE CSF
--- NOTE | 2017-05-09 12:03 | HHI.CCPN ---
Subjective Remarks/Hospital Course 04/25: This is a 46-year-old male with a past medical history of Anxiety, Depression and Substance Abuse was initially sent to the emergency room April 23, 2017 by EMS from [facility] for cough and fever x2 days. Per records, patient had Temp 104.7. At that time patient denied SOB, chest pain, nausea, vomiting or diarrhea. He was admitted to medical surgical [facility] however the patient left this morning against medical advise despite the treatment of pneumonia. After leaving this morning he has had some alcohol to drink and smoked some methamphetamine. His brother brought him back for reevaluation and treatment for his pneumonia. In the emergency department his oxygen saturations were in the low 80s on room air, patient was constantly removing to his oxygen mask and would not tolerate any BiPAP. He became extremely agitated combative and was intubated by me for an airway protection and severe hypoxemia. 04/26: Remains sedated, orally intubated on mechanical ventilation. Went into A. fib last night currently ventricular rate 130s. 04/27: Remains sedated, orally intubated on mechanical ventilation. Converted back to sinus rhythm with amiodarone gtt. which continues. Receiving IV calcium gluconate for hypocalcemia. Temperature spike up to 105 last night. 04/28: Remains sedated, orally intubated on mechanical ventilation. Not tolerating tube feeds with high residuals. On Versed/propofol and fentanyl drips. 04/29: Sedated, orally intubated on mechanical ventilation. 04/30: Remains sedated, orally intubated on mechanical ventilation. 05/01: Remains sedated, orally intubated on mechanical ventilation. Not tolerating tube feeds overnight. 05/02: Remains sedated, orally intubated on mechanical ventilation. Will attempt restarting tube feeds. Discontinue fentanyl/Versed drips. Propofol for sedation to be continued 05/03: Remains sedated, orally intubated on mechanical ventilation. Remains on PEEP +12 FiO2 50%. 05/04: Sedated, orally intubated on mechanical ventilation. Daily sedation vacation ongoing. PEEP decreased to +8, FiO2 decreased to 40% 05/05: Encephalopathic off sedation, orally intubated on mechanical ventilation. Starts hyperventilating however not significant improvement in level of consciousness on holding sedation last few days. 05/06: no improvements. has been intubated for 9 days without any neurologic improvements at all. off sedation, RASS -4. continues to be febrile. wbc elevated. not improving. will need trach soon. 05/07: still encephalopathic. MRI pending for today. neuro evaluated the patient and requested LP. s/p trach yesterday. 05/08: Awake however remains encephalopathic. Tolerated C Pap trial and was placed on T piece however subsequently developed SVT for which she received and Indocin 12 mg IV stat and converted to sinus rhythm. His baseline rhythm has been sinus tachycardia since stopping sedation with heart rate 120s to 130s. Started Lopressor 5 mill grams IV every 6 hourly. No papilledema per ophthalm eval. 05/09: Awake, focuses with his eyes however not following commands. 10 L urine output and last 24 hours. Getting free water. Objective Vital Signs Date Time Temp Pulse Resp B/P (MAP) Pulse Ox O2 Delivery O2 Flow Rate FiO2 05/09/17 11:51 97 40 05/09/17 10:00 103 05/09/17 08:00 100.2 21 134/82 (99) 05/08/17 10:05 T-piece 6.00 Intake and Output 05/09/17 05/09/17 05/10/17 08:00 16:00 00:00 Intake Total 1500 ml 323 ml Output Total 4200 ml 1925 ml Balance -2700 ml -1602 ml Result Diagram: 05/09/17 0411 05/09/17 0411 Imaging Last 48 hours Impressions Chest X-Ray 05/04/17 1019 Signed Impressions: Service Date/Time: April 10:57 - CONCLUSION: No significant interval change Timbo Mccracken MD Last [address] 05/01/17 0000 Signed Impressions: Service Date/Time: Monday, May 01, 2017 18:24 - CONCLUSION: 1. Bilateral areas of consolidation. These alveolar consolidations are worse on the left than the right. They are nonspecific. Diffuse underlying processes such as infection/pneumonia need to be considered. Other diffuse processes could have a similar appearance. 2. Mild left pleural effusion primarily in the subpleural region and a minimal right pleural effusion. 3. Minimal prominent lymph nodes in the right paratracheal region. Timbo Escudero MD Last 24 hours Impressions Chest X-Ray 04/25/17 1712 Signed Impressions: Service Date/Time: Tuesday, April 25, 2017 17:34 - CONCLUSION: Left greater than right airspace disease and left pleural effusion, all worse. Timbo Newsome MD Chest X-Ray 04/25/17 0000 Signed Impressions: Service Date/Time: Tuesday, April 25, 2017 20:52 - CONCLUSION: 1. As intermittent tracheal tube and nasogastric tube placement as above. 2. Left greater than right consolidation and small moderate left pleural effusion are again noted. Timbo Newsome MD Objective Remarks HEENT/ Neuro: Awake, has spontaneous eye opening however not following commands and remains encephalopathic, Pallor present, no icterus, tongue/ mucosa moist. Pupils bilaterally 4mm, reactive. Neck: No JVD. Tracheostomy in place Chest/Pulm: on mech vent, good air entry bilaterally, scattered rhonchi, no wheezing or crackles. CVS: normal rate, regular rhythm. sinus by tele. GI/abdomen: soft, nontender, nondistended. no guarding. Extremities: warm bilaterally, no edema A/P Assessment and Plan Assessment: 46yM with acute toxic encephalopathy and acute hypoxic respiratory failure. Clinically not improving. will proceed with LP and MRI today. appreciate neuro input. remains critically ill off pathway with significant encephalopathy Acute Respiratory failure on mechanical ventilation - Underlying pneumonia -Stopped propofol. currently encephalopathic off all sedation. - Continue mechanical ventilation. Daily C Pap trials, T piece as tolerated - Continue DuoNeb's - IV antibiotics for pneumonia treatment - s/p trach 05/06 Healthcare Associated Pneumonia -Follow up cultures - sputum growing Klebsiella. -Antibiotics per ID - Follow CXR Toxic Encephalopathy - Intoxication - Polysubstance abuse - Non focal neurological exam - Monitor for withdrawal - MRI brain unremarkable - neuro consult noted - EEG showing severe slowing. - LP unremarkable, elevated opening pressure while intubated on mechanical ventilation ? Significance. No papilledema per information [employer] broker[employer]. A. fib with RVR - converted to sinus rhythm SVT-converted with Adenosine 12 mg IV on 05/08 -Off amiodarone drip. Cardiology consult noted Hypernatremia Polyuria - free water replacement - trend daily BMP. - Ordered urine sodium and creatinine, serum osmolarity, urine osmolality. Concern for DI. Nephrology consulted. Thrombocytopenia- resolved. - previous admission - 43 - no active bleeding. - Will monitor. - Consulted hematology for further evaluation. Okay with resuming Lovenox for DVT prophylaxis as platelet count has normalized. DVT Prophylaxis - Teds SCDs - Lovenox for DVT prophylaxis on 05/04 - discussed with Dr. Conner (held for LP. resume after LP) - Pepcid Continue tube feeds and advance to goal as tolerated. Singh Perez MD May 09, 2017 12:03
--- NOTE | 2017-05-09 12:31 | PD.CONS ---
[facility] Service Nephrology Consult Requested By Dr. Perez Reason for Consult Polyuria Primary Care Physician No Primary Care Physician History of Present Illness This is a 46 y/o male patient who was admitted on 04/23 for cough and fever. He was intubated soon after admission, now has a trach and is off the vent. His renal function and 2D echo are normal. His sodium was initially low, which corrected, and then was elevated. He was on IVF initially, then free water through his NG tube. He is unable to answer questions, has a condom catheter currently. His urine output was over 10 liters yesterday. His weight is up 20 kg since admission, thus we were consulted for management. There are no urine studies available (urine osmolality, sodium, etc). (Shandra Pierre) Review of Systems ROS Limitations: Altered Mental Status (Shandra Pierre) Past Family Social History Allergies: Coded Allergies: No Known Allergies (Unverified , 04/23/17) Past Medical History Anxiety Depression Substance Abuse Past Surgical History Unable to obtain Reported Medications Citalopram (Citalopram Hydrobromide) 10 Mg Tab 10 Mg PO HS Topiramate 50 Mg Tab 50 Mg PO BID Seroquel (Quetiapine Fumarate) 50 Mg Tab 50 Mg PO HS Buspirone (Buspirone HCl) 15 Mg Tab 15 Mg PO TID Gabapentin 600 Mg Tab 600 Mg PO BID Zantac (Ranitidine HCl) 150 Mg Tab 150 Mg PO DAILY Active Ordered Medications Current Medications Medications (Trade) Dose Ordered Sig/Angel Route Start Time Stop Time Status Last Admin (NS Flush) 2 ml UNSCH PRN IVF 04/25/17 17:15 (Buspar) 15 mg TID PO 04/26/17 09:00 Future Hold 05/05/17 09:41 (CeleXA) 10 mg HS PO 04/25/17 21:00 Future Hold 05/04/17 21:12 (Topamax) 50 mg BID PO 04/25/17 21:00 05/09/17 07:28 (SEROquel) 50 mg HS PO 04/25/17 21:00 Future Hold 05/04/17 21:13 (Pepcid) 20 mg DAILY PO 04/26/17 09:00 05/09/17 07:28 (NS Flush) 2 ml UNSCH PRN .XX 9/26/17 20:00 (NS Flush) 2 ml BID .XX 04/25/17 21:00 05/09/17 07:29 (Tylenol) 650 mg Q6H PRN PO 04/25/17 20:00 05/08/17 14:16 (Tears Naturale Opth Soln) 1 drop TID EACH EYE 04/26/17 09:00 05/09/17 07:29 (Zofran Inj) 4 mg Q6H PRN IV PUSH 04/25/17 20:00 (Duoneb Neb) 1 ampule Q2HR NEB PRN INH 04/25/17 20:00 05/05/17 03:36 Miscellaneous Information 1 Q361D XX 04/25/17 20:00 (Chlorhexidine 2% Cloth) Taper DAILY@04 TOP 04/26/17 04:00 04/22/18 03:59 05/09/17 01:32 (Chlorhexidine 2% Cloth) 3 pack UNSCH PRN TOP 04/25/17 20:00 (Marsha-Colace) 1 tab BID PO 04/25/17 21:00 05/08/17 21:49 (Milk Of Magnesia Liq) 30 ml Q12H PRN PO 04/25/17 20:00 (Senokot) 17.2 mg Q12H PRN PO 04/25/17 20:00 (Dulcolax Supp) 10 mg DAILY PRN RECTAL 04/25/17 20:00 (Lactulose Liq) 30 ml DAILY PRN PO 04/25/17 20:00 (Peridex 0.12% Liq) 15 ml BID@08,20 MT 04/25/17 20:00 05/09/17 07:29 (Pill Splitter) 1 ea UNSCH PRN OTHER 04/25/17 20:15 Potassium Chloride 100 ml @ 50 mls/hr Q2H PRN IV 04/27/17 01:30 05/03/17 18:13 Potassium Chloride 100 ml @ 50 mls/hr Q2H PRN IV 04/27/17 01:30 05/09/17 01:33 (K-Lyte Cl Eff) 50 meq UNSCH PRN PO 04/27/17 01:30 04/27/17 01:52 Potassium Chloride 100 ml @ 25 mls/hr UNSCH PRN IV 04/27/17 01:30 05/03/17 23:42 Potassium Chloride 100 ml @ 50 mls/hr Q2H PRN IV 04/27/17 01:30 05/09/17 10:09 Magnesium Sulfate 4 gm/Sodium Chloride 100 ml @ 50 mls/hr UNSCH PRN IV 04/27/17 01:30 (Mag-Ox) 800 mg UNSCH PRN PO 04/27/17 01:30 Magnesium Sulfate 2 gm/Sodium Chloride 100 ml @ 50 mls/hr UNSCH PRN IV 04/27/17 01:30 (K-Phos) 2,000 mg Q4H PRN PO 04/27/17 01:30 Sodium Phosphate 30 mmol/Sodium Chloride 250 ml @ 42 mls/hr UNSCH PRN IV 04/27/17 01:30 (K-Phos) 2,000 mg UNSCH PRN PO/TUBE 04/27/17 01:30 Potassium Phosphate 30 mmol/ Sodium Chloride 260 ml @ 42 mls/hr UNSCH PRN IV 04/27/17 01:30 04/27/17 03:32 (Reglan Inj) 10 mg Q8HR IV PUSH 04/28/17 17:00 05/09/17 06:05 (Lovenox Inj) 40 mg Q24H SQ 05/04/17 11:00 Future hold 05/09/17 11:14 (Apresoline Inj) 20 mg Q4H PRN IV PUSH 05/05/17 03:00 05/06/17 22:18 (Trandate Inj) 10 mg Q4H PRN IV PUSH 05/05/17 03:00 05/05/17 13:02 Levofloxacin/ Dextrose 150 ml @ 100 mls/hr Q24H IV 05/05/17 21:00 05/08/17 21:50 (Free Water) VOLUME: 200 ML Q6HR G-TUBE 05/06/17 12:00 05/09/17 11:14 (Flagyl) 500 mg Q8HR PO 05/07/17 14:00 05/09/17 06:05 (Lopressor Inj) 5 mg Q6H IV PUSH 05/08/17 11:30 05/09/17 11:14 Family History Unable to obtain Social History unable to obtain (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) Physical Exam Vital Signs Vital Signs Date Time Temp Pulse Resp B/P (MAP) Pulse Ox O2 Delivery O2 Flow Rate FiO2 05/09/17 11:51 97 40 05/09/17 10:09 40 05/09/17 10:00 103 05/09/17 08:30 40 05/09/17 08:15 99 40 05/09/17 08:15 40 05/09/17 08:00 100.2 106 21 134/82 (99) 100 05/09/17 08:00 106 05/09/17 08:00 40 05/09/17 06:00 119 05/09/17 04:04 97 40 05/09/17 04:00 99.7 121 18 152/109 (123) 97 05/09/17 04:00 121 05/09/17 04:00 40 05/09/17 02:00 104 05/09/17 00:00 40 05/09/17 00:00 105 05/09/17 00:00 100.9 104 18 139/83 (101) 98 05/08/17 23:50 99 40 05/08/17 22:00 110 05/08/17 22:00 110 24 135/90 (105) 97 05/08/17 21:30 115 25 153/92 (112) 94 05/08/17 21:00 106 21 138/90 (106) 98 05/08/17 20:30 95 16 131/82 (98) 99 05/08/17 20:25 100 40 05/08/17 20:00 40 05/08/17 20:00 100 05/08/17 20:00 99.1 100 20 136/85 (102) 99 05/08/17 18:00 94 05/08/17 18:00 94 22 136/86 (103) 100 05/08/17 17:30 114 28 134/87 (103) 98 05/08/17 17:00 103 22 140/83 (102) 97 05/08/17 16:00 40 05/08/17 16:00 102 05/08/17 16:00 99.6 102 19 130/77 (94) 96 05/08/17 16:00 102 19 130/77 (94) 96 05/08/17 15:52 20 05/08/17 15:51 99 40 05/08/17 15:30 99 23 140/83 (102) 96 05/08/17 15:00 111 25 140/86 (104) 100 05/08/17 14:30 116 23 144/83 (103) 100 05/08/17 14:00 115 22 141/84 (103) 100 05/08/17 14:00 115 05/08/17 13:30 111 17 138/79 (98) 97 05/08/17 13:00 116 20 147/84 (105) 97 05/08/17 12:30 115 28 143/83 (103) 97 Physical Exam Young male patient Awake but not following commands Trach in place, off the vent lungs clear S1/S2, RRR no murmurs abdomen soft extremities, trace pedal edema Laboratory Laboratory Tests Test 05/08/17 18:40 05/09/17 04:11 05/09/17 09:30 Potassium Level 3.3 3.3 White Blood Count 11.0 Red Blood Count 2.55 Hemoglobin 8.2 Hematocrit 24.6 Mean Corpuscular Volume 96.4 Mean Corpuscular Hemoglobin 32.0 Mean Corpuscular Hemoglobin Concent 33.3 Red Cell Distribution Width 14.3 Platelet Count 343 Mean Platelet Volume 10.4 Blood Urea Nitrogen 16 Creatinine 0.48 Random Glucose 129 Calcium Level 8.3 Sodium Level 141 Chloride Level 108 Carbon Dioxide Level 24.4 Anion Gap 9 Estimat Glomerular Filtration Rate 187 Urine Random Creatinine 17.4 Urine Random Sodium 159 Date/Time Source Procedure Growth Status 05/05/17 00:40 Blood Peripheral Aerobic Blood Culture - Preliminary NO GROWTH IN 4 DAYS Resulted 05/05/17 00:40 Blood Peripheral Anaerobic Blood Culture - Final QNS - SEE AEROBE REPORT Resulted 05/07/17 09:00 Cerebral Spinal Fluid Lumbar Puncture Acid Fast Stain - Final NO ACID FAST BACILLI SEEN Resulted 05/07/17 09:00 Cerebral Spinal Fluid Lumbar Puncture Mycobacterial Culture Pending Resulted 05/05/17 17:45 Sputum Endotracheal Gram Stain - Final Complete 05/05/17 17:45 Sputum Culture - Final Klebsiella Pneumoniae Complete 05/05/17 17:36 Urine Clean Catch Urine Culture - Final NO GROWTH IN 48 HOURS. Complete (Shandra Pierre) Result Diagram: 05/09/17 0411 05/09/17 0411 Imaging Last Impressions Lower Extremity Ultrasound 05/07/17 0000 Signed Impressions: Service Date/Time: Sunday, May 07, 2017 16:45 - CONCLUSION: Normal examination. Maikel Corley MD Head/Brain Mag Res Venography 05/07/17 Signed Impressions: Service Date/Time: Sunday, May 07, 2017 10:43 - CONCLUSION: 1. No findings to indicate venous sinus thrombosis identified. Rj Dolan MD Head Magnetic Resonance Angiography 05/07/17 Signed Impressions: Service Date/Time: Sunday, May 07, 2017 10:43 - CONCLUSION: 1. Normal examination. Rj Dolan MD Chest X-Ray 05/07/17 Signed Impressions: Service Date/Time: Sunday, May 07, 2017 13:13 - CONCLUSION: Slight improvement in aeration. Timbo Mccracken MD Brain MRI 05/07/17 Signed Impressions: Service Date/Time: Sunday, May 07, 2017 10:43 - CONCLUSION: 1. Negative examination. Rj Dolan MD Head CT 05/05/17 Signed Impressions: Service Date/Time: Friday, May 05, 2017 16:08 - CONCLUSION: No acute intracranial disease. Nickolas Valentin MD Chest CT 05/01/17 Signed Impressions: Service Date/Time: Monday, May 01, 2017 18:24 - CONCLUSION: 1. Bilateral areas of consolidation. These alveolar consolidations are worse on the left than the right. They are nonspecific. Diffuse underlying processes such as infection/pneumonia need to be considered. Other diffuse processes could have a similar appearance. 2. Mild left pleural effusion primarily in the subpleural region and a minimal right pleural effusion. 3. Minimal prominent lymph nodes in the right paratracheal region. Timbo Escudero MD (Shandra Pierre [facility]) Assessment and Plan Problem List: (1) Polyuria ICD Codes: R35.8 - Other polyuria Plan: This may be due to saline diuresis as he was given multiple liters of IVF since admission and his weight is up considerably We have asked the nurse to begin 24 hr urine collection for volume, sodium, potassium, urea, and glucose We will calculate osmolar clearance, which would be high in this case Urine sodium and osmolality (spot) have also been ordered If not we need to consider other causes He is not on IVF, on free water through NG tube. His renal function is normal. (2) PNA (pneumonia) ICD Codes: J18.9 - Pneumonia, unspecified organism Plan: Sputum with klebsiella s/p trach, he is off the vent antibiotics as ordered (Shandra Pierre) Assessment and Plan Patient was seen and examined. History reviewed. His weight has increased by 20 kg since 04/25. Polyuria could be secondary to saline diuresis because of excessive fluid administration in the past. Obtain urine and plasma osmolality. Also obtain urine Na, potassium and urea. Will attempt to calculate osmolar clearance and free water clearance. He does not appear to have been on [place]. No history of intracranial trauma. (Adrien Ridley MD) Problem Qualifiers (1) PNA (pneumonia): Qualified Codes: J18.9 - Pneumonia, unspecified organism Shandra Pierre May 09, 2017 12:31 Adrien Ridley MD May 09, 2017 17:09
[2017-05-09 12:33] LABS: BLOOD, URINE MOD (NEG); GLUCOSE,URINE NEG (NEG); KETONE, URINE NEG (NEG); NITRITE,URINE NEG (NEG); URINE COLOR YELLOW (YELLW/STRAW)
[2017-05-09] MEDS: LEVOFLOXACIN 750 MG PREMIX INJ 150 ML IV SCH (21:54)
[2017-05-10] VITALS (15 sets, daily range): BP systolic 114–144; BP diastolic 65–78; PULSE 74–107; RESP 14–25; TEMP 98.9–100; O2SAT 94–99
[2017-05-10] MEDS: CHLORHEXIDINE GLUCONATE 2 % 1 PACK (2 CLOTHS) TOP SCH (04:00)
[2017-05-10 04:05] LABS: HEMATOCRIT 27.1 % (39.0-51.0); MEAN CELL VOLUME 95.6 FL (80.0-100.0); MEAN CORPUSCULAR HEMOGLOBIN 31.5 PG (27.0-34.0); MEAN CORPUSCULAR HGB CONC 32.9 % (32.0-36.0); PLATELET COUNT 430 TH/MM3 (150-450); RED BLOOD COUNT 2.83 MIL/MM3 (4.50-5.90); RED CELL DISTRIBUTION WIDTH 14.6 % (11.6-17.2); REVIEW FLAG FINAL; WHITE BLOOD COUNT 12.4 TH/MM3 (4.0-11.0)
[2017-05-10 04:30] LABS: BICARBONATE 23.1 MEQ/L (21.0-32.0); POTASSIUM 3.7 MEQ/L (3.5-5.1)
[2017-05-10] MEDS: metroNIDAZOLE 500 MG TAB PO SCH ×3 (04:57→20:49)
[2017-05-10] MEDS: FREE WATER G-TUBE SCH ×2 (04:58→11:11)
[2017-05-10] MEDS: METOPROLOL TARTRATE 5 MG/5 ML VIAL IV PUSH SCH ×2 (04:58→11:10)
[2017-05-10] MEDS: METOCLOPRAMIDE HCL 10 MG/2 ML VIAL IV PUSH SCH ×3 (04:58→20:48)
[2017-05-10] MEDS: DOCUSATE SODIUM 50 MG/SENNA 8.6 MG TAB PO SCH ×2 (07:56→20:47)
[2017-05-10] MEDS: TOPIRAMATE 25 MG TAB PO SCH ×2 (07:56→20:48)
[2017-05-10] MEDS: FAMOTIDINE 20 MG TAB PO SCH (07:56)
[2017-05-10] MEDS: ARTIFICIAL TEARS OPTH SOLN 15 ML BTL EACH EYE SCH ×3 (07:56→18:11)
[2017-05-10] MEDS: SODIUM CHLORIDE 0.9% FLUSH 10 ML FLUSH SCH ×2 (07:57→20:44)
[2017-05-10] MEDS: CHLORHEXIDINE 0.12% (ORAL KIT) 15 ML CUP MT SCH ×2 (08:00→20:00)
[2017-05-10 09:19] LABS: CSF CRYPTOCOCCUS AG CONF ND (NOT DETECTD)
[2017-05-10] MEDS: ENOXAPARIN SODIUM 40 MG/0.4 ML SYRINGE SQ SCH (11:10)
--- NOTE | 2017-05-10 13:01 | HHI.NPPN ---
Subjective Interval History He made 6 liters of urine overnight. 24 hr urine not available. No nursing concerns. (Shandra Pierre) Review of Systems General General Remarks unable to evaluate (Shandra Pierre) Objective Data Data Vital Signs Date Time Temp Pulse Resp B/P (MAP) Pulse Ox O2 Delivery O2 Flow Rate FiO2 05/10/17 12:00 90 05/10/17 12:00 40 05/10/17 12:00 100.0 90 15 141/76 (97) 95 05/10/17 10:00 99 05/10/17 08:00 99.9 94 15 127/72 (90) 95 05/10/17 08:00 94 05/10/17 08:00 40 05/10/17 07:38 97 T-piece 6.00 40 05/10/17 06:00 92 05/10/17 04:00 40 05/10/17 04:00 107 05/10/17 04:00 98.9 107 25 144/78 (100) 94 05/10/17 02:00 96 05/10/17 00:00 91 05/10/17 00:00 40 05/10/17 00:00 98.9 91 20 121/75 (90) 96 05/09/17 22:00 91 05/09/17 20:00 99.8 93 19 128/76 (93) 94 05/09/17 20:00 40 05/09/17 20:00 93 05/09/17 19:38 94 T-piece 6.00 40 05/09/17 18:00 87 05/09/17 18:00 87 25 127/78 (94) 93 05/09/17 17:30 101 21 125/79 (94) 93 05/09/17 17:00 93 15 122/75 (91) 93 05/09/17 16:30 96 17 125/78 (94) 93 05/09/17 16:00 99.0 99 15 121/76 (91) 93 05/09/17 16:00 99 05/09/17 16:00 40 05/09/17 15:30 89 13 123/73 (90) 94 05/09/17 15:00 97 18 132/83 (99) 93 05/09/17 14:30 99 27 137/78 (97) 95 05/09/17 14:00 100 24 133/78 (96) 94 05/09/17 14:00 100 05/09/17 13:43 40 05/09/17 13:40 40 05/09/17 13:40 96 T-piece 40 05/09/17 13:30 103 23 130/90 (103) 98 05/09/17 13:00 110 21 134/81 (98) 98 (Shandra Pierre) -: 05/10/17 0343 05/10/17 0343 Tubes & Lines Comment trach, NG tube (Shandra Pierre) Physical Exam General Appearance: Well Developed, Comfortable Appearance Remarks awake, not interactive (Shandra Pierre) Throat Throat Exam: Oral Mucosa [place] & Moist (Shandra Pierre) Neck Neck Exam: Neck Supple Neck Remarks trach (Shandra Pirere) Pulmonary Resp Exam: Breath Sounds Equal, No Distress (Shandra Pierre) Cardiology CV Exam: Regular, Normal Sinus Rhythm (Shandra Pierre) Gastrointestinal/Abdomen GI Exam: Soft, Non-Tender (Shandra Pierre) Musculoskeletal MS Exam: Normal Tone, Unable to Ambulate (Shandra Pierre) Integumentary Skin Exam: Warm, Dry (Shandra Pierre) Extremeties Extremities Exam: No Edema, Pedal Pulses Palpable (Shandra Pierre) Neurologic Neuro Exam: Awake, Unresponsive (Shandra Pierre) Assessment/Plan Problem List: (1) Polyuria ICD Codes: R35.8 - Other polyuria Plan: High urine osmolality suggesting saline diuresis from excessive IVF administration Awaiting 24 hr urine collection for volume, sodium, potassium, urea, and glucose Serum osmolality ordered He is not on IVF, on free water through NG tube. His renal function is preserved (2) PNA (pneumonia) ICD Codes: J18.9 - Pneumonia, unspecified organism Plan: Sputum with klebsiella s/p trach, he is off the vent antibiotics as ordered (Shandra Pierre) Problem List: (1) Polyuria ICD Codes: R35.8 - Other polyuria Plan: High urine osmolality suggesting saline diuresis from excessive IVF administration Awaiting 24 hr urine collection for volume, sodium, potassium, urea, and glucose Serum osmolality ordered He is not on IVF, on free water through NG tube. His renal function is preserved (2) PNA (pneumonia) ICD Codes: J18.9 - Pneumonia, unspecified organism Plan: Sputum with klebsiella s/p trach, he is off the vent antibiotics as ordered Plan patient was seen and examined. He appears to be having solute diuresis, and may not have DI. Low free water clearance. (Adrien Ridley MD) Problem Qualifiers (1) PNA (pneumonia): Qualified Codes: J18.9 - Pneumonia, unspecified organism Shandra Pierre [facility] May 10, 2017 13:01 Adrien Ridley MD May 10, 2017 18:03
[2017-05-10 13:25] LABS: POTASSIUM TIMED URINE 9 MEQ/L; SODIUM - TIMED URINE 143 MEQ/L
[2017-05-10 13:46] LABS: POTASSIUM 24 HOUR URINE 52 MEQ/24HR (40-80); SODIUM 24 HOUR URINE 822 MEQ/24HR (80-180)
--- NOTE | 2017-05-10 13:46 | HHI.CCPN ---
Subjective Remarks/Hospital Course 04/25: This is a 46-year-old male with a past medical history of Anxiety, Depression and Substance Abuse was initially sent to the emergency room April 23, 2017 by EMS from [facility] for cough and fever x2 days. Per records, patient had Temp 104.7. At that time patient denied SOB, chest pain, nausea, vomiting or diarrhea. He was admitted to medical surgical street however the patient left this morning against medical advise despite the treatment of pneumonia. After leaving this morning he has had some alcohol to drink and smoked some methamphetamine. His brother brought him back for reevaluation and treatment for his pneumonia. In the emergency department his oxygen saturations were in the low 80s on room air, patient was constantly removing to his oxygen mask and would not tolerate any BiPAP. He became extremely agitated combative and was intubated by me for an airway protection and severe hypoxemia. 04/26: Remains sedated, orally intubated on mechanical ventilation. Went into A. fib last night currently ventricular rate 130s. 04/27: Remains sedated, orally intubated on mechanical ventilation. Converted back to sinus rhythm with amiodarone gtt. which continues. Receiving IV calcium gluconate for hypocalcemia. Temperature spike up to 105 last night. 04/28: Remains sedated, orally intubated on mechanical ventilation. Not tolerating tube feeds with high residuals. On Versed/propofol and fentanyl drips. 04/29: Sedated, orally intubated on mechanical ventilation. 04/30: Remains sedated, orally intubated on mechanical ventilation. 05/01: Remains sedated, orally intubated on mechanical ventilation. Not tolerating tube feeds overnight. 05/02: Remains sedated, orally intubated on mechanical ventilation. Will attempt restarting tube feeds. Discontinue fentanyl/Versed drips. Propofol for sedation to be continued 05/03: Remains sedated, orally intubated on mechanical ventilation. Remains on PEEP +12 FiO2 50%. 05/04: Sedated, orally intubated on mechanical ventilation. Daily sedation vacation ongoing. PEEP decreased to +8, FiO2 decreased to 40% 05/05: Encephalopathic off sedation, orally intubated on mechanical ventilation. Starts hyperventilating however not significant improvement in level of consciousness on holding sedation last few days. 05/06: no improvements. has been intubated for 9 days without any neurologic improvements at all. off sedation, RASS -4. continues to be febrile. wbc elevated. not improving. will need trach soon. 05/07: still encephalopathic. MRI pending for today. neuro evaluated the patient and requested LP. s/p trach yesterday. 05/08: Awake however remains encephalopathic. Tolerated C Pap trial and was placed on T piece however subsequently developed SVT for which she received and Indocin 12 mg IV stat and converted to sinus rhythm. His baseline rhythm has been sinus tachycardia since stopping sedation with heart rate 120s to 130s. Started Lopressor 5 mill grams IV every 6 hourly. No papilledema per ophthalm eval. 05/09: Awake, focuses with his eyes however not following commands. 10 L urine output and last 24 hours. Getting free water. 05/10: Awake and alert. Very hard of hearing and his hearing aid battery is . He does follow some commands like wiggling his toes are opening his mouth. Appears comfortable on trach collar since yesterday. Still has significant respiratory secretions. Objective Vital Signs Date Time Temp Pulse Resp B/P (MAP) Pulse Ox O2 Delivery O2 Flow Rate FiO2 05/10/17 12:00 90 05/10/17 12:00 40 05/10/17 12:00 100.0 15 141/76 (97) 95 05/10/17 07:38 T-piece 6.00 Intake and Output 05/10/17 05/10/17 05/11/17 08:00 16:00 00:00 Intake Total 998 ml Output Total 3200 ml Balance -2202 ml Result Diagram: 05/10/17 0343 05/10/17 0343 Imaging Last 48 hours Impressions Chest X-Ray 05/04/17 1019 Signed Impressions: Service Date/Time: April 10:57 - CONCLUSION: No significant interval change Timbo Mccracken MD Last [address] 05/01/17 0000 Signed Impressions: Service Date/Time: Monday, May 01, 2017 18:24 - CONCLUSION: 1. Bilateral areas of consolidation. These alveolar consolidations are worse on the left than the right. They are nonspecific. Diffuse underlying processes such as infection/pneumonia need to be considered. Other diffuse processes could have a similar appearance. 2. Mild left pleural effusion primarily in the subpleural region and a minimal right pleural effusion. 3. Minimal prominent lymph nodes in the right paratracheal region. Timbo Escudero MD Last 24 hours Impressions Chest X-Ray 04/25/17 1712 Signed Impressions: Service Date/Time: Tuesday, April 25, 2017 17:34 - CONCLUSION: Left greater than right airspace disease and left pleural effusion, all worse. Timbo Newsome MD Chest X-Ray 04/25/17 0000 Signed Impressions: Service Date/Time: Tuesday, April 25, 2017 20:52 - CONCLUSION: 1. As intermittent tracheal tube and nasogastric tube placement as above. 2. Left greater than right consolidation and small moderate left pleural effusion are again noted. Timbo Newsome MD Objective Remarks HEENT/ Neuro: Awake, has spontaneous eye opening however not following commands and remains encephalopathic, Pallor present, no icterus, tongue/ mucosa moist. Pupils bilaterally 4mm, reactive. Neck: No JVD. Tracheostomy in place Chest/Pulm: on mech vent, good air entry bilaterally, scattered rhonchi, no wheezing or crackles. CVS: normal rate, regular rhythm. sinus by tele. GI/abdomen: soft, nontender, nondistended. no guarding. Extremities: warm bilaterally, no edema A/P Assessment and Plan Assessment: 46yM with acute toxic encephalopathy and acute hypoxic respiratory failure, pneumonia, delirium Acute Respiratory failure - Underlying pneumonia -off all sedation. - Status post tracheostomy, tolerating T piece since 05/09. Continues have extensive pulmonary secretions. - Continue DuoNeb's - IV antibiotics for pneumonia treatment - s/p trach 05/06 Healthcare Associated Pneumonia -Follow up cultures - sputum growing Klebsiella. -Antibiotics per ID - Follow CXR Toxic Encephalopathy - Intoxication - Polysubstance abuse - Non focal neurological exam - Monitor for withdrawal - MRI brain unremarkable - neuro consult noted - EEG showing severe slowing. - LP unremarkable, elevated opening pressure while intubated on mechanical ventilation ? Significance. No papilledema per senior wealth advisor. - Neuro status seems to be improving. Most likely delirium. He is hard of hearing and needs new battery for his hearing aid. A. fib with RVR - converted to sinus rhythm SVT-converted with Adenosine 12 mg IV on 05/08 -Off amiodarone drip. Cardiology consult noted - We'll switch IV Lopressor to atenolol 50 mg daily for tachycardia/ hypertension. - Check TSH Hypernatremia Polyuria - s/p free water replacement - trend daily BMP. - Ordered urine sodium and creatinine, serum osmolarity, urine osmolality. Nephrology consulted. Sodium down to 138 hence will stop free water 05/10. Thrombocytopenia- resolved. - previous admission - 43 - no active bleeding. - Will monitor. - Consulted hematology for further evaluation. Okay with resuming Lovenox for DVT prophylaxis as platelet count has normalized. DVT Prophylaxis - Teds SCDs - Lovenox for DVT prophylaxis on 05/04 - discussed with Dr. Conner (held for LP. resumed after LP) - Pepcid Continue tube feeds and advance to goal as tolerated. Awaiting speech and swallow evaluation. May deflate cuff of tracheostomy for swallow eval. May possibly be able to avoid PEG tube. Consult and transfer to hospitalist service for further medical management. Critical care will be signing off at this time, please reconsult if needed. Singh Perez MD May 10, 2017 13:46
[2017-05-10] MEDS: ATENOLOL 50 MG TAB NG SCH (15:28)
[2017-05-10 17:52] LABS: CALIFORNIA ENCEPH AB IGG <1:4 (<1:4); CALIFORNIA ENCEPH AB IGM <1:4 (<1:4); EAST EQUINE ENCEPH AB IGG <1:4 (<1:4); EAST EQUINE ENCEPH AB IGM <1:4 (<1:4); ST LOUIS ENCEPH AB IGG <1:4 (<1:4); ST LOUIS ENCEPH AB IGM <1:4 (<1:4)
[2017-05-10 19:51] LABS: VDRL CSF NON-REACTIVE (NON-REACTVE)
[2017-05-10 19:53] LABS: VZV PCR RESULT <500 (<500 copies)
[2017-05-10] MEDS: LEVOFLOXACIN 750 MG PREMIX INJ 150 ML IV SCH (20:45)
[2017-05-11] VITALS (15 sets, daily range): BP systolic 99–116; BP diastolic 56–68; PULSE 77–100; RESP 12–20; TEMP 98.2–100.4; O2SAT 95–100
[2017-05-11] MEDS: CHLORHEXIDINE GLUCONATE 2 % 1 PACK (2 CLOTHS) TOP SCH (04:00)
[2017-05-11] MEDS: metroNIDAZOLE 500 MG TAB PO SCH ×3 (04:22→20:20)
[2017-05-11] MEDS: METOCLOPRAMIDE HCL 10 MG/2 ML VIAL IV PUSH SCH ×3 (04:22→20:19)
[2017-05-11] MEDS: ACETAMINOPHEN 325 MG TAB PO PRN ×2 (05:45→08:55)
[2017-05-11] MEDS: CHLORHEXIDINE 0.12% (ORAL KIT) 15 ML CUP MT SCH ×2 (08:00→20:00)
[2017-05-11] MEDS: FAMOTIDINE 20 MG TAB PO SCH (08:43)
[2017-05-11] MEDS: ATENOLOL 50 MG TAB NG SCH (08:43)
[2017-05-11] MEDS: TOPIRAMATE 25 MG TAB PO SCH ×2 (08:43→20:20)
[2017-05-11] MEDS: DOCUSATE SODIUM 50 MG/SENNA 8.6 MG TAB PO SCH ×2 (08:43→20:19)
[2017-05-11] MEDS: SODIUM CHLORIDE 0.9% FLUSH 10 ML FLUSH SCH ×2 (08:44→20:20)
[2017-05-11] MEDS: ARTIFICIAL TEARS OPTH SOLN 15 ML BTL EACH EYE SCH ×3 (08:45→18:00)
[2017-05-11 08:52] LABS: HEMATOCRIT 26.1 % (39.0-51.0); MEAN CELL VOLUME 97.6 FL (80.0-100.0); MEAN CORPUSCULAR HEMOGLOBIN 31.5 PG (27.0-34.0); MEAN CORPUSCULAR HGB CONC 32.2 % (32.0-36.0); PLATELET COUNT 459 TH/MM3 (150-450); RED BLOOD COUNT 2.68 MIL/MM3 (4.50-5.90); REVIEW FLAG FINAL; WHITE BLOOD COUNT 13.5 TH/MM3 (4.0-11.0)
[2017-05-11 09:10] LABS: BICARBONATE 22.8 MEQ/L (21.0-32.0); POTASSIUM 3.8 MEQ/L (3.5-5.1)
[2017-05-11] MEDS: ENOXAPARIN SODIUM 40 MG/0.4 ML SYRINGE SQ SCH (11:00)
--- NOTE | 2017-05-11 11:13 | HHI.NPPN ---
Subjective Interval History He is awake. Has been febrile. Polyuria improved. (Shandra Pierre) Review of Systems General Constitutional: Fever, Fatigue (Shandra Pierre) Objective Data Data Vital Signs Date Time Temp Pulse Resp B/P (MAP) Pulse Ox O2 Delivery O2 Flow Rate FiO2 05/11/17 10:00 79 05/11/17 08:12 95 T-piece 6.00 40 05/11/17 08:00 94 05/11/17 07:01 18 05/11/17 06:00 97 05/11/17 04:17 97 T-piece 6.00 40 05/11/17 04:00 40 05/11/17 04:00 100.4 100 15 116/65 (82) 96 05/11/17 04:00 100 05/11/17 02:00 97 05/11/17 00:00 100.3 85 15 116/61 (79) 100 05/11/17 00:00 85 05/11/17 00:00 40 05/10/17 22:00 86 05/10/17 20:14 98 T-piece 6.00 40 05/10/17 20:00 100.0 81 14 114/65 (81) 96 05/10/17 20:00 40 05/10/17 20:00 81 05/10/17 18:00 74 05/10/17 16:32 98 T-piece 7.00 40 05/10/17 16:00 40 05/10/17 16:00 98.9 89 17 122/72 (89) 99 05/10/17 16:00 89 05/10/17 14:00 101 05/10/17 12:00 90 05/10/17 12:00 40 05/10/17 12:00 100.0 90 15 141/76 (97) 95 (Shandra Pierre) -: 05/11/1742805/11/17428 Imaging Last Impressions Lower Extremity Ultrasound 05/07/17 0000 Signed Impressions: Service Date/Time: Sunday, May 07, 2017 16:45 - CONCLUSION: Normal examination. Maikel Corley MD Head/Brain Mag Res Venography 05/07/17 0000 Signed Impressions: Service Date/Time: Sunday, May 07, 2017 10:43 - CONCLUSION: 1. No findings to indicate venous sinus thrombosis identified. Rj Dolan MD Head Magnetic Resonance Angiography 05/07/17 Signed Impressions: Service Date/Time: Sunday, May 07, 2017 10:43 - CONCLUSION: 1. Normal examination. Rj Dolan MD Chest X-Ray 05/07/17 Signed Impressions: Service Date/Time: Sunday, May 07, 2017 13:13 - CONCLUSION: Slight improvement in aeration. Timbo Mccracken MD Brain MRI 05/07/17 Signed Impressions: Service Date/Time: Sunday, May 07, 2017 10:43 - CONCLUSION: 1. Negative examination. Rj Dolan MD Head CT 05/05/17 Signed Impressions: Service Date/Time: Friday, May 05, 2017 16:08 - CONCLUSION: No acute intracranial disease. Nickolas Valentin MD Chest CT 05/01/17 Signed Impressions: Service Date/Time: Monday, May 01, 2017 18:24 - CONCLUSION: 1. Bilateral areas of consolidation. These alveolar consolidations are worse on the left than the right. They are nonspecific. Diffuse underlying processes such as infection/pneumonia need to be considered. Other diffuse processes could have a similar appearance. 2. Mild left pleural effusion primarily in the subpleural region and a minimal right pleural effusion. 3. Minimal prominent lymph nodes in the right paratracheal region. Timbo Escudero MD Tubes & Lines Comment trach, NG tube (Shandra Pierre B. PRIMING MACHINE OPERATOR) Physical Exam General Appearance: Well Developed, No Acute Distress, Comfortable Appearance Remarks awake, nods yes/no (GabbyShandra B. PRIMING MACHINE OPERATOR) Throat Throat Exam: Oral Mucosa Ferdinand & Moist (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 PRIMING MACHINE OPERATOR) Neck Neck Exam: Neck Supple Neck Remarks trach (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 PRIMING MACHINE OPERATOR) Pulmonary Resp Exam: Breath Sounds Equal, No Distress (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 PRIMING MACHINE OPERATOR) Cardiology CV Exam: Regular, Normal Sinus Rhythm, Good Perfusion (GabbyShandra B. PRIMING MACHINE OPERATOR) Gastrointestinal/Abdomen GI Exam: Soft, Non-Tender, Bowel Sounds Present, Positive Bowel Movement GI Remarks rectal tube (GabbyShandra B. PRIMING MACHINE OPERATOR) Musculoskeletal MS Exam: Normal Tone, Unable to Ambulate (Shandra Pierre) Integumentary Skin Exam: Warm, Dry (Shandra Pierre) Extremeties Extremities Exam: No Edema, Pedal Pulses Palpable (Shandra Pierre) Neurologic Neuro Exam: Alert, Awake, Unresponsive (Shandra Pierre) Assessment/Plan Problem List: (1) Polyuria ICD Codes: R35.8 - Other polyuria Plan: High urine osmolality and 24 hr urine Na suggesting saline diuresis from excessive IVF administration, normal physiological response This is not due to DI Urine output has decreased, also his weight has improved He is not on IVF Preserved renal function noted (2) PNA (pneumonia) ICD Codes: J18.9 - Pneumonia, unspecified organism Plan: Sputum with klebsiella s/p trach, he is off the vent antibiotics as ordered, he has developed fevers Plan We will sign off at this time. Please call us if needed (Shandra Pierre) Plan patient was seen and examined. Agree with above assessment and plan. (Adrien Ridley MD) Problem Qualifiers (1) PNA (pneumonia): Qualified Codes: J18.9 - Pneumonia, unspecified organism Shandra Pierre May 11, 2017 11:13 Adrien Ridley MD May 11, 2017 16:36
--- NOTE | 2017-05-11 12:13 | HHI.PR ---
Subjective Remarks Patient is awake patient focuses but does not answer questions or follows commands on 4 point soft restraints Discussed overnight events with RN - no major overnight events Patient with low grade fevers WBC trending up As per RN saw some blood clots in Garcia bag Objective Vitals Vital Signs Date Time Temp Pulse Resp B/P (MAP) Pulse Ox O2 Delivery O2 Flow Rate FiO2 05/11/17 10:00 79 05/11/17 08:12 95 T-piece 6.00 40 05/11/17 08:00 94 05/11/17 07:01 18 05/11/17 06:00 97 05/11/17 04:17 97 T-piece 6.00 40 05/11/17 04:00 40 05/11/17 04:00 100.4 100 15 116/65 (82) 96 05/11/17 04:00 100 05/11/17 02:00 97 05/11/17 00:00 100.3 85 15 116/61 (79) 100 05/11/17 00:00 85 05/11/17 00:00 40 05/10/17 22:00 86 05/10/17 20:14 98 T-piece 6.00 40 05/10/17 20:00 100.0 81 14 114/65 (81) 96 05/10/17 20:00 40 05/10/17 20:00 81 05/10/17 18:00 74 05/10/17 16:32 98 T-piece 7.00 40 05/10/17 16:00 40 05/10/17 16:00 98.9 89 17 122/72 (89) 99 05/10/17 16:00 89 05/10/17 14:00 101 I/O 05/10/17 05/10/17 05/10/17 05/11/17 05/11/17 05/11/17 06:59 14:59 22:59 06:59 14:59 22:59 Intake Total 1148 ml 919 ml 946 ml Output Total 3200 ml 2100 ml 1950 ml Balance -2052 ml -1181 ml -1004 ml IV Total 150 ml 150 ml Tube Feeding 548 ml 619 ml 676 ml Tube Irrigant 50 ml 120 ml Other 400 ml 300 ml Output Urine Total 2900 ml 1700 ml 1900 ml Stool Total 300 ml 400 ml 50 ml Result Diagram: 05/11/17429 04/12/17 0429 Imaging Last Impressions Lower Extremity Ultrasound 05/07/17 Signed Impressions: Service Date/Time: Sunday, May 07, 2017 16:45 - CONCLUSION: Normal examination. Maikel Corley MD Head/Brain Mag Res Venography 05/07/17 Signed Impressions: Service Date/Time: Sunday, May 07, 2017 10:43 - CONCLUSION: 1. No findings to indicate venous sinus thrombosis identified. Rj Dolan MD Head Magnetic Resonance Angiography 05/07/17 Signed Impressions: Service Date/Time: Sunday, May 07, 2017 10:43 - CONCLUSION: 1. Normal examination. Rj Dolan MD Chest X-Ray 05/07/17 Signed Impressions: Service Date/Time: Sunday, May 07, 2017 13:13 - CONCLUSION: Slight improvement in aeration. Timbo Mccracken MD Brain MRI 05/07/17 Signed Impressions: Service Date/Time: Sunday, May 07, 2017 10:43 - CONCLUSION: 1. Negative examination. Rj Dolan MD Head CT 05/05/17 Signed Impressions: Service Date/Time: Friday, May 05, 2017 16:08 - CONCLUSION: No acute intracranial disease. Nickolas Valentin MD Chest CT 05/01/17 Signed Impressions: Service Date/Time: Monday, May 01, 2017 18:24 - CONCLUSION: 1. Bilateral areas of consolidation. These alveolar consolidations are worse on the left than the right. They are nonspecific. Diffuse underlying processes such as infection/pneumonia need to be considered. Other diffuse processes could have a similar appearance. 2. Mild left pleural effusion primarily in the subpleural region and a minimal right pleural effusion. 3. Minimal prominent lymph nodes in the right paratracheal region. Timbo Escudero MD Objective Remarks HEENT/ Neuro: Awake, has spontaneous eye opening however not following commands and remains encephalopathic, Pallor present, no icterus, tongue/ mucosa moist. Pupils bilaterally 4mm, reactive. Neck: No JVD. Tracheostomy in place Chest/Pulm: on mech vent, good air entry bilaterally, scattered rhonchi, no wheezing or crackles. CVS: normal rate, regular rhythm. sinus by tele. GI/abdomen: soft, nontender, nondistended. no guarding. Extremities: warm bilaterally, no edema Medications and IVs Current Medications Medications (Trade) Dose Ordered Sig/Angel Route Start Time Stop Time Status Last Admin (NS Flush) 2 ml UNSCH PRN IVF 04/25/17 17:15 (Buspar) 15 mg TID PO 04/26/17 09:00 Future Hold 05/05/17 09:41 (CeleXA) 10 mg HS PO 04/25/17 21:00 Future Hold 05/04/17 21:12 (Topamax) 50 mg BID PO 04/25/17 21:00 05/11/17 08:43 (SEROquel) 50 mg HS PO 04/25/17 21:00 Future Hold 05/04/17 21:13 (Pepcid) 20 mg DAILY PO 04/26/17 09:00 05/11/17 08:43 (NS Flush) 2 ml UNSCH PRN .XX 04/25/17 20:00 (NS Flush) 2 ml BID .XX 04/25/17 21:00 05/11/17 08:44 (Tylenol) 650 mg Q6H PRN PO 04/25/17 20:00 05/11/17 08:55 (Tears Naturale Opth Soln) 1 drop TID EACH EYE 04/26/17 09:00 05/11/17 12:43 (Zofran Inj) 4 mg Q6H PRN IV PUSH 04/25/17 20:00 (Duoneb Neb) 1 ampule Q2HR NEB PRN INH 04/25/17 20:00 05/05/17 03:36 Miscellaneous Information 1 Q361D XX 04/25/17 20:00 (Chlorhexidine 2% Cloth) Taper DAILY@04 TOP 04/26/17 04:00 04/22/18 03:59 05/11/17 04:00 (Chlorhexidine 2% Cloth) 3 pack UNSCH PRN TOP 04/25/17 20:00 (Marsha-Colace) 1 tab BID PO 04/25/17 21:00 05/11/17 08:43 (Milk Of Magnesia Liq) 30 ml Q12H PRN PO 04/25/17 20:00 (Senokot) 17.2 mg Q12H PRN PO 04/25/17 20:00 (Dulcolax Supp) 10 mg DAILY PRN RECTAL 04/25/17 20:00 (Lactulose Liq) 30 ml DAILY PRN PO 04/25/17 20:00 (Peridex 0.12% Liq) 15 ml BID@08,20 MT 04/25/17 20:00 05/09/17 21:53 (Pill Splitter) 1 ea UNSCH PRN OTHER 04/25/17 20:15 Potassium Chloride 100 ml @ 50 mls/hr Q2H PRN IV 04/27/17 01:30 05/03/17 18:13 Potassium Chloride 100 ml @ 50 mls/hr Q2H PRN IV 04/27/17 01:30 05/09/17 01:33 (K-Lyte Cl Eff) 50 meq UNSCH PRN PO 04/27/17 01:30 04/27/17 01:52 Potassium Chloride 100 ml @ 25 mls/hr UNSCH PRN IV 04/27/17 01:30 05/03/17 23:42 Potassium Chloride 100 ml @ 50 mls/hr Q2H PRN IV 04/27/17 01:30 05/09/17 10:09 Magnesium Sulfate 4 gm/Sodium Chloride 100 ml @ 50 mls/hr UNSCH PRN IV 04/27/17 01:30 (Mag-Ox) 800 mg UNSCH PRN PO 04/27/17 01:30 Magnesium Sulfate 2 gm/Sodium Chloride 100 ml @ 50 mls/hr UNSCH PRN IV 04/27/17 01:30 (K-Phos) 2,000 mg Q4H PRN PO 04/27/17 01:30 Sodium Phosphate 30 mmol/Sodium Chloride 250 ml @ 42 mls/hr UNSCH PRN IV 04/27/17 01:30 (K-Phos) 2,000 mg UNSCH PRN PO/TUBE 04/27/17 01:30 Potassium Phosphate 30 mmol/ Sodium Chloride 260 ml @ 42 mls/hr UNSCH PRN IV 04/27/17 01:30 04/27/17 03:32 (Reglan Inj) 10 mg Q8HR IV PUSH 04/28/17 17:00 05/11/17 14:55 (Lovenox Inj) 40 mg Q24H SQ 05/04/17 11:00 Future Hold 05/10/17 11:10 (Apresoline Inj) 20 mg Q4H PRN IV PUSH 05/05/17 03:00 05/06/17 22:18 (Trandate Inj) 10 mg Q4H PRN IV PUSH 05/05/17 03:00 05/05/17 13:02 (Flagyl) 500 mg Q8HR PO 05/07/17 14:00 05/11/17 12:43 (Tenormin) 50 mg DAILY NG 05/10/17 14:45 05/11/17 08:43 Sodium Chloride 1,000 ml @ 84 mls/hr [id number] IV 05/11/17 13:00 05/11/17 14:55 (Levaquin) 750 mg DAILY PO 05/11/17 14:45 Urinary Catheter: No A/P Problem List: (1) Acute hypoxemic respiratory failure ICD Code: J96.01 - Acute respiratory failure with hypoxia (2) HCAP (healthcare-associated pneumonia) ICD Code: J18.9 - Pneumonia, unspecified organism (3) Toxic encephalopathy ICD Code: G92 - Toxic encephalopathy (4) Atrial fibrillation with RVR ICD Code: I48.91 - Unspecified atrial fibrillation (5) SVT (supraventricular tachycardia) ICD Code: I47.1 - Supraventricular tachycardia (6) Hypernatremia ICD Code: E87.0 - Hyperosmolality and hypernatremia (7) Sepsis ICD Code: A41.9 - Sepsis, unspecified organism Status: Acute (8) Polyuria ICD Code: R35.8 - Other polyuria Assessment and Plan Assessment: 46yM with acute toxic encephalopathy and acute hypoxic respiratory failure, pneumonia, delirium Acute Respiratory failure Due to underlying pneumonia. Patient off all sedation. The patient status post tracheostomy during T Piece since 05/09. Continue DuoNeb treatments and continue to provide supplemental oxygen to keep oxygen saturation more than 92%. Patient currently on IV antibiotics for treatment of pneumonia. Healthcare Associated Pneumonia -Blood cultures negative to date. Sputum culture grew Pneumonia. Continue Antibiotics As per Infectious Disease. Patient previously on Levaquin IV which has been switched to Levaquin by mouth. Toxic Encephalopathy - Intoxication - Polysubstance abuse - Non focal neurological exam - Monitor for withdrawal - MRI brain unremarkable - neuro consult noted - EEG showing severe slowing. - LP unremarkable, elevated opening pressure while intubated on mechanical ventilation ? Significance. No papilledema per numerical control operator. - Neuro status seems to be improving. Most likely delirium. He is hard of hearing and needs new battery for his hearing aid. A. fib with RVR - converted to sinus rhythm SVT-converted with Adenosine 12 mg IV on 05/08 -Off amiodarone drip. Cardiology consult noted 05/10 heart rate seems controlled. Continue atenolol 50 mg by mouth daily. TSH slightly elevated at 3.850. I will order free T4. Hypernatremia Polyuria - s/p free water replacement - Ordered urine sodium and creatinine, serum osmolarity, urine osmolality. Nephrology consulted. 05/10 nephrology consulted. Patient has an elevated serum osmolality as long as an elevated urine sodium in 24 hours which is a normal physiologic response. Polyuria not due to diabetes insipidus. Urine has decreased his weight has improved. I will start the patient on normal saline since patient has a concentrated urine and is total -11 L. Thrombocytopenia- resolved. - previous admission - 43 - no active bleeding. - Will monitor. - Consulted hematology for further evaluation. Okay with resuming Lovenox for DVT prophylaxis as platelet count has normalized. DVT Prophylaxis - Teds SCDs - Lovenox for DVT prophylaxis on 05/04 - discussed with Dr. Conner (held for LP. resumed after LP) - Pepcid Continue tube feeds and advance to goal as tolerated. Awaiting speech and swallow evaluation. May deflate cuff of tracheostomy for swallow eval. May possibly be able to avoid PEG tube. Discharge Planning Continue to monitor in the intensive care unit for now. Problem Qualifiers (1) Sepsis: Qualified Codes: A41.9 - Sepsis, unspecified organism Jian Hollingsworth MD May 11, 2017 12:13
[2017-05-11 13:28] LABS: UR UREA/CREAT RATIO 34.23 mg/mg
[2017-05-11 13:42] LABS: BACTERIA, URINE RARE /hpf; BLOOD, URINE LARGE (NEG); COMMENT (UR) CATH-CULTURE IND; CULTURE IF INDICATED CATH CULTURE IND; GLUCOSE,URINE NEG (NEG); KETONE, URINE NEG (NEG); NITRITE,URINE NEG (NEG); PH, URINE 6.5 (5.0-8.5); SQUAMOUS EPITHELIAL CELL URINE <1 /hpf (0-5); URINE COLOR YELLOW (YELLW/STRAW)
--- NOTE | 2017-05-11 14:44 | HHI.IDPN ---
Subjective Subjective Remarks Patient is a 46-year-old male who was initially admitted on April 23 complaining of 5 day history of cough with sputum production as well as fever. He was also having some diarrhea. It was during that time, he was in [facility] where he went in for drug rehabilitation. When he presented, the patient was afebrile, and his chest x-ray showed evidence of pneumonia. He was started on antibiotics, and he had an HIV testing done which came back negative. Patient however signed out AGAINST MEDICAL ADVICE on April 25. He reportedly used some drugs, and his brother forced him to go back to the hospital and he got readmitted April 25. He had evidence of increasing pulmonary infiltrates, and he ended up getting intubated. He has been on the vent since. He had some problem with A. fib, and he converted to normal sinus rhythm. Patient has still been requiring ventilatory support. He had some fevers from 926 2 around April 30, and his temperatures improved. His cultures on readmission were negative. His sputum had normal ronaldo, Legionella and pneumococcal antigen were negative. Blood cultures were negative. Urine culture were negative. Patient has been getting broad-spectrum antibiotics which include Zosyn and vancomycin. Since yesterday patient started having high fevers again. He has copious thick light yellow to whitman endotracheal secretions. His hemodynamics are okay. He remains on the vent, and has not been able to be weaned. He has a Perez in place. Has a central line in the left subclavian. Patient also had problem with thrombocytopenia and anemia, and hematology evaluated him. His numbers have improved. Infectious disease consultation has been requested to evaluate the patient. Notes reviewed Has low grade temps On T-piece Awake, focusing, but not following commands S/P trach 10/7 UA with some pyuria Brain MRI negative MRA/MRV normal US no DVT BLE Antibiotics Levaquin IV Flagyl PO Lines PIV Line sites with no e.o infection Past Medical History Anxiety Depression Substance abuse Past Surgical History Cleft palate surgery Right hand surgery Bilateral ear surgery Allergies: Coded Allergies: No Known Allergies (Unverified , 04/23/17) Objective . Vital Signs Date Time Temp Pulse Resp B/P (MAP) Pulse Ox O2 Delivery O2 Flow Rate FiO2 05/11/17 10:00 79 05/11/17 08:12 95 T-piece 6.00 40 05/11/17 08:00 94 10/12/17 07:01 18 05/11/17 06:00 97 05/11/17 04:17 97 T-piece 6.00 40 05/11/17 04:00 40 05/11/17 04:00 100.4 100 15 116/65 (82) 96 05/11/17 04:00 100 05/11/17 02:00 97 05/11/17 00:00 100.3 85 15 116/61 (79) 100 05/11/17 00:00 85 05/11/17 00:00 40 05/10/17 22:00 86 05/10/17 20:14 98 T-piece 6.00 40 05/10/17 20:00 100.0 81 14 114/65 (81) 96 05/10/17 20:00 40 05/10/17 20:00 81 05/10/17 18:00 74 05/10/17 16:32 98 T-piece 7.00 40 05/10/17 16:00 40 05/10/17 16:00 98.9 89 17 122/72 (89) 99 05/10/17 16:00 89 . Laboratory Tests Test 05/10/17 03:43 05/11/17 04:29 White Blood Count 12.4 TH/MM3 13.5 TH/MM3 Red Blood Count 2.83 MIL/MM3 2.68 MIL/MM3 Hemoglobin 8.9 GM/DL 8.4 GM/DL Hematocrit 27.1 % 26.1 % Mean Corpuscular Volume 95.6 FL 97.6 FL Mean Corpuscular Hemoglobin 31.5 PG 31.5 PG Mean Corpuscular Hemoglobin Concent 32.9 % 32.2 % Red Cell Distribution Width 14.6 % 15.0 % Platelet Count 430 TH/MM3 459 TH/MM3 Mean Platelet Volume 9.4 FL 10.6 FL Laboratory Tests Test 05/09/17 16:38 05/10/17 03:43 05/11/17 04:29 Potassium Level 3.7 MEQ/L 3.7 MEQ/L 3.8 MEQ/L Blood Urea Nitrogen 16 MG/DL 19 MG/DL Creatinine 0.50 MG/DL 0.60 MG/DL Random Glucose 114 MG/DL 83 MG/DL Calcium Level 8.1 MG/DL 8.7 MG/DL Sodium Level 138 MEQ/L 137 MEQ/L Chloride Level 107 MEQ/L 104 MEQ/L Carbon Dioxide Level 23.1 MEQ/L 22.8 MEQ/L Anion Gap 8 MEQ/L 10 MEQ/L Estimat Glomerular Filtration Rate 178 ML/MIN 144 ML/MIN Serum Osmolality 297 MOSM/KG Microbiology Date/Time Source Procedure Growth Status 05/09/17 11:55 Blood Peripheral Aerobic Blood Culture - Preliminary NO GROWTH IN 2 DAYS Resulted 05/09/17 11:55 Blood Peripheral Anaerobic Blood Culture - Preliminary NO GROWTH IN 2 DAYS Resulted 05/09/17 11:50 Blood Peripheral Aerobic Blood Culture - Preliminary NO GROWTH IN 2 DAYS Resulted 05/09/17 11:50 Blood Peripheral Anaerobic Blood Culture - Preliminary NO GROWTH IN 2 DAYS Resulted 05/11/17 11:00 Urine Catheterized Urine Urine Culture Pending Received Imaging Lower Extremity Ultrasound 05/07/17 Signed Impressions: Service Date/Time: Sunday, May 07, 2017 16:45 - CONCLUSION: Normal examination. Maikel Corley MD Head/Brain Mag Res Venography 05/07/17 Signed Impressions: Service Date/Time: Sunday, May 07, 2017 10:43 - CONCLUSION: 1. No findings to indicate venous sinus thrombosis identified. Rj Dolan MD Head Magnetic Resonance Angiography 05/07/17 Signed Impressions: Service Date/Time: Sunday, May 07, 2017 10:43 - CONCLUSION: 1. Normal examination. Rj Dolan MD Chest X-Ray 05/07/17 Signed Impressions: Service Date/Time: Sunday, May 07, 2017 13:13 - CONCLUSION: Slight improvement in aeration. Timbo Mccracken MD Brain MRI 05/07/17 0000 Signed Impressions: Service Date/Time: Sunday, May 07, 2017 10:43 - CONCLUSION: 1. Negative examination. Rj Dolan MD Head CT 05/05/17 0000 Signed Impressions: Service Date/Time: Friday, May 05, 2017 16:08 - CONCLUSION: No acute intracranial disease. Nickolas Valentin MD Chest X-Ray 05/04/17 1019 Signed Impressions: Service Date/Time: April 10:57 - CONCLUSION: No significant interval change Timbo Mccracken MD Chest CT 05/01/17 0000 Signed Impressions: Service Date/Time: Monday, May 01, 2017 18:24 - CONCLUSION: 1. Bilateral areas of consolidation. These alveolar consolidations are worse on the left than the right. They are nonspecific. Diffuse underlying processes such as infection/pneumonia need to be considered. Other diffuse processes could have a similar appearance. 2. Mild left pleural effusion primarily in the subpleural region and a minimal right pleural effusion. 3. Minimal prominent lymph nodes in the right paratracheal region. Timbo Escudero MD Physical Exam GENERAL: Awake, focusing, not following commands, looks comfortable on CPAP SKIN: Warm and dry. No generalized rash, no ecchymoses and no evidence of embolic lesions. HEAD: Atraumatic. Normocephalic. No temporal wasting, or tenderness. EYES: Wisdom conjunctiva. No petechia or hemorrhage. Pupils equal, round and reactive to light. No scleral icterus. No injection or drainage. EARS, NOSE AND THROAT: Nose without bleeding or purulent nasal discharge. Moist mucosa. NECK: Trachea midline. Supple and not tender, no meningeal sign. Trach site ok CARDIOVASCULAR: Regular rate and rhythm. No murmurs, rubs or gallops heard RESPIRATORY: Scattered rhonchi ABDOMEN: Soft, obese, nondistended, bowel sounds present and normoactive. Not tender, no guarding EXTREMITIES: No clubbing, cyanosis. Has some pedal edema. No joint effusion. Well perfused and warm. NEUROLOGICAL: Awake and focusing, not following commands. No Babinski, no ankle clonus PSYCHIATRIC: Calm, not restless LINE: PIV, no evidence of infection Assessment & Plan Remarks IMPRESSION Sepsis, with recurrent fevers, etiology? - ?new HCAP - no perez - central line out - nothing new on C/S, has Klebsiella in sputum - CXR better Low grade temps Bilateral infiltrates, CXR better now Encephalopathy - LP negative, imaging studies negative - OP elevated on his LP Respiratory failure, S/P trach - tolerating T-piece Known polysubstance abuse RECOMMENDATION Continue Levaquin Also on flagyl oral for anaerobic coverage for possible aspiration PNA CXR tomorrow Follow CBC Follow C/S Monitor temps Monitor progress Asya Haro MD May 11, 2017 14:44
[2017-05-11] MEDS: SODIUM CHLOR 0.9% 1000 ML INJ 1,000 ML IV SCH (14:55)
[2017-05-11] MEDS: LEVOFLOXACIN 750 MG TAB PO SCH (16:30)
[2017-05-12] VITALS (14 sets, daily range): BP systolic 102–121; BP diastolic 65–70; PULSE 78–109; RESP 13–20; TEMP 98.2–98.9; O2SAT 96–100
[2017-05-12] MEDS: SODIUM CHLOR 0.9% 1000 ML INJ 1,000 ML IV SCH ×3 (00:55→17:13)
[2017-05-12] MEDS: CHLORHEXIDINE GLUCONATE 2 % 1 PACK (2 CLOTHS) TOP SCH (03:53)
[2017-05-12] MEDS: METOCLOPRAMIDE HCL 10 MG/2 ML VIAL IV PUSH SCH ×3 (03:53→21:52)
[2017-05-12] MEDS: metroNIDAZOLE 500 MG TAB PO SCH ×3 (03:53→21:52)
--- NOTE | 2017-05-12 05:06 | RADRPT ---
EXAM DATE/TIME: 05/12/2017 04:00 [place] COMPARISON: No previous studies available for comparison. INDICATIONS : Evaluate for infiltrates. MEDICAL HISTORY : Gastroesophageal reflux disease. SURGICAL HISTORY : None. ENCOUNTER: Subsequent ACUITY: 2 weeks PAIN SCORE: Non-responsive. LOCATION: chest FINDINGS: A single view of the chest demonstrates tracheostomy in good position. Nasogastric tube enters stomac h. Bilateral mostly perihilar airspace disease. No effusion. No pneumothorax. CONCLUSION: 1. Bilateral mostly perihilar airspace disease similar to May 07. Support apparatus in good positi on. Roverto Monae MD on May 12, 2017 at 5:02 Board Certified Radiologist. This report was verified electronically.
[2017-05-12 07:12] LABS: MEAN CELL VOLUME 96.5 FL (80.0-100.0); MEAN CORPUSCULAR HGB CONC 33.2 % (32.0-36.0); PLATELET COUNT 429 TH/MM3 (150-450); RED BLOOD COUNT 2.59 MIL/MM3 (4.50-5.90); REVIEW FLAG FINAL; WHITE BLOOD COUNT 9.7 TH/MM3 (4.0-11.0)
[2017-05-12] MEDS: CHLORHEXIDINE 0.12% (ORAL KIT) 15 ML CUP MT SCH ×2 (08:00→20:00)
[2017-05-12 08:25] LABS: BICARBONATE 21.1 MEQ/L (21.0-32.0); POTASSIUM 3.8 MEQ/L (3.5-5.1)
[2017-05-12 08:30] LABS: C. DIFF EPI 027 PRESUMPTIVE NEGATIVE (NEGATIVE)
[2017-05-12] MEDS: FAMOTIDINE 20 MG TAB PO SCH (09:36)
[2017-05-12] MEDS: ATENOLOL 50 MG TAB NG SCH (09:36)
[2017-05-12] MEDS: LEVOFLOXACIN 750 MG TAB PO SCH (09:36)
[2017-05-12] MEDS: DOCUSATE SODIUM 50 MG/SENNA 8.6 MG TAB PO SCH (09:36)
[2017-05-12] MEDS: TOPIRAMATE 25 MG TAB PO SCH ×2 (09:36→21:52)
[2017-05-12] MEDS: ARTIFICIAL TEARS OPTH SOLN 15 ML BTL EACH EYE SCH ×3 (09:37→17:14)
[2017-05-12] MEDS: SODIUM CHLORIDE 0.9% FLUSH 10 ML FLUSH SCH ×2 (09:37→21:52)
--- NOTE | 2017-05-12 12:04 | HHI.PR ---
Subjective Remarks Discussed overnight events with RN. No major overnight events. Patient is afebrile. No states that the patient is fidgety Tolerated the today. The patient still having loose stools Tolerating tube feeding. Objective Vitals Vital Signs Date Time Temp Pulse Resp B/P (MAP) Pulse Ox O2 Delivery O2 Flow Rate FiO2 05/12/17 10:00 95 05/12/17 08:00 98.6 105 20 121/70 (87) 98 05/12/17 08:00 109 05/12/17 07:56 99 T-piece 6.00 40 05/12/17 06:00 95 05/12/17 04:00 98.9 93 17 119/70 (86) 98 05/12/17 04:00 93 05/12/17 02:00 91 05/12/17 00:00 98.4 90 16 119/69 (86) 100 05/12/17 00:00 90 05/11/17 22:00 90 05/11/17 20:00 98.2 87 20 104/61 (75) 100 05/11/17 20:00 87 05/11/17 19:08 97 T-piece 5.00 40 05/11/17 18:00 86 05/11/17 16:00 98.8 79 15 99/58 (72) 96 05/11/17 16:00 79 05/11/17 14:00 77 05/11/17 12:00 98.5 77 12 107/56 (73) 100 05/11/17 12:00 77 I/O 05/11/17 05/11/17 05/11/17 05/12/17 05/12/17 05/12/17 07:00 15:00 23:00 07:00 15:00 23:00 Intake Total 946 ml 700 ml 1723 ml Output Total 1950 ml 1500 ml 1970 ml Balance -1004 ml -800 ml -247 ml IV Total 150 ml 1069 ml Tube Feeding 676 ml 700 ml 594 ml Tube Irrigant 120 ml 60 ml Output Urine Total 1900 ml 1200 ml 1700 ml Stool Total 50 ml 300 ml 270 ml # Voids 1 Result Diagram: 05/12/17 0529 05/12/17 0529 Imaging Last Impressions Chest X-Ray 05/12/17 0000 Signed Impressions: Service Date/Time: Friday, May 12, 2017 04:00 - CONCLUSION: 1. Bilateral mostly perihilar airspace disease similar to May 07. Support apparatus in good position. Roverto Monae MD Lower Extremity Ultrasound 05/07/17 Signed Impressions: Service Date/Time: Sunday, May 07, 2017 16:45 - CONCLUSION: Normal examination. Maikel Corley MD Head/Brain Mag Res Venography 05/07/17 Signed Impressions: Service Date/Time: Sunday, May 07, 2017 10:43 - CONCLUSION: 1. No findings to indicate venous sinus thrombosis identified. Rj Dolan MD Head Magnetic Resonance Angiography 05/07/17 Signed Impressions: Service Date/Time: Sunday, May 07, 2017 10:43 - CONCLUSION: 1. Normal examination. Rj Dolan MD Brain MRI 05/07/17 Signed Impressions: Service Date/Time: Sunday, May 07, 2017 10:43 - CONCLUSION: 1. Negative examination. Rj Dolan MD Head CT 05/05/17 Signed Impressions: Service Date/Time: Friday, May 05, 2017 16:08 - CONCLUSION: No acute intracranial disease. Nickolas Valentin MD Chest CT 05/01/17 Signed Impressions: Service Date/Time: Monday, May 01, 2017 18:24 - CONCLUSION: 1. Bilateral areas of consolidation. These alveolar consolidations are worse on the left than the right. They are nonspecific. Diffuse underlying processes such as infection/pneumonia need to be considered. Other diffuse processes could have a similar appearance. 2. Mild left pleural effusion primarily in the subpleural region and a minimal right pleural effusion. 3. Minimal prominent lymph nodes in the right paratracheal region. Timbo Escudero MD Objective Remarks HEENT/ Neuro: Awake, has spontaneous eye opening however not following commands and remains encephalopathic, Pallor present, no icterus, tongue/ mucosa moist. Pupils bilaterally 4mm, reactive. Neck: No JVD. Tracheostomy in place Chest/Pulm: on mech vent, good air entry bilaterally, scattered rhonchi, no wheezing or crackles. CVS: normal rate, regular rhythm. sinus by tele. GI/abdomen: soft, nontender, nondistended. no guarding. Extremities: warm bilaterally, no edema Garcia catheter with Garcia bag show clearer urine. Medications and IVs Current Medications Medications (Trade) Dose Ordered Sig/Angel Route Start Time Stop Time Status Last Admin (NS Flush) 2 ml UNSCH PRN IVF 04/25/17 17:15 (Buspar) 15 mg TID PO 04/26/17 09:00 Future Hold 05/05/17 09:41 (CeleXA) 10 mg HS PO 04/25/17 21:00 Future Hold 05/04/17 21:12 (Topamax) 50 mg BID PO 04/25/17 21:00 05/12/17 09:36 (SEROquel) 50 mg HS PO 04/25/17 21:00 Future Hold 05/04/17 21:13 (Pepcid) 20 mg DAILY PO 04/26/17 09:00 05/12/17 09:36 (NS Flush) 2 ml UNSCH PRN .XX 04/25/17 20:00 (NS Flush) 2 ml BID .XX 04/25/17 21:00 05/12/17 09:37 (Tylenol) 650 mg Q6H PRN PO 04/25/17 20:00 05/11/17 08:55 (Tears Naturale Opth Soln) 1 drop TID EACH EYE 04/26/17 09:00 05/12/17 09:37 (Zofran Inj) 4 mg Q6H PRN IV PUSH 04/25/17 20:00 (Duoneb Neb) 1 ampule Q2HR NEB PRN INH 04/25/17 20:00 05/05/17 03:36 Miscellaneous Information 1 Q361D XX 04/25/17 20:00 (Chlorhexidine 2% Cloth) Taper DAILY@04 TOP 04/26/17 04:00 04/22/18 03:59 05/12/17 03:53 (Chlorhexidine 2% Cloth) 3 pack UNSCH PRN TOP 04/25/17 20:00 (Marsha-Colace) 1 tab BID PO 04/25/17 21:00 05/12/17 09:36 (Milk Of Magnesia Liq) 30 ml Q12H PRN PO 04/25/17 20:00 (Senokot) 17.2 mg Q12H PRN PO 04/25/17 20:00 (Dulcolax Supp) 10 mg DAILY PRN RECTAL 04/25/17 20:00 (Lactulose Liq) 30 ml DAILY PRN PO 04/25/17 20:00 (Peridex 0.12% Liq) 15 ml BID@08,20 MT 04/25/17 20:00 05/09/17 21:53 (Pill Splitter) 1 ea UNSCH PRN OTHER 04/25/17 20:15 Potassium Chloride 100 ml @ 50 mls/hr Q2H PRN IV 04/27/17 01:30 05/03/17 18:13 Potassium Chloride 100 ml @ 50 mls/hr Q2H PRN IV 04/27/17 01:30 05/09/17 01:33 (K-Lyte Cl Eff) 50 meq UNSCH PRN PO 04/27/17 01:30 04/27/17 01:52 Potassium Chloride 100 ml @ 25 mls/hr UNSCH PRN IV 04/27/17 01:30 05/03/17 23:42 Potassium Chloride 100 ml @ 50 mls/hr Q2H PRN IV 04/27/17 01:30 05/09/17 10:09 Magnesium Sulfate 4 gm/Sodium Chloride 100 ml @ 50 mls/hr UNSCH PRN IV 04/27/17 01:30 (Mag-Ox) 800 mg UNSCH PRN PO 04/27/17 01:30 Magnesium Sulfate 2 gm/Sodium Chloride 100 ml @ 50 mls/hr UNSCH PRN IV 04/27/17 01:30 (K-Phos) 2,000 mg Q4H PRN PO 04/27/17 01:30 Sodium Phosphate 30 mmol/Sodium Chloride 250 ml @ 42 mls/hr UNSCH PRN IV 04/27/17 01:30 (K-Phos) 2,000 mg UNSCH PRN PO/TUBE 04/27/17 01:30 Potassium Phosphate 30 mmol/ Sodium Chloride 260 ml @ 42 mls/hr UNSCH PRN IV 04/27/17 01:30 04/27/17 03:32 (Reglan Inj) 10 mg Q8HR IV PUSH 04/28/17 17:00 05/12/17 03:53 (Lovenox Inj) 40 mg Q24H SQ 05/04/17 11:00 Future Hold 05/10/17 11:10 (Apresoline Inj) 20 mg Q4H PRN IV PUSH 05/05/17 03:00 05/06/17 22:18 (Trandate Inj) 10 mg Q4H PRN IV PUSH 05/05/17 03:00 05/05/17 13:02 (Flagyl) 500 mg Q8HR PO 05/07/17 14:00 05/12/17 03:53 (Tenormin) 50 mg DAILY NG 05/10/17 14:45 05/12/17 09:36 Sodium Chloride 1,000 ml @ 84 mls/hr [id number] IV 05/11/17 13:00 05/12/17 05:48 (Levaquin) 750 mg DAILY PO 05/11/17 14:45 05/12/17 09:36 A/P Problem List: (1) Acute hypoxemic respiratory failure ICD Code: J96.01 - Acute respiratory failure with hypoxia (2) HCAP (healthcare-associated pneumonia) ICD Code: J18.9 - Pneumonia, unspecified organism (3) Toxic encephalopathy ICD Code: G92 - Toxic encephalopathy (4) Atrial fibrillation with RVR ICD Code: I48.91 - Unspecified atrial fibrillation (5) SVT (supraventricular tachycardia) ICD Code: I47.1 - Supraventricular tachycardia (6) Hypernatremia ICD Code: E87.0 - Hyperosmolality and hypernatremia (7) Sepsis ICD Code: A41.9 - Sepsis, unspecified organism Status: Acute (8) Polyuria ICD Code: R35.8 - Other polyuria Assessment and Plan Assessment: 46yM with acute toxic encephalopathy and acute hypoxic respiratory failure, pneumonia, delirium Acute Respiratory failure Due to underlying pneumonia. Patient off all sedation. The patient status post tracheostomy during T Piece since 05/09. Continue DuoNeb treatments and continue to provide supplemental oxygen to keep oxygen saturation more than 92%. Patient currently on IV antibiotics for treatment of pneumonia. Healthcare Associated Pneumonia -Blood cultures negative to date. Sputum culture grew Pneumonia. Continue Antibiotics As per Infectious Disease. Patient previously on Levaquin IV which has been switched to Levaquin by mouth. Toxic Encephalopathy - Intoxication - Polysubstance abuse - Non focal neurological exam - Monitor for withdrawal - MRI brain unremarkable - neuro consult noted - EEG showing severe slowing. - LP unremarkable, elevated opening pressure while intubated on mechanical ventilation ? Significance. No papilledema per endoscopy technican. - Neuro status seems to be improving. Most likely delirium. He is hard of hearing and needs new battery for his hearing aid. A. fib with RVR - converted to sinus rhythm SVT-converted with Adenosine 12 mg IV on 05/08 -Off amiodarone drip. Cardiology consult noted 05/10 heart rate seems controlled. Continue atenolol 50 mg by mouth daily. TSH slightly elevated at 3.850. 05/12 check free t4 Hypernatremia Polyuria - s/p free water replacement - Ordered urine sodium and creatinine, serum osmolarity, urine osmolality. Nephrology consulted. 05/10 nephrology consulted. Patient has an elevated serum osmolality as long as an elevated urine sodium in 24 hours which is a normal physiologic response. Polyuria not due to diabetes insipidus. Urine has decreased his weight has improved. I will start the patient on normal saline since patient has a concentrated urine and is total -11 L. 05/12 urine looks more clear today. Continue IV fluids. Thrombocytopenia- resolved. - previous admission - 43 - no active bleeding. - Will monitor. - Consulted hematology for further evaluation. Okay with resuming Lovenox for DVT prophylaxis as platelet count has normalized. Diarrhea C. difficile toxin toxin PCR negative. Hold atool softeners and laxatives. Hematuria As per report, the patient had some blood clots reported on 05/11. UA checked. Likely consistent with hematuria and possible UTI with trace leukocyte esterase and increased white blood cells 97. Follow-up urine culture. I will start the patient on IV Rocephin. DVT Prophylaxis - Teds SCDs - Lovenox for DVT prophylaxis on 05/04 - discussed with Dr. Conner (held for LP. resumed after LP) - Pepcid Continue tube feeds and advance to goal as tolerated. Awaiting speech and swallow evaluation - consulted on 05/12. May deflate cuff of tracheostomy for swallow eval. May possibly be able to avoid PEG tube. Discharge Planning Continue to monitor in the intensive care unit for now. Problem Qualifiers (1) Sepsis: Qualified Codes: A41.9 - Sepsis, unspecified organism Jian Hollingsworth MD May 12, 2017 12:04
[2017-05-12] MEDS: LACTOBACILLUS ACIDOPHILUS TAB PO SCH (17:14)
[2017-05-13] VITALS (14 sets, daily range): BP systolic 112–169; BP diastolic 58–88; PULSE 84–115; RESP 19–22; TEMP 98–98.6; O2SAT 98–100
[2017-05-13] MEDS: CHLORHEXIDINE GLUCONATE 2 % 1 PACK (2 CLOTHS) TOP SCH (04:00)
[2017-05-13] MEDS: SODIUM CHLOR 0.9% 1000 ML INJ 1,000 ML IV SCH (04:55)
[2017-05-13 05:13] LABS: AUTOMATED NEUTROPHIL # 7.2 TH/MM3 (1.8-7.7); BASOPHIL % 0.4 % (0.0-2.0); EOSINOPHIL # 0.1 TH/MM3 (0-0.4); EOSINOPHIL % 0.7 % (0.0-4.0); HEMATOCRIT 25.4 % (39.0-51.0); LYMPH % 13.2 % (9.0-44.0); LYMPHOCYTE # 1.3 TH/MM3 (1.0-4.8); MEAN CELL VOLUME 97.3 FL (80.0-100.0); MEAN CORPUSCULAR HEMOGLOBIN 32.7 PG (27.0-34.0); MEAN CORPUSCULAR HGB CONC 33.6 % (32.0-36.0); MONO % 9.8 % (0.0-8.0); NEUT % 75.9 % (16.0-70.0); PLATELET COUNT 428 TH/MM3 (150-450); RED BLOOD COUNT 2.61 MIL/MM3 (4.50-5.90); RED CELL DISTRIBUTION WIDTH 14.8 % (11.6-17.2); WHITE BLOOD COUNT 9.5 TH/MM3 (4.0-11.0)
[2017-05-13 05:18] LABS: HEMO FLAGS AUTO DIFF
[2017-05-13 05:31] LABS: ALT (GPT) 62 U/L (12-78); ANION GAP 8 MEQ/L (5-15); AST (GOT) 51 U/L (15-37); BICARBONATE 21.8 MEQ/L (21.0-32.0); BLOOD UREA NITROGEN 14 MG/DL (7-18); CHLORIDE 105 MEQ/L (98-107); GLOMERULAR FILTRATION RATE 153 ML/MIN (>89); MAGNESIUM 2.1 MG/DL (1.5-2.5); POTASSIUM 3.8 MEQ/L (3.5-5.1); SODIUM (NA) 135 MEQ/L (136-145)
[2017-05-13 05:33] LABS: ALKALINE PHOSPHATASE 95 U/L (45-117); TOTAL BILIRUBIN ADULT 0.4 MG/DL (0.2-1.0)
[2017-05-13] MEDS: METOCLOPRAMIDE HCL 10 MG/2 ML VIAL IV PUSH SCH ×3 (07:21→21:23)
[2017-05-13] MEDS: metroNIDAZOLE 500 MG TAB PO SCH ×3 (07:21→21:23)
[2017-05-13] MEDS: ARTIFICIAL TEARS OPTH SOLN 15 ML BTL EACH EYE SCH ×2 (09:00→13:00)
[2017-05-13] MEDS: TOPIRAMATE 25 MG TAB PO SCH ×2 (09:08→21:23)
[2017-05-13] MEDS: LACTOBACILLUS ACIDOPHILUS TAB PO SCH ×2 (09:08→13:00)
[2017-05-13] MEDS: ATENOLOL 50 MG TAB NG SCH (09:08)
[2017-05-13] MEDS: LEVOFLOXACIN 750 MG TAB PO SCH (09:08)
[2017-05-13] MEDS: FAMOTIDINE 20 MG TAB PO SCH (09:08)
[2017-05-13 09:26] LABS: BANDS 8 % (0-6); EOSINOPHILS 1 % (0-4); MYELOCYTES 3 % (0-0); NEUTROPHIL # MANUAL DIFF 7.2 TH/MM3 (1.8-7.7); PLASMA CELLS 1 % (0-0); POLYS (SEG NEUTROPHILS) 65 % (16-70); WBC DIFF SAMPLE 100
[2017-05-13 09:27] LABS: PLATELET ESTIMATE SMEAR NORMAL (NORMAL); PLATELET MORPHOLOGY NORMAL (NORMAL); POLYCHROMASIA 2.1 % (0.0-1.9); SCAN/DIFF FINAL DIFF MANUAL
--- NOTE | 2017-05-13 19:58 | HHI.PR ---
Subjective Remarks Patient is less agitated and non verbal patient nods yes and no seems to be more awake and less confused RN states that patient started playing with perez catheter and rectal tube and these were discontinued. Objective Vitals Vital Signs Date Time Temp Pulse Resp B/P (MAP) Pulse Ox O2 Delivery O2 Flow Rate FiO2 05/13/17 12:00 97 05/13/17 10:00 97 05/13/17 08:22 100 T-piece 28 05/13/17 08:00 97 05/13/17 08:00 98.6 92 19 112/67 (82) 98 05/13/17 06:00 97 05/13/17 04:00 92 05/13/17 04:00 98.6 92 19 112/60 (77) 98 05/13/17 02:00 84 05/13/17 00:00 87 05/13/17 00:00 98.0 87 21 115/58 (77) 99 05/12/17 22:00 81 05/12/17 20:00 98.8 78 16 112/66 (81) 96 05/12/17 20:00 78 I/O 05/12/17 05/12/17 05/12/17 05/13/17 05/13/17 05/13/17 07:00 15:00 23:00 07:00 15:00 23:00 Intake Total 1723 ml 1674 ml 815 ml Output Total 1970 ml 2200 ml 2201 ml Balance -247 ml -526 ml -1386 ml IV Total 1069 ml 998 ml Tube Feeding 594 ml 676 ml 715 ml Tube Irrigant 60 ml Other 100 ml Output Urine Total 1700 ml 2000 ml 2200 ml Stool Total 270 ml 200 ml 1 ml Result Diagram: 05/13/17 0437 05/13/17 0437 Imaging Last Impressions Chest X-Ray 05/12/17 0000 Signed Impressions: Service Date/Time: Friday, May 12, 2017 04:00 - CONCLUSION: 1. Bilateral mostly perihilar airspace disease similar to May 07. Support apparatus in good position. Roverto Monae MD Lower Extremity Ultrasound 05/07/17 0000 Signed Impressions: Service Date/Time: Sunday, May 07, 2017 16:45 - CONCLUSION: Normal examination. Maikel Corley MD Head/Brain Mag Res Venography 10/8/17 0000 Signed Impressions: Service Date/Time: Sunday, May 07, 2017 10:43 - CONCLUSION: 1. No findings to indicate venous sinus thrombosis identified. Rj Dolan MD Head Magnetic Resonance Angiography 05/07/17 Signed Impressions: Service Date/Time: Sunday, May 07, 2017 10:43 - CONCLUSION: 1. Normal examination. Rj Dolan MD Brain MRI 05/07/17 Signed Impressions: Service Date/Time: Sunday, May 07, 2017 10:43 - CONCLUSION: 1. Negative examination. Rj Dolan MD Head CT 05/05/17 Signed Impressions: Service Date/Time: Friday, May 05, 2017 16:08 - CONCLUSION: No acute intracranial disease. Nickolas Valentin MD Chest CT 05/01/17 Signed Impressions: Service Date/Time: Monday, May 01, 2017 18:24 - CONCLUSION: 1. Bilateral areas of consolidation. These alveolar consolidations are worse on the left than the right. They are nonspecific. Diffuse underlying processes such as infection/pneumonia need to be considered. Other diffuse processes could have a similar appearance. 2. Mild left pleural effusion primarily in the subpleural region and a minimal right pleural effusion. 3. Minimal prominent lymph nodes in the right paratracheal region. Timbo Escudero MD Objective Remarks HEENT/ Neuro: Awake, has spontaneous eye opening however not following commands and remains encephalopathic, Pallor present, no icterus, tongue/ mucosa moist. Pupils bilaterally 4mm, reactive. Neck: No JVD. Tracheostomy in place Chest/Pulm: on mech vent, good air entry bilaterally, scattered rhonchi, no wheezing or crackles. CVS: normal rate, regular rhythm. sinus by tele. GI/abdomen: soft, nontender, nondistended. no guarding. Extremities: warm bilaterally, no edema Perez catheter with Perez bag show clearer urine. A/P Problem List: (1) Acute hypoxemic respiratory failure ICD Code: J96.01 - Acute respiratory failure with hypoxia Status: Acute (2) HCAP (healthcare-associated pneumonia) ICD Code: J18.9 - Pneumonia, unspecified organism Status: Acute (3) Toxic encephalopathy ICD Code: G92 - Toxic encephalopathy Status: Acute (4) Atrial fibrillation with RVR ICD Code: I48.91 - Unspecified atrial fibrillation Status: Resolved (5) SVT (supraventricular tachycardia) ICD Code: I47.1 - Supraventricular tachycardia Status: Resolved (6) Hypernatremia ICD Code: E87.0 - Hyperosmolality and hypernatremia Status: Resolved (7) Sepsis ICD Code: A41.9 - Sepsis, unspecified organism Status: Acute (8) Polyuria ICD Code: R35.8 - Other polyuria Assessment and Plan Assessment: 46yM with acute toxic encephalopathy and acute hypoxic respiratory failure, pneumonia, delirium Acute Respiratory failure Due to underlying pneumonia. Patient off all sedation. The patient status post tracheostomy during T Piece since 05/09. Continue DuoNeb treatments and continue to provide supplemental oxygen to keep oxygen saturation more than 92%. Patient currently on IV antibiotics for treatment of pneumonia. Healthcare Associated Pneumonia -Blood cultures negative to date. Sputum culture grew Pneumonia. Continue Antibiotics As per Infectious Disease. Patient previously on Levaquin IV which has been switched to Levaquin by mouth. Toxic Encephalopathy - Intoxication - Polysubstance abuse - Non focal neurological exam - Monitor for withdrawal - MRI brain unremarkable - neuro consult noted - EEG showing severe slowing. - LP unremarkable, elevated opening pressure while intubated on mechanical ventilation ? Significance. No papilledema per lamp shade joiner. - Neuro status seems to be improving. Most likely delirium. He is hard of hearing and needs new battery for his hearing aid. A. fib with RVR - converted to sinus rhythm SVT-converted with Adenosine 12 mg IV on 05/08 -Off amiodarone drip. Cardiology consult noted 05/10 heart rate seems controlled. Continue atenolol 50 mg by mouth daily. TSH slightly elevated at 3.850. 05/12 check free t4 Hypernatremia Polyuria - s/p free water replacement - Ordered urine sodium and creatinine, serum osmolarity, urine osmolality. Nephrology consulted. 05/10 nephrology consulted. Patient has an elevated serum osmolality as long as an elevated urine sodium in 24 hours which is a normal physiologic response. Polyuria not due to diabetes insipidus. Urine has decreased his weight has improved. I will start the patient on normal saline since patient has a concentrated urine and is total -11 L. 05/12 urine looks more clear today. Continue IV fluids. Thrombocytopenia- resolved. - previous admission - 43 - no active bleeding. - Will monitor. - Consulted hematology for further evaluation. Okay with resuming Lovenox for DVT prophylaxis as platelet count has normalized. Diarrhea C. difficile toxin toxin PCR negative. Hold atool softeners and laxatives. Hematuria As per report, the patient had some blood clots reported on 05/11. UA checked. Likely consistent with hematuria and possible UTI with trace leukocyte esterase and increased white blood cells 97. Follow-up urine culture. I will start the patient on IV Rocephin. DVT Prophylaxis - Teds SCDs - Lovenox for DVT prophylaxis on 05/04 - discussed with Dr. Conner (held for LP. resumed after LP) - Pepcid Continue tube feeds and advance to goal as tolerated. Awaiting speech and swallow evaluation - consulted on 05/12. May deflate cuff of tracheostomy for swallow eval. May possibly be able to avoid PEG tube. Discharge Planning Continue to monitor in the intensive care unit for now. Problem Qualifiers (1) Sepsis: Qualified Codes: A41.9 - Sepsis, unspecified organism Jian Hollingsworth MD May 13, 2017 19:58
[2017-05-13] MEDS: CHLORHEXIDINE 0.12% (ORAL KIT) 15 ML CUP MT SCH (20:00)
[2017-05-13] MEDS: SODIUM CHLORIDE 0.9% FLUSH 10 ML FLUSH SCH (21:00)
[2017-05-14] VITALS (11 sets, daily range): BP systolic 100–127; BP diastolic 61–85; PULSE 77–123; RESP 18–20; TEMP 97.8–98.4; O2SAT 96–100
[2017-05-14] MEDS ORDERED: LOPERAMIDE HCL 2 MG CAP PO PRN (00:30)
[2017-05-14] MEDS: CHLORHEXIDINE GLUCONATE 2 % 1 PACK (2 CLOTHS) TOP SCH (04:00)
[2017-05-14] MEDS: SODIUM CHLOR 0.9% 1000 ML INJ 1,000 ML IV SCH (04:38)
[2017-05-14] MEDS: metroNIDAZOLE 500 MG TAB PO SCH ×3 (06:31→21:00)
[2017-05-14] MEDS: METOCLOPRAMIDE HCL 10 MG/2 ML VIAL IV PUSH SCH ×3 (06:31→20:59)
[2017-05-14] MEDS: CHLORHEXIDINE 0.12% (ORAL KIT) 15 ML CUP MT SCH ×2 (08:00→20:00)
[2017-05-14] MEDS: ARTIFICIAL TEARS OPTH SOLN 15 ML BTL EACH EYE SCH ×2 (09:00→13:00)
[2017-05-14] MEDS: SODIUM CHLORIDE 0.9% FLUSH 10 ML FLUSH SCH ×2 (09:00→20:58)
[2017-05-14] MEDS: LEVOFLOXACIN 750 MG TAB PO SCH (11:19)
[2017-05-14] MEDS: LACTOBACILLUS ACIDOPHILUS TAB PO SCH ×3 (11:19→14:06)
[2017-05-14] MEDS: FAMOTIDINE 20 MG TAB PO SCH (11:20)
[2017-05-14] MEDS: ATENOLOL 50 MG TAB NG SCH (11:20)
[2017-05-14] MEDS: TOPIRAMATE 25 MG TAB PO SCH ×2 (11:20→20:59)
--- NOTE | 2017-05-14 12:29 | HHI.PR ---
Subjective Remarks Discussed overnight events with RN. No major overnight events per Patient however gets lightly agitated Patient seems to be more awake, nods yes or no but still nonverbal Noted to be coughing today, however Objective Vitals Vital Signs Date Time Temp Pulse Resp B/P (MAP) Pulse Ox O2 Delivery O2 Flow Rate FiO2 05/14/17 10:00 97 05/14/17 08:30 97 Trach Collar 28 05/14/17 08:00 98.3 104 20 113/85 (94) 98 05/14/17 08:00 97 05/14/17 06:00 110 05/14/17 04:00 98.3 106 20 108/62 (77) 98 05/14/17 04:00 106 05/14/17 02:00 123 05/14/17 00:00 105 05/14/17 00:00 98.4 105 19 100/61 (74) 100 05/13/17 22:00 115 05/13/17 20:00 98.5 115 22 169/88 (115) 98 05/13/17 20:00 115 05/13/17 19:50 100 T-piece 5.00 28 05/13/17 18:00 97 05/13/17 16:00 97 05/13/17 14:00 97 I/O 05/13/17 05/13/17 05/13/17 05/14/17 05/14/17 05/14/17 07:00 15:00 23:00 07:00 15:00 23:00 Intake Total 815 ml 365 ml Output Total 2201 ml 1500 ml Balance -1386 ml -1135 ml Intake Oral 300 ml Tube Feeding 715 ml 65 ml Other 100 ml Output Urine Total 2200 ml 1400 ml Stool Total 1 ml Gastric Drainage Total 100 ml # Voids 4 # Bowel Movements 2 Result Diagram: 05/13/17 0437 05/13/17 0437 Imaging Last Impressions Chest X-Ray 05/12/17 0000 Signed Impressions: Service Date/Time: Friday, May 12, 2017 04:00 - CONCLUSION: 1. Bilateral mostly perihilar airspace disease similar to May 07. Support apparatus in good position. Roverto Monae MD Lower Extremity Ultrasound 05/07/17 0000 Signed Impressions: Service Date/Time: Sunday, May 07, 2017 16:45 - CONCLUSION: Normal examination. Maikel Corley MD Head/Brain Mag Res Venography 05/07/17 Signed Impressions: Service Date/Time: Sunday, May 07, 2017 10:43 - CONCLUSION: 1. No findings to indicate venous sinus thrombosis identified. Rj Dolan MD Head Magnetic Resonance Angiography 05/07/17 Signed Impressions: Service Date/Time: Sunday, May 07, 2017 10:43 - CONCLUSION: 1. Normal examination. Rj Dolan MD Brain MRI 05/07/17 Signed Impressions: Service Date/Time: Sunday, May 07, 2017 10:43 - CONCLUSION: 1. Negative examination. Rj Dolan MD Head CT 05/05/17 Signed Impressions: Service Date/Time: Friday, May 05, 2017 16:08 - CONCLUSION: No acute intracranial disease. Nickolas Valentin MD Chest CT 05/01/17 Signed Impressions: Service Date/Time: Monday, May 01, 2017 18:24 - CONCLUSION: 1. Bilateral areas of consolidation. These alveolar consolidations are worse on the left than the right. They are nonspecific. Diffuse underlying processes such as infection/pneumonia need to be considered. Other diffuse processes could have a similar appearance. 2. Mild left pleural effusion primarily in the subpleural region and a minimal right pleural effusion. 3. Minimal prominent lymph nodes in the right paratracheal region. Timbo Escudero MD Objective Remarks HEENT/ Neuro: Awake, has spontaneous eye opening however not following commands and remains encephalopathic, Pallor present, no icterus, tongue/ mucosa moist. Pupils bilaterally 4mm, reactive. Neck: No JVD. Tracheostomy in place Chest/Pulm: on mech vent, good air entry bilaterally, scattered rhonchi, no wheezing or crackles. CVS: normal rate, regular rhythm. sinus by tele. GI/abdomen: soft, nontender, nondistended. no guarding. Extremities: warm bilaterally, no edema Garcia catheter with Garcia bag show clearer urine. Medications and IVs Current Medications Medications (Trade) Dose Ordered Sig/Angel Route Start Time Stop Time Status Last Admin (Buspar) 15 mg TID PO 04/26/17 09:00 Future Hold 05/05/17 09:41 (CeleXA) 10 mg HS PO 04/25/17 21:00 Future Hold 05/04/17 21:12 (Topamax) 50 mg BID PO 04/25/17 21:00 05/14/17 11:20 (SEROquel) 50 mg HS PO 04/25/17 21:00 Future Hold 05/04/17 21:13 (Pepcid) 20 mg DAILY PO 04/26/17 09:00 05/14/17 11:20 (NS Flush) 2 ml UNSCH PRN .XX 04/25/17 20:00 (NS Flush) 2 ml BID .XX 04/25/17 21:00 05/14/17 09:00 (Tylenol) 650 mg Q6H PRN PO 04/25/17 20:00 05/11/17 08:55 (Tears Naturale Opth Soln) 1 drop TID EACH EYE 04/26/17 09:00 05/13/17 13:00 (Zofran Inj) 4 mg Q6H PRN IV PUSH 04/25/17 20:00 (Duoneb Neb) 1 ampule Q2HR NEB PRN INH 04/25/17 20:00 05/05/17 03:36 Miscellaneous Information 1 Q361D XX 04/25/17 20:00 (Chlorhexidine 2% Cloth) Taper DAILY@04 TOP 04/26/17 04:00 04/22/18 03:59 05/14/17 04:00 (Chlorhexidine 2% Cloth) 3 pack UNSCH PRN TOP 04/25/17 20:00 (Milk Of Magnesia Liq) 30 ml Q12H PRN PO 04/25/17 20:00 (Senokot) 17.2 mg Q12H PRN PO 04/25/17 20:00 (Dulcolax Supp) 10 mg DAILY PRN RECTAL 04/25/17 20:00 (Lactulose Liq) 30 ml DAILY PRN PO 04/25/17 20:00 (Peridex 0.12% Liq) 15 ml BID@08,20 MT 04/25/17 20:00 05/14/17 08:00 (Pill Splitter) 1 ea UNSCH PRN OTHER 04/25/17 20:15 Potassium Chloride 100 ml @ 50 mls/hr Q2H PRN IV 04/27/17 01:30 05/03/17 18:13 Potassium Chloride 100 ml @ 50 mls/hr Q2H PRN IV 04/27/17 01:30 05/09/17 01:33 (K-Lyte Cl Eff) 50 meq UNSCH PRN PO 04/27/17 01:30 04/27/17 01:52 Potassium Chloride 100 ml @ 25 mls/hr UNSCH PRN IV 04/27/17 01:30 05/03/17 23:42 Potassium Chloride 100 ml @ 50 mls/hr Q2H PRN IV 04/27/17 01:30 05/09/17 10:09 Magnesium Sulfate 4 gm/Sodium Chloride 100 ml @ 50 mls/hr UNSCH PRN IV 04/27/17 01:30 (Mag-Ox) 800 mg UNSCH PRN PO 04/27/17 01:30 Magnesium Sulfate 2 gm/Sodium Chloride 100 ml @ 50 mls/hr UNSCH PRN IV 04/27/17 01:30 (K-Phos) 2,000 mg Q4H PRN PO 04/27/17 01:30 Sodium Phosphate 30 mmol/Sodium Chloride 250 ml @ 42 mls/hr UNSCH PRN IV 04/27/17 01:30 (K-Phos) 2,000 mg UNSCH PRN PO/TUBE 04/27/17 01:30 Potassium Phosphate 30 mmol/ Sodium Chloride 260 ml @ 42 mls/hr UNSCH PRN IV 04/27/17 01:30 04/27/17 03:32 (Reglan Inj) 10 mg Q8HR IV PUSH 04/28/17 17:00 05/14/17 06:31 (Lovenox Inj) 40 mg Q24H SQ 05/04/17 11:00 Future Hold 05/10/17 11:10 (Apresoline Inj) 20 mg Q4H PRN IV PUSH 05/05/17 03:00 05/06/17 22:18 (Trandate Inj) 10 mg Q4H PRN IV PUSH 05/05/17 03:00 05/05/17 13:02 (Flagyl) 500 mg Q8HR PO 05/07/17 14:00 05/14/17 06:31 (Tenormin) 50 mg DAILY NG 05/10/17 14:45 05/14/17 11:20 Sodium Chloride 1,000 ml @ 84 mls/hr [id number] IV 05/11/17 13:00 05/14/17 04:38 (Levaquin) 750 mg DAILY PO 05/11/17 14:45 05/14/17 11:19 (Lactinex) 1 tab TID PO 05/12/17 18:00 05/14/17 11:21 (Imodium) 2 mg UNSCH PRN PO 05/14/17 00:30 05/14/17 01:03 Urinary Catheter: No Vascular Central Line Catheter: No A/P Problem List: (1) Acute hypoxemic respiratory failure ICD Code: J96.01 - Acute respiratory failure with hypoxia Status: Acute (2) HCAP (healthcare-associated pneumonia) ICD Code: J18.9 - Pneumonia, unspecified organism Status: Acute (3) Toxic encephalopathy ICD Code: G92 - Toxic encephalopathy Status: Resolved (4) Atrial fibrillation with RVR ICD Code: I48.91 - Unspecified atrial fibrillation Status: Resolved (5) SVT (supraventricular tachycardia) ICD Code: I47.1 - Supraventricular tachycardia Status: Resolved (6) Hypernatremia ICD Code: E87.0 - Hyperosmolality and hypernatremia Status: Resolved (7) Sepsis ICD Code: A41.9 - Sepsis, unspecified organism Status: Resolved (8) Polyuria ICD Code: R35.8 - Other polyuria Assessment and Plan Assessment: 46yM with acute toxic encephalopathy and acute hypoxic respiratory failure, pneumonia, delirium Acute Respiratory failure Due to underlying pneumonia. Patient off all sedation. The patient status post tracheostomy during T Piece since 05/09. Continue DuoNeb treatments and continue to provide supplemental oxygen to keep oxygen saturation more than 92%. Patient currently on IV antibiotics for treatment of pneumonia. 05/14 patient currently on trach collar and tolerating well. Satting 97% with an FiO2 of 28%. Healthcare Associated Pneumonia -Blood cultures negative to date. Sputum culture grew Pneumonia. Continue Antibiotics As per Infectious Disease. Patient previously on Levaquin IV which has been switched to Levaquin by mouth. Toxic Encephalopathy - Intoxication - Polysubstance abuse - Non focal neurological exam - Monitor for withdrawal - MRI brain unremarkable - neuro consult noted - EEG showing severe slowing. - LP unremarkable, elevated opening pressure while intubated on mechanical ventilation ? Significance. No papilledema per assistant cross country coach. - Neuro status seems to be improving. Most likely delirium. He is hard of hearing and needs new battery for his hearing aid. 05/14 patient is more alert, getting slightly agitated throughout the day and night. I will try start the patient on low-dose Seroquel. A. fib with RVR - converted to sinus rhythm SVT-converted with Adenosine 12 mg IV on 05/08 -Off amiodarone drip. Cardiology consult noted 05/10 heart rate seems controlled. Continue atenolol 50 mg by mouth daily. TSH slightly elevated at 3.850. 05/12 check free t4 05/14 the T4 within normal range. Likely euthyroid sick syndrome. Hypernatremia Polyuria - s/p free water replacement - Ordered urine sodium and creatinine, serum osmolarity, urine osmolality. Nephrology consulted. 05/10 nephrology consulted. Patient has an elevated serum osmolality as long as an elevated urine sodium in 24 hours which is a normal physiologic response. Polyuria not due to diabetes insipidus. Urine has decreased his weight has improved. I will start the patient on normal saline since patient has a concentrated urine and is total -11 L. 05/12 urine looks more clear today. Continue IV fluids. 05/14 Dc IV fluids. Thrombocytopenia- resolved. - previous admission - 43 - no active bleeding. - Will monitor. - Consulted hematology for further evaluation. Okay with resuming Lovenox for DVT prophylaxis as platelet count has normalized. Diarrhea C. difficile toxin toxin PCR negative. Hold stool softeners and laxatives. 05/14 Diarrhea seems to be improving. Hematuria As per report, the patient had some blood clots reported on 05/11. UA checked. Likely consistent with hematuria and possible UTI with trace leukocyte esterase and increased white blood cells 97. Follow-up urine culture. 05/14 Urine culture negative, patient currently on Levaquin. Hematuria resolved. DVT Prophylaxis - Teds SCDs - Lovenox for DVT prophylaxis on 05/04 - discussed with Dr. Conner (held for LP. resumed after LP) - Pepcid Continue tube feeds and advance to goal as tolerated. . May deflate cuff of tracheostomy for swallow eval. May possibly be able to avoid PEG tube. Discharge Planning Continue to monitor in the intensive care unit for now. Problem Qualifiers (1) Sepsis: Qualified Codes: A41.9 - Sepsis, unspecified organism Jian Hollingsworth MD May 14, 2017 12:29
[2017-05-14] MEDS: QUEtiapine FUMARATE 25 MG TAB PO SCH ×2 (12:45→20:59)
[2017-05-15] VITALS (13 sets, daily range): BP systolic 98–121; BP diastolic 55–74; PULSE 88–105; RESP 15–22; TEMP 97.9–98.8; O2SAT 96–100
[2017-05-15] MEDS: CHLORHEXIDINE GLUCONATE 2 % 1 PACK (2 CLOTHS) TOP SCH (04:00)
[2017-05-15 05:51] LABS: HEMATOCRIT 27.1 % (39.0-51.0); MEAN CELL VOLUME 96.4 FL (80.0-100.0); MEAN CORPUSCULAR HEMOGLOBIN 32.5 PG (27.0-34.0); MEAN CORPUSCULAR HGB CONC 33.7 % (32.0-36.0); PLATELET COUNT 362 TH/MM3 (150-450); RED BLOOD COUNT 2.81 MIL/MM3 (4.50-5.90); RED CELL DISTRIBUTION WIDTH 15.2 % (11.6-17.2); REVIEW FLAG FINAL; WHITE BLOOD COUNT 6.3 TH/MM3 (4.0-11.0)
[2017-05-15] MEDS: metroNIDAZOLE 500 MG TAB PO SCH ×3 (05:55→21:32)
[2017-05-15] MEDS: METOCLOPRAMIDE HCL 10 MG/2 ML VIAL IV PUSH SCH ×3 (05:56→21:32)
[2017-05-15 06:12] LABS: BICARBONATE 21.2 MEQ/L (21.0-32.0); POTASSIUM 3.7 MEQ/L (3.5-5.1)
[2017-05-15] MEDS: CHLORHEXIDINE 0.12% (ORAL KIT) 15 ML CUP MT SCH ×2 (08:00→20:00)
[2017-05-15] MEDS: QUEtiapine FUMARATE 25 MG TAB PO SCH ×2 (08:32→21:32)
[2017-05-15] MEDS: FAMOTIDINE 20 MG TAB PO SCH (08:32)
[2017-05-15] MEDS: LEVOFLOXACIN 750 MG TAB PO SCH (08:32)
[2017-05-15] MEDS: TOPIRAMATE 25 MG TAB PO SCH ×2 (08:32→21:31)
[2017-05-15] MEDS: ATENOLOL 50 MG TAB NG SCH (08:33)
[2017-05-15] MEDS: LACTOBACILLUS ACIDOPHILUS TAB PO SCH ×3 (08:33→16:44)
[2017-05-15] MEDS: ARTIFICIAL TEARS OPTH SOLN 15 ML BTL EACH EYE SCH ×3 (08:33→16:44)
[2017-05-15] MEDS: SODIUM CHLORIDE 0.9% FLUSH 10 ML FLUSH SCH ×2 (08:34→21:31)
--- NOTE | 2017-05-15 09:32 | HHI.IDPN ---
Subjective Subjective Remarks Patient is a 46-year-old male who was initially admitted on April 23 complaining of 5 day history of cough with sputum production as well as fever. He was also having some diarrhea. It was during that time, he was in [facility] where he went in for drug rehabilitation. When he presented, the patient was afebrile, and his chest x-ray showed evidence of pneumonia. He was started on antibiotics, and he had an HIV testing done which came back negative. Patient however signed out AGAINST MEDICAL ADVICE on April 25. He reportedly used some drugs, and his brother forced him to go back to the hospital and he got readmitted April 25. He had evidence of increasing pulmonary infiltrates, and he ended up getting intubated. He has been on the vent since. He had some problem with A. fib, and he converted to normal sinus rhythm. Patient has still been requiring ventilatory support. He had some fevers from 926 2 around April 30, and his temperatures improved. His cultures on readmission were negative. His sputum had normal ronaldo, Legionella and pneumococcal antigen were negative. Blood cultures were negative. Urine culture were negative. Patient has been getting broad-spectrum antibiotics which include Zosyn and vancomycin. Since yesterday patient started having high fevers again. He has copious thick light yellow to whitman endotracheal secretions. His hemodynamics are okay. He remains on the vent, and has not been able to be weaned. He has a Garcia in place. Has a central line in the left subclavian. Patient also had problem with thrombocytopenia and anemia, and hematology evaluated him. His numbers have improved. Infectious disease consultation has been requested to evaluate the patient. Notes reviewed D/W RN Temps ok Doing well on T-piece Tolerating pureed diet Last CXR 05/12 stable Antibiotics Levaquin PO Flagyl PO Lines PIV Line sites with no e.o infection Past Medical History Anxiety Depression Substance abuse Past Surgical History Cleft palate surgery Right hand surgery Bilateral ear surgery Allergies: Coded Allergies: No Known Allergies (Unverified , 04/23/17) Objective . Vital Signs Date Time Temp Pulse Resp B/P (MAP) Pulse Ox O2 Delivery O2 Flow Rate FiO2 05/15/17 06:00 92 05/15/17 04:00 98.0 93 19 121/74 (90) 100 05/15/17 04:00 93 05/15/17 00:00 89 05/15/17 00:00 98.3 89 16 109/72 (84) 96 05/14/17 20:00 97.8 77 18 127/63 (84) 96 05/14/17 20:00 77 05/14/17 16:00 97 05/14/17 16:00 98.3 104 20 113/85 (94) 98 05/14/17 14:00 97 05/14/17 12:00 97 05/14/17 12:00 98.4 86 19 106/65 (79) 100 05/14/17 10:00 97 . Laboratory Tests Test 05/15/17 05:07 White Blood Count 6.3 TH/MM3 Red Blood Count 2.81 MIL/MM3 Hemoglobin 9.1 GM/DL Hematocrit 27.1 % Mean Corpuscular Volume 96.4 FL Mean Corpuscular Hemoglobin 32.5 PG Mean Corpuscular Hemoglobin Concent 33.7 % Red Cell Distribution Width 15.2 % Platelet Count 362 TH/MM3 Mean Platelet Volume 8.9 FL Laboratory Tests Test 05/15/17 05:07 Blood Urea Nitrogen 11 MG/DL Creatinine 0.60 MG/DL Random Glucose 99 MG/DL Calcium Level 8.5 MG/DL Sodium Level 136 MEQ/L Potassium Level 3.7 MEQ/L Chloride Level 106 MEQ/L Carbon Dioxide Level 21.2 MEQ/L Anion Gap 9 MEQ/L Estimat Glomerular Filtration Rate 144 ML/MIN Imaging Lower Extremity Ultrasound 05/07/17 Signed Impressions: Service Date/Time: Sunday, May 07, 2017 16:45 - CONCLUSION: Normal examination. Maikel Corley MD Head/Brain Mag Res Venography 05/07/17 Signed Impressions: Service Date/Time: Sunday, May 07, 2017 10:43 - CONCLUSION: 1. No findings to indicate venous sinus thrombosis identified. Rj Dolan MD Head Magnetic Resonance Angiography 05/07/17 Signed Impressions: Service Date/Time: Sunday, May 07, 2017 10:43 - CONCLUSION: 1. Normal examination. Rj Dolan MD Chest X-Ray 05/07/17 Signed Impressions: Service Date/Time: Sunday, May 07, 2017 13:13 - CONCLUSION: Slight improvement in aeration. Timbo Mccracken MD Brain MRI 10/8/17 0000 Signed Impressions: Service Date/Time: Sunday, May 07, 2017 10:43 - CONCLUSION: 1. Negative examination. Rj Dolan MD Head CT 05/05/17 0000 Signed Impressions: Service Date/Time: Friday, May 05, 2017 16:08 - CONCLUSION: No acute intracranial disease. Nickolas Valentin MD Chest X-Ray 05/04/17 1019 Signed Impressions: Service Date/Time: April 10:57 - CONCLUSION: No significant interval change Timbo Mccracken MD Chest CT 05/01/17 0000 Signed Impressions: Service Date/Time: Monday, May 01, 2017 18:24 - CONCLUSION: 1. Bilateral areas of consolidation. These alveolar consolidations are worse on the left than the right. They are nonspecific. Diffuse underlying processes such as infection/pneumonia need to be considered. Other diffuse processes could have a similar appearance. 2. Mild left pleural effusion primarily in the subpleural region and a minimal right pleural effusion. 3. Minimal prominent lymph nodes in the right paratracheal region. Timbo Escudero MD Physical Exam GENERAL: Awake, focusing, NAD on T-piece SKIN: Warm and dry. No generalized rash HEAD: Atraumatic. Normocephalic. No temporal wasting, or tenderness. EYES: [place] conjunctiva. No petechia or hemorrhage. Pupils equal, round and reactive to light. No scleral icterus. No injection or drainage. EARS, NOSE AND THROAT: Nose without bleeding or purulent nasal discharge. Moist mucosa. NECK: Trachea midline. Supple and not tender, no meningeal sign. Trach site ok CARDIOVASCULAR: Regular rate and rhythm. No murmurs, rubs or gallops heard RESPIRATORY: Decreased BS at bases ABDOMEN: Soft, obese, nondistended, bowel sounds present and normoactive. Not tender, no guarding EXTREMITIES: No clubbing, cyanosis. Improving edema. No joint effusion. Well perfused and warm. NEUROLOGICAL: Awake and focusing, following commands. No Babinski, no ankle clonus PSYCHIATRIC: Calm, not restless LINE: PIV, no evidence of infection Assessment & Plan Remarks IMPRESSION Sepsis, with recurrent fevers, etiology? resolved Low grade temps, better Bilateral infiltrates, CXR stable Encephalopathy - LP negative, imaging studies negative - OP elevated on his LP Respiratory failure, S/P trach - tolerating T-piece Known polysubstance abuse RECOMMENDATION Continue Levaquin Also on flagyl oral for anaerobic coverage for possible aspiration PNA Give Abx until 05/18 Clinically doing well from ID standpoint D/W Asya Cooper MD May 15, 2017 09:32
--- NOTE | 2017-05-15 13:47 | HHI.PR ---
Subjective Remarks On trach collar. patient nods no when asked if he has pain or complaints Overnight events discussed with RN. Denies any major overnight events other than he gets intermittently confused. No reports of further diarrhea. afebrile tolerating trach collar Objective Vitals Vital Signs Date Time Temp Pulse Resp B/P (MAP) Pulse Ox O2 Delivery O2 Flow Rate FiO2 05/15/17 12:00 94 05/15/17 12:00 98.2 94 15 102/62 (75) 97 05/15/17 10:00 105 05/15/17 08:00 97 05/15/17 08:00 98.8 97 16 98/70 (79) 05/15/17 06:00 92 05/15/17 04:00 98.0 93 19 121/74 (90) 100 05/15/17 04:00 93 05/15/17 00:00 89 05/15/17 00:00 98.3 89 16 109/72 (84) 96 05/14/17 20:00 97.8 77 18 127/63 (84) 96 05/14/17 20:00 77 05/14/17 16:00 97 05/14/17 16:00 98.3 104 20 113/85 (94) 98 05/14/17 14:00 97 I/O 05/14/17 05/14/17 05/14/17 05/15/17 05/15/17 05/15/17 06:59 14:59 22:59 06:59 14:59 22:59 Intake Total 365 ml 700 ml Output Total 1500 ml 1450 ml Balance -1135 ml -750 ml Intake Oral 300 ml 700 ml Tube Feeding 65 ml Output Urine Total 1400 ml 1450 ml Gastric Drainage Total 100 ml # Voids 4 # Bowel Movements 2 0 Result Diagram: 05/15/17 0507 05/15/17 0507 Imaging Last Impressions Chest X-Ray 05/12/17 0000 Signed Impressions: Service Date/Time: Friday, May 12, 2017 04:00 - CONCLUSION: 1. Bilateral mostly perihilar airspace disease similar to May 07. Support apparatus in good position. Roverto Monae MD Lower Extremity Ultrasound 05/07/17 0000 Signed Impressions: Service Date/Time: Sunday, May 07, 2017 16:45 - CONCLUSION: Normal examination. Maikel Corley MD Head/Brain Mag Res Venography 05/07/17 Signed Impressions: Service Date/Time: Sunday, May 07, 2017 10:43 - CONCLUSION: 1. No findings to indicate venous sinus thrombosis identified. Rj Dolan MD Head Magnetic Resonance Angiography 05/07/17 Signed Impressions: Service Date/Time: Sunday, May 07, 2017 10:43 - CONCLUSION: 1. Normal examination. Rj Dolan MD Brain MRI 05/07/17 Signed Impressions: Service Date/Time: Sunday, May 07, 2017 10:43 - CONCLUSION: 1. Negative examination. Rj Dolan MD Head CT 05/05/17 Signed Impressions: Service Date/Time: Friday, May 05, 2017 16:08 - CONCLUSION: No acute intracranial disease. Nickolas Valentin MD Chest CT 05/01/17 Signed Impressions: Service Date/Time: Monday, May 01, 2017 18:24 - CONCLUSION: 1. Bilateral areas of consolidation. These alveolar consolidations are worse on the left than the right. They are nonspecific. Diffuse underlying processes such as infection/pneumonia need to be considered. Other diffuse processes could have a similar appearance. 2. Mild left pleural effusion primarily in the subpleural region and a minimal right pleural effusion. 3. Minimal prominent lymph nodes in the right paratracheal region. Timbo Escudero MD Objective Remarks HEENT/ Neuro: Awake, has spontaneous eye opening however not following commands and remains encephalopathic, Pallor present, no icterus, tongue/ mucosa moist. Pupils bilaterally 4mm, reactive. Neck: No JVD. Tracheostomy in place Chest/Pulm: on mech vent, good air entry bilaterally, scattered rhonchi, no wheezing or crackles. CVS: normal rate, regular rhythm. sinus by tele. GI/abdomen: soft, nontender, nondistended. no guarding. Extremities: warm bilaterally, no edema Garcia catheter with Garcia bag show clearer urine. Medications and IVs Current Medications Medications (Trade) Dose Ordered Sig/Angel Route Start Time Stop Time Status Last Admin (Buspar) 15 mg TID PO 04/26/17 09:00 Future Hold 05/05/17 09:41 (CeleXA) 10 mg HS PO 04/25/17 21:00 Future Hold 05/04/17 21:12 (Topamax) 50 mg BID PO 04/25/17 21:00 05/15/17 08:32 (SEROquel) 50 mg HS PO 04/25/17 21:00 Future Hold 05/04/17 21:13 (Pepcid) 20 mg DAILY PO 04/26/17 09:00 05/15/17 08:32 (NS Flush) 2 ml UNSCH PRN .XX 04/25/17 20:00 (NS Flush) 2 ml BID .XX 04/25/17 21:00 05/15/17 08:34 (Tylenol) 650 mg Q6H PRN PO 04/25/17 20:00 05/11/17 08:55 (Tears Naturale Opth Soln) 1 drop TID EACH EYE 04/26/17 09:00 05/14/17 13:00 (Zofran Inj) 4 mg Q6H PRN IV PUSH 04/25/17 20:00 (Duoneb Neb) 1 ampule Q2HR NEB PRN INH 04/25/17 20:00 05/05/17 03:36 Miscellaneous Information 1 Q361D XX 04/25/17 20:00 (Chlorhexidine 2% Cloth) 3 pack Taper DAILY@04 TOP 04/26/17 04:00 04/22/18 03:59 05/15/17 04:00 (Chlorhexidine 2% Cloth) 3 pack UNSCH PRN TOP 04/25/17 20:00 (Milk Of Magnesia Liq) 30 ml Q12H PRN PO 04/25/17 20:00 (Senokot) 17.2 mg Q12H PRN PO 04/25/17 20:00 (Dulcolax Supp) 10 mg DAILY PRN RECTAL 04/25/17 20:00 (Lactulose Liq) 30 ml DAILY PRN PO 04/25/17 20:00 (Peridex 0.12% Liq) 15 ml BID@08,20 MT 04/25/17 20:00 05/14/17 20:00 (Pill Splitter) 1 ea UNSCH PRN OTHER 04/25/17 20:15 Potassium Chloride 100 ml @ 50 mls/hr Q2H PRN IV 04/27/17 01:30 05/03/17 18:13 Potassium Chloride 100 ml @ 50 mls/hr Q2H PRN IV 04/27/17 01:30 05/09/17 01:33 (K-Lyte Cl Eff) 50 meq UNSCH PRN PO 04/27/17 01:30 04/27/17 01:52 Potassium Chloride 100 ml @ 25 mls/hr UNSCH PRN IV 04/27/17 01:30 05/03/17 23:42 Potassium Chloride 100 ml @ 50 mls/hr Q2H PRN IV 04/27/17 01:30 05/09/17 10:09 Magnesium Sulfate 4 gm/Sodium Chloride 100 ml @ 50 mls/hr UNSCH PRN IV 04/27/17 01:30 (Mag-Ox) 800 mg UNSCH PRN PO 04/27/17 01:30 Magnesium Sulfate 2 gm/Sodium Chloride 100 ml @ 50 mls/hr UNSCH PRN IV 04/27/17 01:30 (K-Phos) 2,000 mg Q4H PRN PO 04/27/17 01:30 Sodium Phosphate 30 mmol/Sodium Chloride 250 ml @ 42 mls/hr UNSCH PRN IV 04/27/17 01:30 (K-Phos) 2,000 mg UNSCH PRN PO/TUBE 04/27/17 01:30 Potassium Phosphate 30 mmol/ Sodium Chloride 260 ml @ 42 mls/hr UNSCH PRN IV 04/27/17 01:30 04/27/17 03:32 (Reglan Inj) 10 mg Q8HR IV PUSH 04/28/17 17:00 05/15/17 12:48 (Lovenox Inj) 40 mg Q24H SQ 05/04/17 11:00 Future Hold 05/10/17 11:10 (Apresoline Inj) 20 mg Q4H PRN IV PUSH 05/05/17 03:00 05/06/17 22:18 (Trandate Inj) 10 mg Q4H PRN IV PUSH 05/05/17 03:00 05/05/17 13:02 (Flagyl) 500 mg Q8HR PO 05/07/17 14:00 05/18/17 12:00 05/15/17 12:48 (Tenormin) 50 mg DAILY NG 05/10/17 14:45 05/14/17 11:20 (Levaquin) 750 mg DAILY PO 05/11/17 14:45 05/18/17 12:00 05/15/17 08:32 (Lactinex) 1 tab TID PO 05/12/17 18:00 05/15/17 12:48 (Imodium) 2 mg UNSCH PRN PO 05/14/17 00:30 05/14/17 01:03 (SEROquel) 25 mg BID PO 05/14/17 12:45 05/15/17 08:32 A/P Problem List: (1) Acute hypoxemic respiratory failure ICD Code: J96.01 - Acute respiratory failure with hypoxia Status: Acute (2) HCAP (healthcare-associated pneumonia) ICD Code: J18.9 - Pneumonia, unspecified organism Status: Acute (3) Toxic encephalopathy ICD Code: G92 - Toxic encephalopathy Status: Resolved (4) Atrial fibrillation with RVR ICD Code: I48.91 - Unspecified atrial fibrillation Status: Resolved (5) SVT (supraventricular tachycardia) ICD Code: I47.1 - Supraventricular tachycardia Status: Resolved (6) Hypernatremia ICD Code: E87.0 - Hyperosmolality and hypernatremia Status: Resolved (7) Sepsis ICD Code: A41.9 - Sepsis, unspecified organism Status: Resolved (8) Polyuria ICD Code: R35.8 - Other polyuria Status: Resolved Assessment and Plan Assessment: 46yM with acute toxic encephalopathy and acute hypoxic respiratory failure, pneumonia, delirium Acute Respiratory failure Due to underlying pneumonia. Patient off all sedation. The patient status post tracheostomy during T Piece since 05/09. Continue DuoNeb treatments and continue to provide supplemental oxygen to keep oxygen saturation more than 92%. Patient currently on IV antibiotics for treatment of pneumonia. 05/14 patient currently on trach collar and tolerating well. Satting 97% with an FiO2 of 28%. Healthcare Associated Pneumonia -Blood cultures negative to date. Sputum culture grew Pneumonia. Continue Antibiotics As per Infectious Disease. Patient previously on Levaquin IV which has been switched to Levaquin by mouth. Toxic Encephalopathy - Intoxication - Polysubstance abuse - Non focal neurological exam - Monitor for withdrawal - MRI brain unremarkable - neuro consult noted - EEG showing severe slowing. - LP unremarkable, elevated opening pressure while intubated on mechanical ventilation ? Significance. No papilledema per pecan sheller. - Neuro status seems to be improving. Most likely delirium. He is hard of hearing and needs new battery for his hearing aid. 05/14 patient is more alert, getting slightly agitated throughout the day and night. I will try start the patient on low-dose Seroquel. 05/15 Patient cleared by speech therapy to have a puree diet with thin liquids. A. fib with RVR - converted to sinus rhythm SVT-converted with Adenosine 12 mg IV on 05/08 -Off amiodarone drip. Cardiology consult noted 05/10 heart rate seems controlled. Continue atenolol 50 mg by mouth daily. TSH slightly elevated at 3.850. 05/12 check free t4 05/14 the T4 within normal range. Likely euthyroid sick syndrome. Hypernatremia Polyuria - s/p free water replacement - Ordered urine sodium and creatinine, serum osmolarity, urine osmolality. Nephrology consulted. 05/10 nephrology consulted. Patient has an elevated serum osmolality as long as an elevated urine sodium in 24 hours which is a normal physiologic response. Polyuria not due to diabetes insipidus. Urine has decreased his weight has improved. I will start the patient on normal saline since patient has a concentrated urine and is total -11 L. 05/12 urine looks more clear today. Continue IV fluids. 05/14 Dc IV fluids. Thrombocytopenia- resolved. - previous admission - 44 - no active bleeding. - Will monitor. - Consulted hematology for further evaluation. Okay with resuming Lovenox for DVT prophylaxis as platelet count has normalized. Diarrhea C. difficile toxin toxin PCR negative. Hold stool softeners and laxatives. 05/15 Diarrhea resolved. Hematuria As per report, the patient had some blood clots reported on 05/11. UA checked. Likely consistent with hematuria and possible UTI with trace leukocyte esterase and increased white blood cells 97. Follow-up urine culture. 05/14 Urine culture negative, patient currently on Levaquin. Hematuria resolved. Dysphagia Previously on tube feedings. Cleared by speech therapy to have a Pureed diet. DVT Prophylaxis - Teds SCDs - Lovenox for DVT prophylaxis on 05/04 - discussed with Dr. Conner (held for LP. resumed after LP) Discharge Planning Continue to monitor in the intensive care unit for now. Problem Qualifiers (1) Sepsis: Qualified Codes: A41.9 - Sepsis, unspecified organism Jian Hollingsworth MD May 15, 2017 13:47
--- NOTE | 2017-05-15 17:47 | PD.ONC.PN ---
Subjective Subjective Remarks Resting comfortably in bed. Nurse reports that he has episodes of intermittent agitation. Objective Data Date Time Temp Pulse Resp B/P (MAP) Pulse Ox O2 Delivery O2 Flow Rate FiO2 05/15/17 16:00 98.6 90 17 111/55 (73) 99 05/15/17 16:00 90 05/15/17 14:00 101 05/15/17 12:00 94 05/15/17 12:00 98.2 94 15 102/62 (75) 97 05/15/17 10:05 96 Trach Collar 28 05/15/17 10:00 105 05/15/17 08:00 97 05/15/17 08:00 98.8 97 16 98/70 (79) 05/15/17 06:00 92 05/15/17 04:00 98.0 93 19 121/74 (90) 100 05/15/17 04:00 93 05/15/17 00:00 89 05/15/17 00:00 98.3 89 16 109/72 (84) 96 05/14/17 20:00 97.8 77 18 127/63 (84) 96 05/14/17 20:00 77 05/15/17 05/15/17 05/15/17 07:00 15:00 23:00 Intake Total 700 ml Output Total 1450 ml Balance -750 ml Result Diagram: 05/15/17 0507 05/15/17 0507 Laboratory Results Laboratory Tests Test 05/15/17 05:07 White Blood Count 6.3 TH/MM3 Red Blood Count 2.81 MIL/MM3 Hemoglobin 9.1 GM/DL Hematocrit 27.1 % Mean Corpuscular Volume 96.4 FL Mean Corpuscular Hemoglobin 32.5 PG Mean Corpuscular Hemoglobin Concent 33.7 % Red Cell Distribution Width 15.2 % Platelet Count 362 TH/MM3 Mean Platelet Volume 8.9 FL Blood Urea Nitrogen 11 MG/DL Creatinine 0.60 MG/DL Random Glucose 99 MG/DL Calcium Level 8.5 MG/DL Sodium Level 136 MEQ/L Potassium Level 3.7 MEQ/L Chloride Level 106 MEQ/L Carbon Dioxide Level 21.2 MEQ/L Anion Gap 9 MEQ/L Estimat Glomerular Filtration Rate 144 ML/MIN Administered Medications Medications (Trade) Dose Ordered Sig/Angel Route PRN Reason Start Time Stop Time Status Last Admin Dose Admin Buspirone HCl (Buspar) 15 mg TID PO 04/26/17 09:00 Future Hold 05/05/17 09:41 Citalopram Hydrobromide (CeleXA) 10 mg HS PO 04/25/17 21:00 Future Hold 05/04/17 21:12 Topiramate (Topamax) 50 mg BID PO 04/25/17 21:00 05/15/17 08:32 Quetiapine Fumarate (SEROquel) 50 mg HS PO 04/25/17 21:00 Future Hold 05/04/17 21:13 Famotidine (Pepcid) 20 mg DAILY PO 04/26/17 09:00 05/15/17 08:32 Sodium Chloride (NS Flush) 2 ml BID .XX 04/25/17 21:00 05/15/17 08:34 Acetaminophen (Tylenol) 650 mg Q6H PRN PO PAIN 1-10 AND/OR FEVER >101F 04/25/17 20:00 05/11/17 08:55 Artificial Tears (Tears Naturale Opth Soln) 1 drop TID EACH EYE 04/26/17 09:00 05/14/17 13:00 Albuterol/ Ipratropium (Duoneb Neb) 1 ampule Q2HR NEB PRN INH WHEEZING 04/25/17 20:00 05/05/17 03:36 Chlorhexidine Gluconate (Chlorhexidine 2% Cloth) 3 pack Taper DAILY@04 TOP 04/26/17 04:00 04/22/18 03:59 05/15/17 04:00 Chlorhexidine Gluconate (Peridex 0.12% Liq) 15 ml BID@08,20 MT 04/25/17 20:00 05/14/17 20:00 Potassium Chloride 100 ml @ 50 mls/hr Q2H PRN IV For Potassium 2.8 - 3.2 mEq/L 04/27/17 01:30 05/03/17 18:13 Potassium Chloride 100 ml @ 50 mls/hr Q2H PRN IV For Potassium 2.8 - 3.2 mEq/L 04/27/17 01:30 05/09/17 01:33 Potassium Bicarb/ Potassium Chloride (K-Lyte Cl Eff) 50 meq UNSCH PRN PO For Potassium 3.3 - 3.5 mEq/L 04/27/17 01:30 04/27/17 01:52 Potassium Chloride 100 ml @ 25 mls/hr UNSCH PRN IV For Potassium 3.3 - 3.5 mEq/L 04/27/17 01:30 05/03/17 23:42 Potassium Chloride 100 ml @ 50 mls/hr Q2H PRN IV For Potassium 3.3 - 3.5 mEq/L 04/27/17 01:30 05/09/17 10:09 Potassium Phosphate 30 mmol/ Sodium Chloride 260 ml @ 42 mls/hr UNSCH PRN IV SEE LABEL COMMENTS 04/27/17 01:30 04/27/17 03:32 Metoclopramide HCl (Reglan Inj) 10 mg Q8HR IV PUSH 04/28/17 17:00 05/15/17 12:48 Enoxaparin Sodium (Lovenox Inj) 40 mg Q24H SQ 05/04/17 11:00 Future Hold 05/10/17 11:10 Hydralazine HCl (Apresoline Inj) 20 mg Q4H PRN IV PUSH SBP>160, DBP>90 05/05/17 03:00 05/06/17 22:18 Labetalol HCl (Trandate Inj) 10 mg Q4H PRN IV PUSH SBP>160, DBP>90 05/05/17 03:00 05/05/17 13:02 Metronidazole (Flagyl) 500 mg Q8HR PO 05/07/17 14:00 05/18/17 12:00 05/15/17 12:48 Atenolol (Tenormin) 50 mg DAILY NG 05/10/17 14:45 05/14/17 11:20 Levofloxacin (Levaquin) 750 mg DAILY PO 05/11/17 14:45 05/18/17 12:00 05/15/17 08:32 Lactobacillus Acidophilus (Lactinex) 1 tab TID PO 05/12/17 18:00 05/15/17 12:48 Loperamide HCl (Imodium) 2 mg UNSCH PRN PO DIARRHEA 05/14/17 00:30 05/14/17 01:03 Quetiapine Fumarate (SEROquel) 25 mg BID PO 05/14/17 12:45 05/15/17 08:32 Objective Remarks GENERAL: Well-nourished, well-developed patient. SKIN: Warm and dry. HEAD: Normocephalic. EYES: No scleral icterus. NECK: Supple, trachea midline. No JVD or lymphadenopathy. LYMPHATIC: No adenopathy. CARDIOVASCULAR: Regular rate and rhythm without murmurs. RESPIRATORY: Breath sounds equal bilaterally. No accessory muscle use. GASTROINTESTINAL: Abdomen soft, non-tender, nondistended. EXTREMITIES: No cyanosis, or edema. NEUROLOGICAL: No obvious focal deficit. Awake, alert, and oriented x3. Assessment/Plan Assessment 1. AMS: improving. 2. Aspiration pneumonia: ID team following on broad spectrum antibiotics. 4. Thrombocytopenia: Resolved with previous platelet count of 362K. 5. Anemia: Uncertain of baseline. Hemoglobin today of 9.1 Multiple factor contributing including anemia of chronic inflammation, history of substance abuse. Stable to improving. Vitamin B12, folate previously WNL. 6. Leukocytosis: resolved. Some early forms on differential, this is most likely reactive due to acute infection and hospitalization. Inpatient hematology service will sign off at this time. Please call with further questions or concerns. Will request follow up in hematology clinic in 6 weeks. Deepa Conner MD May 15, 2017 17:47
--- NOTE | 2017-05-15 21:33 | EKG ---
Date Performed: 05/15/2017 Time Performed: 10:00:00 PTAGE: 46 years EKG: Sinus rhythm Lateral T wave changes Compared to the PREVIOUS TRACING T wave changes more prominent DOCTOR: Guillermo Berg Interpretating Date/Time 05/15/2017 21:32:07
[2017-05-16] VITALS (14 sets, daily range): BP systolic 96–125; BP diastolic 59–73; PULSE 84–111; RESP 14–19; TEMP 97.4–98.7; O2SAT 96–100
[2017-05-16] MEDS: CHLORHEXIDINE GLUCONATE 2 % 1 PACK (2 CLOTHS) TOP SCH (04:00)
[2017-05-16] MEDS: metroNIDAZOLE 500 MG TAB PO SCH ×3 (06:37→22:00)
[2017-05-16] MEDS: METOCLOPRAMIDE HCL 10 MG/2 ML VIAL IV PUSH SCH ×3 (06:37→22:00)
[2017-05-16] MEDS: CHLORHEXIDINE 0.12% (ORAL KIT) 15 ML CUP MT SCH ×2 (07:56→20:00)
[2017-05-16] MEDS: ARTIFICIAL TEARS OPTH SOLN 15 ML BTL EACH EYE SCH ×3 (07:56→17:57)
[2017-05-16] MEDS: LACTOBACILLUS ACIDOPHILUS TAB PO SCH ×3 (08:00→17:57)
[2017-05-16] MEDS: QUEtiapine FUMARATE 25 MG TAB PO SCH ×2 (08:00→21:59)
[2017-05-16] MEDS: TOPIRAMATE 25 MG TAB PO SCH ×2 (08:00→22:00)
[2017-05-16] MEDS: LEVOFLOXACIN 750 MG TAB PO SCH (08:00)
[2017-05-16] MEDS: FAMOTIDINE 20 MG TAB PO SCH (08:00)
[2017-05-16] MEDS: ATENOLOL 50 MG TAB NG SCH (08:00)
[2017-05-16] MEDS: SODIUM CHLORIDE 0.9% FLUSH 10 ML FLUSH SCH ×2 (08:01→21:59)
--- NOTE | 2017-05-16 14:29 | HHI.IDPN ---
Subjective Subjective Remarks Patient is a 46-year-old male who was initially admitted on April 23 complaining of 5 day history of cough with sputum production as well as fever. He was also having some diarrhea. It was during that time, he was in [facility] where he went in for drug rehabilitation. When he presented, the patient was afebrile, and his chest x-ray showed evidence of pneumonia. He was started on antibiotics, and he had an HIV testing done which came back negative. Patient however signed out AGAINST MEDICAL ADVICE on April 25. He reportedly used some drugs, and his brother forced him to go back to the hospital and he got readmitted April 25. He had evidence of increasing pulmonary infiltrates, and he ended up getting intubated. He has been on the vent since. He had some problem with A. fib, and he converted to normal sinus rhythm. Patient has still been requiring ventilatory support. He had some fevers from 926 2 around April 30, and his temperatures improved. His cultures on readmission were negative. His sputum had normal ronaldo, Legionella and pneumococcal antigen were negative. Blood cultures were negative. Urine culture were negative. Patient has been getting broad-spectrum antibiotics which include Zosyn and vancomycin. Since yesterday patient started having high fevers again. He has copious thick light yellow to [place]man endotracheal secretions. His hemodynamics are okay. He remains on the vent, and has not been able to be weaned. He has a Garcia in place. Has a central line in the left subclavian. Patient also had problem with thrombocytopenia and anemia, and hematology evaluated him. His numbers have improved. Infectious disease consultation has been requested to evaluate the patient. Notes reviewed Temps ok Doing well from pulmonary standpoint Tolerating pureed diet Last CXR 05/12 stable Antibiotics Levaquin PO Flagyl PO Lines PIV Line sites with no e.o infection Past Medical History Anxiety Depression Substance abuse Past Surgical History Cleft palate surgery Right hand surgery Bilateral ear surgery Allergies: Coded Allergies: No Known Allergies (Unverified , 04/23/17) Objective . Vital Signs Date Time Temp Pulse Resp B/P (MAP) Pulse Ox O2 Delivery O2 Flow Rate FiO2 05/16/17 14:00 90 05/16/17 12:00 98.7 86 19 106/63 (77) 98 05/16/17 12:00 86 05/16/17 10:00 84 05/16/17 08:22 96 21 05/16/17 08:00 97.4 106 18 125/66 (85) 96 05/16/17 08:00 95 05/16/17 06:00 93 05/16/17 04:00 111 05/16/17 04:00 98.0 111 18 115/73 (87) 100 05/16/17 02:00 96 05/16/17 00:00 98.3 84 14 103/59 (74) 100 05/16/17 00:00 84 05/15/17 22:00 101 05/15/17 20:00 97.9 88 22 113/57 (75) 96 05/15/17 20:00 88 05/15/17 19:07 98 T-piece 5.00 28 05/15/17 18:00 94 05/15/17 16:00 98.6 90 17 111/55 (73) 99 05/15/17 16:00 90 . Laboratory Tests Test 05/15/17 05:07 White Blood Count 6.3 TH/MM3 Red Blood Count 2.81 MIL/MM3 Hemoglobin 9.1 GM/DL Hematocrit 27.1 % Mean Corpuscular Volume 96.4 FL Mean Corpuscular Hemoglobin 32.5 PG Mean Corpuscular Hemoglobin Concent 33.7 % Red Cell Distribution Width 15.2 % Platelet Count 362 TH/MM3 Mean Platelet Volume 8.9 FL Laboratory Tests Test 05/15/17 05:07 Blood Urea Nitrogen 11 MG/DL Creatinine 0.60 MG/DL Random Glucose 99 MG/DL Calcium Level 8.5 MG/DL Sodium Level 136 MEQ/L Potassium Level 3.7 MEQ/L Chloride Level 106 MEQ/L Carbon Dioxide Level 21.2 MEQ/L Anion Gap 9 MEQ/L Estimat Glomerular Filtration Rate 144 ML/MIN Imaging Lower Extremity Ultrasound 05/07/17 0000 Signed Impressions: Service Date/Time: Sunday, May 07, 2017 16:45 - CONCLUSION: Normal examination. Maikel Corley MD Head/Brain Mag Res Venography 05/07/17 0000 Signed Impressions: Service Date/Time: Sunday, May 07, 2017 10:43 - CONCLUSION: 1. No findings to indicate venous sinus thrombosis identified. Rj Dolan MD Head Magnetic Resonance Angiography 05/07/17 Signed Impressions: Service Date/Time: Sunday, May 07, 2017 10:43 - CONCLUSION: 1. Normal examination. Rj Dolan MD Chest X-Ray 05/07/17 0000 Signed Impressions: Service Date/Time: Sunday, May 07, 2017 13:13 - CONCLUSION: Slight improvement in aeration. Timbo Mccracken MD Brain MRI 05/07/17 0000 Signed Impressions: Service Date/Time: Sunday, May 07, 2017 10:43 - CONCLUSION: 1. Negative examination. Rj Dolan MD Head CT 05/05/17 0000 Signed Impressions: Service Date/Time: Friday, May 05, 2017 16:08 - CONCLUSION: No acute intracranial disease. Nickolas Valentin MD Chest X-Ray 05/04/17 1019 Signed Impressions: Service Date/Time: April 10:57 - CONCLUSION: No significant interval change Timbo Mccracken MD Chest CT 05/01/17 0000 Signed Impressions: Service Date/Time: Monday, May 01, 2017 18:24 - CONCLUSION: 1. Bilateral areas of consolidation. These alveolar consolidations are worse on the left than the right. They are nonspecific. Diffuse underlying processes such as infection/pneumonia need to be considered. Other diffuse processes could have a similar appearance. 2. Mild left pleural effusion primarily in the subpleural region and a minimal right pleural effusion. 3. Minimal prominent lymph nodes in the right paratracheal region. Timbo Escudero MD Physical Exam GENERAL: Awake, focusing, NAD on T-piece SKIN: Warm and dry. No generalized rash HEAD: Atraumatic. Normocephalic. No temporal wasting, or tenderness. EYES: [place] conjunctiva. No petechia or hemorrhage. Pupils equal, round and reactive to light. No scleral icterus. No injection or drainage. EARS, NOSE AND THROAT: Nose without bleeding or purulent nasal discharge. Moist mucosa. NECK: Trachea midline. Supple and not tender, no meningeal sign. Trach site ok CARDIOVASCULAR: Regular rate and rhythm. No murmurs, rubs or gallops heard RESPIRATORY: Decreased BS at bases ABDOMEN: Soft, obese, nondistended, bowel sounds present and normoactive. Not tender, no guarding EXTREMITIES: No clubbing, cyanosis. Improving edema. No joint effusion. Well perfused and warm. NEUROLOGICAL: Awake and focusing, following commands. No Babinski, no ankle clonus PSYCHIATRIC: Calm, not restless LINE: PIV, no evidence of infection Assessment & Plan Remarks IMPRESSION Sepsis, with recurrent fevers, etiology? resolved Low grade temps, better Bilateral infiltrates, CXR stable Encephalopathy - LP negative, imaging studies negative - OP elevated on his LP - no papilledema pm dilated fundoscopic exam Respiratory failure, S/P trach - tolerating T-piece Known polysubstance abuse RECOMMENDATION Continue Levaquin Continue flagyl oral for anaerobic coverage for possible aspiration PNA Give Abx until 05/18 - end dates ordered in [employer] Clinically doing well from ID standpoint I will be available prn Please reconsult if with new ID issue or question Asya Haro MD May 16, 2017 14:29
--- NOTE | 2017-05-16 15:00 | HHI.PR ---
Subjective Remarks As per RN patient is less agitated than before, following commands today. no reports of diarrhea, nausea or vomiting. Patient removed trach collar. Objective Vitals Vital Signs Date Time Temp Pulse Resp B/P (MAP) Pulse Ox O2 Delivery O2 Flow Rate FiO2 05/16/17 14:00 90 05/16/17 12:00 98.7 86 19 106/63 (77) 98 05/16/17 12:00 86 05/16/17 10:00 84 05/16/17 08:22 96 21 05/16/17 08:00 97.4 106 18 125/66 (85) 96 05/16/17 08:00 95 05/16/17 06:00 93 05/16/17 04:00 111 05/16/17 04:00 98.0 111 18 115/73 (87) 100 05/16/17 02:00 96 05/16/17 00:00 98.3 84 14 103/59 (74) 100 05/16/17 00:00 84 05/15/17 22:00 101 05/15/17 20:00 97.9 88 22 113/57 (75) 96 05/15/17 20:00 88 05/15/17 19:07 98 T-piece 5.00 28 05/15/17 18:00 94 05/15/17 16:00 98.6 90 17 111/55 (73) 99 05/15/17 16:00 90 I/O 05/15/17 05/15/17 05/15/17 05/16/17 05/16/17 05/16/17 07:00 15:00 23:00 07:00 15:00 23:00 Intake Total 700 ml 960 ml 980 ml Output Total 1450 ml 725 ml 1100 ml Balance -750 ml 235 ml -120 ml Intake Oral 700 ml 960 ml 980 ml Output Urine Total 1450 ml 725 ml 1100 ml # Bowel Movements 0 1 Result Diagram: 05/15/17 05005/15/17506 Imaging Last Impressions Chest X-Ray 05/12/17 0000 Signed Impressions: Service Date/Time: Friday, May 12, 2017 04:00 - CONCLUSION: 1. Bilateral mostly perihilar airspace disease similar to May 07. Support apparatus in good position. Roverto Monae MD Lower Extremity Ultrasound 10/8/17 0000 Signed Impressions: Service Date/Time: Sunday, May 07, 2017 16:45 - CONCLUSION: Normal examination. Maikel Corley MD Head/Brain Mag Res Venography 05/07/17 Signed Impressions: Service Date/Time: Sunday, May 07, 2017 10:43 - CONCLUSION: 1. No findings to indicate venous sinus thrombosis identified. Rj Dolan MD Head Magnetic Resonance Angiography 05/07/17 Signed Impressions: Service Date/Time: Sunday, May 07, 2017 10:43 - CONCLUSION: 1. Normal examination. Rj Dolan MD Brain MRI 05/07/17 Signed Impressions: Service Date/Time: Sunday, May 07, 2017 10:43 - CONCLUSION: 1. Negative examination. Rj Dolan MD Head CT 05/05/17 Signed Impressions: Service Date/Time: Friday, May 05, 2017 16:08 - CONCLUSION: No acute intracranial disease. Nickolas Valentin MD Chest CT 05/01/17 Signed Impressions: Service Date/Time: Monday, May 01, 2017 18:24 - CONCLUSION: 1. Bilateral areas of consolidation. These alveolar consolidations are worse on the left than the right. They are nonspecific. Diffuse underlying processes such as infection/pneumonia need to be considered. Other diffuse processes could have a similar appearance. 2. Mild left pleural effusion primarily in the subpleural region and a minimal right pleural effusion. 3. Minimal prominent lymph nodes in the right paratracheal region. Timbo Escudero MD Objective Remarks HEENT/ Neuro: Awake, has spontaneous eye opening however not following commands and remains encephalopathic, Pallor present, no icterus, tongue/ mucosa moist. Pupils bilaterally 4mm, reactive. Neck: No JVD. Tracheostomy in place C/D/I. room air. Chest/Pulm: on mech vent, good air entry bilaterally, scattered rhonchi, no wheezing or crackles. CVS: normal rate, regular rhythm. sinus by tele. GI/abdomen: soft, nontender, nondistended. no guarding. Extremities: warm bilaterally, no edema condom catheter in place Medications and IVs Current Medications Medications (Trade) Dose Ordered Sig/Angel Route Start Time Stop Time Status Last Admin (Buspar) 15 mg TID PO 04/26/17 09:00 Future Hold 05/05/17 09:41 (CeleXA) 10 mg HS PO 04/25/17 21:00 Future Hold 05/04/17 21:12 (Topamax) 50 mg BID PO 04/25/17 21:00 05/16/17 08:00 (SEROquel) 50 mg HS PO 04/25/17 21:00 Future Hold 05/04/17 21:13 (Pepcid) 20 mg DAILY PO 04/26/17 09:00 05/16/17 08:00 (NS Flush) 2 ml UNSCH PRN .XX 04/25/17 20:00 (NS Flush) 2 ml BID .XX 04/25/17 21:00 05/16/17 08:01 (Tylenol) 650 mg Q6H PRN PO 04/25/17 20:00 05/11/17 08:55 (Tears Naturale Opth Soln) 1 drop TID EACH EYE 04/26/17 09:00 05/14/17 13:00 (Zofran Inj) 4 mg Q6H PRN IV PUSH 04/25/17 20:00 (Duoneb Neb) 1 ampule Q2HR NEB PRN INH 04/25/17 20:00 05/05/17 03:36 Miscellaneous Information 1 Q361D XX 04/25/17 20:00 (Chlorhexidine 2% Cloth) 3 pack Taper DAILY@04 TOP 04/26/17 04:00 04/22/18 03:59 05/16/17 04:00 (Chlorhexidine 2% Cloth) 3 pack UNSCH PRN TOP 04/25/17 20:00 (Milk Of Magnesia Liq) 30 ml Q12H PRN PO 04/25/17 20:00 (Senokot) 17.2 mg Q12H PRN PO 04/25/17 20:00 (Dulcolax Supp) 10 mg DAILY PRN RECTAL 04/25/17 20:00 (Lactulose Liq) 30 ml DAILY PRN PO 04/25/17 20:00 (Peridex 0.12% Liq) 15 ml BID@08,20 MT 04/25/17 20:00 05/15/17 20:00 (Pill Splitter) 1 ea UNSCH PRN OTHER 04/25/17 20:15 Potassium Chloride 100 ml @ 50 mls/hr Q2H PRN IV 04/27/17 01:30 05/03/17 18:13 Potassium Chloride 100 ml @ 50 mls/hr Q2H PRN IV 04/27/17 01:30 05/09/17 01:33 (K-Lyte Cl Eff) 50 meq UNSCH PRN PO 04/27/17 01:30 04/27/17 01:52 Potassium Chloride 100 ml @ 25 mls/hr UNSCH PRN IV 04/27/17 01:30 05/03/17 23:42 Potassium Chloride 100 ml @ 50 mls/hr Q2H PRN IV 04/27/17 01:30 05/09/17 10:09 Magnesium Sulfate 4 gm/Sodium Chloride 100 ml @ 50 mls/hr UNSCH PRN IV 04/27/17 01:30 (Mag-Ox) 800 mg UNSCH PRN PO 04/27/17 01:30 Magnesium Sulfate 2 gm/Sodium Chloride 100 ml @ 50 mls/hr UNSCH PRN IV 04/27/17 01:30 (K-Phos) 2,000 mg Q4H PRN PO 04/27/17 01:30 Sodium Phosphate 30 mmol/Sodium Chloride 250 ml @ 42 mls/hr UNSCH PRN IV 04/27/17 01:30 (K-Phos) 2,000 mg UNSCH PRN PO/TUBE 04/27/17 01:30 Potassium Phosphate 30 mmol/ Sodium Chloride 260 ml @ 42 mls/hr UNSCH PRN IV 04/27/17 01:30 04/27/17 03:32 (Reglan Inj) 10 mg Q8HR IV PUSH 04/28/17 17:00 05/16/17 06:37 (Lovenox Inj) 40 mg Q24H SQ 05/04/17 11:00 Future Hold 05/10/17 11:10 (Apresoline Inj) 20 mg Q4H PRN IV PUSH 05/05/17 03:00 05/06/17 22:18 (Trandate Inj) 10 mg Q4H PRN IV PUSH 05/05/17 03:00 05/05/17 13:02 (Flagyl) 500 mg Q8HR PO 05/07/17 14:00 05/18/17 12:00 05/16/17 06:37 (Tenormin) 50 mg DAILY NG 10/11/17 14:45 05/16/17 08:00 (Levaquin) 750 mg DAILY PO 05/11/17 14:45 05/18/17 12:00 05/16/17 08:00 (Lactinex) 1 tab TID PO 05/12/17 18:00 05/16/17 08:00 (Imodium) 2 mg UNSCH PRN PO 05/14/17 00:30 05/14/17 01:03 (SEROquel) 25 mg BID PO 05/14/17 12:45 05/16/17 08:00 Urinary Catheter: No Vascular Central Line Catheter: No A/P Problem List: (1) Acute hypoxemic respiratory failure ICD Code: J96.01 - Acute respiratory failure with hypoxia Status: Acute (2) HCAP (healthcare-associated pneumonia) ICD Code: J18.9 - Pneumonia, unspecified organism Status: Acute (3) Toxic encephalopathy ICD Code: G92 - Toxic encephalopathy Status: Resolved (4) Atrial fibrillation with RVR ICD Code: I48.91 - Unspecified atrial fibrillation Status: Resolved (5) SVT (supraventricular tachycardia) ICD Code: I47.1 - Supraventricular tachycardia Status: Resolved (6) Hypernatremia ICD Code: E87.0 - Hyperosmolality and hypernatremia Status: Resolved (7) Sepsis ICD Code: A41.9 - Sepsis, unspecified organism Status: Resolved (8) Polyuria ICD Code: R35.8 - Other polyuria Status: Resolved Assessment and Plan Assessment: 46yM with acute toxic encephalopathy and acute hypoxic respiratory failure, pneumonia, delirium Acute Respiratory failure Due to underlying pneumonia. Patient off all sedation. The patient status post tracheostomy during T Piece since 05/09. Continue DuoNeb treatments and continue to provide supplemental oxygen to keep oxygen saturation more than 92%. Patient currently on IV antibiotics for treatment of pneumonia. 05/14 patient currently on trach collar and tolerating well. Satting 97% with an FiO2 of 28%. Healthcare Associated Pneumonia -Blood cultures negative to date. Sputum culture grew Pneumonia. Continue Antibiotics As per Infectious Disease. Patient previously on Levaquin IV which has been switched to Levaquin by mouth. Toxic Encephalopathy - Intoxication - Polysubstance abuse - Non focal neurological exam - Monitor for withdrawal - MRI brain unremarkable - neuro consult noted - EEG showing severe slowing. - LP unremarkable, elevated opening pressure while intubated on mechanical ventilation ? Significance. No papilledema per parking station attendant. - Neuro status seems to be improving. Most likely delirium. He is hard of hearing and needs new battery for his hearing aid. 05/14 patient is more alert, getting slightly agitated throughout the day and night. I will try start the patient on low-dose Seroquel. 05/15 Patient cleared by speech therapy to have a puree diet with thin liquids. A. fib with RVR - converted to sinus rhythm SVT-converted with Adenosine 12 mg IV on 05/08 -Off amiodarone drip. Cardiology consult noted 05/10 heart rate seems controlled. Continue atenolol 50 mg by mouth daily. TSH slightly elevated at 3.850. 05/12 check free t4 05/14 the T4 within normal range. Likely euthyroid sick syndrome. Hypernatremia Polyuria - s/p free water replacement - Ordered urine sodium and creatinine, serum osmolarity, urine osmolality. Nephrology consulted. 05/10 nephrology consulted. Patient has an elevated serum osmolality as long as an elevated urine sodium in 24 hours which is a normal physiologic response. Polyuria not due to diabetes insipidus. Urine has decreased his weight has improved. I will start the patient on normal saline since patient has a concentrated urine and is total -11 L. 05/12 urine looks more clear today. Continue IV fluids. Continue to monitor BMP. Thrombocytopenia- resolved. - previous admission - 43 - no active bleeding. - Will monitor. - Consulted hematology for further evaluation. Okay with resuming Lovenox for DVT prophylaxis as platelet count has normalized. Diarrhea C. difficile toxin toxin PCR negative. Hold stool softeners and laxatives. Diarrhea resolved. Hematuria As per report, the patient had some blood clots reported on 05/11. UA checked. Likely consistent with hematuria and possible UTI with trace leukocyte esterase and increased white blood cells 97. Follow-up urine culture. Urine culture negative, patient currently on Levaquin. Hematuria resolved. Dysphagia Previously on tube feedings. Cleared by speech therapy to have a Pureed diet. DVT Prophylaxis - Teds SCDs - Lovenox for DVT prophylaxis on 05/04 - discussed with Dr. Conner (held for LP. resumed after LP) Discharge Planning Transfer to the medical floor. Problem Qualifiers (1) Sepsis: Qualified Codes: A41.9 - Sepsis, unspecified organism Jian Hollingsworth MD May 16, 2017 15:00
[2017-05-17] VITALS (10 sets, daily range): BP systolic 103–121; BP diastolic 58–66; PULSE 80–114; RESP 16–19; TEMP 95.8–97.5; O2SAT 93–97
[2017-05-17] MEDS: CHLORHEXIDINE GLUCONATE 2 % 1 PACK (2 CLOTHS) TOP SCH (04:00)
[2017-05-17] MEDS: metroNIDAZOLE 500 MG TAB PO SCH ×3 (06:25→21:11)
[2017-05-17] MEDS: METOCLOPRAMIDE HCL 10 MG/2 ML VIAL IV PUSH SCH ×3 (06:25→21:11)
[2017-05-17] MEDS: CHLORHEXIDINE 0.12% (ORAL KIT) 15 ML CUP MT SCH (08:00)
[2017-05-17] MEDS: ARTIFICIAL TEARS OPTH SOLN 15 ML BTL EACH EYE SCH ×3 (09:26→17:24)
[2017-05-17] MEDS: LACTOBACILLUS ACIDOPHILUS TAB PO SCH ×3 (09:28→17:22)
[2017-05-17] MEDS: ATENOLOL 50 MG TAB NG SCH (09:28)
[2017-05-17] MEDS: FAMOTIDINE 20 MG TAB PO SCH (09:28)
[2017-05-17] MEDS: TOPIRAMATE 25 MG TAB PO SCH ×2 (09:28→21:10)
[2017-05-17] MEDS: QUEtiapine FUMARATE 25 MG TAB PO SCH ×2 (09:28→21:10)
[2017-05-17] MEDS: LEVOFLOXACIN 750 MG TAB PO SCH (09:28)
[2017-05-17] MEDS: SODIUM CHLORIDE 0.9% FLUSH 10 ML FLUSH SCH ×2 (09:30→21:16)
[2017-05-17] MEDS ORDERED: ONDANSETRON ODT 4 MG TAB PO PRN (10:45)
--- NOTE | 2017-05-17 11:15 | HHI.PR ---
Subjective Remarks In bed, trach in place, on room air satting well. Patient denies chest pain or sob. Intermittent cough, nonproductive. Feels better. Has not been out of bed. Feels weak. No fever or chills. Able to answer some questions. Objective Vitals Vital Signs Date Time Temp Pulse Resp B/P (MAP) Pulse Ox O2 Delivery O2 Flow Rate FiO2 05/17/17 08:00 97.4 114 16 110/64 (79) 93 05/17/17 04:00 96.4 86 17 121/62 (81) 94 05/17/17 02:14 95 Trach Collar 28 05/17/17 00:00 96.0 99 19 117/66 (83) 94 05/16/17 22:00 90 05/16/17 20:00 98.3 96 17 113/64 (80) 96 05/16/17 20:00 96 05/16/17 19:20 96 Trach Collar 6.00 28 05/16/17 18:00 86 05/16/17 16:00 92 05/16/17 16:00 97.8 92 19 96/69 (78) 05/16/17 14:00 90 05/16/17 12:00 98.7 86 19 106/63 (77) 98 05/16/17 12:00 86 I/O 05/16/17 05/16/17 05/16/17 05/17/17 05/17/17 05/17/17 07:00 15:00 23:00 07:00 15:00 23:00 Intake Total 980 ml 480 ml 240 ml Output Total 1100 ml 400 ml 500 ml Balance -120 ml 80 ml -260 ml Intake Oral 980 ml 480 ml 240 ml Output Urine Total 1100 ml 400 ml 500 ml # Bowel Movements 1 1 Result Diagram: 05/15/17 0507 05/15/17 0507 Imaging Last Impressions Chest X-Ray 05/12/17 0000 Signed Impressions: Service Date/Time: Friday, May 12, 2017 04:00 - CONCLUSION: 1. Bilateral mostly perihilar airspace disease similar to May 07. Support apparatus in good position. Roverto Monae MD Lower Extremity Ultrasound 05/07/17 0000 Signed Impressions: Service Date/Time: Sunday, May 07, 2017 16:45 - CONCLUSION: Normal examination. Maikel Corley MD Head/Brain Mag Res Venography 05/07/17 Signed Impressions: Service Date/Time: Sunday, May 07, 2017 10:43 - CONCLUSION: 1. No findings to indicate venous sinus thrombosis identified. Rj Dolan MD Head Magnetic Resonance Angiography 05/07/17 Signed Impressions: Service Date/Time: Sunday, May 07, 2017 10:43 - CONCLUSION: 1. Normal examination. Rj Dolan MD Brain MRI 05/07/17 Signed Impressions: Service Date/Time: Sunday, May 07, 2017 10:43 - CONCLUSION: 1. Negative examination. Rj Dolan MD Head CT 05/05/17 Signed Impressions: Service Date/Time: Friday, May 05, 2017 16:08 - CONCLUSION: No acute intracranial disease. Nickolas Valentin MD Chest CT 05/01/17 Signed Impressions: Service Date/Time: Monday, May 01, 2017 18:24 - CONCLUSION: 1. Bilateral areas of consolidation. These alveolar consolidations are worse on the left than the right. They are nonspecific. Diffuse underlying processes such as infection/pneumonia need to be considered. Other diffuse processes could have a similar appearance. 2. Mild left pleural effusion primarily in the subpleural region and a minimal right pleural effusion. 3. Minimal prominent lymph nodes in the right paratracheal region. Timbo Escudero MD Objective Remarks GENERAL: Awake, has spontaneous eye opening however not following commands and remains encephalopathic. Pallor present, no icterus, tongue/ mucosa moist. NECK: Tracheostomy in place C/D/I. room air. Trachea midline. No JVD. CARDIOVASCULAR: Regular rate and rhythm. RESPIRATORY: Was on mech vent now has trach on room air. Good air entry bilaterally, scattered rhonchi, no wheezing or crackles. No sob. GASTROINTESTINAL: Abdomen soft, non-tender, nondistended. Hepatic and splenic margins not palpable. MUSCULOSKELETAL: Extremities without clubbing, cyanosis, or edema. No obvious deformities. NEUROLOGICAL: Awake, has spontaneous eye opening however not following commands and remains encephalopathic PSYCHIATRIC: Appropriate mood and affect; insight and judgment normal. GENITOURINARY: Condom catheter in place A/P Problem List: (1) Acute hypoxemic respiratory failure ICD Code: J96.01 - Acute respiratory failure with hypoxia Status: Acute (2) HCAP (healthcare-associated pneumonia) ICD Code: J18.9 - Pneumonia, unspecified organism Status: Acute (3) Toxic encephalopathy ICD Code: G92 - Toxic encephalopathy Status: Resolved (4) Atrial fibrillation with RVR ICD Code: I48.91 - Unspecified atrial fibrillation Status: Resolved (5) SVT (supraventricular tachycardia) ICD Code: I47.1 - Supraventricular tachycardia Status: Resolved (6) Hypernatremia ICD Code: E87.0 - Hyperosmolality and hypernatremia Status: Resolved (7) Sepsis ICD Code: A41.9 - Sepsis, unspecified organism Status: Resolved (8) Polyuria ICD Code: R35.8 - Other polyuria Status: Resolved Assessment and Plan Assessment: 46yM with acute toxic encephalopathy and acute hypoxic respiratory failure, pneumonia, delirium Acute Respiratory failure, resolving Due to underlying pneumonia. Patient off all sedation. The patient status post tracheostomy during T Piece since 05/09. Continue DuoNeb treatments and continue to provide supplemental oxygen to keep oxygen saturation more than 92%. Patient currently on IV antibiotics for treatment of pneumonia. 05/14 patient currently on trach collar and tolerating well. Satting 97% with an FiO2 of 28%. -Consult pulm for trach, plan to downgrade trach Healthcare Associated Pneumonia -Blood cultures negative to date. Sputum culture grew Pneumonia. Continue Antibiotics As per Infectious Disease. Patient previously on Levaquin IV which has been switched to Levaquin by mouth. Toxic Encephalopathy - Intoxication - Polysubstance abuse - Non focal neurological exam - Monitor for withdrawal - MRI brain unremarkable - neuro consult noted - EEG showing severe slowing. - LP unremarkable, elevated opening pressure while intubated on mechanical ventilation ? Significance. No papilledema per real estate firm manager. - Neuro status seems to be improving. Most likely delirium. He is hard of hearing and needs new battery for his hearing aid. 05/14 patient is more alert, getting slightly agitated throughout the day and night. I will try start the patient on low-dose Seroquel. 05/15 Patient cleared by speech therapy to have a puree diet with thin liquids. A. fib with RVR - converted to sinus rhythm SVT-converted with Adenosine 12 mg IV on 05/08 -Off amiodarone drip. Cardiology consult noted 05/10 heart rate seems controlled. Continue atenolol 50 mg by mouth daily. TSH slightly elevated at 3.850. 05/12 check free t4 05/14 the T4 within normal range. Likely euthyroid sick syndrome. Hypernatremia Polyuria - s/p free water replacement - Ordered urine sodium and creatinine, serum osmolarity, urine osmolality. Nephrology consulted. 05/10 nephrology consulted. Patient has an elevated serum osmolality as long as an elevated urine sodium in 24 hours which is a normal physiologic response. Polyuria not due to diabetes insipidus. Urine has decreased his weight has improved. I will start the patient on normal saline since patient has a concentrated urine and is total -11 L. 05/12 urine looks more clear today. Continue IV fluids. Continue to monitor BMP. Thrombocytopenia- resolved. - previous admission - 43 - no active bleeding. - Will monitor. - Consulted hematology for further evaluation. Okay with resuming Lovenox for DVT prophylaxis as platelet count has normalized. Diarrhea C. difficile toxin toxin PCR negative. Hold stool softeners and laxatives. Diarrhea resolved. Hematuria As per report, the patient had some blood clots reported on 05/11. UA checked. Likely consistent with hematuria and possible UTI with trace leukocyte esterase and increased white blood cells 97. Follow-up urine culture. Urine culture negative, patient currently on Levaquin. Hematuria resolved. Dysphagia Previously on tube feedings. Cleared by speech therapy to have a Pureed diet. ST following. DVT Prophylaxis - Teds SCDs - Lovenox for DVT prophylaxis on 05/04 - discussed with Dr. Conner (held for LP. resumed after LP) Discharge Planning pending improvement, downgrade trach pulm consulted, also PT to evaluate and recommend DC Problem Qualifiers (1) Sepsis: Qualified Codes: A41.9 - Sepsis, unspecified organism Melody Elizalde MD May 17, 2017 11:15
[2017-05-17 19:16] LABS: BLOOD GAS BASE EXCESS -1.3 mmol/L (-2-2); BLOOD GAS CARBOXYHEMOGLOBIN 1.6 % (0-4); BLOOD GAS HCO3 22 mmol/L (22-26); BLOOD GAS METHEMOGLOBIN 0.5 % (0-2); BLOOD GAS O2 HGB SATURATION 94 % (90-100); BLOOD GAS OXYGEN CONTENT 13.1 Vol % (12.0-20.0); BLOOD GAS PCO2 32 mmHg (38-42); BLOOD GAS PO2 82 mmHg (61-120); BLOOD GAS TOTAL HGB 9.9 G/DL (12.0-16.0); CRITICAL VALUE NO; DRAW SITE RT RADIAL; FIO2 21 %; NUMBER OF ARTERIAL PUNCTURES 1; OXYGEN DEVICE ROOM AIR; STAT NO; TEMP CORR TO 98.6; ULNAR PULSE PRESENT
--- NOTE | 2017-05-17 21:25 | MB ---
cc: Srinath MONTOYA M.D. DATE OF CONSULTATION 05/17/17 HISTORY OF PRESENT ILLNESS Mr. Spicer is a 46-year-old white male with a history of substance abuse and depression. He actually presented on April 23 from [facility] by emergency medical service and identified to have pneumonia. He presented with a temperature of 104 and a pulmonary infiltrate. He then left against medical advice and was brought back in by his brother 2 days later at which time he was seriously ill and required intubation and mechanical ventilation. He had a very complicated critical care course from April 25, eventually resulting in tracheostomy on May 06 and then transferred to the floor with a tracheostomy in place on a trache collar. Mental status has improved. He is actually communicative this evening during this interview but could not provide any details with regard to his history but is stable, awake and alert, responsive, in no respiratory distress. The information is taken from his chart. Prior alcohol history also documented. No specific mention of tobacco use. On chest x-ray on presentation revealed consolidation in both lungs, left greater than right. Most recent film on 05/12 continues to reveal some perihilar infiltrates improved but not cleared completely. Multiple cultures had been obtained over the course of his stay and two separate cultures one on 05/03 and one on 05/05 of sputum revealed Klebsiella. He also had cultures of urine and blood which were negative and cerebrospinal fluid negative. MEDICATIONS Current medications are reviewed in the EMR. PHYSICAL EXAMINATION GENERAL: Confused white male, no distress. Tracheostomy in place. VITAL SIGNS: Afebrile. Pulse rates 90, respirations are 18 nonlabored. Very good strong cough. Minimal secretions. Blood pressure 107/61, sat 95% on a trache collar 6 liters flow. HEENT: Sclerae anicteric. Mucous membranes are moist. NECK: No adenopathy in the neck. CHEST: Very minimal scattered congestion. No wheezing. HEART: Regular rhythm. EXTREMITIES: No edema or cyanosis. ASSESSMENT/PLAN Mr. Spicer presented with pneumonia, actually signed out AMA, returned about 48 hours later very ill with clinical septicemia. Prolonged hospital course requiring tracheostomy and mechanical ventilatory support. Currently stable on a trache collar with minimal secretions. It is probable that he had a smoking history. I am going to start him on routine aerosol therapies to try to clear some of this congestion. Do a followup chest x-ray. It has only been about 10 days since the tracheostomy. He still has stitches in that and there has been no downsizing of that tracheostomy at present. Things are stable. Will leave that for the next 24-48 hours and assess him for decannulation. R. MD LAURIE Selby/BRITTA /6:59 PM /9:13 PM
[2017-05-18] VITALS (8 sets, daily range): BP systolic 103–142; BP diastolic 55–65; PULSE 84–102; RESP 17–20; TEMP 96–98.1; O2SAT 92–98
[2017-05-18] MEDS: CHLORHEXIDINE GLUCONATE 2 % 1 PACK (2 CLOTHS) TOP SCH (03:56)
[2017-05-18] MEDS: metroNIDAZOLE 500 MG TAB PO SCH (05:00)
[2017-05-18] MEDS: METOCLOPRAMIDE HCL 10 MG/2 ML VIAL IV PUSH SCH ×3 (05:01→20:31)
--- NOTE | 2017-05-18 08:05 | HHI.PR ---
Subjective Remarks n bed, say she was ambulating with PT and is doing well./ No fever or chilsl no cough Breathing good,. sattign well, trach in place, pulm ff for decanulation .He is eating fairly well. No n/v/d/c. Objective Vitals Vital Signs Date Time Temp Pulse Resp B/P (MAP) Pulse Ox O2 Delivery O2 Flow Rate FiO2 05/18/17 04:00 95 Trach Collar 21 05/18/17 04:00 97.1 89 17 109/64 (79) 95 05/18/17 00:00 96.0 90 17 103/55 (71) 96 05/17/17 20:00 96.3 80 18 106/62 (77) 94 05/17/17 18:32 110 05/17/17 17:54 95 Trach Collar 6.00 21 05/17/17 16:00 95.8 84 16 107/61 (76) 95 05/17/17 14:28 97 Trach Collar 21 05/17/17 12:00 97.5 87 16 103/58 (73) 93 I/O 05/17/17 05/17/17 05/17/17 05/18/17 05/18/17 05/18/17 07:00 15:00 23:00 07:00 15:00 23:00 Intake Total 240 ml 575 ml 240 ml Output Total 500 ml 500 ml Balance -260 ml 575 ml -260 ml Intake Oral 240 ml 575 ml 240 ml Output Urine Total 500 ml 500 ml # Voids 4 # Bowel Movements 0 Result Diagram: 05/15/17 0507 05/15/17 0507 Imaging Last Impressions Chest X-Ray 05/12/17 0000 Signed Impressions: Service Date/Time: Friday, May 12, 2017 04:00 - CONCLUSION: 1. Bilateral mostly perihilar airspace disease similar to May 07. Support apparatus in good position. Roverto Monae MD Lower Extremity Ultrasound 05/07/17 0000 Signed Impressions: Service Date/Time: Sunday, May 07, 2017 16:45 - CONCLUSION: Normal examination. Maikel Corley MD Head/Brain Mag Res Venography 05/07/17 0000 Signed Impressions: Service Date/Time: Sunday, May 07, 2017 10:43 - CONCLUSION: 1. No findings to indicate venous sinus thrombosis identified. Rj Dolan MD Head Magnetic Resonance Angiography 05/07/17 Signed Impressions: Service Date/Time: Sunday, May 07, 2017 10:43 - CONCLUSION: 1. Normal examination. Rj Dolan MD Brain MRI 05/07/17 Signed Impressions: Service Date/Time: Sunday, May 07, 2017 10:43 - CONCLUSION: 1. Negative examination. Rj Dolan MD Head CT 05/05/17 Signed Impressions: Service Date/Time: Friday, May 05, 2017 16:08 - CONCLUSION: No acute intracranial disease. Nickolas Valentin MD Chest CT 05/01/17 Signed Impressions: Service Date/Time: Monday, May 01, 2017 18:24 - CONCLUSION: 1. Bilateral areas of consolidation. These alveolar consolidations are worse on the left than the right. They are nonspecific. Diffuse underlying processes such as infection/pneumonia need to be considered. Other diffuse processes could have a similar appearance. 2. Mild left pleural effusion primarily in the subpleural region and a minimal right pleural effusion. 3. Minimal prominent lymph nodes in the right paratracheal region. Timbo Escudero MD Objective Remarks GENERAL: Awake, has spontaneous eye opening however not following commands and remains encephalopathic. Pallor present, no icterus, tongue/ mucosa moist. NECK: Tracheostomy in place C/D/I. room air. Trachea midline. No JVD. CARDIOVASCULAR: Regular rate and rhythm. RESPIRATORY: Was on mech vent now has trach on room air. Good air entry bilaterally, scattered rhonchi, no wheezing or crackles. No sob. GASTROINTESTINAL: Abdomen soft, non-tender, nondistended. Hepatic and splenic margins not palpable. MUSCULOSKELETAL: Extremities without clubbing, cyanosis, or edema. No obvious deformities. NEUROLOGICAL: Awake, has spontaneous eye opening however not following commands and remains encephalopathic PSYCHIATRIC: Appropriate mood and affect; insight and judgment normal. GENITOURINARY: Condom catheter in place A/P Problem List: (1) Acute hypoxemic respiratory failure ICD Code: J96.01 - Acute respiratory failure with hypoxia Status: Acute (2) HCAP (healthcare-associated pneumonia) ICD Code: J18.9 - Pneumonia, unspecified organism Status: Acute (3) Toxic encephalopathy ICD Code: G92 - Toxic encephalopathy Status: Resolved (4) Atrial fibrillation with RVR ICD Code: I48.91 - Unspecified atrial fibrillation Status: Resolved (5) SVT (supraventricular tachycardia) ICD Code: I47.1 - Supraventricular tachycardia Status: Resolved (6) Hypernatremia ICD Code: E87.0 - Hyperosmolality and hypernatremia Status: Resolved (7) Sepsis ICD Code: A41.9 - Sepsis, unspecified organism Status: Resolved (8) Polyuria ICD Code: R35.8 - Other polyuria Status: Resolved Assessment and Plan 46yM with acute toxic encephalopathy and acute hypoxic respiratory failure, pneumonia, delirium Acute Respiratory failure, resolving Due to underlying pneumonia. Patient off all sedation. The patient status post tracheostomy during T Piece since 05/09. Continue DuoNeb treatments and continue to provide supplemental oxygen to keep oxygen saturation more than 92%. Patient currently on IV antibiotics for treatment of pneumonia. 05/14 patient currently on trach collar and tolerating well. Satting 97% with an FiO2 of 28%. Consult pulm for trach, appreciate recommendations. Will decannulate trach in 24 -48 hrs Healthcare Associated Pneumonia -Blood cultures negative to date. Sputum culture grew Pneumonia. Continue Antibiotics As per Infectious Disease. Patient previously on Levaquin IV which has been switched to Levaquin by mouth. Toxic Encephalopathy - Intoxication - Polysubstance abuse - Non focal neurological exam - Monitor for withdrawal - MRI brain unremarkable - neuro consult noted - EEG showing severe slowing. - LP unremarkable, elevated opening pressure while intubated on mechanical ventilation ? Significance. No papilledema per cotton agent. - Neuro status seems to be improving. Most likely delirium. He is hard of hearing and needs new battery for his hearing aid. 05/14 patient is more alert, getting slightly agitated throughout the day and night. I will try start the patient on low-dose Seroquel. 05/15 Patient cleared by speech therapy to have a puree diet with thin liquids. A. fib with RVR - converted to sinus rhythm SVT-converted with Adenosine 12 mg IV on 05/08 -Off amiodarone drip. Cardiology consult noted 05/10 heart rate seems controlled. Continue atenolol 50 mg by mouth daily. TSH slightly elevated at 3.850. 05/12 check free t4 05/14 the T4 within normal range. Likely euthyroid sick syndrome. Hypernatremia Polyuria - s/p free water replacement - Ordered urine sodium and creatinine, serum osmolarity, urine osmolality. Nephrology consulted. 05/10 nephrology consulted. Patient has an elevated serum osmolality as long as an elevated urine sodium in 24 hours which is a normal physiologic response. Polyuria not due to diabetes insipidus. Urine has decreased his weight has improved. I will start the patient on normal saline since patient has a concentrated urine and is total -11 L. 05/12 urine looks more clear today. Continue IV fluids. Continue to monitor BMP. Thrombocytopenia- resolved. - previous admission - 44 - no active bleeding. - Will monitor. - Consulted hematology for further evaluation. Okay with resuming Lovenox for DVT prophylaxis as platelet count has normalized. Diarrhea C. difficile toxin toxin PCR negative. Hold stool softeners and laxatives. Diarrhea resolved. Hematuria As per report, the patient had some blood clots reported on 05/11. UA checked. Likely consistent with hematuria and possible UTI with trace leukocyte esterase and increased white blood cells 97. Follow-up urine culture. Urine culture negative, patient currently on Levaquin. Hematuria resolved. Dysphagia Previously on tube feedings. Cleared by speech therapy to have a Pureed diet. ST following. DVT Prophylaxis - Teds SCDs - Lovenox for DVT prophylaxis on 05/04 - discussed with Dr. Conner (held for LP. resumed after LP) Discharge Planning pending improvement, decannulate sarah krishnamurthy consulted and ff, also PT to evaluate and recommend DC Problem Qualifiers (1) Sepsis: Qualified Codes: A41.9 - Sepsis, unspecified organism Melody Elizalde MD May 18, 2017 08:05
[2017-05-18] MEDS: RESP: ALBUTEROL 2.5 MG/IPRATROPIUM 0.5 MG NEB (SCH) NEB ×3 (08:34→20:48)
[2017-05-18] MEDS: SODIUM CHLORIDE 0.9% FLUSH 10 ML FLUSH SCH ×2 (09:00→21:00)
[2017-05-18] MEDS: ARTIFICIAL TEARS OPTH SOLN 15 ML BTL EACH EYE SCH ×3 (09:00→18:00)
--- NOTE | 2017-05-18 09:31 | RADRPT ---
EXAM DATE/TIME: 05/18/2017 09:37 [facility] COMPARISON: CHEST SINGLE AP, May 12, 2017, 4:00. INDICATIONS : Evaluate pneumonia MEDICAL HISTORY : Gastroesophageal reflux disease. SURGICAL HISTORY : None. ENCOUNTER: Subsequent ACUITY: 3 weeks PAIN SCORE: 0/10 LOCATION: chest FINDINGS: A single view of the chest demonstrates improved aeration of both lung caballero compared to the prior s tudy. The tracheostomy tube remains in place. There is no pneumothorax. No new infiltrates are seen. There are no pleural effusions. The heart size is stable. The NG tube has been removed. The bony stru ctures are stable.. CONCLUSION: Not previously noted bilateral pulmonary infiltrates have essentially resolved on today's examination with improved aeration of both lung caballero. No new infiltrates. Mario Woodruff MD on May 18, 2017 at 9:28 Board Certified Radiologist. This report was verified electronically.
[2017-05-18] MEDS: LACTOBACILLUS ACIDOPHILUS TAB PO SCH ×3 (10:48→18:00)
[2017-05-18] MEDS: QUEtiapine FUMARATE 25 MG TAB PO SCH ×2 (10:48→20:28)
[2017-05-18] MEDS: TOPIRAMATE 25 MG TAB PO SCH ×2 (10:49→20:28)
[2017-05-18] MEDS: FAMOTIDINE 20 MG TAB PO SCH (10:49)
[2017-05-18] MEDS: LEVOFLOXACIN 750 MG TAB PO SCH (10:49)
[2017-05-18] MEDS: ATENOLOL 50 MG TAB NG SCH (10:49)
[2017-05-19 00:15] VITALS: BP 113/59; PULSE 88; RESP 20; TEMP 98.4; O2SAT 97
[2017-05-19] MEDS: CHLORHEXIDINE GLUCONATE 2 % 1 PACK (2 CLOTHS) TOP SCH ×2 (04:00→22:34)
[2017-05-19] MEDS: METOCLOPRAMIDE HCL 10 MG/2 ML VIAL IV PUSH SCH ×3 (06:00→22:00)
[2017-05-19 08:15] VITALS: BP 109/62; PULSE 95; RESP 16; TEMP 99.4; O2SAT 97
[2017-05-19] MEDS: RESP: ALBUTEROL 2.5 MG/IPRATROPIUM 0.5 MG NEB (SCH) NEB ×3 (08:57→20:56)
[2017-05-19] MEDS: QUEtiapine FUMARATE 25 MG TAB PO SCH ×2 (09:00→21:00)
[2017-05-19] MEDS: ARTIFICIAL TEARS OPTH SOLN 15 ML BTL EACH EYE SCH ×3 (09:00→18:00)
[2017-05-19] MEDS: TOPIRAMATE 25 MG TAB PO SCH ×2 (09:00→21:00)
--- NOTE | 2017-05-19 09:02 | HHI.PR ---
Subjective Remarks Ambulating in the hallways with PT. Patient denies any chest pain or sob. No n/v /d/c. No events overnight. Objective Vitals Vital Signs Date Time Temp Pulse Resp B/P (MAP) Pulse Ox O2 Delivery O2 Flow Rate FiO2 05/19/17 08:15 99.4 95 16 109/62 (78) 97 05/19/17 00:15 98.4 88 20 113/59 (77) 97 05/18/17 20:33 98.1 89 20 142/65 (90) 95 05/18/17 20:15 96 05/18/17 16:00 97.9 84 19 130/61 (84) 98 05/18/17 11:15 98.0 98 18 111/62 (78) 93 I/O 05/18/17 05/18/17 05/18/17 05/19/17 05/19/17 05/19/17 06:59 14:59 22:59 06:59 14:59 22:59 Intake Total 240 ml 975 ml 760 ml Output Total 500 ml 200 ml 1500 ml Balance -260 ml 775 ml -740 ml Intake Oral 240 ml 975 ml 760 ml Output Urine Total 500 ml 200 ml 1500 ml # Voids 3 # Bowel Movements 0 1 Result Diagram: 05/15/17 0507 05/15/17 0507 Imaging Last Impressions Chest X-Ray 05/18/17 0900 Signed Impressions: Service Date/Time: April 09:37 - CONCLUSION: Not previously noted bilateral pulmonary infiltrates have essentially resolved on today's examination with improved aeration of both lung caballero. No new infiltrates. Mario Woodruff MD Lower Extremity Ultrasound 05/07/17 0000 Signed Impressions: Service Date/Time: Sunday, May 07, 2017 16:45 - CONCLUSION: Normal examination. Maikel Corley MD Head/Brain Mag Res Venography 05/07/17 0000 Signed Impressions: Service Date/Time: Sunday, May 07, 2017 10:43 - CONCLUSION: 1. No findings to indicate venous sinus thrombosis identified. Rj Dolan MD Head Magnetic Resonance Angiography 05/07/17 Signed Impressions: Service Date/Time: Sunday, May 07, 2017 10:43 - CONCLUSION: 1. Normal examination. Rj Dolan MD Brain MRI 05/07/17 Signed Impressions: Service Date/Time: Sunday, May 07, 2017 10:43 - CONCLUSION: 1. Negative examination. Rj Dolan MD Head CT 05/05/17 Signed Impressions: Service Date/Time: Friday, May 05, 2017 16:08 - CONCLUSION: No acute intracranial disease. Nickolas Valentin MD Chest CT 05/01/17 Signed Impressions: Service Date/Time: Monday, May 01, 2017 18:24 - CONCLUSION: 1. Bilateral areas of consolidation. These alveolar consolidations are worse on the left than the right. They are nonspecific. Diffuse underlying processes such as infection/pneumonia need to be considered. Other diffuse processes could have a similar appearance. 2. Mild left pleural effusion primarily in the subpleural region and a minimal right pleural effusion. 3. Minimal prominent lymph nodes in the right paratracheal region. Timbo Escudero MD Objective Remarks GENERAL: Awake, has spontaneous eye opening however not following commands and remains encephalopathic. Pallor present, no icterus, tongue/ mucosa moist. NECK: Tracheostomy in place C/D/I. room air. Trachea midline. No JVD. CARDIOVASCULAR: Regular rate and rhythm. RESPIRATORY: Was on mech vent now has trach on room air. Good air entry bilaterally, scattered rhonchi, no wheezing or crackles. No sob. GASTROINTESTINAL: Abdomen soft, non-tender, nondistended. Hepatic and splenic margins not palpable. MUSCULOSKELETAL: Extremities without clubbing, cyanosis, or edema. No obvious deformities. NEUROLOGICAL: Awake, has spontaneous eye opening however not following commands and remains encephalopathic PSYCHIATRIC: Appropriate mood and affect; insight and judgment normal. GENITOURINARY: Condom catheter in place A/P Problem List: (1) Acute hypoxemic respiratory failure ICD Code: J96.01 - Acute respiratory failure with hypoxia Status: Acute (2) HCAP (healthcare-associated pneumonia) ICD Code: J18.9 - Pneumonia, unspecified organism Status: Acute (3) Toxic encephalopathy ICD Code: G92 - Toxic encephalopathy Status: Resolved (4) Atrial fibrillation with RVR ICD Code: I48.91 - Unspecified atrial fibrillation Status: Resolved (5) SVT (supraventricular tachycardia) ICD Code: I47.1 - Supraventricular tachycardia Status: Resolved (6) Hypernatremia ICD Code: E87.0 - Hyperosmolality and hypernatremia Status: Resolved (7) Sepsis ICD Code: A41.9 - Sepsis, unspecified organism Status: Resolved (8) Polyuria ICD Code: R35.8 - Other polyuria Status: Resolved Assessment and Plan 46yM with acute toxic encephalopathy and acute hypoxic respiratory failure, pneumonia, delirium Acute Respiratory failure, resolving Due to underlying pneumonia. Patient off all sedation. The patient status post tracheostomy during T Piece since 05/09. Continue DuoNeb treatments and continue to provide supplemental oxygen to keep oxygen saturation more than 92%. Patient currently on IV antibiotics for treatment of pneumonia. 05/14 patient currently on trach collar and tolerating well. Satting 97% with an FiO2 of 28%. Consult pulm for trach, appreciate recommendations. Will decannulate trach in 24 -48 hrs Healthcare Associated Pneumonia -Blood cultures negative to date. Sputum culture grew Pneumonia. Continue Antibiotics As per Infectious Disease. Patient previously on Levaquin IV which has been switched to Levaquin by mouth. Toxic Encephalopathy - Intoxication - Polysubstance abuse - Non focal neurological exam - Monitor for withdrawal - MRI brain unremarkable - neuro consult noted - EEG showing severe slowing. - LP unremarkable, elevated opening pressure while intubated on mechanical ventilation ? Significance. No papilledema per interactive developer. - Neuro status seems to be improving. Most likely delirium. He is hard of hearing and needs new battery for his hearing aid. 05/14 patient is more alert, getting slightly agitated throughout the day and night. I will try start the patient on low-dose Seroquel. 05/15 Patient cleared by speech therapy to have a puree diet with thin liquids. A. fib with RVR - converted to sinus rhythm SVT-converted with Adenosine 12 mg IV on 05/08 -Off amiodarone drip. Cardiology consult noted 05/10 heart rate seems controlled. Continue atenolol 50 mg by mouth daily. TSH slightly elevated at 3.850. 05/12 check free t4 05/14 the T4 within normal range. Likely euthyroid sick syndrome. Hypernatremia Polyuria - s/p free water replacement - Ordered urine sodium and creatinine, serum osmolarity, urine osmolality. Nephrology consulted. 05/10 nephrology consulted. Patient has an elevated serum osmolality as long as an elevated urine sodium in 24 hours which is a normal physiologic response. Polyuria not due to diabetes insipidus. Urine has decreased his weight has improved. I will start the patient on normal saline since patient has a concentrated urine and is total -11 L. 05/12 urine looks more clear today. Continue IV fluids. Continue to monitor BMP. Thrombocytopenia- resolved. - previous admission - 43 - no active bleeding. - Will monitor. - Consulted hematology for further evaluation. Okay with resuming Lovenox for DVT prophylaxis as platelet count has normalized. Diarrhea C. difficile toxin toxin PCR negative. Hold stool softeners and laxatives. Diarrhea resolved. Hematuria As per report, the patient had some blood clots reported on 05/11. UA checked. Likely consistent with hematuria and possible UTI with trace leukocyte esterase and increased white blood cells 97. Follow-up urine culture. Urine culture negative, patient currently on Levaquin. Hematuria resolved. Dysphagia Previously on tube feedings. Cleared by speech therapy to have a Pureed diet. ST following. DVT Prophylaxis - Teds SCDs - Lovenox for DVT prophylaxis on 05/04 - discussed with Dr. Conner (held for LP. resumed after LP) Discharge Planning pending improvement, decannulate trach, pulm consulted and ff, also PT to evaluate and recommend DC. Ambulating in the hallways with PT Problem Qualifiers (1) Sepsis: Qualified Codes: A41.9 - Sepsis, unspecified organism Melody Elizalde MD May 19, 2017 09:02
[2017-05-19] MEDS: FAMOTIDINE 20 MG TAB PO SCH (09:18)
[2017-05-19] MEDS: LACTOBACILLUS ACIDOPHILUS TAB PO SCH ×3 (09:18→18:00)
[2017-05-19] MEDS: ATENOLOL 50 MG TAB NG SCH (09:18)
[2017-05-19] MEDS: SODIUM CHLORIDE 0.9% FLUSH 10 ML FLUSH SCH ×2 (09:21→21:00)
[2017-05-19 12:00] VITALS: BP 123/71; PULSE 93; RESP 18; TEMP 99.6; O2SAT 95
[2017-05-19 16:00] VITALS: BP 116/67; PULSE 94; RESP 17; TEMP 99.8; O2SAT 96
[2017-05-19] MEDS ORDERED: ATEN50TA NG (16:41)
--- NOTE | 2017-05-19 16:41 | HHI.DS ---
Discharge Summary Admission Date Apr 25, 2017 at 17:38 Discharge Date: May 19, 2017 Admitting Diagnosis pneumonia, sepsis (1) Acute hypoxemic respiratory failure ICD Code: J96.01 - Acute respiratory failure with hypoxia Status: Acute (2) HCAP (healthcare-associated pneumonia) ICD Code: J18.9 - Pneumonia, unspecified organism Status: Acute (3) Toxic encephalopathy ICD Code: G92 - Toxic encephalopathy Status: Resolved (4) Atrial fibrillation with RVR ICD Code: I48.91 - Unspecified atrial fibrillation Status: Resolved (5) SVT (supraventricular tachycardia) ICD Code: I47.1 - Supraventricular tachycardia Status: Resolved (6) Hypernatremia ICD Code: E87.0 - Hyperosmolality and hypernatremia Status: Resolved (7) Sepsis ICD Code: A41.9 - Sepsis, unspecified organism Status: Resolved (8) Polyuria ICD Code: R35.8 - Other polyuria Status: Resolved Procedures tach placement decanulated Brief History - From Admission This is a 46-year-old male with a past medical history of Anxiety, Depression and Substance Abuse was initially sent to the emergency room April 23, 2017 by EMS from [facility] for cough and fever x2 days. Per records, patient had Temp 104.7. At that time patient denied SOB, chest pain, nausea, vomiting or diarrhea. He was admitted to [facility] however the patient left this morning against medical advise despite the treatment of pneumonia. After leaving this morning he has had some alcohol to drink and smoked some methamphetamine. His brother brought him back for reevaluation and treatment for his pneumonia. In the emergency department his oxygen saturations were in the low 80s on room air, patient was constantly removing to his oxygen mask and would not tolerate any BiPAP. He became extremely agitated combative and was intubated by me for an airway protection and severe hypoxemia. CBC/BMP: 05/15/17 0507 05/15/17 0507 Significant Findings Laboratory Tests Test 05/17/17 19:00 Arterial Blood pH 7.45 (7.380-7.420) Arterial Blood Partial Pressure CO2 32 mmHg (38-42) Blood Gas Hemoglobin 9.9 G/DL (12.0-16.0) Imaging Last Impressions Chest X-Ray 05/18/17 0900 Signed Impressions: Service Date/Time: April 09:37 - CONCLUSION: Not previously noted bilateral pulmonary infiltrates have essentially resolved on today's examination with improved aeration of both lung caballero. No new infiltrates. Mario Woodruff MD Lower Extremity Ultrasound 05/07/17 Signed Impressions: Service Date/Time: Sunday, May 07, 2017 16:45 - CONCLUSION: Normal examination. Maikel Corley MD Head/Brain Mag Res Venography 05/07/17 Signed Impressions: Service Date/Time: Sunday, May 07, 2017 10:43 - CONCLUSION: 1. No findings to indicate venous sinus thrombosis identified. Rj Dolan MD Head Magnetic Resonance Angiography 05/07/17 Signed Impressions: Service Date/Time: Sunday, May 07, 2017 10:43 - CONCLUSION: 1. Normal examination. Rj Dolan MD Brain MRI 05/07/17 0000 Signed Impressions: Service Date/Time: Sunday, May 07, 2017 10:43 - CONCLUSION: 1. Negative examination. Rj Dolan MD Head CT 05/05/17 0000 Signed Impressions: Service Date/Time: Friday, May 05, 2017 16:08 - CONCLUSION: No acute intracranial disease. Nickolas Valentin MD Chest CT 05/01/17 0000 Signed Impressions: Service Date/Time: Monday, May 01, 2017 18:24 - CONCLUSION: 1. Bilateral areas of consolidation. These alveolar consolidations are worse on the left than the right. They are nonspecific. Diffuse underlying processes such as infection/pneumonia need to be considered. Other diffuse processes could have a similar appearance. 2. Mild left pleural effusion primarily in the subpleural region and a minimal right pleural effusion. 3. Minimal prominent lymph nodes in the right paratracheal region. Timbo Escudero MD PE at Discharge GENERAL: Awake, has spontaneous eye opening however not following commands and remains encephalopathic. Pallor present, no icterus, tongue/ mucosa moist. NECK: Tracheostomy in place C/D/I. room air. Trachea midline. No JVD. CARDIOVASCULAR: Regular rate and rhythm. RESPIRATORY: Was on mech vent now has trach on room air. Good air entry bilaterally, scattered rhonchi, no wheezing or crackles. No sob. GASTROINTESTINAL: Abdomen soft, non-tender, nondistended. Hepatic and splenic margins not palpable. MUSCULOSKELETAL: Extremities without clubbing, cyanosis, or edema. No obvious deformities. NEUROLOGICAL: Awake, has spontaneous eye opening however not following commands and remains encephalopathic PSYCHIATRIC: Appropriate mood and affect; insight and judgment normal. GENITOURINARY: Condom catheter in place Hospital Course 46yM with acute toxic encephalopathy and acute hypoxic respiratory failure, pneumonia, delirium Acute Respiratory failure, resolving Due to underlying pneumonia. Patient off all sedation. The patient status post tracheostomy during T Piece since 05/09. Continue DuoNeb treatments and continue to provide supplemental oxygen to keep oxygen saturation more than 92%. Patient currently on IV antibiotics for treatment of pneumonia. 05/14 patient currently on trach collar and tolerating well. Satting 97% with an FiO2 of 28%. Consult pulm for trach, appreciate recommendations. Will decannulate trach in 24 -48 hrs Healthcare Associated Pneumonia -Blood cultures negative to date. Sputum culture grew Pneumonia. Continue Antibiotics As per Infectious Disease. Patient previously on Levaquin IV which has been switched to Levaquin by mouth. Toxic Encephalopathy - Intoxication - Polysubstance abuse - Non focal neurological exam - Monitor for withdrawal - MRI brain unremarkable - neuro consult noted - EEG showing severe slowing. - LP unremarkable, elevated opening pressure while intubated on mechanical ventilation ? Significance. No papilledema per dealer card room. - Neuro status seems to be improving. Most likely delirium. He is hard of hearing and needs new battery for his hearing aid. 05/14 patient is more alert, getting slightly agitated throughout the day and night. I will try start the patient on low-dose Seroquel. 05/15 Patient cleared by speech therapy to have a puree diet with thin liquids. A. fib with RVR - converted to sinus rhythm SVT-converted with Adenosine 12 mg IV on 05/08 -Off amiodarone drip. Cardiology consult noted 05/10 heart rate seems controlled. Continue atenolol 50 mg by mouth daily. TSH slightly elevated at 3.850. 05/12 check free t4 05/14 the T4 within normal range. Likely euthyroid sick syndrome. Hypernatremia Polyuria - s/p free water replacement - Ordered urine sodium and creatinine, serum osmolarity, urine osmolality. Nephrology consulted. 05/10 nephrology consulted. Patient has an elevated serum osmolality as long as an elevated urine sodium in 24 hours which is a normal physiologic response. Polyuria not due to diabetes insipidus. Urine has decreased his weight has improved. I will start the patient on normal saline since patient has a concentrated urine and is total -11 L. 05/12 urine looks more clear today. Continue IV fluids. Continue to monitor BMP. Thrombocytopenia- resolved. - previous admission - 43 - no active bleeding. - Will monitor. - Consulted hematology for further evaluation. Okay with resuming Lovenox for DVT prophylaxis as platelet count has normalized. Diarrhea C. difficile toxin toxin PCR negative. Hold stool softeners and laxatives. Diarrhea resolved. Hematuria As per report, the patient had some blood clots reported on 05/11. UA checked. Likely consistent with hematuria and possible UTI with trace leukocyte esterase and increased white blood cells 97. Follow-up urine culture. Urine culture negative, patient currently on Levaquin. Hematuria resolved. Dysphagia Previously on tube feedings. Cleared by speech therapy to have a Pureed diet. ST following. DVT Prophylaxis - Teds SCDs - Lovenox for DVT prophylaxis on 05/04 - discussed with Dr. Conner (held for LP. resumed after LP) Discharge Planning Discussed with Dr Reyes smith . trach decanulated . Patient feels good, eating well. Dressing applied n the neck, c/di. healing well. Per Dr Chambers patient can be DC. Discussede with PT needs pT at home, also a walker, ordered. Discussed with JANIE ff for DC Pt Condition on Discharge: Stable Discharge Disposition: Disch w/ Home Health Serv Discharge Time: > 30 minutes Discharge Instructions DIET: Follow Instructions for: As Tolerated, No Restrictions Activities you can perform: Regular-No Restrictions Follow up Referrals: PCP Follow-up - 2-3 Days New Medications: Walker with Front Wheels (Walker with Front Wheels) 1 Mis Mis EA .ROUTE DIRECTED, #1 0 Refills Atenolol (Atenolol) 50 Mg Tab 50 MG NG DAILY for Blood Pressure Management, #30 TAB Continued Medications: Buspirone (Buspirone) 15 Mg Tab 15 MG PO TID for Anxiety, TAB 0 Refills Citalopram (Citalopram) 10 Mg Tab 10 MG PO HS for Control Depression, #30 TAB 0 Refills Gabapentin (Gabapentin) 600 Mg Tab 600 MG PO BID, #60 TAB 0 Refills Quetiapine (Seroquel) 50 Mg Tab 50 MG PO HS, #30 TAB 0 Refills Ranitidine (Zantac) 150 Mg Tab 150 MG PO DAILY for Reduce Stomach Acid, #30 TAB 0 Refills Topiramate (Topiramate) 50 Mg Tab 50 MG PO BID for Control Seizures, #60 TAB 0 Refills Melody Elizalde MD May 19, 2017 16:41
--- NOTE | 2017-05-19 16:42 | HHI.FF ---
Face to Face Verification Diagnosis: (1) Toxic encephalopathy (2) HCAP (healthcare-associated pneumonia) (3) Atrial fibrillation with RVR (4) SVT (supraventricular tachycardia) (5) Hypernatremia (6) Acute encephalopathy (7) PNA (pneumonia) (8) Substance abuse (9) Febrile illness (10) Pancytopenia (11) Thrombocytopenia Physical Therapy Order: Evaluate and Treat Home Health Nursing Order: Medical education Signs/symptoms of disease process Medication education-adverse effect Nursing assessment with vital signs I have seen patient Gage Spicer on 05/19/17. My clinical findings support the need for the requested home health care services because: Ltd mobility - disease progression I certify that my clinical findings support that this patient is homebound because: Post-op weakness Melody Elizalde MD May 19, 2017 16:42
[2017-05-19] MEDS ORDERED: WALKER WHEELS/F1 MIS (16:45)
[2017-05-19 20:26] VITALS: BP 144/76; PULSE 100; RESP 18; TEMP 100.4; O2SAT 96
[2017-05-19 20:59] VITALS: O2SAT 93
[2017-05-20] VITALS (7 sets, daily range): BP systolic 116–132; BP diastolic 63–73; PULSE 92–109; RESP 18–20; TEMP 98–99.3; O2SAT 94–97
[2017-05-20] MEDS: METOCLOPRAMIDE HCL 10 MG/2 ML VIAL IV PUSH SCH ×3 (05:15→20:11)
--- NOTE | 2017-05-20 08:18 | HHI.PR ---
Subjective Remarks In nad. He is satting well on room air. Trach was removed yesterday by Dr Chambers. Patient in nad. No cough, fever, chills, sob, wheezing. Denies n/v/d/c. Eating well. Patient is walking with PT but appears unsteady. I discussed with the patient regarding discharge plan , the patient is getting upset. Objective Vitals Vital Signs Date Time Temp Pulse Resp B/P (MAP) Pulse Ox O2 Delivery O2 Flow Rate FiO2 05/20/17 08:03 98.2 95 20 116/63 (80) 96 05/20/17 00:04 98.9 98 18 125/66 (85) 94 05/19/17 20:59 93 21 05/19/17 20:26 100.4 100 18 144/76 (98) 96 05/19/17 16:00 99.8 94 17 116/67 (83) 96 05/19/17 12:00 99.6 93 18 123/71 (88) 95 I/O 05/19/17 05/19/17 05/19/17 05/20/17 05/20/17 05/20/17 07:00 15:00 23:00 07:00 15:00 23:00 Intake Total 760 ml 960 ml 380 ml 480 ml 120 ml Output Total 1500 ml 1300 ml 1800 ml Balance -740 ml -340 ml 380 ml -1320 ml 120 ml Intake Oral 760 ml 960 ml 380 ml 480 ml 120 ml Output Urine Total 1500 ml 1300 ml 1800 ml # Bowel Movements 1 0 Imaging Last Impressions Chest X-Ray 05/18/17 0900 Signed Impressions: Service Date/Time: April 09:37 - CONCLUSION: Not previously noted bilateral pulmonary infiltrates have essentially resolved on today's examination with improved aeration of both lung caballero. No new infiltrates. Mario Woodruff MD Lower Extremity Ultrasound 05/07/17 0000 Signed Impressions: Service Date/Time: Sunday, May 07, 2017 16:45 - CONCLUSION: Normal examination. Maikel Corley MD Head/Brain Mag Res Venography 05/07/17 0000 Signed Impressions: Service Date/Time: Sunday, May 07, 2017 10:43 - CONCLUSION: 1. No findings to indicate venous sinus thrombosis identified. Rj Dolan MD Head Magnetic Resonance Angiography 05/07/17 Signed Impressions: Service Date/Time: Sunday, May 07, 2017 10:43 - CONCLUSION: 1. Normal examination. Rj Dolan MD Brain MRI 05/07/17 Signed Impressions: Service Date/Time: Sunday, May 07, 2017 10:43 - CONCLUSION: 1. Negative examination. Rj Dolan MD Head CT 05/05/17 Signed Impressions: Service Date/Time: Friday, May 05, 2017 16:08 - CONCLUSION: No acute intracranial disease. Nickolas Valentin MD Chest CT 05/01/17 Signed Impressions: Service Date/Time: Monday, May 01, 2017 18:24 - CONCLUSION: 1. Bilateral areas of consolidation. These alveolar consolidations are worse on the left than the right. They are nonspecific. Diffuse underlying processes such as infection/pneumonia need to be considered. Other diffuse processes could have a similar appearance. 2. Mild left pleural effusion primarily in the subpleural region and a minimal right pleural effusion. 3. Minimal prominent lymph nodes in the right paratracheal region. Timbo Escudero MD Objective Remarks GENERAL: Awake and alert, appears in nad. He is getting upset when I spoke with him regarding discharge plan. NECK: Trach was removed, dressing on C/D/I. Satting well on room air. Trachea midline. No JVD. CARDIOVASCULAR: Regular rate and rhythm. Normal S1 and S2 RESPIRATORY: Was on mech vent now had a trach on room air. Trach was removed , dressing c/d/i. patient is satting well on room air. Good air entry bilaterally,no rhonchi, no wheezing or crackles. No sob. GASTROINTESTINAL: Abdomen soft, non-tender, nondistended. Hepatic and splenic margins not palpable. MUSCULOSKELETAL: Extremities without clubbing, cyanosis, or edema. No obvious deformities. NEUROLOGICAL: Awake, has spontaneous eye opening however not following commands and remains encephalopathic PSYCHIATRIC: Getting upset when I discussed with his plan for discharge, insight and judgment poor. Procedures tach placement decanulated A/P Problem List: (1) Acute hypoxemic respiratory failure ICD Code: J96.01 - Acute respiratory failure with hypoxia Status: Acute (2) HCAP (healthcare-associated pneumonia) ICD Code: J18.9 - Pneumonia, unspecified organism Status: Acute (3) Toxic encephalopathy ICD Code: G92 - Toxic encephalopathy Status: Resolved (4) Atrial fibrillation with RVR ICD Code: I48.91 - Unspecified atrial fibrillation Status: Resolved (5) SVT (supraventricular tachycardia) ICD Code: I47.1 - Supraventricular tachycardia Status: Resolved (6) Hypernatremia ICD Code: E87.0 - Hyperosmolality and hypernatremia Status: Resolved (7) Sepsis ICD Code: A41.9 - Sepsis, unspecified organism Status: Resolved (8) Polyuria ICD Code: R35.8 - Other polyuria Status: Resolved Assessment and Plan 46yM with acute toxic encephalopathy and acute hypoxic respiratory failure, pneumonia, delirium Acute Respiratory failure, resolving Due to underlying pneumonia. Patient off all sedation. The patient status post tracheostomy during T Piece since 05/09. Continue DuoNeb treatments and continue to provide supplemental oxygen to keep oxygen saturation more than 92%. Patient currently on IV antibiotics for treatment of pneumonia. 05/14 patient currently on trach collar and tolerating well. Satting 97% with an FiO2 of 28%. Consult pulm for trach, appreciate recommendations. Trach was removed 05/19/17. Satting well on room air. Eating well. Healthcare Associated Pneumonia -Blood cultures negative to date. Sputum culture grew Pneumonia. Continue Antibiotics As per Infectious Disease. Patient previously on Levaquin IV which has been switched to Levaquin by mouth. Toxic Encephalopathy - Intoxication - Polysubstance abuse - Non focal neurological exam - Monitor for withdrawal - MRI brain unremarkable - neuro consult noted - EEG showing severe slowing. - LP unremarkable, elevated opening pressure while intubated on mechanical ventilation ? Significance. No papilledema per table assembler. - Neuro status seems to be improving. Most likely delirium. He is hard of hearing and needs new battery for his hearing aid. 05/14 patient is more alert, getting slightly agitated throughout the day and night. I will try start the patient on low-dose Seroquel. 05/15 Patient cleared by speech therapy to have a puree diet with thin liquids. A. fib with RVR - converted to sinus rhythm SVT-converted with Adenosine 12 mg IV on 05/08 -Off amiodarone drip. Cardiology consult noted 05/10 heart rate seems controlled. Continue atenolol 50 mg by mouth daily. TSH slightly elevated at 3.850. 05/12 check free t4 05/14 the T4 within normal range. Likely euthyroid sick syndrome. Hypernatremia Polyuria - s/p free water replacement - Ordered urine sodium and creatinine, serum osmolarity, urine osmolality. Nephrology consulted. 05/10 nephrology consulted. Patient has an elevated serum osmolality as long as an elevated urine sodium in 24 hours which is a normal physiologic response. Polyuria not due to diabetes insipidus. Urine has decreased his weight has improved. I will start the patient on normal saline since patient has a concentrated urine and is total -11 L. 05/12 urine looks more clear today. Continue IV fluids. Continue to monitor BMP. Thrombocytopenia- resolved. - previous admission - 43 - no active bleeding. - Will monitor. - Consulted hematology for further evaluation. Okay with resuming Lovenox for DVT prophylaxis as platelet count has normalized. Diarrhea C. difficile toxin toxin PCR negative. Hold stool softeners and laxatives. Diarrhea resolved. Hematuria As per report, the patient had some blood clots reported on 05/11. UA checked. Likely consistent with hematuria and possible UTI with trace leukocyte esterase and increased white blood cells 97. Follow-up urine culture. Urine culture negative, patient currently on Levaquin. Hematuria resolved. Dysphagia Previously on tube feedings. Cleared by speech therapy to have a Pureed diet. ST following. Unsteady gait. Walking with the walker, at risk of falls. PT daily until deemed safe for discharge by PT. To have PT as OP DVT Prophylaxis - Teds SCDs - Lovenox for DVT prophylaxis on 05/04 - discussed with Dr. Conner (held for LP. resumed after LP) Discharge Planning pending improvement, decannulate raghu pulhosea consulted and ff, also PT to evaluate and recommend DC. Ambulating in the hallways with PT, however unsteady gait and patien tis not feeling comfortable to go home, he is also impulsive. Walking with the walker, at risk of falls. PT daily until deemed safe for discharge by PT. To have PT as OP Problem Qualifiers (1) Sepsis: Qualified Codes: A41.9 - Sepsis, unspecified organism Melody Elizalde MD May 20, 2017 08:18
[2017-05-20] MEDS: LACTOBACILLUS ACIDOPHILUS TAB PO SCH ×3 (08:37→17:35)
[2017-05-20] MEDS: FAMOTIDINE 20 MG TAB PO SCH (08:37)
[2017-05-20] MEDS: ARTIFICIAL TEARS OPTH SOLN 15 ML BTL EACH EYE SCH ×3 (08:38→17:34)
[2017-05-20] MEDS: SODIUM CHLORIDE 0.9% FLUSH 10 ML FLUSH SCH ×2 (08:38→20:12)
[2017-05-20] MEDS: QUEtiapine FUMARATE 25 MG TAB PO SCH ×2 (08:38→20:12)
[2017-05-20] MEDS: ATENOLOL 50 MG TAB NG SCH (08:38)
[2017-05-20] MEDS: TOPIRAMATE 25 MG TAB PO SCH ×2 (08:38→20:11)
[2017-05-20] MEDS: RESP: ALBUTEROL 2.5 MG/IPRATROPIUM 0.5 MG NEB (SCH) NEB ×3 (08:48→21:00)
[2017-05-20] MEDS: CHLORHEXIDINE GLUCONATE 2 % 1 PACK (2 CLOTHS) TOP SCH (20:12)
[2017-05-20] MEDS: ALUMINUM/MAGNESIUM/SIMETH 30 ML CUP PO PRN (23:33)
[2017-05-21 00:50] VITALS: BP 98/54; PULSE 103; RESP 18; TEMP 98.8; O2SAT 99
[2017-05-21] MEDS: METOCLOPRAMIDE HCL 10 MG/2 ML VIAL IV PUSH SCH ×2 (04:28→12:34)
[2017-05-21] MEDS: RESP: ALBUTEROL 2.5 MG/IPRATROPIUM 0.5 MG NEB (SCH) NEB (07:22)
--- NOTE | 2017-05-21 07:54 | HHI.PR ---
Subjective Remarks In bed, eating, impulsive at times. No fever or chills. Sattign well on room air. No n/v/d/c. Objective Vitals Vital Signs Date Time Temp Pulse Resp B/P (MAP) Pulse Ox O2 Delivery O2 Flow Rate FiO2 05/21/17 00:50 98.8 103 18 98/54 (69) 99 05/20/17 21:36 99.1 106 18 132/73 (92) 96 05/20/17 21:06 96 21 05/20/17 16:00 99.3 92 20 122/71 (88) 97 05/20/17 12:00 98.0 109 20 123/67 (85) 95 05/20/17 08:50 96 21 05/20/17 08:03 98.2 95 20 116/63 (80) 96 I/O 05/20/17 05/20/17 05/20/17 05/21/17 05/21/17 05/21/17 07:00 15:00 23:00 07:00 15:00 23:00 Intake Total 480 ml 120 ml 1200 ml Output Total 1800 ml 1000 ml Balance -1320 ml 120 ml 200 ml Intake Oral 480 ml 120 ml 1200 ml Output Urine Total 1800 ml 1000 ml # Bowel Movements 0 Imaging Last Impressions Chest X-Ray 05/18/17 0900 Signed Impressions: Service Date/Time: April 09:37 - CONCLUSION: Not previously noted bilateral pulmonary infiltrates have essentially resolved on today's examination with improved aeration of both lung caballero. No new infiltrates. Mario Woodruff MD Lower Extremity Ultrasound 05/07/17 Signed Impressions: Service Date/Time: Sunday, May 07, 2017 16:45 - CONCLUSION: Normal examination. Maikel Corley MD Head/Brain Mag Res Venography 05/07/17 Signed Impressions: Service Date/Time: Sunday, May 07, 2017 10:43 - CONCLUSION: 1. No findings to indicate venous sinus thrombosis identified. Rj Dolan MD Head Magnetic Resonance Angiography 05/07/17 Signed Impressions: Service Date/Time: Sunday, May 07, 2017 10:43 - CONCLUSION: 1. Normal examination. Rj Dolan MD Brain MRI 05/07/17 Signed Impressions: Service Date/Time: Sunday, May 07, 2017 10:43 - CONCLUSION: 1. Negative examination. Rj Dolan MD Head CT 05/05/17 0000 Signed Impressions: Service Date/Time: Friday, May 05, 2017 16:08 - CONCLUSION: No acute intracranial disease. Nickolas Valentin MD Chest CT 05/01/17 0000 Signed Impressions: Service Date/Time: Monday, May 01, 2017 18:24 - CONCLUSION: 1. Bilateral areas of consolidation. These alveolar consolidations are worse on the left than the right. They are nonspecific. Diffuse underlying processes such as infection/pneumonia need to be considered. Other diffuse processes could have a similar appearance. 2. Mild left pleural effusion primarily in the subpleural region and a minimal right pleural effusion. 3. Minimal prominent lymph nodes in the right paratracheal region. Timbo Escudero MD Objective Remarks GENERAL: Awake and alert, appears in nad. He is getting upset when I spoke with him regarding discharge plan. NECK: Trach was removed, dressing on C/D/I. Satting well on room air. Trachea midline. No JVD. CARDIOVASCULAR: Regular rate and rhythm. Normal S1 and S2 RESPIRATORY: Was on mech vent now had a trach on room air. Trach was removed , dressing c/d/i. patient is satting well on room air. Good air entry bilaterally,no rhonchi, no wheezing or crackles. No sob. GASTROINTESTINAL: Abdomen soft, non-tender, nondistended. Hepatic and splenic margins not palpable. MUSCULOSKELETAL: Extremities without clubbing, cyanosis, or edema. No obvious deformities. NEUROLOGICAL: Awake, has spontaneous eye opening however not following commands and remains encephalopathic PSYCHIATRIC: Getting upset when I discussed with his plan for discharge, insight and judgment poor. Procedures tach placement decanulated A/P Problem List: (1) Acute hypoxemic respiratory failure ICD Code: J96.01 - Acute respiratory failure with hypoxia Status: Acute (2) HCAP (healthcare-associated pneumonia) ICD Code: J18.9 - Pneumonia, unspecified organism Status: Acute (3) Toxic encephalopathy ICD Code: G92 - Toxic encephalopathy Status: Resolved (4) Atrial fibrillation with RVR ICD Code: I48.91 - Unspecified atrial fibrillation Status: Resolved (5) SVT (supraventricular tachycardia) ICD Code: I47.1 - Supraventricular tachycardia Status: Resolved (6) Hypernatremia ICD Code: E87.0 - Hyperosmolality and hypernatremia Status: Resolved (7) Sepsis ICD Code: A41.9 - Sepsis, unspecified organism Status: Resolved (8) Polyuria ICD Code: R35.8 - Other polyuria Status: Resolved Assessment and Plan 46yM with acute toxic encephalopathy and acute hypoxic respiratory failure, pneumonia, delirium Acute Respiratory failure, resolving Due to underlying pneumonia. Patient off all sedation. The patient status post tracheostomy during T Piece since 05/09. Continue DuoNeb treatments and continue to provide supplemental oxygen to keep oxygen saturation more than 92%. Patient currently on IV antibiotics for treatment of pneumonia. 05/14 patient currently on trach collar and tolerating well. Satting 97% with an FiO2 of 28%. Consult pulm for trach, appreciate recommendations. Trach was removed 05/19/17. Satting well on room air. Eating well. Healthcare Associated Pneumonia -Blood cultures negative to date. Sputum culture grew Pneumonia. Continue Antibiotics As per Infectious Disease. Patient previously on Levaquin IV which has been switched to Levaquin by mouth. Toxic Encephalopathy - Intoxication - Polysubstance abuse - Non focal neurological exam - Monitor for withdrawal - MRI brain unremarkable - neuro consult noted - EEG showing severe slowing. - LP unremarkable, elevated opening pressure while intubated on mechanical ventilation ? Significance. No papilledema per comfort filler. - Neuro status seems to be improving. Most likely delirium. He is hard of hearing and needs new battery for his hearing aid. 05/14 patient is more alert, getting slightly agitated throughout the day and night. I will try start the patient on low-dose Seroquel. 05/15 Patient cleared by speech therapy to have a puree diet with thin liquids. A. fib with RVR - converted to sinus rhythm SVT-converted with Adenosine 12 mg IV on 05/08 -Off amiodarone drip. Cardiology consult noted 05/10 heart rate seems controlled. Continue atenolol 50 mg by mouth daily. TSH slightly elevated at 3.850. 05/12 check free t4 05/14 the T4 within normal range. Likely euthyroid sick syndrome. Hypernatremia Polyuria - s/p free water replacement - Ordered urine sodium and creatinine, serum osmolarity, urine osmolality. Nephrology consulted. 05/10 nephrology consulted. Patient has an elevated serum osmolality as long as an elevated urine sodium in 24 hours which is a normal physiologic response. Polyuria not due to diabetes insipidus. Urine has decreased his weight has improved. I will start the patient on normal saline since patient has a concentrated urine and is total -11 L. 05/12 urine looks more clear today. Continue IV fluids. Continue to monitor BMP. Thrombocytopenia- resolved. - previous admission - 43 - no active bleeding. - Will monitor. - Consulted hematology for further evaluation. Okay with resuming Lovenox for DVT prophylaxis as platelet count has normalized. Diarrhea C. difficile toxin toxin PCR negative. Hold stool softeners and laxatives. Diarrhea resolved. Hematuria As per report, the patient had some blood clots reported on 05/11. UA checked. Likely consistent with hematuria and possible UTI with trace leukocyte esterase and increased white blood cells 97. Follow-up urine culture. Urine culture negative, patient currently on Levaquin. Hematuria resolved. Dysphagia Previously on tube feedings. Cleared by speech therapy to have a Pureed diet. ST following. Unsteady gait. Walking with the walker, at risk of falls. PT daily until deemed safe for discharge by PT. To have PT as OP DVT Prophylaxis - Teds SCDs - Lovenox for DVT prophylaxis on 05/04 - discussed with Dr. Conner (held for LP. resumed after LP) Discharge Planning pending improvement, decannulate sarah krishnamurthy consulted and ff, also PT to evaluate and recommend DC. Ambulating in the hallways with PT, however unsteady gait and patient is not feeling comfortable to go home, he is also impulsive. Walking with the walker, however at risk of falls. Impulsive behavior. PT daily until deemed safe for discharge by PT. To have PT as OP Problem Qualifiers (1) Sepsis: Qualified Codes: A41.9 - Sepsis, unspecified organism Melody Elizalde MD May 21, 2017 07:54
[2017-05-21] MEDS: ARTIFICIAL TEARS OPTH SOLN 15 ML BTL EACH EYE SCH ×2 (07:59→12:00)
[2017-05-21 08:00] VITALS: BP 118/68; PULSE 102; RESP 20; TEMP 98.8; O2SAT 95
[2017-05-21] MEDS: FAMOTIDINE 20 MG TAB PO SCH (08:01)
[2017-05-21] MEDS: TOPIRAMATE 25 MG TAB PO SCH (08:01)
[2017-05-21] MEDS: QUEtiapine FUMARATE 25 MG TAB PO SCH (08:01)
[2017-05-21] MEDS: ATENOLOL 50 MG TAB NG SCH (08:01)
[2017-05-21] MEDS: LACTOBACILLUS ACIDOPHILUS TAB PO SCH ×2 (08:02→12:35)
[2017-05-21] MEDS: SODIUM CHLORIDE 0.9% FLUSH 10 ML FLUSH SCH (08:02)
[2017-05-21 12:00] VITALS: BP 118/64; PULSE 102; RESP 20; TEMP 98.2; O2SAT 95
[2017-05-21] MEDS: ALUMINUM/MAGNESIUM/SIMETH 30 ML CUP PO PRN (12:35)
== END 2017-05-21 16:14 | disposition home or self-care (01) | DRG 4 ==
LOC: NEPC 16:49 → NEDA 17:38 → HIMW 21:35 → N07A 05-17 00:52
PROVIDERS: ADMIT Internal Medicine Critical Care Medicine; ATTEND Hospitalist
PROC: 5A1955Z Respiratory Ventilation, Greater than 96 Consecutive Hours (ICD-10-PCS; 2017-04-25)
PROC: 0BH17EZ Insertion of Endotracheal Airway into Trachea, Via Natural or Artificial Opening (ICD-10-PCS; 2017-04-25)
PROC: 02HV33Z Insertion of Infusion Device into Superior Vena Cava, Percutaneous Approach (ICD-10-PCS; 2017-04-27)
PROC: 0B113F4 Bypass Trachea to Cutaneous with Tracheostomy Device, Percutaneous Approach (ICD-10-PCS; principal; 2017-05-06)
PROC: 0BJ08ZZ Inspection of Tracheobronchial Tree, Via Natural or Artificial Opening Endoscopic (ICD-10-PCS; 2017-05-06)
PROC: 009U3ZX Drainage of Spinal Canal, Percutaneous Approach, Diagnostic (ICD-10-PCS; 2017-05-07)
DX: A41.9 Sepsis, unspecified organism (principal); J18.9 Pneumonia, unspecified organism; G92 Toxic encephalopathy; J15.0 Pneumonia due to Klebsiella pneumoniae; E87.0 Hyperosmolality and hypernatremia; D68.9 Coagulation defect, unspecified; R13.10 Dysphagia, unspecified; J96.01 Acute respiratory failure with hypoxia; J96.02 Acute respiratory failure with hypercapnia; E87.1 Hypo-osmolality and hyponatremia; F19.121 Other psychoactive substance abuse with intoxication delirium; I47.1 Supraventricular tachycardia; D69.6 Thrombocytopenia, unspecified; E83.51 Hypocalcemia; I48.0 Paroxysmal atrial fibrillation; R19.7 Diarrhea, unspecified; R26.81 Unsteadiness on feet; R31.0 Gross hematuria; D64.9 Anemia, unspecified; E87.6 Hypokalemia; E86.0 Dehydration; R35.8 Other polyuria; H91.90 Unspecified hearing loss, unspecified ear; I10 Essential (primary) hypertension; Y95 Nosocomial condition
CPT/HCPCS: 31600; 31624; 36556; 36600; 62270; 70450; 70544; 70546; 70553; 71010; 71260; 76937; 80048; 80053; 80202; 80307; 81001; 82150; 82306; 82550; 82552; 82570; 82652; 82746; 82805; 82945; 82948; 83010; 83605; 83615; 83690; 83735; 83880; 83930; 83935; 83970; 84100; 84132; 84133; 84155; 84157; 84300; 84439; 84443; 84484; 84540; 85007; 85025; 85027; 85060; 85384; 85610; 85730; 86403; 86592; 86651; 86652; 86653; 86654; 86703; 87015; 87040; 87070; 87077; 87086; 87116; 87186; 87205; 87206; 87449; 87493; 87497; 87529; 87641; 87798; 87799; 89051; 93005; 93306; 93970; 94002; 94003; 94640; 94664; 95819; 99285; A7521; A9579; J0153; J0282; J0360; J0456; J0610; J0692; J1160; J1450; J1650; J1940; J1956; J2060; J2250; J2543; J2765; J3010; J3370; J3480; J7030; J7040; J7050; J7060; J7120; Q9967